=== PATIENT | female | born 1955 | race Caucasian/White ===

== ENCOUNTER → 2022-05-03 08:50 | Outpatient (CLI) | payer MEDICARE, OTHER, SELFPAY ==
--- NOTE | 2022-05-03 08:54 | DI.RAD.S_ITS ---
PROCEDURE: XR KNEE RT 3V INDICATIONS: Right knee pain TECHNIQUE: 3 views of the knee were acquired. COMPARISON: None. FINDINGS: Bones: No fractures or dislocations. Moderate to severe tricompartmental osteoarthritis is seen with joint space narrowing , subchondral sclerosis and prominent marginal osteophyte formation most notably in medial femoral tibial compartment. No patellar subluxation. No suspicious bony lesions. Soft tissues: No joint effusion. No suspicious soft tissue calcifications. IMPRESSION: Moderate to severe tricompartmental osteoarthritis most notably in medial femoral tibial compartment. No fracture or dislocation. No significant joint effusion. Dictated by: Zain Morales M.D. on 05/03/2022 at 9:32 Approved by: Zain Morales M.D. on 05/03/2022 at 9:50
[2022-05-03 11:09] LABS: Microalbumin Urine Random 5.9 mg/dL (0-1.6)
[2022-05-03 11:24] LABS: Creatinine Urine Random 448.7 mg/dL; Microalbumi Creatinin Ratio Ur 13.1 ug/mg CR (<30)
[2022-05-03 11:31] LABS: Add Manual Diff / Slide Review NO; Basophils Absolute Auto 0 /uL (0-100); Basophils Percent Auto 0.5 % (0-2); Eosinophils Absolute Auto 200 /uL (0-450); Eosinophils Percent Auto 1.9 % (2-4); Hemoglobin 16.6 g/dL (12.0-16.0); Lymphocytes Absolute Auto 2300 /uL (1100-4500); Lymphocytes Percent Auto 28.5 % (25-40); Mean Corpuscular HGB Conc 33.9 % (30-36); Mean Corpuscular Hemoglobin 30.8 PG (26-34); Mean Corpuscular Volume 90.8 fL (80-100); Monocytes Absolute Auto 600 /uL (0-900); Monocytes Percent Auto 7.5 % (3-14); Neutrophils Absolute Auto 5100 /uL (1500-7000); Neutrophils Percent Auto 61.6 % (50-75); Platelet Count 249 X10^3/uL (150-400); Red Blood Cell Count 5.39 X10^6/uL (4.0-5.2); Red Cell Distribution Width 13.9 % (11.6-14.8); White Blood Cell Count 8.2 X10^3/uL (4.5-11.0)
[2022-05-03 11:53] LABS: Alanine Aminotransferase 31 IU/L (<35); Albumin 4.6 g/dL (3.5-5.0); Albumin Globulin Ratio 1.4 (1.0-2.8); Alkaline Phosphatase 85 U/L (38-126); Aspartate Aminotransferase 29 IU/L (14-36); BUN Creatinine Ratio 14.7 (6-22); Bilirubin Total 0.6 mg/dL (0.2-1.3); Blood Urea Nitrogen 15 mg/dL (7-17); Calcium 9.3 mg/dL (8.4-10.2); Carbon Dioxide 23 mmol/L (22-32); Chloride 106 mmol/L (98-107); Cholesterol 219 mg/dL (140-199); Estimated Glomerular Filt Rate > 60 mL/min (>60); Globulin 3.4 g/dL (1.7-4.1); Glucose 115 mg/dL (80-110); HDL Cholesterol 62 mg/dL (40-60); HEMOLYSIS < 15 (0-50); LDL Cholesterol Calculated 131 mg/dL (<100); Potassium 4.1 mmol/L (3.4-5.1); Sodium 140 mmol/L (137-145); Triglycerides 129 mg/dL (35-150)
== END ==
PROVIDERS: PCP Family Medicine; Referring Provider Family Medicine; Visit Provider Family Medicine
DX: M17.11 Unilateral primary osteoarthritis, right knee (principal); M25.561 Pain in right knee; E78.5 Hyperlipidemia, unspecified; D64.9 Anemia, unspecified; R79.89 Other specified abnormal findings of blood chemistry
CPT/HCPCS: 36415; 73562; 80053; 80061; 82043; 82570; 85025

== ENCOUNTER 2022-07-09 09:44 | Emergency (ER) | payer MEDICARE, OTHER, SELFPAY ==
[2022-07-09] VITALS (22 sets, daily range): BP systolic 128–174; BP diastolic 72–113; PULSE 77–101; RESP 16–20; TEMP 36.2; O2SAT 92–100; BMI 39.6
[2022-07-09 10:26] LABS: Add Manual Diff / Slide Review NO; Basophils Absolute Auto 0 /uL (0-100); Basophils Percent Auto 0.4 % (0-2); Eosinophils Absolute Auto 100 /uL (0-450); Eosinophils Percent Auto 1.8 % (2-4); Hematocrit 49.6 % (36-46); Hemoglobin 16.7 g/dL (12.0-16.0); Lymphocytes Absolute Auto 1700 /uL (1100-4500); Lymphocytes Percent Auto 22.8 % (25-40); Mean Corpuscular HGB Conc 33.7 % (30-36); Mean Corpuscular Hemoglobin 30.6 PG (26-34); Mean Corpuscular Volume 90.8 fL (80-100); Monocytes Absolute Auto 600 /uL (0-900); Monocytes Percent Auto 8.1 % (3-14); Neutrophils Absolute Auto 5100 /uL (1500-7000); Neutrophils Percent Auto 66.9 % (50-75); Platelet Count 280 X10^3/uL (150-400); Red Blood Cell Count 5.46 X10^6/uL (4.0-5.2); Red Cell Distribution Width 13.7 % (11.6-14.8); White Blood Cell Count 7.6 X10^3/uL (4.5-11.0)
--- NOTE | 2022-07-09 10:38 | ED_ITS ---
HPI - Abdominal Pain <Sterling Pena DO - Last Filed: 07/10/22 11:02> General Chief Complaint: Abdominal Pain Stated Complaint: abd pain lt side, sent by provider Time Seen by Provider: 07/09/22 09:50 History of Present Illness HPI narrative: 66-year-old female former smoker with history of episodes of hypertension presents with her in the chief complaint ongoing and worsening left lower quadrant pain. She states it has been present since about June 21 and she is been seen previously for the same complaint. She states she is had increasing left lower quadrant pain that is worse with motion and improves with rest. She denies any radiation of this pain. She is had decreasing appetite and states that she is unable to eat or drink anything because she vomits. She is had no diarrhea and has no urinary complaints. She denies any vaginal bleeding or discharge. She does not any trauma or injury. Her only abdominal surgeries are C-sections. She is had no fever or chills. She denies any injury. She denies back pain. She was seen and evaluated at an emergency department back in [place] where she comes from and had an extensive workup including labs and CT scan without any significant findings, she was discharged with a diagnosis of gastroenteritis. Related Data Previous Rx's Medication Instructions Recorded hydrocodone 5 mg-acetaminophen 325 1 tab PO Q6H PRN pain #12 tabs 07/09/22 mg tablet ondansetron 4 mg disintegrating 4 mg PO Q8H PRN nausea and 07/09/22 tablet vomiting #10 tabs Allergies Allergy/AdvReac Type Severity Reaction Status Date / Time acetaminophen [From Percocet] Allergy Mild Verified 07/09/22 09:01 ibuprofen Allergy Mild Rash Verified 07/09/22 09:01 oxycodone [From Percocet] Allergy Mild Verified 07/09/22 09:01 codeine Allergy Verified 07/09/22 08:55 Sulfa (Sulfonamide Allergy Verified 07/09/22 08:55 Antibiotics) Review of Systems <Sterling Pena DO - Last Filed: 07/10/22 11:02> Review of Systems Narrative: GENERAL: See HPI HEENT: Denies sinus pain, ear pain, sore throat, difficulty swallowing, dizziness. RESPIRATORY: Denies dyspnea, cough, wheezing, hemoptysis, sputum. CARDIOVASCULAR: Denies chest pain, palpitations, orthopnea, edema, GASTROINTESTINAL: See HPI. : Denies dysuria, frequency, incontinence, hematuria, urinary retention. MUSCULOSKELETAL: denies weakness, joint pain, or bony pain SKIN: Denies rash, skin lesions, or other NEUROLOGIC: Denies weakness, headache, numbness, change in speech, confusion, seizures, incoordination. PSYCHIATRIC: No concerning psychosocial issues. 12 point review of systems is negative except for those stated above Patient History <Sterling Pena DO - Last Filed: 07/10/22 11:02> Medical History Chicken pox Mumps Wears glasses Surgical History Anesthesia History of arthroscopic knee surgery (~1998) History of bladder surgery (~2011) History of section Family History Father Hypertension Mother Thyroid disease Sister History of heart disease Social History Smoking Status: Former smoker Smoking Status: Former smoker Exam <Sterling Pena DO - Last Filed: 07/10/22 11:02> Narrative Exam Narrative: GENERAL: [66] year old patient appears stated age. Well-developed patient, in mild distress. HEAD: Atraumatic. Normocephalic. EYES: Pupils equal round and reactive. Extraocular motions intact. No scleral icterus. No injection or drainage. ENT: Nose without bleeding, purulent drainage. Throat without erythema, tonsillar hypertrophy or exudate. Airway patent. NECK: Trachea midline. Non tender CARDIOVASCULAR: Regular rate and rhythm without murmurs, gallops, or rubs. RESPIRATORY: Clear to auscultation. Breath sounds equal bilaterally. No wheezes, rales, or rhonchi. GASTROINTESTINAL: Abdomen soft, tenderness in left lower quadrant, nondistended. EXTREMITIES: No edema or joint tenderness. BACK: Nontender without deformity or crepitance. No flank tenderness. NEURO: AOx3. SKIN: No rash or erythema of visible areas Initial Vital Signs Initial Vital Signs: Vital Signs Pulse Oximetry 98 07/09/22 09:59 <Roberto Ball MD - Last Filed: 07/10/22 06:51> Initial Vital Signs Initial Vital Signs: Vital Signs Pulse Oximetry 98 07/09/22 09:59 Course <Sterling Pena DO - Last Filed: 07/10/22 11:02> Orders Ordered: Discontinued Medications Hydrocodone Bitart/Acetaminophen (Hydrocodone/Acet 5/325 Prepack) 1 bottle MISC SEEINSTR ONE Stop: 07/09/22 20:22 Last Admin: 07/09/22 20:46 Dose: 1 bottle Documented By: GARETH Hydrocodone Bitart/Acetaminophen (Hydrocodone/Acet 5/325 Prepack) 1 bottle MISC SEEINSTR ONE Stop: 07/09/22 20:42 Dexamethasone (Dexamethasone 10 Mg/Ml Vial) 10 mg IV NOW ONE Stop: 07/09/22 16:07 Last Admin: 07/09/22 16:18 Dose: 10 mg Documented By: VAUGHN Diazepam (Diazepam 10 Mg/2 Ml Syringe) 2 mg IV NOW ONE Stop: 07/09/22 16:07 Last Admin: 07/09/22 16:18 Dose: 2 mg Documented By: VAUGHN Hydromorphone HCl (Hydromorphone 0.5 Mg Inj) 0.5 mg IV NOW ONE Stop: 07/09/22 12:15 Last Admin: 07/09/22 12:26 Dose: 0.5 mg Documented By: PROSPER Hydromorphone HCl (Hydromorphone 0.5 Mg Inj) 0.5 mg IV NOW ONE Stop: 07/09/22 18:51 Last Admin: 07/09/22 19:30 Dose: 0.5 mg Documented By: GARETH Sodium Chloride (Normal Saline 0.9%) 1,000 mls @ 1,000 mls/hr IV BOLUS ONE Stop: 07/09/22 13:13 Last Infusion: 07/09/22 13:33 Dose: 0 mls/hr Documented By: Admin: 07/09/22 12:26 Dose: 1,000 mls/hr Documented By: PROSPER Sodium Chloride (Normal Saline 0.9%) 1,000 mls @ 1,000 mls/hr IV BOLUS ONE Stop: 07/09/22 14:58 Last Admin: 07/09/22 19:11 Dose: Not Given Documented By: PROSPER Ondansetron HCl (Ondansetron 4 Mg/2 Ml Inj) 4 mg IV NOW ONE Stop: 07/09/22 12:15 Last Admin: 07/09/22 12:26 Dose: 4 mg Documented By: MLM Ondansetron HCl (Ondansetron 4 Mg Odt Prepack) 1 bottle MISC SEEINSTR ONE Stop: 07/09/22 20:22 Last Admin: 07/09/22 20:47 Dose: 1 bottle Documented By: GC Ondansetron HCl (Ondansetron 4 Mg Odt Prepack) 1 bottle MISC SEEINSTR ONE Stop: 07/09/22 20:42 Pantoprazole Sodium (Pantoprazole 40 Mg Vial) 40 mg IV NOW ONE Stop: 07/09/22 12:15 Last Admin: 07/09/22 12:26 Dose: 40 mg Documented By: MLM Potassium Chloride (Potassium Chloride 20 Meq/15 Ml Udc) 40 meq PO NOW ONE Stop: 07/09/22 18:51 Last Admin: 07/09/22 19:30 Dose: 40 meq Documented By: GC Vital Signs Vital signs: Vital Signs - 8 hr 07/09/22 13:00 07/09/22 13:30 07/09/22 14:00 Pulse Rate 87 88 84 Blood Pressure Pulse Oximetry 96 96 97 07/09/22 14:03 07/09/22 14:03 07/09/22 14:30 Pulse Rate 88 90 Blood Pressure 161/85 H Pulse Oximetry 97 97 07/09/22 14:31 07/09/22 14:31 07/09/22 15:02 Pulse Rate 90 101 H Blood Pressure 151/72 H Pulse Oximetry 98 97 07/09/22 15:30 07/09/22 16:08 07/09/22 16:10 Pulse Rate 97 H 77 Blood Pressure 151/84 H Pulse Oximetry 93 98 07/09/22 16:10 07/09/22 16:50 07/09/22 17:00 Pulse Rate 86 88 Blood Pressure Pulse Oximetry 95 93 94 07/09/22 17:30 Pulse Rate 90 Blood Pressure Pulse Oximetry 94 <Roberto Ball MD - Last Filed: 07/10/22 06:51> Course Course Narrative: 7:[address] Pena, patient here for flank pain and leg pain. MRI and CT scan otherwise reassuring as well as laboratory studies does show acute renal injury. Repeat laboratory studies are pending. Likely disposition home. No antibiotics indicated at this time. Will need home pain medication and nausea medication. Repeat laboratory studies are pending. Orders Ordered: Discontinued Medications Hydrocodone Bitart/Acetaminophen (Hydrocodone/Acet 5/325 Prepack) 1 bottle MISC SEEINSTR ONE Stop: 07/09/22 20:22 Last Admin: 07/09/22 20:46 Dose: 1 bottle Documented By: GARETH Hydrocodone Bitart/Acetaminophen (Hydrocodone/Acet 5/325 Prepack) 1 bottle MISC SEEINSTR ONE Stop: 07/09/22 20:42 Dexamethasone (Dexamethasone 10 Mg/Ml Vial) 10 mg IV NOW ONE Stop: 07/09/22 16:07 Last Admin: 07/09/22 16:18 Dose: 10 mg Documented By: VAUGHN Diazepam (Diazepam 10 Mg/2 Ml Syringe) 2 mg IV NOW ONE Stop: 07/09/22 16:07 Last Admin: 07/09/22 16:18 Dose: 2 mg Documented By: VAUGHN Hydromorphone HCl (Hydromorphone 0.5 Mg Inj) 0.5 mg IV NOW ONE Stop: 07/09/22 12:15 Last Admin: 07/09/22 12:26 Dose: 0.5 mg Documented By: PROSPER Hydromorphone HCl (Hydromorphone 0.5 Mg Inj) 0.5 mg IV NOW ONE Stop: 07/09/22 18:51 Last Admin: 07/09/22 19:30 Dose: 0.5 mg Documented By: GARETH Sodium Chloride (Normal Saline 0.9%) 1,000 mls @ 1,000 mls/hr IV BOLUS ONE Stop: 07/09/22 13:13 Last Infusion: 07/09/22 13:33 Dose: 0 mls/hr Documented By: Admin: 07/09/22 12:26 Dose: 1,000 mls/hr Documented By: PROSPER Sodium Chloride (Normal Saline 0.9%) 1,000 mls @ 1,000 mls/hr IV BOLUS ONE Stop: 07/09/22 14:58 Last Admin: 07/09/22 19:11 Dose: Not Given Documented By: PROSPER Ondansetron HCl (Ondansetron 4 Mg/2 Ml Inj) 4 mg IV NOW ONE Stop: 07/09/22 12:15 Last Admin: 07/09/22 12:26 Dose: 4 mg Documented By: MLM Ondansetron HCl (Ondansetron 4 Mg Odt Prepack) 1 bottle MISC SEEINSTR ONE Stop: 07/09/22 20:22 Last Admin: 07/09/22 20:47 Dose: 1 bottle Documented By: GC Ondansetron HCl (Ondansetron 4 Mg Odt Prepack) 1 bottle MISC SEEINSTR ONE Stop: 07/09/22 20:42 Pantoprazole Sodium (Pantoprazole 40 Mg Vial) 40 mg IV NOW ONE Stop: 07/09/22 12:15 Last Admin: 07/09/22 12:26 Dose: 40 mg Documented By: MLM Potassium Chloride (Potassium Chloride 20 Meq/15 Ml Udc) 40 meq PO NOW ONE Stop: 07/09/22 18:51 Last Admin: 07/09/22 19:30 Dose: 40 meq Documented By: GC Vital Signs Vital signs: Vital Signs - 8 hr 07/09/22 13:00 07/09/22 13:30 07/09/22 14:00 Pulse Rate 87 88 84 Blood Pressure Pulse Oximetry 96 96 97 07/09/22 14:03 07/09/22 14:03 07/09/22 14:30 Pulse Rate 88 90 Blood Pressure 161/85 H Pulse Oximetry 97 97 07/09/22 14:31 07/09/22 14:31 07/09/22 15:02 Pulse Rate 90 101 H Blood Pressure 151/72 H Pulse Oximetry 98 97 07/09/22 15:30 07/09/22 16:08 07/09/22 16:10 Pulse Rate 97 H 77 Blood Pressure 151/84 H Pulse Oximetry 93 98 07/09/22 16:10 07/09/22 16:50 07/09/22 17:00 Pulse Rate 86 88 Blood Pressure Pulse Oximetry 95 93 94 07/09/22 17:30 Pulse Rate 90 Blood Pressure Pulse Oximetry 94 MDM - Abdominal Pain <Sterling Pena DO - Last Filed: 07/10/22 11:02> Lab Data Result diagrams: 07/09/22 10:06 07/09/22 19:10 Labs: Lab Results 07/09/22 07/09/22 07/09/22 Range/Units 10:06 10:06 10:06 WBC 7.6 (4.5-11.0) X10^3/uL RBC 5.46 H (4.0-5.2) X10^6/uL Hgb 16.7 H (12.0-16.0) g/dL Hct 49.6 H (36-46) % MCV 90.8 (80-100) fL MCH 30.6 (26-34) PG MCHC 33.7 (30-36) % RDW 13.7 (11.6-14.8) % Plt Count 280 (150-400) X10^3/uL Neut % (Auto) 66.9 (50-75) % Lymph % (Auto) 22.8 L (25-40) % [place] % (Auto) 8.1 (3-14) % Eos % (Auto) 1.8 L (2-4) % Baso % (Auto) 0.4 (0-2) % Neut # (Auto) 5100 (6893-1327) /uL Lymph # (Auto) 1700 (1152-1618) /uL [place] # (Auto) 600 (0-900) /uL Eos # (Auto) 100 (0-450) /uL Baso # (Auto) 0 (0-100) /uL Sodium 141 (137-145) mmol/L Potassium 3.0 L (3.4-5.1) mmol/L Chloride 101 (98-107) mmol/L Carbon Dioxide 28 (22-32) mmol/L BUN 23 H (7-17) mg/dL Creatinine 1.57 H (0.52-1.04) mg/dL Estimated GFR 36 L (>60) mL/min BUN/Creatinine Ratio 14.6 (6-22) Glucose 124 H (80-110) mg/dL Lactate 1.4 (0.7-2.1) mmol/L Calcium 9.5 (8.4-10.2) mg/dL Total Bilirubin 0.8 (0.2-1.3) mg/dL AST 23 (14-36) IU/L ALT 19 (<35) IU/L Alkaline Phosphatase 70 (38-126) U/L Ammonia (9-30) umol/L Total Protein 8.3 H (6.3-8.2) g/dL Lipase 165 (23-300) U/L Urine RBC (0-5/HPF) Urine WBC (0-5/HPF) Ur Squamous Epith Cells (0-5/HPF) Urine Bacteria (None) Ur Culture Indicated? 07/09/22 07/09/22 07/09/22 Range/Units 12:56 14:48 19:10 WBC (4.5-11.0) X10^3/uL RBC (4.0-5.2) X10^6/uL Hgb (12.0-16.0) g/dL Hct (36-46) % MCV (80-100) fL MCH (26-34) PG MCHC (30-36) % RDW (11.6-14.8) % Plt Count (150-400) X10^3/uL Neut % (Auto) (50-75) % Lymph % (Auto) (25-40) % [place] % (Auto) (3-14) % Eos % (Auto) (2-4) % Baso % (Auto) (0-2) % Neut # (Auto) (5471-9366) /uL Lymph # (Auto) (1558-3349) /uL [place] # (Auto) (0-900) /uL Eos # (Auto) (0-450) /uL Baso # (Auto) (0-100) /uL Sodium 143 (137-145) mmol/L Potassium 3.1 L (3.4-5.1) mmol/L Chloride 106 (98-107) mmol/L Carbon Dioxide 27 (22-32) mmol/L BUN 18 H (7-17) mg/dL Creatinine 1.09 H (0.52-1.04) mg/dL Estimated GFR 56 L (>60) mL/min BUN/Creatinine Ratio 16.5 (6-22) Glucose 122 H (80-110) mg/dL Lactate (0.7-2.1) mmol/L Calcium 9.3 (8.4-10.2) mg/dL Total Bilirubin (0.2-1.3) mg/dL AST (14-36) IU/L ALT (<35) IU/L Alkaline Phosphatase (38-126) U/L Ammonia < 9 L (9-30) umol/L Total Protein (6.3-8.2) g/dL Lipase (23-300) U/L Urine RBC 0-1/hpf (0-5/HPF) Urine WBC 0-1/hpf (0-5/HPF) Ur Squamous Epith Cells 0-1 /hpf (0-5/HPF) Urine Bacteria Occasional (0-1) (None) Ur Culture Indicated? Cult not indicated Point of care testing: Urine Dip Bedside Urine Glucose Negative Bedside Urine Bilirubin - Negative Bedside Urine Ketone - Negative Urine Specific Rodman 1.015 Bedside Urine Occult Blood ++ Bedside Urine pH 6.0 Bedside Urine Protein - Negative Bedside Urine Urobilinogen - Negative Bedside Urine Nitrite - Negative Bedside Urine Leukocytes - Negative Esterase <Roberto Ball MD - Last Filed: 07/10/22 06:51> Lab Data Labs: Lab Results 07/09/22 07/09/22 07/09/22 Range/Units 10:06 10:06 10:06 WBC 7.6 (4.5-11.0) X10^3/uL RBC 5.46 H (4.0-5.2) X10^6/uL Hgb 16.7 H (12.0-16.0) g/dL Hct 49.6 H (36-46) % MCV 90.8 (80-100) fL MCH 30.6 (26-34) PG MCHC 33.7 (30-36) % RDW 13.7 (11.6-14.8) % Plt Count 280 (150-400) X10^3/uL Neut % (Auto) 66.9 (50-75) % Lymph % (Auto) 22.8 L (25-40) % [place] % (Auto) 8.1 (3-14) % Eos % (Auto) 1.8 L (2-4) % Baso % (Auto) 0.4 (0-2) % Neut # (Auto) 5100 (2568-7637) /uL Lymph # (Auto) 1700 (7447-1582) /uL [place] # (Auto) 600 (0-900) /uL Eos # (Auto) 100 (0-450) /uL Baso # (Auto) 0 (0-100) /uL Sodium 141 (137-145) mmol/L Potassium 3.0 L (3.4-5.1) mmol/L Chloride 101 (98-107) mmol/L Carbon Dioxide 28 (22-32) mmol/L BUN 23 H (7-17) mg/dL Creatinine 1.57 H (0.52-1.04) mg/dL Estimated GFR 36 L (>60) mL/min BUN/Creatinine Ratio 14.6 (6-22) Glucose 124 H (80-110) mg/dL Lactate 1.4 (0.7-2.1) mmol/L Calcium 9.5 (8.4-10.2) mg/dL Total Bilirubin 0.8 (0.2-1.3) mg/dL AST 23 (14-36) IU/L ALT 19 (<35) IU/L Alkaline Phosphatase 70 (38-126) U/L Ammonia (9-30) umol/L Total Protein 8.3 H (6.3-8.2) g/dL Lipase 165 (23-300) U/L Urine RBC (0-5/HPF) Urine WBC (0-5/HPF) Ur Squamous Epith Cells (0-5/HPF) Urine Bacteria (None) Ur Culture Indicated? 07/09/22 07/09/22 07/09/22 Range/Units 12:56 14:48 19:10 WBC (4.5-11.0) X10^3/uL RBC (4.0-5.2) X10^6/uL Hgb (12.0-16.0) g/dL Hct (36-46) % MCV (80-100) fL MCH (26-34) PG MCHC (30-36) % RDW (11.6-14.8) % Plt Count (150-400) X10^3/uL Neut % (Auto) (50-75) % Lymph % (Auto) (25-40) % [place] % (Auto) (3-14) % Eos % (Auto) (2-4) % Baso % (Auto) (0-2) % Neut # (Auto) (6547-8322) /uL Lymph # (Auto) (8125-8615) /uL [place] # (Auto) (0-900) /uL Eos # (Auto) (0-450) /uL Baso # (Auto) (0-100) /uL Sodium 143 (137-145) mmol/L Potassium 3.1 L (3.4-5.1) mmol/L Chloride 106 (98-107) mmol/L Carbon Dioxide 27 (22-32) mmol/L BUN 18 H (7-17) mg/dL Creatinine 1.09 H (0.52-1.04) mg/dL Estimated GFR 56 L (>60) mL/min BUN/Creatinine Ratio 16.5 (6-22) Glucose 122 H (80-110) mg/dL Lactate (0.7-2.1) mmol/L Calcium 9.3 (8.4-10.2) mg/dL Total Bilirubin (0.2-1.3) mg/dL AST (14-36) IU/L ALT (<35) IU/L Alkaline Phosphatase (38-126) U/L Ammonia < 9 L (9-30) umol/L Total Protein (6.3-8.2) g/dL Lipase (23-300) U/L Urine RBC 0-1/hpf (0-5/HPF) Urine WBC 0-1/hpf (0-5/HPF) Ur Squamous Epith Cells 0-1 /hpf (0-5/HPF) Urine Bacteria Occasional (0-1) (None) Ur Culture Indicated? Cult not indicated Point of care testing: Urine Dip Bedside Urine Glucose Negative Bedside Urine Bilirubin - Negative Bedside Urine Ketone - Negative Urine Specific Rodman 1.015 Bedside Urine Occult Blood ++ Bedside Urine pH 6.0 Bedside Urine Protein - Negative Bedside Urine Urobilinogen - Negative Bedside Urine Nitrite - Negative Bedside Urine Leukocytes - Negative Esterase Imaging Data MRI lumbar spine: Radiologist's Impression: [address] [address] Magnetic Resonance Report Signed Patient: Stephanie Hutson MR#: [id number] : 1955 Acct:[id number] Age/Sex: 66 / F Date of Service: 07/09/22 Loc: ED Accession Number: [id number] ?? Procedure: MR lumbar spine wo con Ordering Provider: Sterling Pena D.O. PROCEDURE:? MR LUMBAR SPINE WO CON ? INDICATIONS:? septic ? TECHNIQUE:? Noncontrast sagittal T1 spin echo and T2 fast echo, sagittal STIR, and T2 fast spin echo through the lumbar spine.? In cases with scoliosis, additional coronal T2 fast spin echo may be performed.? ? COMPARISON:? None. ? FINDINGS:? Image quality:? Excellent.? ? Alignment and Curvature:? There is leftward scoliotic curvature with apex at L2. ? Bone Marrow:? Marrow is of normal overall signal.? Reactive endplate changes appearing chronic are present at L1-2.? No acute vertebral body compression fractures.? ? Spinal Cord:? Conus medullaris terminates at the L1-2 level.? Visualized cord demonstrates normal signal and size.? ? Paraspinous Soft Tissues:? No paravertebral masses.? ? Discs: [id number] disc desiccation is present throughout the lumbar spine noting moderate to severe at L1-2. ? ? L1-L2:? Mild disc bulge without spinal stenosis or foraminal narrowing.? Mild facet and ligamentum flavum hypertrophy. ? L2-L3:? Minimal disc bulge without spinal stenosis or foraminal narrowing.? Facet and ligamentum flavum hypertrophy are present. ? L3-L4:? Mild disc bulge without spinal stenosis.? Facet and ligamentum flavum hypertrophy are present. ? L4-L5:? Prominent motion is present at this level.? Minimal disc bulge with minimal spinal stenosis.? No foraminal narrowing.? Facet and ligamentum flavum hypertrophy are present. ? L5-S1:? Prominent motion is present at this region.? Mild disc bulge without spinal stenosis.? There is an ill-defined focus overlying the right foramina. ? ? IMPRESSION:? ? Multilevel mild overall degenerative change. ? Focal area of ill-defined density overlying the right foramina.? This is suspected to be artifacts secondary to motion.? However, mass in this region cannot be definitively excluded.? If patient is able to tolerate exam, repeat views through this region are recommended. ? Dictated by: Felicia Cramer M.D. on 07/09/2022 at 17:15 ? ? Approved by: Felicia Cramer M.D. on 07/09/2022 at 17:18 ? CT scan - abdomen/pelvis: Radiologist's Impression: [address] [address] [address] Scan Report Signed Patient: Stephanie Hutson MR#: [id number] : 1955 Acct:[id number] Age/Sex: 66 / F Date of Service: 07/09/22 Loc: ED Accession Number: [id number] ?? Procedure: CT abdomen pelvis w con Ordering Provider: Sterling Pena D.O. PROCEDURE:? CT ABDOMEN PELVIS W CON ? INDICATIONS:? abdominal pain, cannot eat or drink ? TECHNIQUE:? After the administration of IV contrast, axial sections were acquired from the lung bases to the pubic symphysis.? Coronal and sagittal reformats were performed.? For radiation dose reduction, the following was used:? automated exposure control, adjustment of mA and/or kV according to patient size. ? COMPARISON:? None. ? FINDINGS:? Image quality:? Excellent.? ? Lung bases:? Unremarkable.? ? Heart:? No significant findings. ? ? ABDOMEN: Liver:? Liver is enlarged with steatosis. Gallbladder:? Unremarkable.? ? Biliary ducts:? Unremarkable.? ? Pancreas:? Unremarkable.? ? Spleen:? Unremarkable.? ? Adrenal Glands:? Unremarkable.? ? Kidneys and Ureters:? Unremarkable.? ? ? Stomach and Bowel:? Stomach, small bowel loops, and colon are nonobstructive.? There is a focal loop of descending colon demonstrate marked thickening with very minimal pericolonic stranding. Peritoneum:? No abnormal intraperitoneal fluid.? No free air.? ? Ventral Wall: ? No hernia.? Lipoma is noted within the lower left rectus musculature. Abdominal Nodes:? No retroperitoneal or mesenteric adenopathy by size criteria.? Vessels:? Aorta and inferior vena cava are normal in size.? ? PELVIS: Pelvic Organs:? Unremarkable.? ? Bladder:? Unremarkable.? ? Pelvic Nodes: No enlarged lymph nodes.? Miscellaneous: No inguinal hernias are seen. ? ? ? Bones:? Unremarkable.? IMPRESSION:? ? Nonspecific thickening within a focal loop of descending colon which could be secondary to incomplete distention.? However, very minimal appearance of streaky pericolonic stranding is present which can be related to very early colitis and clinical correlation is recommended. ? ? Dictated by: Felicia Cramer M.D. on 07/09/2022 at 12:25 ? ? Approved by: Felicia Cramer M.D. on 07/09/2022 at 12:27 ? Treatment and Disposition Social Determinants of Health that impact treatment or disposition: None Code Status and discussions:: Full code Shared decision making:: MDM Narrative Medical decision making narrative: 66-year-old female former smoker with history of episodes of hypertension presents with her in the chief complaint ongoing and worsening left l ower quadrant pain. She states it has been present since about June 21 and she is been seen previously for the same complaint. She states she is had increasing left lower quadrant pain that is worse with motion and improves with rest. She denies any radiation of this pain. She is had decreasing appetite and states that she is unable to eat or drink anything because she vomits. She is had no diarrhea and has no urinary complaints. She denies any vaginal bleeding or discharge. She does not any trauma or injury. Her only abdominal surgeries are C-sections. She is had no fever or chills. She denies any injury. She denies back pain. She was seen and evaluated at an emergency dep [facility] in [place] where she comes from and had an extensive workup including labs and CT scan without any significant findings, she was discharged with a diagnosis of gastroenteritis. 8:32 p.m.. I have reviewed patient's laboratory studies and repeat CMP. Significant improvement with BUN creatinine. Pain is resolved after medications. I have reassessed patient. Reviewed results with patient and . They do desire discharge home. They have family doctor in [facility] to follow up with this week. Return precautions reviewed with patient and . [facility] CC: ?Flank pain/leg pain ? Data collected from: Patient and ? Medical records reviewed: ?Primary care office visit from today and sent here ? Differential considered: ?Kidney stone/gastritis/colitis/degenerative disc disease but not limited to these ? Exam documented above, pertinent findings include: Abdominal tenderness ? Lab Test results independently reviewed as above. Pertinent findings: Acute renal injury elevated BUN and creatinine. However did improve after IV fluids ? ? Imaging studies independently reviewed: MRI and CT scan abdomen pelvis ? ? Treatments: IV fluids and Dilaudid ? Re-evaluations: Pain resolved after pain medication and IV fluids ? ? Diagnosis: Abdominal pain/sciatica ? Disposition: see below, along with detailed discharge instructions that have been reviewed with patient as well as indications for ED re-evaluation and additional outpatient follow up Discharge Plan Departure Patient Disposition: Home Clinical Impression: Acute left lumbar radiculopathy, Acute hypokalemia, Acute dehydration, Left lower quadrant abdominal pain Instructions: DI for Sciatica, DI for Abdominal Pain-Adult Activity Restrictions/Additional Instructions: See family doctor this week for re-evaluation. No driving or operating machinery tonight or when taking prescribed pain medication. Return if worse if any questions or concerns. Keep well hydrated. Increase your diet as tolerated. See family doctor for re-evaluation your blood pressure as well. Prescriptions: New hydrocodone-acetaminophen 5-325 mg tablet 1 tab PO Q6H PRN (Reason: pain) Qty: 12 0RF ondansetron 4 mg tablet,disintegrating 4 mg PO Q8H PRN (Reason: nausea and vomiting) Qty: 10 0RF Referrals: Maritza Daigle DO [Primary Care Provider] - Stand Alone Forms: Patient Portal/API
[2022-07-09 10:42] LABS: Alanine Aminotransferase 19 IU/L (<35); Alkaline Phosphatase 70 U/L (38-126); Aspartate Aminotransferase 23 IU/L (14-36); BUN Creatinine Ratio 14.6 (6-22); Bilirubin Total 0.8 mg/dL (0.2-1.3); Blood Urea Nitrogen 23 mg/dL (7-17); Calcium 9.5 mg/dL (8.4-10.2); Carbon Dioxide 28 mmol/L (22-32); Chloride 101 mmol/L (98-107); Estimated Glomerular Filt Rate 36 mL/min (>60); Glucose 124 mg/dL (80-110); Lactate (Lactic Acid) 1.4 mmol/L (0.7-2.1); Lipase 165 U/L (23-300); Sodium 141 mmol/L (137-145); Total Protein 8.3 g/dL (6.3-8.2)
--- NOTE | 2022-07-09 11:26 | DI.CT.S_ITS ---
PROCEDURE: CT ABDOMEN PELVIS W CON INDICATIONS: abdominal pain, cannot eat or drink TECHNIQUE: After the administration of IV contrast, axial sections were acquired from the lung bases to the pubic symphysis. Coronal and sagittal reformats were performed. For radiation dose reduction, the following was used: automated exposure control, adjustment of mA and/or kV according to patient size. COMPARISON: None. FINDINGS: Image quality: Excellent. Lung bases: Unremarkable. Heart: No significant findings. ABDOMEN: Liver: Liver is enlarged with steatosis. Gallbladder: Unremarkable. Biliary ducts: Unremarkable. Pancreas: Unremarkable. Spleen: Unremarkable. Adrenal Glands: Unremarkable. Kidneys and Ureters: Unremarkable. Stomach and Bowel: Stomach, small bowel loops, and colon are nonobstructive. There is a focal loop of descending colon demonstrate marked thickening with very minimal pericolonic stranding. Peritoneum: No abnormal intraperitoneal fluid. No free air. Ventral Wall: No hernia. Lipoma is noted within the lower left rectus musculature. Abdominal Nodes: No retroperitoneal or mesenteric adenopathy by size criteria. Vessels: Aorta and inferior vena cava are normal in size. PELVIS: Pelvic Organs: Unremarkable. Bladder: Unremarkable. Pelvic Nodes: No enlarged lymph nodes. Miscellaneous: No inguinal hernias are seen. Bones: Unremarkable. IMPRESSION: Nonspecific thickening within a focal loop of descending colon which could be secondary to incomplete distention. However, very minimal appearance of streaky pericolonic stranding is present which can be related to very early colitis and clinical correlation is recommended. Dictated by: Felicia Cramer M.D. on 07/09/2022 at 12:25 Approved by: Felicia Cramer M.D. on 07/09/2022 at 12:27
[2022-07-09] MEDS: ONDANSETRON 4 MG/2 ML INJ IV (12:26)
[2022-07-09] MEDS: PANTOPRAZOLE 40 MG VIAL IV (12:26)
[2022-07-09] MEDS: SODIUM CHLORIDE 0.9% 1,000 ML 1000 ML IV (12:26)
[2022-07-09] MEDS: HYDROMORPHONE 0.5 MG INJ IV ×2 (12:26→19:30)
[2022-07-09 13:21] LABS: Ammonia (NH3) < 9 umol/L (9-30)
[2022-07-09 15:36] LABS: Bacteria Urine Occasional (0-1); RBC Urine 0-1/HPF (0-5/HPF); Squamous Epithelial Cell Urine 0-1 /HPF (0-5/HPF); WBC Urine 0-1/HPF (0-5/HPF)
[2022-07-09 15:37] LABS: Culture Indicated Urine Cult Not Indicated
--- NOTE | 2022-07-09 16:06 | DI.MRI.S_ITS ---
PROCEDURE: MR LUMBAR SPINE WO CON INDICATIONS: septic TECHNIQUE: Noncontrast sagittal T1 spin echo and T2 fast echo, sagittal STIR, and T2 fast spin echo through the lumbar spine. In cases with scoliosis, additional coronal T2 fast spin echo may be performed. COMPARISON: None. FINDINGS: Image quality: Excellent. Alignment and Curvature: There is leftward scoliotic curvature with apex at L2. Bone Marrow: Marrow is of normal overall signal. Reactive endplate changes appearing chronic are present at L1-2. No acute vertebral body compression fractures. Spinal Cord: Conus medullaris terminates at the L1-2 level. Visualized cord demonstrates normal signal and size. Paraspinous Soft Tissues: No paravertebral masses. Discs: [id number] disc desiccation is present throughout the lumbar spine noting moderate to severe at L1-2. L1-L2: Mild disc bulge without spinal stenosis or foraminal narrowing. Mild facet and ligamentum flavum hypertrophy. L2-L3: Minimal disc bulge without spinal stenosis or foraminal narrowing. Facet and ligamentum flavum hypertrophy are present. L3-L4: Mild disc bulge without spinal stenosis. Facet and ligamentum flavum hypertrophy are present. L4-L5: Prominent motion is present at this level. Minimal disc bulge with minimal spinal stenosis. No foraminal narrowing. Facet and ligamentum flavum hypertrophy are present. L5-S1: Prominent motion is present at this region. Mild disc bulge without spinal stenosis. There is an ill-defined focus overlying the right foramina. IMPRESSION: Multilevel mild overall degenerative change. Focal area of ill-defined density overlying the right foramina. This is suspected to be artifacts secondary to motion. However, mass in this region cannot be definitively excluded. If patient is able to tolerate exam, repeat views through this region are recommended. Dictated by: Felicia Cramer M.D. on 07/09/2022 at 17:15 Approved by: Felicia Cramer M.D. on 07/09/2022 at 17:18
[2022-07-09] MEDS: DEXAMETHASONE 10 MG/ML VIAL IV (16:18)
[2022-07-09] MEDS: diazePAM 10 MG/2 ML SYRINGE 2 MG IV (16:18)
[2022-07-09 19:29] LABS: BUN Creatinine Ratio 16.5 (6-22); Blood Urea Nitrogen 18 mg/dL (7-17); Calcium 9.3 mg/dL (8.4-10.2); Carbon Dioxide 27 mmol/L (22-32); Chloride 106 mmol/L (98-107); Estimated Glomerular Filt Rate 56 mL/min (>60); Glucose 122 mg/dL (80-110); HEMOLYSIS < 15 (0-50); Potassium 3.1 mmol/L (3.4-5.1); Sodium 143 mmol/L (137-145)
[2022-07-09] MEDS: POTASSIUM CHLORIDE 20 MEQ/15 ML UDC 40 MEQ PO (19:30)
[2022-07-09] MEDS: HYDROCODONE/ACET 5/325 PREPACK 1 BOTTLE MISC (20:46)
[2022-07-09] MEDS: ONDANSETRON 4 MG ODT PREPACK 1 BOTTLE MISC (20:47)
[2022-07-12 16:05] LABS: Albumin 4.5 g/dL (3.5-5.0); Albumin Globulin Ratio 1.2 (1.0-2.8); Globulin 3.8 g/dL (1.7-4.1); HEMOLYSIS 26 (0-50)
== END 2022-07-09 20:53 | disposition home or self-care (01) ==
PROVIDERS: Emergency Medicine; Emergency Provider Emergency Medicine; PCP Family Medicine
DX: M54.16 Radiculopathy, lumbar region (principal); E87.6 Hypokalemia; E86.0 Dehydration; R10.32 Left lower quadrant pain
CPT/HCPCS: 36415; 72148; 74177; 80048; 80053; 81003; 81015; 82140; 83605; 83690; 85025; 96361; 96374; 96375; 96376; 99284; 99285; C9113; J1100; J1170; J2405; J3360

== ENCOUNTER → 2022-07-18 11:27 | Outpatient (CLI) | payer MEDICARE, OTHER, SELFPAY ==
--- NOTE | 2022-07-18 11:29 | DI.RAD.S_ITS ---
PROCEDURE: XR LUMBAR SPINE MIN 4V INDICATIONS: Low back pain TECHNIQUE: 5 views of the lumbar spine acquired, including bilateral oblique views. COMPARISON: [facility], MR, MR LUMBAR SPINE WO CON, 07/09/2022, 16:19. FINDINGS: Bones: 5 nonrib-bearing vertebrae are present. There is mild S-shaped curvature of the lumbar spine. Multilevel disc space narrowing degenerative endplate changes are seen that are most prominent at the L1-2 disc space level. Multilevel facet hypertrophy. No vertebral body compression fractures. No suspicious bony lesions. Soft tissues: Overlying bowel gas pattern is normal. No suspicious soft tissue calcifications. Oblique: No pars defects. IMPRESSION: Multilevel spondylosis is most prominent at the L1-2 disc space level. Approved by: Nick Mills M.D. on 07/18/2022 at 15:15
== END ==
PROVIDERS: PCP Family Medicine; Referring Provider Anesthesiology; Visit Provider Anesthesiology
DX: M47.26 Other spondylosis with radiculopathy, lumbar region (principal); M54.50 Low back pain, unspecified; D17.1 Benign lipomatous neoplasm of skin and subcutaneous tissue of trunk; R27.0 Ataxia, unspecified; R10.32 Left lower quadrant pain; G89.29 Other chronic pain
CPT/HCPCS: 72110; 99214

== ENCOUNTER → 2022-07-31 15:43 | Outpatient (CLI) | payer MEDICARE, OTHER, SELFPAY ==
--- NOTE | 2022-07-31 15:44 | DI.US.S_ITS ---
PROCEDURE: US ABDOMEN LIMITED INDICATIONS: LEFT GROIN PAIN TECHNIQUE: Real-time focused scanning was performed of the abdomen, with image documentation. COMPARISON: [facility], CT, CT ABDOMEN PELVIS W CON, 07/09/2022, 11:36. [facility], MR, MR LUMBAR SPINE WO CON, 07/09/2022, 16:19. FINDINGS: Scanning is performed at the area of clinical concern involving the anterior abdominal wall of the left lower quadrant. No findings of hernia can be seen. No masses are seen. IMPRESSION: Negative for hernia at the site of clinical concern. Dictated by: Yash Jackson M.D. on 07/31/2022 at 15:21 Approved by: Yash Jackson M.D. on 07/31/2022 at 15:22
== END ==
PROVIDERS: PCP Family Medicine; Referring Provider Surgery; Visit Provider Surgery
DX: R10.32 Left lower quadrant pain (principal)
CPT/HCPCS: 76705

== ENCOUNTER → 2022-09-07 12:25 | Outpatient (CLI) | payer MEDICARE, OTHER, SELFPAY ==
--- NOTE | 2022-09-07 12:28 | DI.MRI.S_ITS ---
PROCEDURE: MR THORACIC SPINE WO CON INDICATIONS: disease of the spinal cord unspecified TECHNIQUE: Noncontrast sagittal T1 spine echo and T2 fast spin echo, sagittal STIR, and T2 fast spin echo through the thoracic spine. COMPARISON: [facility], , MR LUMBAR SPINE WO CON, 07/09/2022, 16:19. FINDINGS: Image quality: This examination is limited by involuntary motion artifact. Alignment and Curvature: Moderate dextroconvex thoracic scoliosis is seen. No focal AP alignment abnormality is seen. Bone Marrow: Marrow is of normal overall signal. No acute vertebral body compression fractures. Spinal Cord: Visualized spinal cord is normal in size and signal. Paraspinous Soft Tissues: No paravertebral masses. Miscellaneous: Several levels of moderate neural foraminal narrowing can be seen within the mid thoracic cord. No significant central canal narrowing can be seen. IMPRESSION: No significant abnormality of the spinal cord is identified. Moderate dextroconvex scoliosis is seen. Several levels of moderate neural foraminal narrowing can be seen. Dictated by: Yash Jackson M.D. on 09/09/2022 at 11:01 Approved by: Yash Jackson M.D. on 09/09/2022 at 11:03
== END ==
PROVIDERS: Family Provider Family Medicine; PCP Family Medicine; Referring Provider Neurological Surgery; Visit Provider Neurological Surgery
DX: M48.061 Spinal stenosis, lumbar region without neurogenic claudication (principal); M41.9 Scoliosis, unspecified; R53.1 Weakness; G95.9 Disease of spinal cord, unspecified
CPT/HCPCS: 72146

== ENCOUNTER 2022-09-19 10:13 | Outpatient (CLI) | payer MEDICARE, OTHER, SELFPAY ==
--- NOTE | 2022-09-09 11:56 | PT.OIE ---
Addendum entered and electronically signed by Nan Colin PT 09/09/22 11:57: Late entry for evaluation performed 09/04/22 Original Note: Current Diagnoses Left lower quadrant pain (09/26/22) Difficulty in walking, not elsewhere classified (09/26/22) Other symptoms and signs involving the musculoskeletal system (09/26/22) Weakness (09/26/22) Past Medical History (Last Reviewed 09/04/22 @ 08:53 by David Burger MD) Ataxia Chicken pox Lipoma of abdominal wall Low back pain Mumps Wears glasses Past Surgical History (Last Reviewed 09/04/22 @ 08:53 by David Burger MD) Anesthesia History of arthroscopic knee surgery (~1998) History of bladder surgery (~2011) History of section Visit Care Team Role Provider Type Maritza Daigle DO Family Provider Physician Primary Care Provider Specialty: Medical Address: [address] [place] [address], [address], [address] Email: [email or web address] Gene Barrera Attending Provider Non-Staff Referring Provider Specialty: Neurosurgery Address: [address] [place] [address], [id number] Email: Physical Therapy Initial Evaluation PT-OP-A Visit Information Start: 09/04/22 12:59 Freq: Status: Active Protocol: Document 09/04/22 12:59 [facility]AK (Rec: 09/04/22 13:50 [facility] [id number]) Out-Patient Physical Therapy Visit Information Visit Information Visit Type Initial Evaluation Visit Start Time 13:00 Visit Stop Time 13:45 Total Visit Minutes 45 Visit Number 1 Evaluation Information Evaluation Date 09/04/22 PT-OP-B Current Condition Start: 09/04/22 12:59 Freq: Status: Active Protocol: Document 09/04/22 12:59 SAK (Rec: 09/04/22 13:50 [facility] [id number]) Current Condition History of Current Condition Onset Date 06/21/23 Current Complaints left anterior hip pain, left leg weakness History of Current Condition Was in [place], acute onset of pain anterior left hip, got worse, vomiting, HTN, tachycardia all lasted for 1 week. pain went down front of left leg to arch of foot with burning pain, reports spasms anterior left LE. A little better with use muscle relaxant new last week, weaned mostly off Hydrocodone can't hardly get out of bed, walks from bed to bathroom. Can't walk much or go up stairs due to weakness. Neurologist ordered another MRI to include thoracic spine, scheduled this Friday. EMG also ordered scheduled 10/10/22.. assists with all household activities and ADL's . 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 Used to sleep on left side, can't now, has to sleep right, sometimes pillow between legs though states sometimes that makes pain worse. Trying to get in to see neurologist before December. Prior Treatments and Tests MRI 06/29/22: Multilevel mild overall degenerative change. Focal area of ill-defined density overlying the right foramina. This is suspected to be artifacts secondary to motion. However, mass in this region cannot be definitively excluded. If patient is able to tolerate exam, repeat views through this region are recommended. 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 Baseline Function- Recreation/Hobbies took walks for exercise Current Functional Impairments (Reported) Functional Limitations- ADL's assisted Functional Limitations- Mobility/Gait limited to short distance household, mostly in bed, uses walker, wheelchair, or cane Functional Limitations- Work/School unable to work Functional Limitations- Recreation/ unable Hobbies Personal Factors Other Personal Factors That May Effect right knee meniscus tear Therapy/Recovery 3 C sections PT-OP-C Subjective Start: 09/04/22 12:59 Freq: Status: Active Protocol: Document 09/04/22 12:29 [facility] (Rec: 09/05/22 10:28 [facility] [id number]) OP-PT Pain Assessment Pain Assessment Grid Paper Pain Assessment Grid Completed Yes Location Left Anterior Leg Intensity 8 Description Aching,Burning,Pressure,Sharp, Shooting,Stabbing,Tender, Tightness,With Movement Frequency Frequent Pain Aggravating Factors Changing Position,ADL's, Activity,Standing,Walking Pain Alleviating Factors None Home Pain Medication Use Pain Medications Used Yes Pain Behaviors Pain Behaviors Facial Grimacing,Guarding, Holding Area,Restlessness, Wincing PT-OP-D Balance Start: 09/04/22 12:59 Freq: Status: Active Protocol: Document 09/04/22 12:29 [facility]AK (Rec: 09/05/22 10:28 [facility] [id number]) OP-PT Balance Assessment Standing Balance Static Standing Balance Ability Fair Dynamic Standing Balance Ability Fair Device Used SPC Standing Balance Comments uses walker and wheelchair also Balance Tests Other Other Balance Tests Performed unable to do balance testing due to pain Al Fall Scale Copyright Permission PT-OP-F Manual Assessment Start: 09/04/22 12:59 Freq: Status: Active Protocol: Document 09/04/22 12:29 [facility]AK (Rec: 09/05/22 10:28 [facility] [id number]) Manual Assessments Soft Tissue Assessment Soft Tissue Mobility Assessment difficulty to assess due to sensitivity to touch and palpation PT-OP-G Mobility & Gait Start: 09/04/22 12:59 Freq: Status: Active Protocol: Document 09/04/22 12:29 SAK (Rec: 09/05/22 10:28 [facility] [id number]) OP Mobility Evaluation Transfers Sit to Stand min left LE use OP Gait Assessment Gait Gait Assistance Required: Standby Assistance Distance (Feet) 80 Gait Deviations General Gait Pattern Antalgic Factors Limiting Gait Function Factors Limiting Gait Function Decreased Activity Tolerance, Decreased Strength,Pain Stair Climbing Evaluation Comments Stair Climbing Comments unable PT-OP-J Posture/Palpation/Skin Start: 09/04/22 12:59 Freq: Status: Active Protocol: Document 09/04/22 12:59 SAK (Rec: 09/04/22 13:50 [facility] [id number]) Posture Evaluation Position Standing Head/C-Spine Posture Forward Head T-Spine Posture Increased Kyphosis L-Spine Posture Increased Lordosis Comments Posture Comments fatigued quickly in standing preventing full objective evaluation in standing Palpation Assessment Location left hip Palpation Location ant, lateral Palpation Findings Muscle Guarding,Tenderness Palpation Details Very sensitive to touch, zakia minimal palpation PT-OP-K Range of Motion Start: 09/04/22 12:59 Freq: Status: Active Protocol: Document 09/04/22 12:39 [facility]AK (Rec: 09/09/22 11:52 [facility] [id number]) Lumbar Spine Range of Motion Lumbar Spine Active Testing Position Standing ROM Limitations Muscle Weakness,Pain Comments mod decrease all motions due to pain, with difficulty standing for ROM testing Hip Goniometric Range of Motion Hip Left Flexion w/Knee Flexed 90 Straight Leg Raise 55 Extension 0 Abduction 25 Internal Rotation 10 External Rotation 45 Comments unable to do SLRwithout mod assist, all motions painful requiring PT assist, soft end feel, stopped due to pain Right Hip ROM WFL Yes Hip ROM Limitations Hip ROM Limitations Muscle Weakness,Pain Knee Goniometric Range of Motion Knee rob Knee ROM WFL Yes Ankle and Foot Goniometric Range of Motion Ankle and Foot rob Ankle/Foot ROM WFL Yes PT-OP-L Special Tests Start: 09/04/22 12:59 Freq: Status: Active Protocol: Document 09/04/22 12:39 [facility] (Rec: 09/09/22 11:52 [facility] [id number]) Special Tests Lumbar Spine Special Tests Vertical Spine Loading Test Results positive inc pain Standing Flexion Comments positive inc pain Prone Instability Test Comments unable to tolerate laying prone Straight Leg Raise Comments unable left due to weakness PT-OP-M Strength Start: 09/04/22 12:59 Freq: Status: Active Protocol: Document 09/04/22 12:59 [facility] (Rec: 09/04/22 13:50 [facility] [id number]) Trunk Strength Trunk Manual Muscle Testing Flexion 2 Poor Extension 2 Poor Core Stabilization poor Hip Strength Hip Manual Muscle Testing Left Flexion (L2) 2- Poor- Extension (S1) 2- Poor- Abduction 2- Poor- Adduction 2- Poor- External Rotation 2- Poor- Internal Rotation 2- Poor- Comments limited by pain Right Flexion (L2) 4+ Good+ Extension (S1) 4+ Good+ Abduction 4 Good Adduction 4+ Good+ External Rotation 4 Good Internal Rotation 4+ Good+ Knee Strength Knee Manual Muscle Testing Left Flexion (S2) 3- Fair- Extension (L3) 3- Fair- Right Flexion (S2) 5 Normal Extension (L3) 5 Normal Ankle/Foot Strength Ankle and Foot Manual Muscle Testing Left Dorsiflexion (L4) 2+ Poor+ Plantarflexion (S1) 3- Fair- Right Dorsiflexion (L4) 4 Good Plantarflexion (S1) 4 Good Toe Strength Toe Manual Muscle Testing Left Great Toe Flexion 3- Fair- Extension 2+ Poor+ Right Great Toe Extension 5 Normal PT-OP-Q Treatments Start: 09/04/22 12:59 Freq: Status: Active Protocol: Document 09/04/22 12:39 [facility] (Rec: 09/09/22 11:52 [facility] [id number]) Self-Care/Home Management Treatment Education Patient Education Home Exercise Program,Pain Management Other Education issued written handout PT-OP-T Assessment and Plan Start: 09/04/22 12:59 Freq: Status: Active Protocol: Document 09/04/22 12:39 [facility] (Rec: 09/09/22 11:52 [facility] [id number]) Physical Therapy Assessment Rehab Potential Rehabilitation Potential Fair Evaluation Complexity Number of Personal Factors/Comorbidities 3 or More Number of Body Systems Impaired 4 or More Clinical Presentation at Evaluation Unstable Impairments Impairments Activity Tolerance,Gait,Pain, Strength Assessment Summary Assessment Patient presents to PT with severe, function limiting pain left anterior hip with radicular symptoms into foot with severe weakness necessitating the use of assistive device, and at times a wheelchair, spending the majority of time in bed. States no relief of pain with medications, positioning, ice or heat. Objective evaluation difficult due to severity of pain, significant weakness left LE with lack of reflexes. Patient having MRI this Friday and repeat EMG soon. Positive vertical loading test, unable to tolerate position for multiple special tests. Patient instructed in gentle isometric exercises and desensitization massage, supported bed positioning, activity as tolerated. Feel further medical testing indicated. Physical Therapy Plan Frequency and Duration Frequency of Treatment 2x/Week Duration of treatment (weeks) 8 Plan of Care Start Date 09/09/22 Plan of Care End Date 11/09/22 Therapeutic Interventions Therapeutic Interventions Home Exercise Program,Manual Therapy,Neuromuscular Re- education,Patient/Caregiver Education,Self-Care/Home Management,Soft Tissue Mobilization,Taping, Therapeutic Activities, Therapeutic Exercises Modalities Cold Pack/Ice Massage,Electric Stimulation,Hot Packs, Infrared Therapy,Traction- Mechanical,Ultrasound Next Visit Focus/Plan Next Note Type Treatment Note Next Visit Plan Discuss results of MRI if available, review HEP, gentle progression of ther ex, assess pelvic alignment and iliopsoas for trigger point and treat as able with manual techniques as indicated. Modalities as indicated for pain management.
--- NOTE | 2022-09-09 11:58 | PT.OPPOC ---
Addendum entered and electronically signed by Nan Colin PT 09/09/22 11:58: Late entry for patient appointment 09/04/22. Original Note: Physical, Occupational & Speech Therapy At Current Diagnoses Left lower quadrant pain (09/26/22) Difficulty in walking, not elsewhere classified (09/26/22) Other symptoms and signs involving the musculoskeletal system (09/26/22) Weakness (09/26/22) Visit Care Team Role Provider Type Maritza Daigle DO Family Provider Physician Primary Care Provider Specialty: Medical Address: [address] [place] [address], [address], [place], [address] Email: [email or web address] Geen Barrera Attending Provider Non-Staff Referring Provider Specialty: Neurosurgery Address: [address] [place] [address], [id number] Email: Plan Of Care PT-OP-T Assessment and Plan Start: 09/04/22 12:59 Freq: Status: Active Protocol: Document 09/04/22 12:39 SAK (Rec: 09/09/22 11:52 [facility] [id number]) Physical Therapy Assessment Rehab Potential Rehabilitation Potential Fair Evaluation Complexity Number of Personal Factors/Comorbidities 3 or More Number of Body Systems Impaired 4 or More Clinical Presentation at Evaluation Unstable Impairments Impairments Activity Tolerance,Gait,Pain, Strength Assessment Summary Assessment Patient presents to PT with severe, function limiting pain left anterior hip with radicular symptoms into foot with severe weakness necessitating the use of assistive device, and at times a wheelchair, spending the majority of time in bed. States no relief of pain with medications, positioning, ice or heat. Objective evaluation difficult due to severity of pain, significant weakness left LE with lack of reflexes. Patient having MRI this Friday and repeat EMG soon. Positive vertical loading test, unable to tolerate position for multiple special tests. Patient instructed in gentle isometric exercises and desensitization massage, supported bed positioning, activity as tolerated. Feel further medical testing indicated. Physical Therapy Plan Frequency and Duration Frequency of Treatment 2x/Week Duration of treatment (weeks) 8 Plan of Care Start Date 09/09/22 Plan of Care End Date 11/09/22 Therapeutic Interventions Therapeutic Interventions Home Exercise Program,Manual Therapy,Neuromuscular Re- education,Patient/Caregiver Education,Self-Care/Home Management,Soft Tissue Mobilization,Taping, Therapeutic Activities, Therapeutic Exercises Modalities Cold Pack/Ice Massage,Electric Stimulation,Hot Packs, Infrared Therapy,Traction- Mechanical,Ultrasound Next Visit Focus/Plan Next Note Type Treatment Note Next Visit Plan Discuss results of MRI if available, review HEP, gentle progression of ther ex, assess pelvic alignment and iliopsoas for trigger point and treat as able with manual techniques as indicated. Modalities as indicated for pain management. Plan of Care Dates Plan of Care Start Date 09/09/22 Plan of Care End Date 11/09/22 Electronically Signed by: Nan Colin, PT 09/09/22 [id number] If you are in agreement with this Plan of Care, please return a signed and dated copy. I have reviewed this Plan of Care and certify that the skilled therapy services above are required to meet the patient?s needs. Physician Signature Date Printed Name and Credentials Clinical Instructor Signature Printed Name and Credentials
--- NOTE | 2022-09-10 10:06 | PT.OTN ---
Current Diagnoses Left lower quadrant pain (09/26/22) Difficulty in walking, not elsewhere classified (09/26/22) Other symptoms and signs involving the musculoskeletal system (09/26/22) Weakness (09/26/22) Physical Therapy Treatment Note PT-OP-A Visit Information Start: 09/04/22 12:59 Freq: Status: Active Protocol: Document 09/10/22 09:04 SAK (Rec: 09/10/22 09:49 SAK [id number]) Out-Patient Physical Therapy Visit Information Visit Information Visit Type Treatment Note Visit Start Time 09:05 Visit Stop Time 10:00 Total Visit Minutes 55 Visit Number 2 Evaluation Information Evaluation Date 09/04/22 PT-OP-B Current Condition Start: 09/04/22 12:59 Freq: Status: Active Protocol: Document 09/10/22 09:04 SAK (Rec: 09/10/22 09:49 SAK [id number]) Current Condition History of Current Condition Onset Date 06/21/23 Current Complaints left anterior hip pain, left leg weakness History of Current Condition Was in [place], acute onset of pain anterior left hip, got worse, vomiting, HTN, tachycardia all lasted for 1 week. pain went down front of left leg to arch of foot with burning pain, reports spasms anterior left LE. A little better with use muscle relaxant new last week, weaned mostly off Hydrocodone can't hardly get out of bed, walks from bed to bathroom. Can't walk much or go up stairs due to weakness. Neurologist ordered another MRI to include thoracic spine, scheduled this Friday. EMG also ordered scheduled 10/10/22.. assists with all household activities and ADL's . 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 Used to sleep on left side, can't now, has to sleep right, sometimes pillow between legs though states sometimes that makes pain worse. Trying to get in to see neurologist before December. Prior Treatments and Tests MRI 06/29/22: Multilevel mild overall degenerative change. Focal area of ill-defined density overlying the right foramina. This is suspected to be artifacts secondary to motion. However, mass in this region cannot be definitively excluded. If patient is able to tolerate exam, repeat views through this region are recommended. Future Testing and Treatments Planned thoracic MRI this Friday EMG 10/10/22 Neurologist when able to get appointment Treatment Goals Patient/Caregiver Goals Regain full functional use of left LE, return to prior level of function with minimal to no pain PT-OP-C Subjective Start: 09/04/22 12:59 Freq: Status: Active Protocol: Document 09/10/22 09:04 SAK (Rec: 09/10/22 09:49 [facility] [id number]) OP-PT Subjective Patient Comments Patient Comments Stopped taking Hydrocodone as wasn't helping. Taking a nerve pain pill, unsure name, not Gabapentin. Doing HEP, walking a little better. Still having some tingling in her foot. Discussion of MRI results; mild foraminal narrowing, moderate dextrosciolois. Patient Reported Progress Improving PT-OP-D Balance Start: 09/04/22 12:59 Freq: Status: Active Protocol: Document 09/04/22 12:29 [facility] (Rec: 09/05/22 10:28 [facility] [id number]) OP-PT Balance Assessment Standing Balance Static Standing Balance Ability Fair Dynamic Standing Balance Ability Fair Device Used SPC Standing Balance Comments uses walker and wheelchair also Balance Tests Other Other Balance Tests Performed unable to do balance testing due to pain Al Fall Scale Copyright Permission PT-OP-F Manual Assessment Start: 09/04/22 12:59 Freq: Status: Active Protocol: Document 09/04/22 12:29 [facility] (Rec: 09/05/22 10:28 [facility] [id number]) Manual Assessments Soft Tissue Assessment Soft Tissue Mobility Assessment difficulty to assess due to sensitivity to touch and palpation PT-OP-G Mobility & Gait Start: 09/04/22 12:59 Freq: Status: Active Protocol: Document 09/04/22 12:29 [facility] (Rec: 09/05/22 10:28 [facility] [id number]) OP Mobility Evaluation Transfers Sit to Stand min left LE use OP Gait Assessment Gait Gait Assistance Required: Standby Assistance Distance (Feet) 80 Gait Deviations General Gait Pattern Antalgic Factors Limiting Gait Function Factors Limiting Gait Function Decreased Activity Tolerance, Decreased Strength,Pain Stair Climbing Evaluation Comments Stair Climbing Comments unable PT-OP-J Posture/Palpation/Skin Start: 09/04/22 12:59 Freq: Status: Active Protocol: Document 09/04/22 12:59 SAK (Rec: 09/04/22 13:50 [facility] [id number]) Posture Evaluation Position Standing Head/C-Spine Posture Forward Head T-Spine Posture Increased Kyphosis L-Spine Posture Increased Lordosis Comments Posture Comments fatigued quickly in standing preventing full objective evaluation in standing Palpation Assessment Location left hip Palpation Location ant, lateral Palpation Findings Muscle Guarding,Tenderness Palpation Details Very sensitive to touch, zakia minimal palpation PT-OP-K Range of Motion Start: 09/04/22 12:59 Freq: Status: Active Protocol: Document 09/04/22 12:39 [facility] (Rec: 09/09/22 11:52 [facility] [id number]) Lumbar Spine Range of Motion Lumbar Spine Active Testing Position Standing ROM Limitations Muscle Weakness,Pain Comments mod decrease all motions due to pain, with difficulty standing for ROM testing Hip Goniometric Range of Motion Hip Left Flexion w/Knee Flexed 90 Straight Leg Raise 55 Extension 0 Abduction 25 Internal Rotation 10 External Rotation 45 Comments unable to do SLRwithout mod assist, all motions painful requiring PT assist, soft end feel, stopped due to pain Right Hip ROM WFL Yes Hip ROM Limitations Hip ROM Limitations Muscle Weakness,Pain Knee Goniometric Range of Motion Knee rob Knee ROM WFL Yes Ankle and Foot Goniometric Range of Motion Ankle and Foot rob Ankle/Foot ROM WFL Yes PT-OP-L Special Tests Start: 09/04/22 12:59 Freq: Status: Active Protocol: Document 09/04/22 12:39 [facility] (Rec: 09/09/22 11:52 [facility] [id number]) Special Tests Lumbar Spine Special Tests Vertical Spine Loading Test Results positive inc pain Standing Flexion Comments positive inc pain Prone Instability Test Comments unable to tolerate laying prone Straight Leg Raise Comments unable left due to weakness PT-OP-M Strength Start: 09/04/22 12:59 Freq: Status: Active Protocol: Document 09/04/22 12:59 [facility] (Rec: 09/04/22 13:50 [facility] [id number]) Trunk Strength Trunk Manual Muscle Testing Flexion 2 Poor Extension 2 Poor Core Stabilization poor Hip Strength Hip Manual Muscle Testing Left Flexion (L2) 2- Poor- Extension (S1) 2- Poor- Abduction 2- Poor- Adduction 2- Poor- External Rotation 2- Poor- Internal Rotation 2- Poor- Comments limited by pain Right Flexion (L2) 4+ Good+ Extension (S1) 4+ Good+ Abduction 4 Good Adduction 4+ Good+ External Rotation 4 Good Internal Rotation 4+ Good+ Knee Strength Knee Manual Muscle Testing Left Flexion (S2) 3- Fair- Extension (L3) 3- Fair- Right Flexion (S2) 5 Normal Extension (L3) 5 Normal Ankle/Foot Strength Ankle and Foot Manual Muscle Testing Left Dorsiflexion (L4) 2+ Poor+ Plantarflexion (S1) 3- Fair- Right Dorsiflexion (L4) 4 Good Plantarflexion (S1) 4 Good Toe Strength Toe Manual Muscle Testing Left Great Toe Flexion 3- Fair- Extension 2+ Poor+ Right Great Toe Extension 5 Normal PT-OP-Q Treatments Start: 09/04/22 12:59 Freq: Status: Active Protocol: Document 09/10/22 09:04 [facility] (Rec: 09/10/22 09:49 [facility] [id number]) Cardio Equipment Recumbent Stepper (Sci-Fit) Duration (Minutes) 6 Resistance 1 Seat Position 10 Therapeutic Exercises Supine Exercises posture press Reps/Minutes 10x Comments arms at sides, palms up bridge Reps/Minutes 10x Comments cues for segmental gluteal set Reps/Minutes 10x TrA Reps/Minutes 5x Manual Therapy Treatment Taping IT band, lateral quad Treatment Focus inhibition, pain relief Type of Tape kinesiot Skin Inspection intact Comments 3 I strips, paper off tension distal to proximal PT-OP-R Modalities Start: 09/04/22 12:59 Freq: Status: Active Protocol: Document 09/10/22 09:04 [facility] (Rec: 09/10/22 10:05 [facility] [id number]) Hot Pack/Cold Pack Treatment Hot Pack Location left IT band and lateral quad Patient Position Supine Treatment Duration (minutes) 15 Patient Tolerance Good PT-OP-T Assessment and Plan Start: 09/04/22 12:59 Freq: Status: Active Protocol: Document 09/10/22 09:04 [facility] (Rec: 09/10/22 09:49 [facility] [id number]) Physical Therapy Assessment Impairments Impairments Activity Tolerance,Gait,Pain, Strength Assessment Summary Assessment Pain less today, continues to walk with cane, but responded well to cues for posture and gluteal activation with gait. Good tolerance for progression to supine posture press and bridge and starting with Sci-Fit. Physical Therapy Plan Frequency and Duration Frequency of Treatment 2x/Week Duration of treatment (weeks) 8 Plan of Care Start Date 09/09/22 Plan of Care End Date 11/09/22 Therapeutic Interventions Therapeutic Interventions Home Exercise Program,Manual Therapy,Neuromuscular Re- education,Patient/Caregiver Education,Self-Care/Home Management,Soft Tissue Mobilization,Taping, Therapeutic Activities, Therapeutic Exercises Modalities Cold Pack/Ice Massage,Electric Stimulation,Hot Packs, Infrared Therapy,Traction- Mechanical,Ultrasound Next Visit Focus/Plan Next Note Type Treatment Note Next Visit Plan Continue gentle progression of postural correction and core stab ex.
--- NOTE | 2022-09-12 16:01 | PT.OTN ---
Current Diagnoses Left lower quadrant pain (09/26/22) Difficulty in walking, not elsewhere classified (09/26/22) Other symptoms and signs involving the musculoskeletal system (09/26/22) Weakness (09/26/22) Physical Therapy Treatment Note PT-OP-A Visit Information Start: 09/04/22 12:59 Freq: Status: Active Protocol: Document 09/12/22 09:54 SP (Rec: 09/12/22 10:35 SP [id number]) Out-Patient Physical Therapy Visit Information Visit Information Visit Type Treatment Note Visit Start Time 09:48 Visit Stop Time 10:30 Total Visit Minutes 42 Visit Number 3 Number of SENIOR PRIVATE CLIENT ADVISOR Visits 1 Evaluation Information Evaluation Date 09/04/22 PT-OP-C Subjective Start: 09/04/22 12:59 Freq: Status: Active Protocol: Document 09/12/22 09:54 SP (Rec: 09/12/22 10:35 SP [id number]) OP-PT Subjective Patient Comments Patient Comments Pt reports has pain L anterior thigh, get tingling mainly knee down to arch foot, the ktaping seems to help. Leg is weak. Arrives decreased stance time onLLE and heavier on SPC . PT-OP-Q Treatments Start: 09/04/22 12:59 Freq: Status: Active Protocol: Document 09/12/22 09:54 SP (Rec: 09/12/22 10:35 SP [id number]) Therapeutic Exercises Supine Exercises heel slide Supine Exercise Name added to HEP for on/off bed support Side left Resistance Tb #4 support on foot Equipment Used shoe doffed Reps/Minutes 5 reps therapist assist 5%> S Comments challenged, better quad as reps progressed. LLE SAQ Supine Exercise Name added to HEP for on/off bed support Side left Resistance Tb #4 support on foot Equipment Used foam roller Reps/Minutes 5 reps therapist assist 5% Comments cued mid quad fac, able 2nd set with blue TB bridge Supine Exercise Name improved segmental movt Reps/Minutes 10x Comments cued R heel closer to buttock, decrease HS cramp- improved height with reps gluteal set Supine Exercise Name GS, QS Equipment Used (towel under L knee during QS) Reps/Minutes 10x Comments quick flick quad set (inhibit HS/calf) better quad set AP, patellar sup gld TrA Reps/Minutes 5x Gait Training Gait Activity SPC Description heel toe, quad/ glut fac midstance Device Used SPC/hurry bottom Level of Assistance S Distance/Duration 20 ft x2 laps Comments improved gait phase and small step pivot Manual Therapy Treatment Soft Tissue Mobilization quad, ITB Comments light rolling pin Taping IT band, lateral quad Body Location still good support- not need reapply today Treatment Focus inhibition, pain relief Type of Tape kinesiot Skin Inspection intact Comments 3 I strips, paper off tension distal to proximal PT-OP-T Assessment and Plan Start: 09/04/22 12:59 Freq: Status: Active Protocol: Document 09/12/22 09:54 SP (Rec: 09/12/22 10:35 SP [id number]) Physical Therapy Plan Frequency and Duration Frequency of Treatment 2x/Week Duration of treatment (weeks) 8 Plan of Care Start Date 09/09/22 Plan of Care End Date 11/09/22 Therapeutic Interventions Therapeutic Interventions Home Exercise Program,Manual Therapy,Neuromuscular Re- education,Patient/Caregiver Education,Self-Care/Home Management,Soft Tissue Mobilization,Taping, Therapeutic Activities, Therapeutic Exercises Modalities Cold Pack/Ice Massage,Electric Stimulation,Hot Packs, Infrared Therapy,Traction- Mechanical,Ultrasound Next Visit Focus/Plan Next Note Type Treatment Note Next Visit Plan Continue gentle progression of postural correction and core stab ex.
== END 2022-09-23 09:57 | disposition home or self-care (01) ==
PROVIDERS: Family Provider Family Medicine; PCP Family Medicine; Referring Provider Neurological Surgery; Visit Provider Neurological Surgery
DX: R29.898 Other symptoms and signs involving the musculoskeletal system (principal); R10.32 Left lower quadrant pain; R53.1 Weakness; R26.2 Difficulty in walking, not elsewhere classified
CPT/HCPCS: 95886; 95912; 97163; 97535

== ENCOUNTER → 2022-10-09 12:46 | Outpatient (CLI) | payer MEDICARE, OTHER, SELFPAY ==
[2022-10-09 13:32] LABS: Add Manual Diff / Slide Review NO; Basophils Absolute Auto 100 /uL (0-100); Basophils Percent Auto 0.9 % (0-2); Eosinophils Absolute Auto 200 /uL (0-450); Eosinophils Percent Auto 2.2 % (2-4); Hematocrit 45.5 % (36-46); Hemoglobin 15.3 g/dL (12.0-16.0); Lymphocytes Absolute Auto 2200 /uL (1100-4500); Mean Corpuscular HGB Conc 33.6 % (30-36); Mean Corpuscular Hemoglobin 30.7 PG (26-34); Mean Corpuscular Volume 91.4 fL (80-100); Monocytes Absolute Auto 600 /uL (0-900); Monocytes Percent Auto 6.9 % (3-14); Neutrophils Absolute Auto 5900 /uL (1500-7000); Platelet Count 254 X10^3/uL (150-400); Red Blood Cell Count 4.98 X10^6/uL (4.0-5.2)
[2022-10-09 13:53] LABS: Alanine Aminotransferase 34 IU/L (<35); Albumin 4.3 g/dL (3.5-5.0); Albumin Globulin Ratio 1.2 (1.0-2.8); Alkaline Phosphatase 66 U/L (38-126); Aspartate Aminotransferase 35 IU/L (14-36); BUN Creatinine Ratio 22.6 (6-22); Bilirubin Total 0.5 mg/dL (0.2-1.3); Blood Urea Nitrogen 19 mg/dL (7-17); Calcium 9.2 mg/dL (8.4-10.2); Carbon Dioxide 30 mmol/L (22-32); Chloride 101 mmol/L (98-107); Estimated Glomerular Filt Rate > 60 mL/min (>60); Globulin 3.5 g/dL (1.7-4.1); Glucose 99 mg/dL (80-110); HEMOLYSIS < 15 (0-50); Potassium 3.7 mmol/L (3.4-5.1); Sodium 140 mmol/L (137-145); Total Protein 7.8 g/dL (6.3-8.2)
[2022-10-09 16:29] LABS: Vitamin D 25 Hydroxy (D3) 47.8 ng/mL (30.0-100.0)
== END ==
PROVIDERS: Family Provider Family Medicine; PCP Family Medicine; Referring Provider Anesthesiology; Visit Provider Anesthesiology
DX: R03.0 Elevated blood-pressure reading, without diagnosis of hypertension (principal); R29.898 Other symptoms and signs involving the musculoskeletal system; M54.10 Radiculopathy, site unspecified; R10.32 Left lower quadrant pain; M54.50 Low back pain, unspecified; G89.29 Other chronic pain
CPT/HCPCS: 36415; 80053; 82306; 85025; 99214

== ENCOUNTER → 2022-10-19 09:42 | Outpatient (CLI) | payer MEDICARE, OTHER, SELFPAY ==
--- NOTE | 2022-10-19 09:45 | DI.MRI.S_ITS ---
PROCEDURE: MR HEAD/BRAIN WO CON INDICATIONS: MUSCLE WEAKNESS TECHNIQUE: Noncontrast axial T1 spin echo, axial T2 fast spin echo, sagittal and axial FLAIR, coronal T2 fast spin echo, axial gradient echo, axial diffusion and ADC through the brain. COMPARISON: None. FINDINGS: Image quality: Excellent. CSF Spaces: Basal cisterns are patent. No extra-axial fluid collections. Ventricles are normal in size and shape. Brain: No intracranial masses or hemorrhage. Peng/white matter interface is normal. Brainstem appears normal. Diffusion-weighted images demonstrate no acute ischemic insult. No chronic ischemic insults. Normal intravascular flow voids are present. Skull and face: Calvarium has normal marrow signal. Orbits appear normal. Sinuses: Sinuses and mastoids are clear. IMPRESSION: 1. No acute intracranial process. Dictated by: Felicia Cramer M.D. on 10/21/2022 at 12:09 Approved by: Felicia Cramer M.D. on 10/21/2022 at 12:10
== END ==
PROVIDERS: Family Provider Family Medicine; PCP Family Medicine; Referring Provider Neurological Surgery; Visit Provider Neurological Surgery
DX: M62.81 Muscle weakness (generalized); I63.9 Cerebral infarction, unspecified
CPT/HCPCS: 70551

== ENCOUNTER → 2022-11-12 12:49 | Outpatient (CLI) | payer MEDICARE, OTHER, SELFPAY ==
--- NOTE | 2022-11-12 12:51 | DI.MRI.S_ITS ---
PROCEDURE: MR LUMBAR SPINE WO CON INDICATIONS: Please re-assess right L5-S1 foramina density TECHNIQUE: Noncontrast sagittal T1 spin echo and T2 fast echo, sagittal STIR, and T2 fast spin echo through the lumbar spine. In cases with scoliosis, additional coronal T2 fast spin echo may be performed. COMPARISON: [facility], , MR LUMBAR SPINE WO CON, 07/09/2022, 16:19. FINDINGS: Image quality: Excellent. Alignment and Curvature: Leftward scoliotic curvature is present with apex at L2. Trace retrolisthesis of L1 on L2. Bone Marrow: Marrow is of normal overall signal. No acute vertebral body compression fractures. Spinal Cord: Conus medullaris terminates at the L1-2 level. Visualized cord demonstrates normal signal and size. Paraspinous Soft Tissues: No paravertebral masses. Discs: Tmdm-dm-clqqpwkw disc desiccation is present throughout the lumbar spine most severe at L1-2. L1-L2: Mild disc bulge without spinal stenosis or foraminal narrowing. Mild facet and ligamentum flavum hypertrophy without interval change. L2-L3: Mild disc bulge without spinal stenosis or foraminal narrowing. Mild facet and ligamentum flavum hypertrophy without interval change. L3-L4: Mild disc bulge without spinal stenosis or foraminal narrowing. Facet and ligamentum flavum hypertrophy are present without interval change. L4-L5: Mild disc bulge without gross spinal stenosis. No foraminal narrowing. Facet and ligamentum flavum hypertrophy are present. Previous canal narrowing with likely reflective of artifact. L5-S1: Mild disc bulge without spinal stenosis. Previous focus overlying the right foramina appears to be a lateral right facet joint cyst measuring 4 mm without compromise of the exiting nerve root. There is overall minimal right foraminal narrowing. IMPRESSION: Multilevel degenerative changes stable compared to prior exam. Dictated by: Felicia Cramer M.D. on 11/12/2022 at 15:56 Approved by: Felicia Cramer M.D. on 11/12/2022 at 16:02
--- NOTE | 2022-11-12 12:52 | DI.RAD.S_ITS ---
PROCEDURE: XR HIP W PEL IF DONE FELICIA MIN 4V INDICATIONS: Hip pain TECHNIQUE: AP pelvis with lateral view(s) of the bilateral hip(s). COMPARISON: None. FINDINGS: Bones: No fractures or dislocations. Pelvic ring appears intact. No suspicious bony lesions. Mild bilateral degenerative hip joint space narrowing. Soft tissues: The visualized bowel gas pattern is normal. No suspicious soft tissue calcifications. 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 Dictated by: Felicia Cramer M.D. on 11/12/2022 at 14:55 Approved by: Felicia Cramer M.D. on 11/12/2022 at 14:55
--- NOTE | 2022-11-12 12:52 | DI.RAD.S_ITS ---
PROCEDURE: XR KNEE LT 3V INDICATIONS: Left krunal pain TECHNIQUE: 3 views of the knee were acquired. COMPARISON: None. FINDINGS: Bones: No definitive fractures or dislocations. There is a vertical lucency in the proximal tibia, probably caused by an artifact. No suspicious bony lesions. Vhqtqwus-kt-affpzn degenerative joint disease. Osteopenia. Soft tissues: No joint effusion. No suspicious soft tissue calcifications. IMPRESSION: 1. Xtgulotr-rs-cqgrex degenerative joint disease. 2. Osteopenia. 3. No definitive fractures. There is a vertical lucency in the proximal tibia, probably caused by an artifact, but if there is clinical history of trauma, consider CT or MRI for further evaluation. Dictated by: Boogie Joel M.D. on 11/12/2022 at 15:22 Approved by: Boogie Joel M.D. on 11/12/2022 at 15:25
== END ==
PROVIDERS: Family Provider Family Medicine; PCP Family Medicine; Referring Provider Anesthesiology; Visit Provider Anesthesiology
DX: M54.16 Radiculopathy, lumbar region (principal); M25.559 Pain in unspecified hip; M25.562 Pain in left knee; M17.12 Unilateral primary osteoarthritis, left knee; M85.862 Other specified disorders of bone density and structure, left lower leg
CPT/HCPCS: 72148; 73522; 73562

== ENCOUNTER 2022-11-27 09:17 | Outpatient (CLI) | payer MEDICARE, OTHER, SELFPAY ==
[2022-11-27] VITALS (9 sets, daily range): BP systolic 158–190; BP diastolic 77–101; PULSE 82–96; RESP 13–20; TEMP 36.7; O2SAT 95–99
--- NOTE | 2022-11-27 09:19 | DI.RAD.S_ITS ---
PROCEDURE: PAIN L/S TRANSFORAMINAL INJECT INDICATIONS: SPONDYLOSIS COMPARISON: [facility], CR, XR LUMBAR SPINE MIN 4V, 07/18/2022, 11:40. FINDINGS: Fluoroscopic spot filming was performed to verify placement of spinal needles at the left L3-L4 transforaminal level(s), as labeled on the films. Appropriate location(s) of the needle tip(s) was confirmed by injection of iodinated contrast. IMPRESSION: Intraoperative guidance provided. Dictated by: Serge Vitale M.D. on 11/27/2022 at 13:04 Approved by: Serge Vitale M.D. on 11/27/2022 at 13:05
[2022-11-27] MEDS: DEXAMETHASONE 10 MG/ML VIAL INJ (09:45)
[2022-11-27] MEDS: IOPAMIDOL 15 ML VIAL 3 ML INJ (09:46)
[2022-11-27] MEDS: MIDAZOLAM 2 MG/2 ML VIAL IV (09:47)
--- NOTE | 2022-11-27 11:54 | P.PCN_ITS ---
Date/Time/Diagnoses Date of procedure: 11/27/22 Time of procedure: 09:30 Procedure Notes Physician: David Burger Total Fluoroscopy time (seconds): 30 Total sedation minutes: 19 Procedure in detail & Post-procedure care: Left L3-4 Transforaminal Epidural Steroid Injection Indications: Stephanie is presenting for treatment of lumbar radiculopathy with low back and leg pain. Preoperative diagnosis: Left lumbar radiculopathy Postoperative diagnosis: Same Focused Examination: Ax3 Mood and affect are normal Vital Signs: VSS ASA: 2 Consent: Following review of allergies and potential side effects/complications, including, but not necessarily limited to, infection, allergic reaction, local tissue breakdown, stroke, temporary or permanent nerve injury, paralysis, and possible , the patient indicated that they understood and agreed to proceed.? An informed consent document was signed by the patient, witnessed by a nurse and placed in the patient's chart.? Additionally, other treatment options including medications and physical therapy were reviewed with the patient. All questions were answered. Site was then marked. Anesthesia: After review of previous anesthetic history and IV conscious sedati on, the patient was deemed safe to proceed with today's procedure with IV conscious sedation. IV sedation was accomplished with midazolam 2 mg administered by the RN after order by Dr. Burger. Sedation was titrated to patient comfort during the course of the procedure. Patient remained responsive to all verbal commands. Position: Prone Monitoring: NIBP, Pulse oximetry, 3 lead EKG Needle used: 22G, 5 inch spinal needle Contrast: Isovue 300M Injectate: 10 mg Dexamethasone mixed with 1% lidocaine 1 ml and Normal Saline 1 ml Technique: The skin was prepped with chloraprep and draped in a sterile fashion. Time out was performed as per protocol. Oxygen applied via NC. Skin and subcutaneous structures of the needle entry site were infiltrated with 3mL of lidocaine 1%. Under fluoroscopic guidance, using an ipsilateral oblique view,?a 22 gauge 5 inch needle was advanced to the base of the left L3?pedicle.? The needle was advanced to the superio-posterior aspect of the neural foramen under lateral view.? Oblique and AP views were rechecked. No paresthesias noted by the patient during needle placement. In AP view and utilizing real-time digital subtraction fluoroscopy, 2 ml contrast was slowly injected. Epidural spread was observed without evidence for intravascular nor intrathecal uptake. Contrast spread was seen craniocaudally. The above injectate was then administered, and the needle was subsequently withdrawn. Band-Aids applied to injection sites. EBL: less than 1 ml Complications: None Post Procedure: Patient was taken to the recovery and monitored. The patient was provided a Pain Log to continue to record the patient's response to the target- specific procedure prior to the patient's follow-up visit with the referring physician. Patient was stable upon discharge. Detailed post procedure instructions were provided. Patient was asked to call in the event of worsening pain, fever, weakness, numbness or bladder or bowel incontinence.
== END 2022-11-27 10:20 | disposition home or self-care (01) ==
LOC: RAD 09:19
PROVIDERS: Family Provider Family Medicine; PCP Family Medicine; Referring Provider Anesthesiology; Visit Provider Anesthesiology
DX: M54.16 Radiculopathy, lumbar region (principal)
CPT/HCPCS: 64483; 99152; J1100; J2250

== ENCOUNTER 2023-01-21 15:00 | Outpatient (RCR) | payer MEDICARE, OTHER, SELFPAY ==
--- NOTE | 2022-09-04 13:00 | PT.OPPOC ---
Physical, Occupational & Speech Therapy At [facility] Current Diagnoses Radiculopathy, site unspecified (09/12/22) Left lower quadrant pain (09/12/22) Ataxia, unspecified (09/12/22) Other symptoms and signs involving the musculoskeletal system (09/12/22) Visit Care Team Role Provider Type Maritza Daigle DO Family Provider Physician Primary Care Provider Specialty: Medical Address: [address] [place] [address], [address], [address] Email: [email or web address] Edith Parisi MD Attending Provider Physician Referring Provider Specialty: General Surgery Address: [address] [place] [address], [address], [place], [address] Email: [email or web address] Plan Of Care PT-OP-T Assessment and Plan Start: 09/12/22 15:01 Freq: Status: Active Protocol: Document 09/12/22 09:48 SP (Rec: 09/12/22 16:00 SP [id number]) Physical Therapy Assessment Rehab Potential Rehabilitation Potential Fair Evaluation Complexity Number of Personal Factors/Comorbidities 3 or More Number of Body Systems Impaired 4 or More Clinical Presentation at Evaluation Unstable Impairments Impairments Activity Tolerance,Gait,Pain, Strength Assessment Summary Assessment Pt very sensitive to contact over Lateral L quad, very weak into knee extension, requires support for leg on/off table and SAQ motion. Therapist instructed QS, SAQ, HS with manual support and use of #4 TB for self help home. Improved L knee midstance stabiltiy better then when arrived with better awareness of quad facilitation. NExt tx: assess if [place] stim fac to support quad during therex, manual assist beneficial. Add Gait as intervention for POC progress. Physical Therapy Plan Frequency and Duration Frequency of Treatment 2x/Week Duration of treatment (weeks) 8 Plan of Care Start Date 09/09/22 Plan of Care End Date 11/09/22 Therapeutic Interventions Therapeutic Interventions Home Exercise Program,Manual Therapy,Neuromuscular Re- education,Patient/Caregiver Education,Self-Care/Home Management,Soft Tissue Mobilization,Taping, Therapeutic Activities, Therapeutic Exercises Modalities Cold Pack/Ice Massage,Electric Stimulation,Hot Packs, Infrared Therapy,Traction- Mechanical,Ultrasound Next Visit Focus/Plan Next Note Type Treatment Note Next Visit Plan Add Gait as intervention for POC progress functional gait. Assess response to added SAQ, QS. Continue quad and initiated glut strengthening for extension support during gait phase knee/hip/trunk stability. PT POC: Continue gentle progression of postural correction and core stab ex. Discuss results of MRI if available, review HEP, gentle progression of ther ex, assess pelvic alignment and iliopsoas for trigger point and treat as able with manual techniques as indicated. Modalities as indicated for pain management. Plan of Care Dates Plan of Care Start Date 09/09/22 Plan of Care End Date 11/09/22 Electronically Signed by: Nan Colin, PT 09/12/22 2041 If you are in agreement with this Plan of Care, please return a signed and dated copy. I have reviewed this Plan of Care and certify that the skilled therapy services above are required to meet the patient?s needs. Physician Signature Date Printed Name and Credentials Clinical Instructor Signature Printed Name and Credentials
--- NOTE | 2022-09-04 13:00 | PT.OIE ---
Current Diagnoses Radiculopathy, site unspecified (09/12/22) Left lower quadrant pain (09/12/22) Ataxia, unspecified (09/12/22) Other symptoms and signs involving the musculoskeletal system (09/12/22) Past Medical History (Last Reviewed 09/04/22 @ 08:53 by David Burger MD) Ataxia Chicken pox Lipoma of abdominal wall Low back pain Mumps Wears glasses Past Surgical History (Last Reviewed 09/04/22 @ 08:53 by David Burger MD) Anesthesia History of arthroscopic knee surgery (~1998) History of bladder surgery (~2011) History of section Visit Care Team Role Provider Type Maritza Daigle DO Family Provider Physician Primary Care Provider Specialty: Medical Address: [address] [place] [address], [address], [address] Email: [email or web address] Edith Parisi MD Attending Provider Physician Referring Provider Specialty: General Surgery Address: [address] [place] [address], [address], [address] Email: 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 Pain went down front of left leg to arch of foot with burning pain, reports spasms anterior left LE. A little better with use muscle relaxant new last week, weaned mostly off Hydrocodone , can't hardly get out of bed, walks from bed to bathroom only. Can't want much or go up stairs due to weakness. Neurologist ordered another MRI to include thoracic spine, scheduled for this Friday. EMG scheduled 10/10/22. assists with all household activities and ADL's . 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 Used to sleep on left side, can't now, has to sleep on right, sometimes pillow between legs though states sometimes that makes pain worse. Trying to get in to see neurologist before December. Prior Treatments and Tests MRI 06/29/22: multilevel mild overall degenerative change. Focal area of ill-defined density overlying the right foramina. This is suspected to be artifacts secondary to motion. However, mass in this egion cannot be definitely excluded. If patient is able to toelrate exam repeat views through this region are recommended. 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 Baseline Function- Recreation/Hobbies walks for exercise without difficulty Current Functional Impairments (Reported) Functional Limitations- ADL's requires assist Functional Limitations- Mobility/Gait uses SPC, walker, or wheelchair Functional Limitations- Work/School unable Functional Limitations- Recreation/ unable Hobbies Personal Factors Other Personal Factors That May Effect right knee meniscal tear Therapy/Recovery 3 C sections PT-OP-C Subjective Start: 09/12/22 15:01 Freq: Status: Active Protocol: Document 09/12/22 09:48 SP (Rec: 09/12/22 16:00 SP [id number]) OP-PT Subjective Patient Comments Patient Comments Pt reports has pain L anterior thigh, get tingling mainly knee down to arch foot, the ktaping seems to help. Leg is weak. Arrives decreased stance time onLLE and heavier on SPC . PT-OP-D Balance Start: 09/12/22 15:01 Freq: Status: Active Protocol: Document 09/04/22 13:00 [facility] (Rec: 09/12/22 16:05 [facility] [id number]) OP-PT Balance Assessment Sitting Balance Static Sitting Balance Ability Good Dynamic Sitting Balance Ability Good Standing Balance Static Standing Balance Ability Fair Dynamic Standing Balance Ability Fair Device Used SPC Standing Balance Comments unable to tolerate other balance testing Al Fall Scale Copyright Permission PT-OP-G Mobility & Gait Start: 09/12/22 15:01 Freq: Status: Active Protocol: Document 09/04/22 13:00 [facility] (Rec: 09/12/22 16:05 [facility] [id number]) OP Mobility Evaluation Bed Mobility Rolling painful Supine to and from Sit painful Transfers Sit to Stand painful, excess use right LE and UE's Car Transfers painful Floor Transfers unable Functional Movements Lifting and Carrying unable Squats unable OP Gait Assessment Gait Gait Assistance Required: Standby Assistance Distance (Feet) 80 Assistive Devices Assistive Device Straight Cane Orthotic/Prosthetic Devices or Brace: No Gait Deviations General Gait Pattern Antalgic,Decreased Stride Length,Decreased Feet Clearance,Lateral Trunk Lean, Wide Based Gait Stair Climbing Evaluation Comments Stair Climbing Comments unable PT-OP-H Neuro Start: 09/12/22 15:01 Freq: Status: Active Protocol: Document 09/04/22 13:00 [facility] (Rec: 09/12/22 16:05 [facility] [id number]) Sensation Evaluation Gross Sensation Gross Sensation Left LE Impaired Sensation Description Numbness,Tingling,Pain PT-OP-J Posture/Palpation/Skin Start: 09/12/22 15:01 Freq: Status: Active Protocol: Document 09/04/22 13:00 [facility] (Rec: 09/12/22 16:05 [facility] [id number]) Posture Evaluation Position Standing Head/C-Spine Posture Forward Head T-Spine Posture Increased Kyphosis L-Spine Posture Flexible Scoliosis on (R) Shoulder Posture (L) Rounded,(R) Rounded Scapula Posture (L) Protracted,(R) Protracted Arm Posture (L) Internally Rotated,(R) Internally Rotated Palpation Assessment Location left hip Palpation Location ant,lat Palpation Findings Muscle Guarding,Tenderness PT-OP-K Range of Motion Start: 09/12/22 15:01 Freq: Status: Active Protocol: Document 09/04/22 13:00 [facility] (Rec: 09/12/22 16:05 [facility] [id number]) Lumbar Spine Range of Motion Lumbar Spine Active ROM Limitations Pain Comments mod dec all motions Hip Goniometric Range of Motion Hip Left Hip ROM WFL No Flexion w/Knee Flexed 90 Straight Leg Raise 45 Extension 0 Abduction 25 Internal Rotation 10 External Rotation 45 Comments all motions left needed PT assist due to weakness and pain Right Hip ROM WFL Yes Hip ROM Limitations Hip ROM Limitations Muscle Weakness,Pain Ankle and Foot Goniometric Range of Motion Ankle and Foot Left Ankle/Foot ROM WFL Yes Right Ankle/Foot ROM WFL Yes PT-OP-L Special Tests Start: 09/12/22 15:01 Freq: Status: Active Protocol: Document 09/04/22 13:00 [facility] (Rec: 09/12/22 16:05 [facility] [id number]) Special Tests Lumbar Spine Special Tests Vertical Spine Loading Test Results inc pain Manual Traction Test Results inc pain Slump Test Results inc pain Prone Press Up Test Results unable to lay prone Straight Leg Raise Test Results unable to do test PT-OP-M Strength Start: 09/12/22 15:01 Freq: Status: Active Protocol: Document 09/04/22 13:00 [facility] (Rec: 09/12/22 16:05 [facility] [id number]) Trunk Strength Trunk Manual Muscle Testing Core Stabilization poor Comments unable to tolerate testing Hip Strength Hip Manual Muscle Testing Left Flexion (L2) 2- Poor- Extension (S1) 2- Poor- Abduction 2- Poor- Adduction 2- Poor- External Rotation 2- Poor- Internal Rotation 2- Poor- Comments tested sitting and supine Right Flexion (L2) 4+ Good+ Extension (S1) 4- Good- Abduction 4- Good- Adduction 4- Good- External Rotation 4- Good- Internal Rotation 4- Good- Comments tested sitting and supine Knee Strength Knee Manual Muscle Testing Left Flexion (S2) 3- Fair- Extension (L3) 3- Fair- Right Flexion (S2) 5 Normal Extension (L3) 5 Normal Ankle/Foot Strength Ankle and Foot Manual Muscle Testing Left Dorsiflexion (L4) 2+ Poor+ Plantarflexion (S1) 3- Fair- Right Dorsiflexion (L4) 4 Good Plantarflexion (S1) 4 Good Toe Strength Toe Manual Muscle Testing Left Great Toe Extension 2+ Poor+ Right Great Toe Extension 5 Normal PT-OP-Q Treatments Start: 09/12/22 15:01 Freq: Status: Active Protocol: Document 09/12/22 09:48 SP (Rec: 09/12/22 16:00 SP [id number]) Therapeutic Exercises Supine Exercises TA Reps/Minutes x5 GS, QS Side left Equipment Used (towel under L knee) Reps/Minutes x10 Comments quick flick quad set (inhibit HS/calf) better quad set AP, patellar sup gld bridge Supine Exercise Name improved segmental movt Reps/Minutes x10 reps Comments cued R heel closer to buttock, decrease HS cramp- improved height with reps SAQ Supine Exercise Name added to HEP for on/off bed support Side left Resistance Tb #4 support on foot Equipment Used foam roller under knees Reps/Minutes 5 reps therapist assist 5% Comments cued mid quad fac, able 2nd set with blue TB Heel slide Supine Exercise Name added to HEP for on/off bed support Side left Resistance TB #4 Support on foot Equipment Used shoe doffed Reps/Minutes 5 reps therapist assist 5% > S Comments challenged, better quad as reps progressed. Gait Training Gait Activity SPC Description heel toe, quad/ glut fac midstance- assessed L knee stabilization support Device Used [facility]/ [facility] Level of Assistance S Distance/Duration 20 ft x2 laps Treatment Focus quad, glut facilitation for knee stability, heel toe Comments improved gait phase and small step pivot Manual Therapy Treatment Soft Tissue Mobilization quad, ITB Body Location L vastus lateralis, ITB Mobilization Type Instrument Assisted,Myofascial Release Intensity/Depth Superficial Body Position Hooklying Comments light rolling pin- sensitive to touch- stopped Taping ITB, lateral quad Body Location still good support- not need reapply today Treatment Focus inhibition, pain relief Type of Tape Kinesio Tape Skin Inspection intact, normal color- still supportive Comments 3 I strips, paper off tension distal to proximal PT-OP-T Assessment and Plan Start: 09/12/22 15:01 Freq: Status: Active Protocol: Document 09/12/22 09:48 SP (Rec: 09/12/22 16:00 SP [id number]) Physical Therapy Assessment Rehab Potential Rehabilitation Potential Fair Evaluation Complexity Number of Personal Factors/Comorbidities 3 or More Number of Body Systems Impaired 4 or More Clinical Presentation at Evaluation Unstable Impairments Impairments Activity Tolerance,Gait,Pain, Strength Assessment Summary Assessment Pt very sensitive to contact over Lateral L quad, very weak into knee extension, requires support for leg on/off table and SAQ motion. Therapist instructed QS, SAQ, HS with manual support and use of #4 TB for self help home. Improved L knee midstance stabiltiy better then when arrived with better awareness of quad facilitation. NExt tx: assess if Finnish stim fac to support quad during therex, manual assist beneficial. Add Gait as intervention for POC progress. Physical Therapy Plan Frequency and Duration Frequency of Treatment 2x/Week Duration of treatment (weeks) 8 Plan of Care Start Date 09/09/22 Plan of Care End Date 11/09/22 Therapeutic Interventions Therapeutic Interventions Home Exercise Program,Manual Therapy,Neuromuscular Re- education,Patient/Caregiver Education,Self-Care/Home Management,Soft Tissue Mobilization,Taping, Therapeutic Activities, Therapeutic Exercises Modalities Cold Pack/Ice Massage,Electric Stimulation,Hot Packs, Infrared Therapy,Traction- Mechanical,Ultrasound Next Visit Focus/Plan Next Note Type Treatment Note Next Visit Plan Add Gait as intervention for POC progress functional gait. Assess response to added SAQ, QS. Continue quad and initiated glut strengthening for extension support during gait phase knee/hip/trunk stability. PT POC: Continue gentle progression of postural correction and core stab ex. Discuss results of MRI if available, review HEP, gentle progression of ther ex, assess pelvic alignment and iliopsoas for trigger point and treat as able with manual techniques as indicated. Modalities as indicated for pain management.
--- NOTE | 2022-09-10 16:42 | PT.OTN ---
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 Pain went down front of left leg to arch of foot with burning pain, reports spasms anterior left LE. A little better with use muscle relaxant new last week, weaned mostly off Hydrocodone , can't hardly get out of bed, walks from bed to bathroom only. Can't want much or go up stairs due to weakness. Neurologist ordered another MRI to include thoracic spine, scheduled for this Friday. EMG scheduled 10/10/22. assists with all household activities and ADL's . 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 Used to sleep on left side, can't now, has to sleep on right, sometimes pillow between legs though states sometimes that makes pain worse. Trying to get in to see neurologist before December. Prior Treatments and Tests MRI 06/29/22: multilevel mild overall degenerative change. Focal area of ill-defined density overlying the right foramina. This is suspected to be artifacts secondary to motion. However, mass in this egion cannot be definitely excluded. If patient is able to toelrate exam repeat views through this region are recommended. 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 Baseline Function- Recreation/Hobbies walks for exercise without difficulty Current Functional Impairments (Reported) Functional Limitations- ADL's requires assist Functional Limitations- Mobility/Gait uses SPC, walker, or wheelchair Functional Limitations- Work/School unable Functional Limitations- Recreation/ unable Hobbies Personal Factors Other Personal Factors That May Effect right knee meniscal tear Therapy/Recovery 3 C sections PT-OP-C Subjective Start: 09/12/22 15:01 Freq: Status: Active Protocol: Document 09/12/22 09:48 SP (Rec: 09/12/22 16:00 SP [id number]) OP-PT Subjective Patient Comments Patient Comments Pt reports has pain L anterior thigh, get tingling mainly knee down to arch foot, the ktaping seems to help. Leg is weak. Arrives decreased stance time onLLE and heavier on SPC . PT-OP-D Balance Start: 09/12/22 15:01 Freq: Status: Active Protocol: Document 09/04/22 13:00 SAK (Rec: 09/12/22 16:05 SAK [id number]) OP-PT Balance Assessment Sitting Balance Static Sitting Balance Ability Good Dynamic Sitting Balance Ability Good Standing Balance Static Standing Balance Ability Fair Dynamic Standing Balance Ability Fair Device Used SPC Standing Balance Comments unable to tolerate other balance testing Al Fall Scale Copyright Permission PT-OP-G Mobility & Gait Start: 09/12/22 15:01 Freq: Status: Active Protocol: Document 09/04/22 13:00 SAK (Rec: 09/12/22 16:05 SAK [id number]) OP Mobility Evaluation Bed Mobility Rolling painful Supine to and from Sit painful Transfers Sit to Stand painful, excess use right LE and UE's Car Transfers painful Floor Transfers unable Functional Movements Lifting and Carrying unable Squats unable OP Gait Assessment Gait Gait Assistance Required: Standby Assistance Distance (Feet) 80 Assistive Devices Assistive Device Straight Cane Orthotic/Prosthetic Devices or Brace: No Gait Deviations General Gait Pattern Antalgic,Decreased Stride Length,Decreased Feet Clearance,Lateral Trunk Lean, Wide Based Gait Stair Climbing Evaluation Comments Stair Climbing Comments unable PT-OP-H Neuro Start: 09/12/22 15:01 Freq: Status: Active Protocol: Document 09/04/22 13:00 [facility] (Rec: 09/12/22 16:05 [facility] [id number]) Sensation Evaluation Gross Sensation Gross Sensation Left LE Impaired Sensation Description Numbness,Tingling,Pain PT-OP-J Posture/Palpation/Skin Start: 09/12/22 15:01 Freq: Status: Active Protocol: Document 09/04/22 13:00 [facility] (Rec: 09/12/22 16:05 [facility] [id number]) Posture Evaluation Position Standing Head/C-Spine Posture Forward Head T-Spine Posture Increased Kyphosis L-Spine Posture Flexible Scoliosis on (R) Shoulder Posture (L) Rounded,(R) Rounded Scapula Posture (L) Protracted,(R) Protracted Arm Posture (L) Internally Rotated,(R) Internally Rotated Palpation Assessment Location left hip Palpation Location ant,lat Palpation Findings Muscle Guarding,Tenderness PT-OP-K Range of Motion Start: 09/12/22 15:01 Freq: Status: Active Protocol: Document 09/04/22 13:00 [facility] (Rec: 09/12/22 16:05 [facility] [id number]) Lumbar Spine Range of Motion Lumbar Spine Active ROM Limitations Pain Comments mod dec all motions Hip Goniometric Range of Motion Hip Left Hip ROM WFL No Flexion w/Knee Flexed 90 Straight Leg Raise 45 Extension 0 Abduction 25 Internal Rotation 10 External Rotation 45 Comments all motions left needed PT assist due to weakness and pain Right Hip ROM WFL Yes Hip ROM Limitations Hip ROM Limitations Muscle Weakness,Pain Ankle and Foot Goniometric Range of Motion Ankle and Foot Left Ankle/Foot ROM WFL Yes Right Ankle/Foot ROM WFL Yes PT-OP-L Special Tests Start: 09/12/22 15:01 Freq: Status: Active Protocol: Document 09/04/22 13:00 [facility] (Rec: 09/12/22 16:05 [facility] [id number]) Special Tests Lumbar Spine Special Tests Vertical Spine Loading Test Results inc pain Manual Traction Test Results inc pain Slump Test Results inc pain Prone Press Up Test Results unable to lay prone Straight Leg Raise Test Results unable to do test PT-OP-M Strength Start: 09/12/22 15:01 Freq: Status: Active Protocol: Document 09/04/22 13:00 SAK (Rec: 09/12/22 16:05 SAK [id number]) Trunk Strength Trunk Manual Muscle Testing Core Stabilization poor Comments unable to tolerate testing Hip Strength Hip Manual Muscle Testing Left Flexion (L2) 2- Poor- Extension (S1) 2- Poor- Abduction 2- Poor- Adduction 2- Poor- External Rotation 2- Poor- Internal Rotation 2- Poor- Comments tested sitting and supine Right Flexion (L2) 4+ Good+ Extension (S1) 4- Good- Abduction 4- Good- Adduction 4- Good- External Rotation 4- Good- Internal Rotation 4- Good- Comments tested sitting and supine Knee Strength Knee Manual Muscle Testing Left Flexion (S2) 3- Fair- Extension (L3) 3- Fair- Right Flexion (S2) 5 Normal Extension (L3) 5 Normal Ankle/Foot Strength Ankle and Foot Manual Muscle Testing Left Dorsiflexion (L4) 2+ Poor+ Plantarflexion (S1) 3- Fair- Right Dorsiflexion (L4) 4 Good Plantarflexion (S1) 4 Good Toe Strength Toe Manual Muscle Testing Left Great Toe Extension 2+ Poor+ Right Great Toe Extension 5 Normal PT-OP-Q Treatments Start: 09/12/22 15:01 Freq: Status: Active Protocol: Document 09/12/22 09:48 SP (Rec: 09/12/22 16:00 SP [id number]) Therapeutic Exercises Supine Exercises TA Reps/Minutes x5 GS, QS Side left Equipment Used (towel under L knee) Reps/Minutes x10 Comments quick flick quad set (inhibit HS/calf) better quad set AP, patellar sup gld bridge Supine Exercise Name improved segmental movt Reps/Minutes x10 reps Comments cued R heel closer to buttock, decrease HS cramp- improved height with reps SAQ Supine Exercise Name added to HEP for on/off bed support Side left Resistance Tb #4 support on foot Equipment Used foam roller under knees Reps/Minutes 5 reps therapist assist 5% Comments cued mid quad fac, able 2nd set with blue TB Heel slide Supine Exercise Name added to HEP for on/off bed support Side left Resistance TB #4 Support on foot Equipment Used shoe doffed Reps/Minutes 5 reps therapist assist 5% > S Comments challenged, better quad as reps progressed. Gait Training Gait Activity SPC Description heel toe, quad/ glut fac midstance- assessed L knee stabilization support Device Used [facility] [place]/ [facility] Level of Assistance S Distance/Duration 20 ft x2 laps Treatment Focus quad, glut facilitation for knee stability, heel toe Comments improved gait phase and small step pivot Manual Therapy Treatment Soft Tissue Mobilization quad, ITB Body Location L vastus lateralis, ITB Mobilization Type Instrument Assisted,Myofascial Release Intensity/Depth Superficial Body Position Hooklying Comments light rolling pin- sensitive to touch- stopped Taping ITB, lateral quad Body Location still good support- not need reapply today Treatment Focus inhibition, pain relief Type of Tape Kinesio Tape Skin Inspection intact, normal color- still supportive Comments 3 I strips, paper off tension distal to proximal PT-OP-T Assessment and Plan Start: 09/12/22 15:01 Freq: Status: Active Protocol: Document 09/12/22 09:48 SP (Rec: 09/12/22 16:00 SP [id number]) Physical Therapy Assessment Rehab Potential Rehabilitation Potential Fair Evaluation Complexity Number of Personal Factors/Comorbidities 3 or More Number of Body Systems Impaired 4 or More Clinical Presentation at Evaluation Unstable Impairments Impairments Activity Tolerance,Gait,Pain, Strength Assessment Summary Assessment Pt very sensitive to contact over Lateral L quad, very weak into knee extension, requires support for leg on/off table and SAQ motion. Therapist instructed QS, SAQ, HS with manual support and use of #4 TB for self help home. Improved L knee midstance stabiltiy better then when arrived with better awareness of quad facilitation. NExt tx: assess if Argentine stim fac to support quad during therex, manual assist beneficial. Add Gait as intervention for POC progress. Physical Therapy Plan Frequency and Duration Frequency of Treatment 2x/Week Duration of treatment (weeks) 8 Plan of Care Start Date 09/09/22 Plan of Care End Date 11/09/22 Therapeutic Interventions Therapeutic Interventions Home Exercise Program,Manual Therapy,Neuromuscular Re- education,Patient/Caregiver Education,Self-Care/Home Management,Soft Tissue Mobilization,Taping, Therapeutic Activities, Therapeutic Exercises Modalities Cold Pack/Ice Massage,Electric Stimulation,Hot Packs, Infrared Therapy,Traction- Mechanical,Ultrasound Next Visit Focus/Plan Next Note Type Treatment Note Next Visit Plan Add Gait as intervention for POC progress functional gait. Assess response to added SAQ, QS. Continue quad and initiated glut strengthening for extension support during gait phase knee/hip/trunk stability. PT POC: Continue gentle progression of postural correction and core stab ex. Discuss results of MRI if available, review HEP, gentle progression of ther ex, assess pelvic alignment and iliopsoas for trigger point and treat as able with manual techniques as indicated. Modalities as indicated for pain management.
--- NOTE | 2022-09-12 10:30 | PT.OTN ---
Current Diagnoses Radiculopathy, site unspecified (09/12/22) Left lower quadrant pain (09/12/22) Ataxia, unspecified (09/12/22) Other symptoms and signs involving the musculoskeletal system (09/12/22) Physical Therapy Treatment Note PT-OP-A Visit Information Start: 09/12/22 15:01 Freq: Status: Active Protocol: Document 09/12/22 09:48 SP (Rec: 09/12/22 16:00 SP [id number]) Out-Patient Physical Therapy Visit Information Visit Information Visit Type Treatment Note Visit Start Time 09:48 Visit Stop Time 10:30 Total Visit Minutes 42 Visit Number 3 Number of SALES AND SERVICE SPECIALIST Visits 1 Evaluation Information Evaluation Date 09/04/22 PT-OP-B Current Condition Start: 09/12/22 15:01 Freq: Status: Active Protocol: Document 09/04/22 13:00 SAK (Rec: 09/12/22 16:05 SAK [id number]) Current Condition History of Current Condition Onset Date 06/21/23 Current Complaints left anterior hip pain, left leg weakness History of Current Condition Was in [place], had acute onset pain left anterior hip for no known reason, got worse including vomiting, HTN and tachycardia all lasted for about 1 week. Pain went down front of left leg to arch of foot with burning pain, reports spasms anterior left LE. A little better with use muscle relaxant new last week, weaned mostly off Hydrocodone , can't hardly get out of bed, walks from bed to bathroom only. Can't want much or go up stairs due to weakness. Neurologist ordered another MRI to include thoracic spine, scheduled for this Friday. EMG scheduled 10/10/22. assists with all household activities and ADL's . 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 Used to sleep on left side, can't now, has to sleep on right, sometimes pillow between legs though states sometimes that makes pain worse. Trying to get in to see neurologist before December. Prior Treatments and Tests MRI 06/29/22: multilevel mild overall degenerative change. Focal area of ill-defined density overlying the right foramina. This is suspected to be artifacts secondary to motion. However, mass in this egion cannot be definitely excluded. If patient is able to toelrate exam repeat views through this region are recommended. 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 Baseline Function- Recreation/Hobbies walks for exercise without difficulty Current Functional Impairments (Reported) Functional Limitations- ADL's requires assist Functional Limitations- Mobility/Gait uses SPC, walker, or wheelchair Functional Limitations- Work/School unable Functional Limitations- Recreation/ unable Hobbies Personal Factors Other Personal Factors That May Effect right knee meniscal tear Therapy/Recovery 3 C sections PT-OP-C Subjective Start: 09/12/22 15:01 Freq: Status: Active Protocol: Document 09/12/22 09:48 SP (Rec: 09/12/22 16:00 SP [id number]) OP-PT Subjective Patient Comments Patient Comments Pt reports has pain L anterior thigh, get tingling mainly knee down to arch foot, the ktaping seems to help. Leg is weak. Arrives decreased stance time onLLE and heavier on SPC . PT-OP-D Balance Start: 09/12/22 15:01 Freq: Status: Active Protocol: Document 09/04/22 13:00 SAK (Rec: 09/12/22 16:05 SAK [id number]) OP-PT Balance Assessment Sitting Balance Static Sitting Balance Ability Good Dynamic Sitting Balance Ability Good Standing Balance Static Standing Balance Ability Fair Dynamic Standing Balance Ability Fair Device Used SPC Standing Balance Comments unable to tolerate other balance testing Al Fall Scale Copyright Permission PT-OP-G Mobility & Gait Start: 09/12/22 15:01 Freq: Status: Active Protocol: Document 09/04/22 13:00 SAK (Rec: 09/12/22 16:05 SAK [id number]) OP Mobility Evaluation Bed Mobility Rolling painful Supine to and from Sit painful Transfers Sit to Stand painful, excess use right LE and UE's Car Transfers painful Floor Transfers unable Functional Movements Lifting and Carrying unable Squats unable OP Gait Assessment Gait Gait Assistance Required: Standby Assistance Distance (Feet) 80 Assistive Devices Assistive Device Straight Cane Orthotic/Prosthetic Devices or Brace: No Gait Deviations General Gait Pattern Antalgic,Decreased Stride Length,Decreased Feet Clearance,Lateral Trunk Lean, Wide Based Gait Stair Climbing Evaluation Comments Stair Climbing Comments unable PT-OP-H Neuro Start: 09/12/22 15:01 Freq: Status: Active Protocol: Document 09/04/22 13:00 [facility] (Rec: 09/12/22 16:05 [facility] [id number]) Sensation Evaluation Gross Sensation Gross Sensation Left LE Impaired Sensation Description Numbness,Tingling,Pain PT-OP-J Posture/Palpation/Skin Start: 09/12/22 15:01 Freq: Status: Active Protocol: Document 09/04/22 13:00 [facility] (Rec: 09/12/22 16:05 [facility] [id number]) Posture Evaluation Position Standing Head/C-Spine Posture Forward Head T-Spine Posture Increased Kyphosis L-Spine Posture Flexible Scoliosis on (R) Shoulder Posture (L) Rounded,(R) Rounded Scapula Posture (L) Protracted,(R) Protracted Arm Posture (L) Internally Rotated,(R) Internally Rotated Palpation Assessment Location left hip Palpation Location ant,lat Palpation Findings Muscle Guarding,Tenderness PT-OP-K Range of Motion Start: 09/12/22 15:01 Freq: Status: Active Protocol: Document 09/04/22 13:00 [facility] (Rec: 09/12/22 16:05 [facility] [id number]) Lumbar Spine Range of Motion Lumbar Spine Active ROM Limitations Pain Comments mod dec all motions Hip Goniometric Range of Motion Hip Left Hip ROM WFL No Flexion w/Knee Flexed 90 Straight Leg Raise 45 Extension 0 Abduction 25 Internal Rotation 10 External Rotation 45 Comments all motions left needed PT assist due to weakness and pain Right Hip ROM WFL Yes Hip ROM Limitations Hip ROM Limitations Muscle Weakness,Pain Ankle and Foot Goniometric Range of Motion Ankle and Foot Left Ankle/Foot ROM WFL Yes Right Ankle/Foot ROM WFL Yes PT-OP-L Special Tests Start: 09/12/22 15:01 Freq: Status: Active Protocol: Document 09/04/22 13:00 [facility] (Rec: 09/12/22 16:05 [facility] [id number]) Special Tests Lumbar Spine Special Tests Vertical Spine Loading Test Results inc pain Manual Traction Test Results inc pain Slump Test Results inc pain Prone Press Up Test Results unable to lay prone Straight Leg Raise Test Results unable to do test PT-OP-M Strength Start: 09/12/22 15:01 Freq: Status: Active Protocol: Document 09/04/22 13:00 SAK (Rec: 09/12/22 16:05 SAK [id number]) Trunk Strength Trunk Manual Muscle Testing Core Stabilization poor Comments unable to tolerate testing Hip Strength Hip Manual Muscle Testing Left Flexion (L2) 2- Poor- Extension (S1) 2- Poor- Abduction 2- Poor- Adduction 2- Poor- External Rotation 2- Poor- Internal Rotation 2- Poor- Comments tested sitting and supine Right Flexion (L2) 4+ Good+ Extension (S1) 4- Good- Abduction 4- Good- Adduction 4- Good- External Rotation 4- Good- Internal Rotation 4- Good- Comments tested sitting and supine Knee Strength Knee Manual Muscle Testing Left Flexion (S2) 3- Fair- Extension (L3) 3- Fair- Right Flexion (S2) 5 Normal Extension (L3) 5 Normal Ankle/Foot Strength Ankle and Foot Manual Muscle Testing Left Dorsiflexion (L4) 2+ Poor+ Plantarflexion (S1) 3- Fair- Right Dorsiflexion (L4) 4 Good Plantarflexion (S1) 4 Good Toe Strength Toe Manual Muscle Testing Left Great Toe Extension 2+ Poor+ Right Great Toe Extension 5 Normal PT-OP-Q Treatments Start: 09/12/22 15:01 Freq: Status: Active Protocol: Document 09/12/22 09:48 SP (Rec: 09/12/22 16:00 SP [id number]) Therapeutic Exercises Supine Exercises TA Reps/Minutes x5 GS, QS Side left Equipment Used (towel under L knee) Reps/Minutes x10 Comments quick flick quad set (inhibit HS/calf) better quad set AP, patellar sup gld bridge Supine Exercise Name improved segmental movt Reps/Minutes x10 reps Comments cued R heel closer to buttock, decrease HS cramp- improved height with reps SAQ Supine Exercise Name added to HEP for on/off bed support Side left Resistance Tb #4 support on foot Equipment Used foam roller under knees Reps/Minutes 5 reps therapist assist 5% Comments cued mid quad fac, able 2nd set with blue TB Heel slide Supine Exercise Name added to HEP for on/off bed support Side left Resistance TB #4 Support on foot Equipment Used shoe doffed Reps/Minutes 5 reps therapist assist 5% > S Comments challenged, better quad as reps progressed. Gait Training Gait Activity SPC Description heel toe, quad/ glut fac midstance- assessed L knee stabilization support Device Used [facility]/ [facility] Level of Assistance S Distance/Duration 20 ft x2 laps Treatment Focus quad, glut facilitation for knee stability, heel toe Comments improved gait phase and small step pivot Manual Therapy Treatment Soft Tissue Mobilization quad, ITB Body Location L vastus lateralis, ITB Mobilization Type Instrument Assisted,Myofascial Release Intensity/Depth Superficial Body Position Hooklying Comments light rolling pin- sensitive to touch- stopped Taping ITB, lateral quad Body Location still good support- not need reapply today Treatment Focus inhibition, pain relief Type of Tape Kinesio Tape Skin Inspection intact, normal color- still supportive Comments 3 I strips, paper off tension distal to proximal PT-OP-T Assessment and Plan Start: 09/12/22 15:01 Freq: Status: Active Protocol: Document 09/12/22 09:48 SP (Rec: 09/12/22 16:00 SP [id number]) Physical Therapy Assessment Rehab Potential Rehabilitation Potential Fair Evaluation Complexity Number of Personal Factors/Comorbidities 3 or More Number of Body Systems Impaired 4 or More Clinical Presentation at Evaluation Unstable Impairments Impairments Activity Tolerance,Gait,Pain, Strength Goals Three Impairment activity tolerance Impairment LEFS 24% Short Term Goal (STG) Improve LEFS to at least 50% as measure of improved activity tolerance STG Duration 10/05/22 Senior Executive Compensation Analyst Goal (LTG) Improve LEFS to at least 75% as measure of improved activity tolerance and quality of life LTG Duration 11/04/22 Four Impairment gait dysfunction Impairment antalgic, requires use of cane , walker, or wheelchair, can't ambulate on stairs Short Term Goal (STG) Patient to ambulate in the house without device and without a limp STG Duration 10/05/22 Fpc Goal (LTG) Patient able to ambulate at least 1/2 mile and up and down stairs with least restrictive device device, without limp LTG Duration 11/04/22 Two Impairment weakness left LE Short Term Goal (STG) Patient to be independent in individualized HEP as instructed by PT STG Duration 10/05/22 Senior Executive Compensation Analyst Goal (LTG) Patient to demonstrate left LE strength of at least 4/5 to help her resume usual activity LTG Duration 11/04/22 One Impairment pain left hip with radicular symptoms left LE Impairment 8/10 on pain scale Fpc Goal (LTG) decrease patient pain to no greater than 2/10 with all usual activities LTG Duration 11/04/22 Assessment Summary Assessment Pt very sensitive to contact over Lateral L quad, very weak into knee extension, requires support for leg on/off table and SAQ motion. Therapist instructed QS, SAQ, HS with manual support and use of #4 TB looped around her ankle for self help home. Improved L knee midstance stability better then when arrived with better awareness of quad facilitation. NExt tx: assess if Iranian stim fac to support quad during therex, manual assist beneficial. Physical Therapy Plan Frequency and Duration Frequency of Treatment 2x/Week Duration of treatment (weeks) 8 Plan of Care Start Date 09/09/22 Plan of Care End Date 11/09/22 Therapeutic Interventions Therapeutic Interventions Gait Training,Home Exercise Program,Manual Therapy, Neuromuscular Re-education, Patient/Caregiver Education, Self-Care/Home Management,Soft Tissue Mobilization,Taping, Therapeutic Activities, Therapeutic Exercises Modalities Cold Pack/Ice Massage,Electric Stimulation,Hot Packs, Infrared Therapy,Traction- Mechanical,Ultrasound Next Visit Focus/Plan Next Note Type Treatment Note Next Visit Plan Assess response to added SAQ, QS. Continue quad and initiated glut strengthening for extension support during gait phase knee/hip/trunk stability. PT POC: Continue gentle progression of postural correction and core stab ex. Discuss results of MRI if available, review HEP, gentle progression of ther ex, assess pelvic alignment and iliopsoas for trigger point and treat as able with manual techniques as indicated. Modalities as indicated for pain management.
--- NOTE | 2022-09-12 10:30 | PT.OTN ---
Current Diagnoses Radiculopathy, site unspecified (09/12/22) Left lower quadrant pain (09/12/22) Ataxia, unspecified (09/12/22) Other symptoms and signs involving the musculoskeletal system (09/12/22) Physical Therapy Treatment Note PT-OP-A Visit Information Start: 09/12/22 15:01 Freq: Status: Active Protocol: Document 09/12/22 09:48 SP (Rec: 09/12/22 16:00 SP [id number]) Out-Patient Physical Therapy Visit Information Visit Information Visit Type Treatment Note Visit Start Time 09:48 Visit Stop Time 10:30 Total Visit Minutes 42 Visit Number 3 Number of SHARED SERVICES MANAGER Visits 1 Evaluation Information Evaluation Date 09/04/22 PT-OP-C Subjective Start: 09/12/22 15:01 Freq: Status: Active Protocol: Document 09/12/22 09:48 SP (Rec: 09/12/22 16:00 SP [id number]) OP-PT Subjective Patient Comments Patient Comments Pt reports has pain L anterior thigh, get tingling mainly knee down to arch foot, the ktaping seems to help. Leg is weak. Arrives decreased stance time onLLE and heavier on SPC . PT-OP-Q Treatments Start: 09/12/22 15:01 Freq: Status: Active Protocol: Document 09/12/22 09:48 SP (Rec: 09/12/22 16:00 SP [id number]) Therapeutic Exercises Supine Exercises TA Reps/Minutes x5 GS, QS Side left Equipment Used (towel under L knee) Reps/Minutes x10 Comments quick flick quad set (inhibit HS/calf) better quad set AP, patellar sup gld bridge Supine Exercise Name improved segmental movt Reps/Minutes x10 reps Comments cued R heel closer to buttock, decrease HS cramp- improved height with reps SAQ Supine Exercise Name added to HEP for on/off bed support Side left Resistance Tb #4 support on foot Equipment Used foam roller under knees Reps/Minutes 5 reps therapist assist 5% Comments cued mid quad fac, able 2nd set with blue TB Heel slide Supine Exercise Name added to HEP for on/off bed support Side left Resistance TB #4 Support on foot Equipment Used shoe doffed Reps/Minutes 5 reps therapist assist 5% > S Comments challenged, better quad as reps progressed. Gait Training Gait Activity SPC Description heel toe, quad/ glut fac midstance- assessed L knee stabilization support Device [place] [facility] [place] [facility] Level of Assistance S Distance/Duration 20 ft x2 laps Treatment Focus quad, glut facilitation for knee stability, heel toe Comments improved gait phase and small step pivot Manual Therapy Treatment Soft Tissue Mobilization quad, ITB Body Location L vastus lateralis, ITB Mobilization Type Instrument Assisted,Myofascial Release Intensity/Depth Superficial Body Position Hooklying Comments light rolling pin- sensitive to touch- stopped Taping ITB, lateral quad Body Location still good support- not need reapply today Treatment Focus inhibition, pain relief Type of Tape Kinesio Tape Skin Inspection intact, normal color- still supportive Comments 3 I strips, paper off tension distal to proximal PT-OP-T Assessment and Plan Start: 09/12/22 15:01 Freq: Status: Active Protocol: Document 09/12/22 09:48 SP (Rec: 09/12/22 16:00 SP [id number]) Physical Therapy Assessment Rehab Potential Rehabilitation Potential Fair Evaluation Complexity Number of Personal Factors/Comorbidities 3 or More Number of Body Systems Impaired 4 or More Clinical Presentation at Evaluation Unstable Impairments Impairments Activity Tolerance,Gait,Pain, Strength Assessment Summary Assessment Pt very sensitive to contact over Lateral L quad, very weak into knee extension, requires support for leg on/off table and SAQ motion. Therapist instructed QS, SAQ, HS with manual support and use of #4 TB for self help home. Improved L knee midstance stabiltiy better then when arrived with better awareness of quad facilitation. NExt tx: assess if Belgian stim fac to support quad during therex, manual assist beneficial. Add Gait as intervention for POC progress. Physical Therapy Plan Frequency and Duration Frequency of Treatment 2x/Week Duration of treatment (weeks) 8 Plan of Care Start Date 09/09/22 Plan of Care End Date 11/09/22 Therapeutic Interventions Therapeutic Interventions Home Exercise Program,Manual Therapy,Neuromuscular Re- education,Patient/Caregiver Education,Self-Care/Home Management,Soft Tissue Mobilization,Taping, Therapeutic Activities, Therapeutic Exercises Modalities Cold Pack/Ice Massage,Electric Stimulation,Hot Packs, Infrared Therapy,Traction- Mechanical,Ultrasound Next Visit Focus/Plan Next Note Type Treatment Note Next Visit Plan Add Gait as intervention for POC progress functional gait. Assess response to added SAQ, QS. Continue quad and initiated glut strengthening for extension support during gait phase knee/hip/trunk stability. PT POC: Continue gentle progression of postural correction and core stab ex. Discuss results of MRI if available, review HEP, gentle progression of ther ex, assess pelvic alignment and iliopsoas for trigger point and treat as able with manual techniques as indicated. Modalities as indicated for pain management.
--- NOTE | 2022-09-17 10:27 | PT.OTN ---
Current Diagnoses Radiculopathy, site unspecified (09/17/22) Left lower quadrant pain (09/17/22) Ataxia, unspecified (09/17/22) Other symptoms and signs involving the musculoskeletal system (09/17/22) Physical Therapy Treatment Note PT-OP-A Visit Information Start: 09/12/22 15:01 Freq: Status: Active Protocol: Document 09/17/22 09:26 NBM (Rec: 09/17/22 10:27 NBM [id number]) Out-Patient Physical Therapy Visit Information Visit Information Visit Type Treatment Note Visit Start Time 09:10 Visit Stop Time 10:00 Total Visit Minutes 50 Visit Number 4 Number of PHOTONICS ENGINEER Visits 2 PT-OP-B Current Condition Start: 09/12/22 15:01 Freq: Status: Active Protocol: Document 09/04/22 13:00 SAK (Rec: 09/12/22 16:05 SAK [id number]) Current Condition History of Current Condition Onset Date 06/21/23 Current Complaints left anterior hip pain, left leg weakness History of Current Condition Was in [place], had acute onset pain left anterior hip for no known reason, got worse including vomiting, HTN and tachycardia all lasted for about 1 week. Pain went down front of left leg to arch of foot with burning pain, reports spasms anterior left LE. A little better with use muscle relaxant new last week, weaned mostly off Hydrocodone , can't hardly get out of bed, walks from bed to bathroom only. Can't want much or go up stairs due to weakness. Neurologist ordered another MRI to include thoracic spine, scheduled for this Friday. EMG scheduled 10/10/22. assists with all household activities and ADL's . 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 Used to sleep on left side, can't now, has to sleep on right, sometimes pillow between legs though states sometimes that makes pain worse. Trying to get in to see neurologist before December. Prior Treatments and Tests MRI 06/29/22: multilevel mild overall degenerative change. Focal area of ill-defined density overlying the right foramina. This is suspected to be artifacts secondary to motion. However, mass in this egion cannot be definitely excluded. If patient is able to toelrate exam repeat views through this region are recommended. 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 Baseline Function- Recreation/Hobbies walks for exercise without difficulty Current Functional Impairments (Reported) Functional Limitations- ADL's requires assist Functional Limitations- Mobility/Gait uses SPC, walker, or wheelchair Functional Limitations- Work/School unable Functional Limitations- Recreation/ unable Hobbies Personal Factors Other Personal Factors That May Effect right knee meniscal tear Therapy/Recovery 3 C sections PT-OP-C Subjective Start: 09/12/22 15:01 Freq: Status: Active Protocol: Document 09/17/22 09:26 NB (Rec: 09/17/22 10:27 [facility] [id number]) OP-PT Subjective Patient Comments Patient Comments Pt states her strength has gotten a bit better overall but her leg is still weak and she can't get into her SUV without manually lifting her L leg in. Her L hip cramps regularly in different positions. She has been doing her ex's and states she is getting an EMG on 09/26/22. Pt can sleep on her left side again. She thinks KT tape helped. Pt's BMs are regular again. PT-OP-D Balance Start: 09/12/22 15:01 Freq: Status: Active Protocol: Document 09/04/22 13:00 [facility] (Rec: 09/12/22 16:05 [facility] [id number]) OP-PT Balance Assessment Sitting Balance Static Sitting Balance Ability Good Dynamic Sitting Balance Ability Good Standing Balance Static Standing Balance Ability Fair Dynamic Standing Balance Ability Fair Device Used SPC Standing Balance Comments unable to tolerate other balance testing Al Fall Scale Copyright Permission PT-OP-G Mobility & Gait Start: 09/12/22 15:01 Freq: Status: Active Protocol: Document 09/04/22 13:00 SAK (Rec: 09/12/22 16:05 [facility] [id number]) OP Mobility Evaluation Bed Mobility Rolling painful Supine to and from Sit painful Transfers Sit to Stand painful, excess use right LE and UE's Car Transfers painful Floor Transfers unable Functional Movements Lifting and Carrying unable Squats unable OP Gait Assessment Gait Gait Assistance Required: Standby Assistance Distance (Feet) 80 Assistive Devices Assistive Device Straight Cane Orthotic/Prosthetic Devices or Brace: No Gait Deviations General Gait Pattern Antalgic,Decreased Stride Length,Decreased Feet Clearance,Lateral Trunk Lean, Wide Based Gait Stair Climbing Evaluation Comments Stair Climbing Comments unable PT-OP-H Neuro Start: 09/12/22 15:01 Freq: Status: Active Protocol: Document 09/04/22 13:00 [facility] (Rec: 09/12/22 16:05 [facility] [id number]) Sensation Evaluation Gross Sensation Gross Sensation Left LE Impaired Sensation Description Numbness,Tingling,Pain PT-OP-J Posture/Palpation/Skin Start: 09/12/22 15:01 Freq: Status: Active Protocol: Document 09/04/22 13:00 [facility] (Rec: 09/12/22 16:05 [facility] [id number]) Posture Evaluation Position Standing Head/C-Spine Posture Forward Head T-Spine Posture Increased Kyphosis L-Spine Posture Flexible Scoliosis on (R) Shoulder Posture (L) Rounded,(R) Rounded Scapula Posture (L) Protracted,(R) Protracted Arm Posture (L) Internally Rotated,(R) Internally Rotated Palpation Assessment Location left hip Palpation Location ant,lat Palpation Findings Muscle Guarding,Tenderness PT-OP-K Range of Motion Start: 09/12/22 15:01 Freq: Status: Active Protocol: Document 09/04/22 13:00 [facility] (Rec: 09/12/22 16:05 [facility] [id number]) Lumbar Spine Range of Motion Lumbar Spine Active ROM Limitations Pain Comments mod dec all motions Hip Goniometric Range of Motion Hip Left Hip ROM WFL No Flexion w/Knee Flexed 90 Straight Leg Raise 45 Extension 0 Abduction 25 Internal Rotation 10 External Rotation 45 Comments all motions left needed PT assist due to weakness and pain Right Hip ROM WFL Yes Hip ROM Limitations Hip ROM Limitations Muscle Weakness,Pain Ankle and Foot Goniometric Range of Motion Ankle and Foot Left Ankle/Foot ROM WFL Yes Right Ankle/Foot ROM WFL Yes PT-OP-L Special Tests Start: 09/12/22 15:01 Freq: Status: Active Protocol: Document 09/04/22 13:00 [facility] (Rec: 09/12/22 16:05 [facility] [id number]) Special Tests Lumbar Spine Special Tests Vertical Spine Loading Test Results inc pain Manual Traction Test Results inc pain Slump Test Results inc pain Prone Press Up Test Results unable to lay prone Straight Leg Raise Test Results unable to do test PT-OP-M Strength Start: 09/12/22 15:01 Freq: Status: Active Protocol: Document 09/04/22 13:00 SAK (Rec: 09/12/22 16:05 [facility] [id number]) Trunk Strength Trunk Manual Muscle Testing Core Stabilization poor Comments unable to tolerate testing Hip Strength Hip Manual Muscle Testing Left Flexion (L2) 2- Poor- Extension (S1) 2- Poor- Abduction 2- Poor- Adduction 2- Poor- External Rotation 2- Poor- Internal Rotation 2- Poor- Comments tested sitting and supine Right Flexion (L2) 4+ Good+ Extension (S1) 4- Good- Abduction 4- Good- Adduction 4- Good- External Rotation 4- Good- Internal Rotation 4- Good- Comments tested sitting and supine Knee Strength Knee Manual Muscle Testing Left Flexion (S2) 3- Fair- Extension (L3) 3- Fair- Right Flexion (S2) 5 Normal Extension (L3) 5 Normal Ankle/Foot Strength Ankle and Foot Manual Muscle Testing Left Dorsiflexion (L4) 2+ Poor+ Plantarflexion (S1) 3- Fair- Right Dorsiflexion (L4) 4 Good Plantarflexion (S1) 4 Good Toe Strength Toe Manual Muscle Testing Left Great Toe Extension 2+ Poor+ Right Great Toe Extension 5 Normal PT-OP-Q Treatments Start: 09/12/22 15:01 Freq: Status: Active Protocol: Document 09/17/22 09:26 [facility] (Rec: 09/17/22 10:27 [facility] [id number]) Therapeutic Exercises Supine Exercises GS, QS Side left Equipment Used (towel under L knee) Reps/Minutes x10 Comments quick flick quad set (inhibit HS/calf) better quad set AP, patellar sup gld bridge Supine Exercise Name improved segmental movt Reps/Minutes x10 reps Comments cued R heel closer to buttock, decrease HS cramp- improved height with reps SAQ Supine Exercise Name added to HEP for on/off bed support Side left Resistance Tb #4 support on foot Equipment Used foam roller under knees Reps/Minutes 5 reps therapist assist 5% Comments cued mid quad fac, able 2nd set with blue TB Heel slide Supine Exercise Name added to HEP for on/off bed support Side left Resistance TB #4 Support on foot - Equipment Used shoe donned Reps/Minutes 5 reps therapist assist 5% > S Comments pt reports pain 6/10 w/ knee extension Manual Therapy Treatment Soft Tissue Mobilization quad, ITB Body Location L vastus lateralis, ITB Mobilization Type Myofascial Release,Strumming Intensity/Depth Superficial Body Position Hooklying Comments light Circular strokes sensitive to touch Taping ITB, lateral quad Treatment Focus inhibition, pain relief Type of Tape Kinesio Tape Skin Inspection intact, normal color Comments 3 I strips, paper off tension distal to proximal Self-Care/Home Management Treatment Education Patient Education Home Exercise Program,Pain Management,Posture Other Education Educated pt on diaphragmatic breathing and role of breathwork for pain dampening - diaphgragmatic breathing HO given. Explained relationship between diaphgragm and TrA/ core, and importance of not breathholding. Added to HEP: hip flexor stretch (Jez) - HO given. PT-OP-T Assessment and Plan Start: 09/12/22 15:01 Freq: Status: Active Protocol: Document 09/17/22 09:26 [facility] (Rec: 09/17/22 10:27 [facility] [id number]) Physical Therapy Assessment Goals Three Impairment activity tolerance Impairment LEFS 24% Short Term Goal (STG) Improve LEFS to at least 50% as measure of improved activity tolerance STG Duration 10/05/22 Speech Language Pathology Assistant Goal (LTG) Improve LEFS to at least 75% as measure of improved activity tolerance and quality of life LTG Duration 11/04/22 Four Impairment gait dysfunction Impairment antalgic, requires use of cane , walker, or wheelchair, can't ambulate on stairs Short Term Goal (STG) Patient to ambulate in the house without device and without a limp STG Duration 10/05/22 Long-Term Goal (LTG) Patient able to ambulate at least 1/2 mile and up and down stairs with least restrictive device device, without limp LTG Duration 11/04/22 Two Impairment weakness left LE Short Term Goal (STG) Patient to be independent in individualized HEP as instructed by PT STG Duration 10/05/22 Speech Language Pathology Assistant Goal (LTG) Patient to demonstrate left LE strength of at least 4/5 to help her resume usual activity LTG Duration 11/04/22 One Impairment pain left hip with radicular symptoms left LE Impairment 8/10 on pain scale Long-Term Goal (LTG) decrease patient pain to no greater than 2/10 with all usual activities LTG Duration 11/04/22 Assessment Summary Assessment Treatment focus on HEP review and breathwork today. Pt is able to tolerate superficial manual therapy only to L quads . Pt's max pain reported 6/10 with heel slides during L knee extension, increased from 4/ 10. Pt educated on breathwork for pain dampening to improve quality of ex's (movement with exhalation only). Educated pt on diaphragmatic breathing and role of breathwork for pain dampening - diaphgragmatic breathing HO given. Explained relationship between diaphgragm and TrA/ core, and importance of not breathholding. Pt's self- awareness of breathholding w/ ex's improves by end of session. Pt has positive feedback response to L hip flexor stretch. Added to HEP: hip flexor stretch (Jez) - HO given. KT tape reapplied. Physical Therapy Plan Frequency and Duration Frequency of Treatment 2x/Week Duration of treatment (weeks) 8 Plan of Care Start Date 09/09/22 Plan of Care End Date 11/09/22 Therapeutic Interventions Therapeutic Interventions Gait Training,Home Exercise Program,Manual Therapy, Neuromuscular Re-education, Patient/Caregiver Education, Self-Care/Home Management,Soft Tissue Mobilization,Taping, Therapeutic Activities, Therapeutic Exercises Modalities Cold Pack/Ice Massage,Electric Stimulation,Hot Packs, Infrared Therapy,Traction- Mechanical,Ultrasound Next Visit Focus/Plan Next Note Type Treatment Note Next Visit Plan Assess response to added SAQ, QS. Continue quad and initiated glut strengthening for extension support during gait phase knee/hip/trunk stability. PT POC: Continue gentle progression of postural correction and core stab ex. Discuss results of MRI if available, review HEP, gentle progression of ther ex, assess pelvic alignment and iliopsoas for trigger point and treat as able with manual techniques as indicated. Modalities as indicated for pain management.
--- NOTE | 2022-09-30 16:10 | PT.OTN ---
Current Diagnoses Radiculopathy, site unspecified (09/30/22) Left lower quadrant pain (09/30/22) Ataxia, unspecified (09/30/22) Other symptoms and signs involving the musculoskeletal system (09/30/22) Physical Therapy Treatment Note PT-OP-A Visit Information Start: 09/12/22 15:01 Freq: Status: Active Protocol: Document 09/30/22 08:15 [facility] (Rec: 09/30/22 09:07 [facility] [id number]) Out-Patient Physical Therapy Visit Information Visit Information Visit Type Treatment Note Visit Start Time 08:15 Visit Stop Time 09:00 Total Visit Minutes 45 Visit Number 5 Number of MEDICAL PAYMENT POSTER Visits 0 Evaluation Information Evaluation Date 09/04/22 PT-OP-B Current Condition Start: 09/12/22 15:01 Freq: Status: Active Protocol: Document 09/04/22 13:00 [facility]AK (Rec: 09/12/22 16:05 [facility] [id number]) Current Condition History of Current Condition Onset Date 06/21/23 Current Complaints left anterior hip pain, left leg weakness History of Current Condition Was in [place], had acute onset pain left anterior hip for no known reason, got worse including vomiting, HTN and tachycardia all lasted for about 1 week. Pain went down front of left leg to arch of foot with burning pain, reports spasms anterior left LE. A little better with use muscle relaxant new last week, weaned mostly off Hydrocodone , can't hardly get out of bed, walks from bed to bathroom only. Can't want much or go up stairs due to weakness. Neurologist ordered another MRI to include thoracic spine, scheduled for this Friday. EMG scheduled 10/10/22. assists with all household activities and ADL's . 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 Used to sleep on left side, can't now, has to sleep on right, sometimes pillow between legs though states sometimes that makes pain worse. Trying to get in to see neurologist before December. Prior Treatments and Tests MRI 06/29/22: multilevel mild overall degenerative change. Focal area of ill-defined density overlying the right foramina. This is suspected to be artifacts secondary to motion. However, mass in this egion cannot be definitely excluded. If patient is able to toelrate exam repeat views through this region are recommended. 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 Baseline Function- Recreation/Hobbies walks for exercise without difficulty Current Functional Impairments (Reported) Functional Limitations- ADL's requires assist Functional Limitations- Mobility/Gait uses SPC, walker, or wheelchair Functional Limitations- Work/School unable Functional Limitations- Recreation/ unable Hobbies Personal Factors Other Personal Factors That May Effect right knee meniscal tear Therapy/Recovery 3 C sections PT-OP-C Subjective Start: 09/12/22 15:01 Freq: Status: Active Protocol: Document 09/30/22 08:15 [facility] (Rec: 09/30/22 09:07 [facility] [id number]) OP-PT Subjective Patient Comments Patient Comments Had EMG, has appointment . Pain a little better but still all the way down to foot. Weakness persists, still can't lift her leg unto car, onto bed, up stairs (has to put both feet on each stair). Compliant to HEP. PT-OP-D Balance Start: 09/12/22 15:01 Freq: Status: Active Protocol: Document 09/04/22 13:00 [facility] (Rec: 09/12/22 16:05 [facility] [id number]) OP-PT Balance Assessment Sitting Balance Static Sitting Balance Ability Good Dynamic Sitting Balance Ability Good Standing Balance Static Standing Balance Ability Fair Dynamic Standing Balance Ability Fair Device Used SPC Standing Balance Comments unable to tolerate other balance testing Al Fall Scale Copyright Permission PT-OP-G Mobility & Gait Start: 09/12/22 15:01 Freq: Status: Active Protocol: Document 09/04/22 13:00 [facility] (Rec: 09/12/22 16:05 [facility] [id number]) OP Mobility Evaluation Bed Mobility Rolling painful Supine to and from Sit painful Transfers Sit to Stand painful, excess use right LE and UE's Car Transfers painful Floor Transfers unable Functional Movements Lifting and Carrying unable Squats unable OP Gait Assessment Gait Gait Assistance Required: Standby Assistance Distance (Feet) 80 Assistive Devices Assistive Device Straight Cane Orthotic/Prosthetic Devices or Brace: No Gait Deviations General Gait Pattern Antalgic,Decreased Stride Length,Decreased Feet Clearance,Lateral Trunk Lean, Wide Based Gait Stair Climbing Evaluation Comments Stair Climbing Comments unable PT-OP-H Neuro Start: 09/12/22 15:01 Freq: Status: Active Protocol: Document 09/04/22 13:00 [facility] (Rec: 09/12/22 16:05 [facility] [id number]) Sensation Evaluation Gross Sensation Gross Sensation Left LE Impaired Sensation Description Numbness,Tingling,Pain PT-OP-J Posture/Palpation/Skin Start: 09/12/22 15:01 Freq: Status: Active Protocol: Document 09/04/22 13:00 [facility] (Rec: 09/12/22 16:05 [facility] [id number]) Posture Evaluation Position Standing Head/C-Spine Posture Forward Head T-Spine Posture Increased Kyphosis L-Spine Posture Flexible Scoliosis on (R) Shoulder Posture (L) Rounded,(R) Rounded Scapula Posture (L) Protracted,(R) Protracted Arm Posture (L) Internally Rotated,(R) Internally Rotated Palpation Assessment Location left hip Palpation Location ant,lat Palpation Findings Muscle Guarding,Tenderness PT-OP-K Range of Motion Start: 09/12/22 15:01 Freq: Status: Active Protocol: Document 09/04/22 13:00 [facility] (Rec: 09/12/22 16:05 [facility] [id number]) Lumbar Spine Range of Motion Lumbar Spine Active ROM Limitations Pain Comments mod dec all motions Hip Goniometric Range of Motion Hip Left Hip ROM WFL No Flexion w/Knee Flexed 90 Straight Leg Raise 45 Extension 0 Abduction 25 Internal Rotation 10 External Rotation 45 Comments all motions left needed PT assist due to weakness and pain Right Hip ROM WFL Yes Hip ROM Limitations Hip ROM Limitations Muscle Weakness,Pain Ankle and Foot Goniometric Range of Motion Ankle and Foot Left Ankle/Foot ROM WFL Yes Right Ankle/Foot ROM WFL Yes PT-OP-L Special Tests Start: 09/12/22 15:01 Freq: Status: Active Protocol: Document 09/04/22 13:00 [facility] (Rec: 09/12/22 16:05 [facility] [id number]) Special Tests Lumbar Spine Special Tests Vertical Spine Loading Test Results inc pain Manual Traction Test Results inc pain Slump Test Results inc pain Prone Press Up Test Results unable to lay prone Straight Leg Raise Test Results unable to do test PT-OP-M Strength Start: 09/12/22 15:01 Freq: Status: Active Protocol: Document 09/04/22 13:00 [facility] (Rec: 09/12/22 16:05 [facility] [id number]) Trunk Strength Trunk Manual Muscle Testing Core Stabilization poor Comments unable to tolerate testing Hip Strength Hip Manual Muscle Testing Left Flexion (L2) 2- Poor- Extension (S1) 2- Poor- Abduction 2- Poor- Adduction 2- Poor- External Rotation 2- Poor- Internal Rotation 2- Poor- Comments tested sitting and supine Right Flexion (L2) 4+ Good+ Extension (S1) 4- Good- Abduction 4- Good- Adduction 4- Good- External Rotation 4- Good- Internal Rotation 4- Good- Comments tested sitting and supine Knee Strength Knee Manual Muscle Testing Left Flexion (S2) 3- Fair- Extension (L3) 3- Fair- Right Flexion (S2) 5 Normal Extension (L3) 5 Normal Ankle/Foot Strength Ankle and Foot Manual Muscle Testing Left Dorsiflexion (L4) 2+ Poor+ Plantarflexion (S1) 3- Fair- Right Dorsiflexion (L4) 4 Good Plantarflexion (S1) 4 Good Toe Strength Toe Manual Muscle Testing Left Great Toe Extension 2+ Poor+ Right Great Toe Extension 5 Normal PT-OP-Q Treatments Start: 09/12/22 15:01 Freq: Status: Active Protocol: Document 09/30/22 08:15 [facility] (Rec: 09/30/22 09:07 [facility] [id number]) Therapeutic Exercises Sitting Exercises glut set Reps/Minutes 10x Comments with TrA ball squeeze Reps/Minutes 10x Comments with TrA TrA Reps/Minutes 5x Comments incorporate with breath Manual Therapy Treatment Taping ITB, lateral quad Type of Tape Kinesio Tape Comments 3 I strips provided to patient for trial self-taping due to time constraints Self-Care/Home Management Treatment Education Patient Education Pain Management Other Education review diaphragmatic breathing , incorporate into core activation PT-OP-R Modalities Start: 09/12/22 15:01 Freq: Status: Active Protocol: Document 09/30/22 08:15 [facility] (Rec: 09/30/22 09:07 [facility] [id number]) Spinal Traction Traction Treatment Lumbar Patient Position Supine Force Applied (Pounds) 60 Duration of Treatment (Minutes) 10 Traction Treatment Comment Heating pad prior to traction during seated ther ex PT-OP-T Assessment and Plan Start: 09/12/22 15:01 Freq: Status: Active Protocol: Document 09/30/22 08:15 [facility] (Rec: 09/30/22 09:07 [facility] [id number]) Physical Therapy Assessment Impairments Impairments Activity Tolerance,Gait,Pain, Strength Goals Three Impairment activity tolerance Impairment LEFS 24% Short Term Goal (STG) Improve LEFS to at least 50% as measure of improved activity tolerance STG Duration 10/05/22 Care Home Goal (LTG) Improve LEFS to at least 75% as measure of improved activity tolerance and quality of life LTG Duration 11/04/22 Four Impairment gait dysfunction Impairment antalgic, requires use of cane , walker, or wheelchair, can't ambulate on stairs Short Term Goal (STG) Patient to ambulate in the house without device and without a limp STG Duration 10/05/22 Care Home Goal (LTG) Patient able to ambulate at least 1/2 mile and up and down stairs with least restrictive device device, without limp LTG Duration 11/04/22 Two Impairment weakness left LE Short Term Goal (STG) Patient to be independent in individualized HEP as instructed by PT STG Duration 10/05/22 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 Trial Sci- Fit followed by seated core ex with moist heat, then trial lumbar traction today with good tolerance. Patient to self-tape as above Physical Therapy Plan Frequency and Duration Frequency of Treatment 2x/Week Duration of treatment (weeks) 8 Plan of Care Start Date 09/09/22 Plan of Care End Date 11/09/22 Therapeutic Interventions Therapeutic Interventions Gait Training,Home Exercise Program,Manual Therapy, Neuromuscular Re-education, Patient/Caregiver Education, Self-Care/Home Management,Soft Tissue Mobilization,Taping, Therapeutic Activities, Therapeutic Exercises Modalities Cold Pack/Ice Massage,Electric Stimulation,Hot Packs, Infrared Therapy,Traction- Mechanical,Ultrasound Next Visit Focus/Plan Next Note Type Treatment Note Next Visit Plan Evaluate response to lumbar traction, continue as indicated. Gentle ther ex progression for core stab , LE strengthening.
--- NOTE | 2022-10-02 16:38 | PT.OTN ---
Current Diagnoses Radiculopathy, site unspecified (10/02/22) Left lower quadrant pain (10/02/22) Ataxia, unspecified (10/02/22) Other symptoms and signs involving the musculoskeletal system (10/02/22) Physical Therapy Treatment Note PT-OP-A Visit Information Start: 09/12/22 15:01 Freq: Status: Active Protocol: Document 10/02/22 08:14 [facility] (Rec: 10/02/22 09:00 [facility] [id number]) Out-Patient Physical Therapy Visit Information Visit Information Visit Type Treatment Note Visit Start Time 08:15 Visit Stop Time 09:05 Total Visit Minutes 50 Visit Number 6 Number of COFFEE MAKER Visits 0 Evaluation Information Evaluation Date 09/04/22 PT-OP-B Current Condition Start: 09/12/22 15:01 Freq: Status: Active Protocol: Document 09/04/22 13:00 [facility] (Rec: 09/12/22 16:05 [facility] [id number]) Current Condition History of Current Condition Onset Date 06/21/23 Current Complaints left anterior hip pain, left leg weakness History of Current Condition Was in [place], had acute onset pain left anterior hip for no known reason, got worse including vomiting, HTN and tachycardia all lasted for about 1 week. Pain went down front of left leg to arch of foot with burning pain, reports spasms anterior left LE. A little better with use muscle relaxant new last week, weaned mostly off Hydrocodone , can't hardly get out of bed, walks from bed to bathroom only. Can't want much or go up stairs due to weakness. Neurologist ordered another MRI to include thoracic spine, scheduled for this Friday. EMG scheduled 10/10/22. assists with all household activities and ADL's . 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 Used to sleep on left side, can't now, has to sleep on right, sometimes pillow between legs though states sometimes that makes pain worse. Trying to get in to see neurologist before December. Prior Treatments and Tests MRI 06/29/22: multilevel mild overall degenerative change. Focal area of ill-defined density overlying the right foramina. This is suspected to be artifacts secondary to motion. However, mass in this egion cannot be definitely excluded. If patient is able to toelrate exam repeat views through this region are recommended. 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 Baseline Function- Recreation/Hobbies walks for exercise without difficulty Current Functional Impairments (Reported) Functional Limitations- ADL's requires assist Functional Limitations- Mobility/Gait uses SPC, walker, or wheelchair Functional Limitations- Work/School unable Functional Limitations- Recreation/ unable Hobbies Personal Factors Other Personal Factors That May Effect right knee meniscal tear Therapy/Recovery 3 C sections PT-OP-C Subjective Start: 09/12/22 15:01 Freq: Status: Active Protocol: Document 10/02/22 08:14 [facility] (Rec: 10/02/22 09:00 [facility] [id number]) OP-PT Subjective Patient Comments Patient Comments Unsure whether traction helpful, ok at first, then went for car ride for a few hours with . States increase in soreness then humming sensation in leg. Did report a bit easier to get into shower yesterday lifting leg. Willing to try traction again today. Sees physician regarding EMG tomorrow. PT-OP-D Balance Start: 09/12/22 15:01 Freq: Status: Active Protocol: Document 09/04/22 13:00 [facility] (Rec: 09/12/22 16:05 [facility] [id number]) OP-PT Balance Assessment Sitting Balance Static Sitting Balance Ability Good Dynamic Sitting Balance Ability Good Standing Balance Static Standing Balance Ability Fair Dynamic Standing Balance Ability Fair Device Used SPC Standing Balance Comments unable to tolerate other balance testing Al Fall Scale Copyright Permission PT-OP-G Mobility & Gait Start: 09/12/22 15:01 Freq: Status: Active Protocol: Document 09/04/22 13:00 [facility] (Rec: 09/12/22 16:05 [facility] [id number]) OP Mobility Evaluation Bed Mobility Rolling painful Supine to and from Sit painful Transfers Sit to Stand painful, excess use right LE and UE's Car Transfers painful Floor Transfers unable Functional Movements Lifting and Carrying unable Squats unable OP Gait Assessment Gait Gait Assistance Required: Standby Assistance Distance (Feet) 80 Assistive Devices Assistive Device Straight Cane Orthotic/Prosthetic Devices or Brace: No Gait Deviations General Gait Pattern Antalgic,Decreased Stride Length,Decreased Feet Clearance,Lateral Trunk Lean, Wide Based Gait Stair Climbing Evaluation Comments Stair Climbing Comments unable PT-OP-H Neuro Start: 09/12/22 15:01 Freq: Status: Active Protocol: Document 09/04/22 13:00 [facility] (Rec: 09/12/22 16:05 [facility] [id number]) Sensation Evaluation Gross Sensation Gross Sensation Left LE Impaired Sensation Description Numbness,Tingling,Pain PT-OP-J Posture/Palpation/Skin Start: 09/12/22 15:01 Freq: Status: Active Protocol: Document 09/04/22 13:00 [facility] (Rec: 09/12/22 16:05 [facility] [id number]) Posture Evaluation Position Standing Head/C-Spine Posture Forward Head T-Spine Posture Increased Kyphosis L-Spine Posture Flexible Scoliosis on (R) Shoulder Posture (L) Rounded,(R) Rounded Scapula Posture (L) Protracted,(R) Protracted Arm Posture (L) Internally Rotated,(R) Internally Rotated Palpation Assessment Location left hip Palpation Location ant,lat Palpation Findings Muscle Guarding,Tenderness PT-OP-K Range of Motion Start: 09/12/22 15:01 Freq: Status: Active Protocol: Document 09/04/22 13:00 [facility] (Rec: 09/12/22 16:05 [facility] [id number]) Lumbar Spine Range of Motion Lumbar Spine Active ROM Limitations Pain Comments mod dec all motions Hip Goniometric Range of Motion Hip Left Hip ROM WFL No Flexion w/Knee Flexed 90 Straight Leg Raise 45 Extension 0 Abduction 25 Internal Rotation 10 External Rotation 45 Comments all motions left needed PT assist due to weakness and pain Right Hip ROM WFL Yes Hip ROM Limitations Hip ROM Limitations Muscle Weakness,Pain Ankle and Foot Goniometric Range of Motion Ankle and Foot Left Ankle/Foot ROM WFL Yes Right Ankle/Foot ROM WFL Yes PT-OP-L Special Tests Start: 09/12/22 15:01 Freq: Status: Active Protocol: Document 09/04/22 13:00 [facility] (Rec: 09/12/22 16:05 [facility] [id number]) Special Tests Lumbar Spine Special Tests Vertical Spine Loading Test Results inc pain Manual Traction Test Results inc pain Slump Test Results inc pain Prone Press Up Test Results unable to lay prone Straight Leg Raise Test Results unable to do test PT-OP-M Strength Start: 09/12/22 15:01 Freq: Status: Active Protocol: Document 09/04/22 13:00 [facility] (Rec: 09/12/22 16:05 [facility] [id number]) Trunk Strength Trunk Manual Muscle Testing Core Stabilization poor Comments unable to tolerate testing Hip Strength Hip Manual Muscle Testing Left Flexion (L2) 2- Poor- Extension (S1) 2- Poor- Abduction 2- Poor- Adduction 2- Poor- External Rotation 2- Poor- Internal Rotation 2- Poor- Comments tested sitting and supine Right Flexion (L2) 4+ Good+ Extension (S1) 4- Good- Abduction 4- Good- Adduction 4- Good- External Rotation 4- Good- Internal Rotation 4- Good- Comments tested sitting and supine Knee Strength Knee Manual Muscle Testing Left Flexion (S2) 3- Fair- Extension (L3) 3- Fair- Right Flexion (S2) 5 Normal Extension (L3) 5 Normal Ankle/Foot Strength Ankle and Foot Manual Muscle Testing Left Dorsiflexion (L4) 2+ Poor+ Plantarflexion (S1) 3- Fair- Right Dorsiflexion (L4) 4 Good Plantarflexion (S1) 4 Good Toe Strength Toe Manual Muscle Testing Left Great Toe Extension 2+ Poor+ Right Great Toe Extension 5 Normal PT-OP-Q Treatments Start: 09/12/22 15:01 Freq: Status: Active Protocol: Document 10/02/22 08:14 [facility] (Rec: 10/02/22 09:00 [facility] [id number]) Cardio Equipment Recumbent Stepper (Sci-Fit) Duration (Minutes) 6 Resistance 1 Seat Position 10 Other cues for core activation, long spine Therapeutic Exercises Sitting Exercises yolanda clam Sitting Exercise Name next session thigh push isometric Reps/Minutes 10x5 glut set Reps/Minutes 10x Comments with TrA ball squeeze Reps/Minutes 10x Comments with TrA and pelvic floor TrA Reps/Minutes 5x Comments incorporate with breath, Kegel Self-Care/Home Management Treatment Education Patient Education Home Exercise Program,Pain Management Other Education positional traction: 90/90 PT-OP-R Modalities Start: 09/12/22 15:01 Freq: Status: Active Protocol: Document 09/30/22 08:15 [facility] (Rec: 09/30/22 09:07 [facility] [id number]) Spinal Traction Traction Treatment Lumbar Patient Position Supine Force Applied (Pounds) 60 Duration of Treatment (Minutes) 10 Traction Treatment Comment Heating pad prior to traction during seated ther ex PT-OP-T Assessment and Plan Start: 09/12/22 15:01 Freq: Status: Active Protocol: Document 10/02/22 08:14 [facility] (Rec: 10/02/22 09:00 [facility] [id number]) Physical Therapy Assessment Impairments Impairments Activity Tolerance,Gait,Pain, Strength Goals Three Impairment activity tolerance Impairment LEFS 24% Short Term Goal (STG) Improve LEFS to at least 50% as measure of improved activity tolerance STG Duration 10/05/22 [facility] Goal (LTG) Improve LEFS to at least 75% as measure of improved activity tolerance and quality of life LTG Duration 11/04/22 Four Impairment gait dysfunction Impairment antalgic, requires use of cane , walker, or wheelchair, can't ambulate on stairs Short Term Goal (STG) Patient to ambulate in the house without device and without a limp STG Duration 10/05/22 Extrusion Press Operator Goal (LTG) Patient able to ambulate at least 1/2 mile and up and down stairs with least restrictive device device, without limp LTG Duration 11/04/22 Two Impairment weakness left LE Short Term Goal (STG) Patient to be independent in individualized HEP as instructed by PT STG Duration 10/05/22 [facility] Goal (LTG) Patient to demonstrate left LE strength of at least 4/5 to help her resume usual activity LTG Duration 11/04/22 One Impairment pain left hip with radicular symptoms left LE Impairment 8/10 on pain scale Extrusion Press Operator Goal (LTG) decrease patient pain to no greater than 2/10 with all usual activities LTG Duration 11/04/22 Assessment Summary Assessment Good tolerance for treatment. Cont inc symptoms with attempt at SLR left. Moist heat to lumbar spine during seated core ex. Patient to have appointment with physician tomorrow regarding EMG. Physical Therapy Plan Frequency and Duration Frequency of Treatment 2x/Week Duration of treatment (weeks) 8 Plan of Care Start Date 09/09/22 Plan of Care End Date 11/09/22 Therapeutic Interventions Therapeutic Interventions Gait Training,Home Exercise Program,Manual Therapy, Neuromuscular Re-education, Patient/Caregiver Education, Self-Care/Home Management,Soft Tissue Mobilization,Taping, Therapeutic Activities, Therapeutic Exercises Modalities Cold Pack/Ice Massage,Electric Stimulation,Hot Packs, Infrared Therapy,Traction- Mechanical,Ultrasound Next Visit Focus/Plan Next Note Type Treatment Note Next Visit Plan Discuss physician visit, response to last session. Assess pelvic alignment. Continue with mechanical traction if helpful. Gentle ther ex progression. Consider trial IFES with ice pack left lumbar.
--- NOTE | 2022-10-08 09:45 | PT.OTN ---
Current Diagnoses Radiculopathy, site unspecified (10/08/22) Left lower quadrant pain (10/08/22) Ataxia, unspecified (10/08/22) Other symptoms and signs involving the musculoskeletal system (10/08/22) Physical Therapy Treatment Note PT-OP-A Visit Information Start: 09/12/22 15:01 Freq: Status: Active Protocol: Document 10/08/22 09:06 SP (Rec: 10/08/22 09:58 SP [id number]) Out-Patient Physical Therapy Visit Information Visit Information Visit Type Treatment Note Visit Start Time 09:06 Visit Stop Time 09:45 Total Visit Minutes 39 Visit Number 7 Number of GRADES 1 THROUGH 5 TEACHER Visits 1 Evaluation Information Evaluation Date 09/04/22 PT-OP-B Current Condition Start: 09/12/22 15:01 Freq: Status: Active Protocol: Document 09/04/22 13:00 SAK (Rec: 09/12/22 16:05 SAK [id number]) Current Condition History of Current Condition Onset Date 06/21/23 Current Complaints left anterior hip pain, left leg weakness History of Current Condition Was in [place], had acute onset pain left anterior hip for no known reason, got worse including vomiting, HTN and tachycardia all lasted for about 1 week. Pain went down front of left leg to arch of foot with burning pain, reports spasms anterior left LE. A little better with use muscle relaxant new last week, weaned mostly off Hydrocodone , can't hardly get out of bed, walks from bed to bathroom only. Can't want much or go up stairs due to weakness. Neurologist ordered another MRI to include thoracic spine, scheduled for this Friday. EMG scheduled 10/10/22. assists with all household activities and ADL's . 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 Used to sleep on left side, can't now, has to sleep on right, sometimes pillow between legs though states sometimes that makes pain worse. Trying to get in to see neurologist before December. Prior Treatments and Tests MRI 06/29/22: multilevel mild overall degenerative change. Focal area of ill-defined density overlying the right foramina. This is suspected to be artifacts secondary to motion. However, mass in this egion cannot be definitely excluded. If patient is able to toelrate exam repeat views through this region are recommended. 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 Baseline Function- Recreation/Hobbies walks for exercise without difficulty Current Functional Impairments (Reported) Functional Limitations- ADL's requires assist Functional Limitations- Mobility/Gait uses SPC, walker, or wheelchair Functional Limitations- Work/School unable Functional Limitations- Recreation/ unable Hobbies Personal Factors Other Personal Factors That May Effect right knee meniscal tear Therapy/Recovery 3 C sections PT-OP-C Subjective Start: 09/12/22 15:01 Freq: Status: Active Protocol: Document 10/08/22 09:06 SP (Rec: 10/08/22 09:58 SP [id number]) OP-PT Subjective Patient Comments Patient Comments Pt reports still getting pain down lateral quad to medial lower leg to arch of foot. She reports EMG see interferance but Can't lift leg SLR, challenge SAQ, walking gotten better but L knee still giving out at times when walking. PT-OP-D Balance Start: 09/12/22 15:01 Freq: Status: Active Protocol: Document 09/04/22 13:00 SAK (Rec: 09/12/22 16:05 SAK [id number]) OP-PT Balance Assessment Sitting Balance Static Sitting Balance Ability Good Dynamic Sitting Balance Ability Good Standing Balance Static Standing Balance Ability Fair Dynamic Standing Balance Ability Fair Device Used SPC Standing Balance Comments unable to tolerate other balance testing Al Fall Scale Copyright Permission PT-OP-G Mobility & Gait Start: 09/12/22 15:01 Freq: Status: Active Protocol: Document 09/04/22 13:00 SAK (Rec: 09/12/22 16:05 SAK [id number]) OP Mobility Evaluation Bed Mobility Rolling painful Supine to and from Sit painful Transfers Sit to Stand painful, excess use right LE and UE's Car Transfers painful Floor Transfers unable Functional Movements Lifting and Carrying unable Squats unable OP Gait Assessment Gait Gait Assistance Required: Standby Assistance Distance (Feet) 80 Assistive Devices Assistive Device Straight Cane Orthotic/Prosthetic Devices or Brace: No Gait Deviations General Gait Pattern Antalgic,Decreased Stride Length,Decreased Feet Clearance,Lateral Trunk Lean, Wide Based Gait Stair Climbing Evaluation Comments Stair Climbing Comments unable PT-OP-H Neuro Start: 09/12/22 15:01 Freq: Status: Active Protocol: Document 09/04/22 13:00 [facility] (Rec: 09/12/22 16:05 [facility] [id number]) Sensation Evaluation Gross Sensation Gross Sensation Left LE Impaired Sensation Description Numbness,Tingling,Pain PT-OP-J Posture/Palpation/Skin Start: 09/12/22 15:01 Freq: Status: Active Protocol: Document 09/04/22 13:00 [facility] (Rec: 09/12/22 16:05 [facility] [id number]) Posture Evaluation Position Standing Head/C-Spine Posture Forward Head T-Spine Posture Increased Kyphosis L-Spine Posture Flexible Scoliosis on (R) Shoulder Posture (L) Rounded,(R) Rounded Scapula Posture (L) Protracted,(R) Protracted Arm Posture (L) Internally Rotated,(R) Internally Rotated Palpation Assessment Location left hip Palpation Location ant,lat Palpation Findings Muscle Guarding,Tenderness PT-OP-K Range of Motion Start: 09/12/22 15:01 Freq: Status: Active Protocol: Document 09/04/22 13:00 [facility] (Rec: 09/12/22 16:05 [facility] [id number]) Lumbar Spine Range of Motion Lumbar Spine Active ROM Limitations Pain Comments mod dec all motions Hip Goniometric Range of Motion Hip Left Hip ROM WFL No Flexion w/Knee Flexed 90 Straight Leg Raise 45 Extension 0 Abduction 25 Internal Rotation 10 External Rotation 45 Comments all motions left needed PT assist due to weakness and pain Right Hip ROM WFL Yes Hip ROM Limitations Hip ROM Limitations Muscle Weakness,Pain Ankle and Foot Goniometric Range of Motion Ankle and Foot Left Ankle/Foot ROM WFL Yes Right Ankle/Foot ROM WFL Yes PT-OP-L Special Tests Start: 09/12/22 15:01 Freq: Status: Active Protocol: Document 09/04/22 13:00 [facility] (Rec: 09/12/22 16:05 [facility] [id number]) Special Tests Lumbar Spine Special Tests Vertical Spine Loading Test Results inc pain Manual Traction Test Results inc pain Slump Test Results inc pain Prone Press Up Test Results unable to lay prone Straight Leg Raise Test Results unable to do test PT-OP-M Strength Start: 09/12/22 15:01 Freq: Status: Active Protocol: Document 09/04/22 13:00 SAK (Rec: 09/12/22 16:05 SAK [id number]) Trunk Strength Trunk Manual Muscle Testing Core Stabilization poor Comments unable to tolerate testing Hip Strength Hip Manual Muscle Testing Left Flexion (L2) 2- Poor- Extension (S1) 2- Poor- Abduction 2- Poor- Adduction 2- Poor- External Rotation 2- Poor- Internal Rotation 2- Poor- Comments tested sitting and supine Right Flexion (L2) 4+ Good+ Extension (S1) 4- Good- Abduction 4- Good- Adduction 4- Good- External Rotation 4- Good- Internal Rotation 4- Good- Comments tested sitting and supine Knee Strength Knee Manual Muscle Testing Left Flexion (S2) 3- Fair- Extension (L3) 3- Fair- Right Flexion (S2) 5 Normal Extension (L3) 5 Normal Ankle/Foot Strength Ankle and Foot Manual Muscle Testing Left Dorsiflexion (L4) 2+ Poor+ Plantarflexion (S1) 3- Fair- Right Dorsiflexion (L4) 4 Good Plantarflexion (S1) 4 Good Toe Strength Toe Manual Muscle Testing Left Great Toe Extension 2+ Poor+ Right Great Toe Extension 5 Normal PT-OP-Q Treatments Start: 09/12/22 15:01 Freq: Status: Active Protocol: Document 10/08/22 09:06 SP (Rec: 10/08/22 09:58 SP [id number]) Therapeutic Exercises Sitting Exercises Resisted HS curl Sitting Exercise Name added to HEP Side left Resistance Tb #2 (orange latex) Reps/Minutes 2x10 Comments cued slow pacing control, painfree little tiring. yolanda clam Sitting Exercise Name initiated in PT: added home Resistance TB #4 (blue latex) Reps/Minutes 5 SH x10 Comments no adverse affects thigh push isometric Sitting Exercise Name adduction isometric Resistance small green ball Reps/Minutes 10x5 Comments good feedback TA glut set Reps/Minutes 10x Comments with TrA ball squeeze Reps/Minutes 10x 5 SH Comments with TrA and pelvic floor Other Exercises self STMs Other Exercise Name added quad, ITB, calf, HS Side left Reps/Minutes 2 min total Comments good feedback massage, painfree PT-OP-R Modalities Start: 09/12/22 15:01 Freq: Status: Active Protocol: Document 09/30/22 08:15 SAK (Rec: 09/30/22 09:07 SAK [id number]) Spinal Traction Traction Treatment Lumbar Patient Position Supine Force Applied (Pounds) 60 Duration of Treatment (Minutes) 10 Traction Treatment Comment Heating pad prior to traction during seated ther ex PT-OP-T Assessment and Plan Start: 09/12/22 15:01 Freq: Status: Active Protocol: Document 10/08/22 09:06 SP (Rec: 10/08/22 09:58 SP [id number]) Physical Therapy Assessment Goals Three Impairment activity tolerance Impairment LEFS 24% Short Term Goal (STG) Improve LEFS to at least 50% as measure of improved activity tolerance STG Duration 10/05/22 Half-Way Goal (LTG) Improve LEFS to at least 75% as measure of improved activity tolerance and quality of life LTG Duration 11/04/22 Four Impairment gait dysfunction Impairment antalgic, requires use of cane , walker, or wheelchair, can't ambulate on stairs Short Term Goal (STG) Patient to ambulate in the house without device and without a limp STG Duration 10/05/22 Baseball Pitcher Goal (LTG) Patient able to ambulate at least 1/2 mile and up and down stairs with least restrictive device device, without limp LTG Duration 11/04/22 Two Impairment weakness left LE Short Term Goal (STG) Patient to be independent in individualized HEP as instructed by PT STG Duration 10/05/22 Baseball Pitcher Goal (LTG) Patient to demonstrate left LE strength of at least 4/5 to help her resume usual activity LTG Duration 11/04/22 One Impairment pain left hip with radicular symptoms left LE Impairment 8/10 on pain scale Baseball Pitcher Goal (LTG) decrease patient pain to no greater than 2/10 with all usual activities LTG Duration 11/04/22 Assessment Summary Assessment Pt no adverse affects to HEP review and continues to have L leg symptoms during tx, she had limited time to stay longer for mechanical traction today. Added resisted HS curls and self STMs using rolling pin with good feedback . Pt unable to ascend 6 step HR support leading LLE but able 2 step x3 reps only before L thigh pain increased. Physical Therapy Plan Frequency and Duration Frequency of Treatment 2x/Week Duration of treatment (weeks) 8 Plan of Care Start Date 09/09/22 Plan of Care End Date 11/09/22 Therapeutic Interventions Therapeutic Interventions Gait Training,Home Exercise Program,Manual Therapy, Neuromuscular Re-education, Patient/Caregiver Education, Self-Care/Home Management,Soft Tissue Mobilization,Taping, Therapeutic Activities, Therapeutic Exercises Modalities Cold Pack/Ice Massage,Electric Stimulation,Hot Packs, Infrared Therapy,Traction- Mechanical,Ultrasound Next Visit Focus/Plan Next Note Type Treatment Note Next Visit Plan Discuss physician visit, response to last session. Assess pelvic alignment. Continue with mechanical traction if helpful. Gentle ther ex progression. Consider trial IFES with ice pack left lumbar.
--- NOTE | 2022-10-10 09:44 | PT.OTN ---
Current Diagnoses Radiculopathy, site unspecified (10/10/22) Left lower quadrant pain (10/10/22) Ataxia, unspecified (10/10/22) Other symptoms and signs involving the musculoskeletal system (10/10/22) Physical Therapy Treatment Note PT-OP-A Visit Information Start: 09/12/22 15:01 Freq: Status: Active Protocol: Document 10/10/22 09:01 SAK (Rec: 10/10/22 09:44 [facility] [id number]) Out-Patient Physical Therapy Visit Information Visit Information Visit Type Treatment Note Visit Start Time 09:01 Visit Stop Time 09:55 Total Visit Minutes 54 Visit Number 8 Number of ALUM PLANT SUPERVISOR Visits 0 Evaluation Information Evaluation Date 09/04/22 PT-OP-B Current Condition Start: 09/12/22 15:01 Freq: Status: Active Protocol: Document 10/10/22 09:01 SAK (Rec: 10/10/22 09:44 SAK [id number]) Current Condition History of Current Condition Onset Date 06/21/23 Current Complaints left anterior hip pain, left leg weakness History of Current Condition Was in [place], had acute onset pain left anterior hip for no known reason, got worse including vomiting, HTN and tachycardia all lasted for about 1 week. Pain went down front of left leg to arch of foot with burning pain, reports spasms anterior left LE. A little better with use muscle relaxant new last week, weaned mostly off Hydrocodone , can't hardly get out of bed, walks from bed to bathroom only. Can't want much or go up stairs due to weakness. Neurologist ordered another MRI to include thoracic spine, scheduled for this Friday. EMG scheduled 10/10/22. assists with all household activities and ADL's . 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 Used to sleep on left side, can't now, has to sleep on right, sometimes pillow between legs though states sometimes that makes pain worse. Trying to get in to see neurologist before December. Prior Treatments and Tests MRI 06/29/22: multilevel mild overall degenerative change. Focal area of ill-defined density overlying the right foramina. This is suspected to be artifacts secondary to motion. However, mass in this egion cannot be definitely excluded. If patient is able to toelrate exam repeat views through this region are recommended. Future Testing and Treatments Planned Thoracic MRI this Friday EMG 10/10/22 Neurologist when able to get appoiintment PT-OP-C Subjective Start: 09/12/22 15:01 Freq: Status: Active Protocol: Document 10/10/22 09:01 [facility] (Rec: 10/10/22 09:44 [facility] [id number]) OP-PT Subjective Patient Comments Patient Comments States doctor's told her what is happening in her spine shouldn't be causing what is happening in her leg. Going to have more tests. Feels PT helpful. Still can't lift leg . Reports good understanding of new ther ex, compliant to HEP PT-OP-D Balance Start: 09/12/22 15:01 Freq: Status: Active Protocol: Document 09/04/22 13:00 [facility] (Rec: 09/12/22 16:05 [facility] [id number]) OP-PT Balance Assessment Sitting Balance Static Sitting Balance Ability Good Dynamic Sitting Balance Ability Good Standing Balance Static Standing Balance Ability Fair Dynamic Standing Balance Ability Fair Device Used SPC Standing Balance Comments unable to tolerate other balance testing Al Fall Scale Copyright Permission PT-OP-G Mobility & Gait Start: 09/12/22 15:01 Freq: Status: Active Protocol: Document 09/04/22 13:00 [facility] (Rec: 09/12/22 16:05 [facility] [id number]) OP Mobility Evaluation Bed Mobility Rolling painful Supine to and from Sit painful Transfers Sit to Stand painful, excess use right LE and UE's Car Transfers painful Floor Transfers unable Functional Movements Lifting and Carrying unable Squats unable OP Gait Assessment Gait Gait Assistance Required: Standby Assistance Distance (Feet) 80 Assistive Devices Assistive Device Straight Cane Orthotic/Prosthetic Devices or Brace: No Gait Deviations General Gait Pattern Antalgic,Decreased Stride Length,Decreased Feet Clearance,Lateral Trunk Lean, Wide Based Gait Stair Climbing Evaluation Comments Stair Climbing Comments unable PT-OP-H Neuro Start: 09/12/22 15:01 Freq: Status: Active Protocol: Document 09/04/22 13:00 [facility] (Rec: 09/12/22 16:05 [facility] [id number]) Sensation Evaluation Gross Sensation Gross Sensation Left LE Impaired Sensation Description Numbness,Tingling,Pain PT-OP-J Posture/Palpation/Skin Start: 09/12/22 15:01 Freq: Status: Active Protocol: Document 09/04/22 13:00 [facility] (Rec: 09/12/22 16:05 [facility] [id number]) Posture Evaluation Position Standing Head/C-Spine Posture Forward Head T-Spine Posture Increased Kyphosis L-Spine Posture Flexible Scoliosis on (R) Shoulder Posture (L) Rounded,(R) Rounded Scapula Posture (L) Protracted,(R) Protracted Arm Posture (L) Internally Rotated,(R) Internally Rotated Palpation Assessment Location left hip Palpation Location ant,lat Palpation Findings Muscle Guarding,Tenderness PT-OP-K Range of Motion Start: 09/12/22 15:01 Freq: Status: Active Protocol: Document 09/04/22 13:00 [facility] (Rec: 09/12/22 16:05 [facility] [id number]) Lumbar Spine Range of Motion Lumbar Spine Active ROM Limitations Pain Comments mod dec all motions Hip Goniometric Range of Motion Hip Left Hip ROM WFL No Flexion w/Knee Flexed 90 Straight Leg Raise 45 Extension 0 Abduction 25 Internal Rotation 10 External Rotation 45 Comments all motions left needed PT assist due to weakness and pain Right Hip ROM WFL Yes Hip ROM Limitations Hip ROM Limitations Muscle Weakness,Pain Ankle and Foot Goniometric Range of Motion Ankle and Foot Left Ankle/Foot ROM WFL Yes Right Ankle/Foot ROM WFL Yes PT-OP-L Special Tests Start: 09/12/22 15:01 Freq: Status: Active Protocol: Document 09/04/22 13:00 [facility] (Rec: 09/12/22 16:05 [facility] [id number]) Special Tests Lumbar Spine Special Tests Vertical Spine Loading Test Results inc pain Manual Traction Test Results inc pain Slump Test Results inc pain Prone Press Up Test Results unable to lay prone Straight Leg Raise Test Results unable to do test PT-OP-M Strength Start: 09/12/22 15:01 Freq: Status: Active Protocol: Document 09/04/22 13:00 [facility] (Rec: 09/12/22 16:05 [facility] [id number]) Trunk Strength Trunk Manual Muscle Testing Core Stabilization poor Comments unable to tolerate testing Hip Strength Hip Manual Muscle Testing Left Flexion (L2) 2- Poor- Extension (S1) 2- Poor- Abduction 2- Poor- Adduction 2- Poor- External Rotation 2- Poor- Internal Rotation 2- Poor- Comments tested sitting and supine Right Flexion (L2) 4+ Good+ Extension (S1) 4- Good- Abduction 4- Good- Adduction 4- Good- External Rotation 4- Good- Internal Rotation 4- Good- Comments tested sitting and supine Knee Strength Knee Manual Muscle Testing Left Flexion (S2) 3- Fair- Extension (L3) 3- Fair- Right Flexion (S2) 5 Normal Extension (L3) 5 Normal Ankle/Foot Strength Ankle and Foot Manual Muscle Testing Left Dorsiflexion (L4) 2+ Poor+ Plantarflexion (S1) 3- Fair- Right Dorsiflexion (L4) 4 Good Plantarflexion (S1) 4 Good Toe Strength Toe Manual Muscle Testing Left Great Toe Extension 2+ Poor+ Right Great Toe Extension 5 Normal PT-OP-Q Treatments Start: 09/12/22 15:01 Freq: Status: Active Protocol: Document 10/10/22 09:01 [facility] (Rec: 10/10/22 09:44 [facility] [id number]) Cardio Equipment Recumbent Stepper (Sci-Fit) Duration (Minutes) 6 Resistance 1 Seat Position 10 Other cues for core activation, long spine Therapeutic Exercises Sitting Exercises yolanda clam Sitting Exercise Name initiated in PT: added home Resistance TB # 6 (green) Reps/Minutes 5 SH x10 Comments no adverse affects ball squeeze Reps/Minutes 10x 5 SH Comments with TrA and pelvic floor Standing Exercises wall posture Equipment Used mirror due to shift right Reps/Minutes 5 min Comments demonstrated improved postural awareness Self-Care/Home Management Treatment Education Patient Education Body Mechanics,Home Exercise Program,Pain Management, Posture PT-OP-R Modalities Start: 09/12/22 15:01 Freq: Status: Active Protocol: Document 10/10/22 09:01 [facility] (Rec: 10/10/22 09:44 [facility] [id number]) Hot Pack/Cold Pack Treatment Cold Pack Location l/s Patient Position Hooklying Treatment Duration (minutes) 10 Patient Tolerance Good Comments after traction Spinal Traction Traction Treatment Lumbar Patient Position Supine Force Applied (Pounds) 65 Duration of Treatment (Minutes) 10 Traction Treatment Comment Heating pad prior to traction during seated ther ex PT-OP-T Assessment and Plan Start: 09/12/22 15:01 Freq: Status: Active Protocol: Document 10/10/22 09:01 [facility] (Rec: 10/10/22 09:44 [facility] [id number]) Physical Therapy Assessment Impairments Impairments Activity Tolerance,Gait,Pain, Strength Goals Three Impairment activity tolerance Impairment LEFS 24% Short Term Goal (STG) Improve LEFS to at least 50% as measure of improved activity tolerance STG Duration 10/05/22 Behavioral Health Specialist Goal (LTG) Improve LEFS to at least 75% as measure of improved activity tolerance and quality of life LTG Duration 11/04/22 Four Impairment gait dysfunction Impairment antalgic, requires use of cane , walker, or wheelchair, can't ambulate on stairs Short Term Goal (STG) Patient to ambulate in the house without device and without a limp STG Duration 10/05/22 Behavioral Health Specialist Goal (LTG) Patient able to ambulate at least 1/2 mile and up and down stairs with least restrictive device device, without limp LTG Duration 11/04/22 Two Impairment weakness left LE Short Term Goal (STG) Patient to be independent in individualized HEP as instructed by PT STG Duration 10/05/22 Behavioral Health Specialist Goal (LTG) Patient to demonstrate left LE strength of at least 4/5 to help her resume usual activity LTG Duration 11/04/22 One Impairment pain left hip with radicular symptoms left LE Impairment 8/10 on pain scale Behavioral Health Specialist Goal (LTG) decrease patient pain to no greater than 2/10 with all usual activities LTG Duration 11/04/22 Assessment Summary Assessment Good compliance to HEP. Kelsi Sci-Fit well first 4 min then reported inc pain. Further education regarding spinal anatomy and importance of posture; good tolerance for wall posture with use of mirror and patient reporting more upright posture felt good . Trial ice after spinal traction. Physical Therapy Plan Frequency and Duration Frequency of Treatment 2x/Week Duration of treatment (weeks) 8 Plan of Care Start Date 09/09/22 Plan of Care End Date 11/09/22 Therapeutic Interventions Therapeutic Interventions Gait Training,Home Exercise Program,Manual Therapy, Neuromuscular Re-education, Patient/Caregiver Education, Self-Care/Home Management,Soft Tissue Mobilization,Taping, Therapeutic Activities, Therapeutic Exercises Modalities Cold Pack/Ice Massage,Electric Stimulation,Hot Packs, Infrared Therapy,Traction- Mechanical,Ultrasound Next Visit Focus/Plan Next Note Type Treatment Note Next Visit Plan Assess response to inc to 65 pounds and addition of ice after traction. Continue gentle exercise progression, postural correction, core stab , and traction with modalities PRN
--- NOTE | 2022-10-14 11:35 | PT.OTN ---
Current Diagnoses Radiculopathy, site unspecified (10/14/22) Left lower quadrant pain (10/14/22) Ataxia, unspecified (10/14/22) Other symptoms and signs involving the musculoskeletal system (10/14/22) Physical Therapy Treatment Note PT-OP-A Visit Information Start: 09/12/22 15:01 Freq: Status: Active Protocol: Document 10/14/22 10:35 SP (Rec: 10/14/22 11:30 SP [id number]) Out-Patient Physical Therapy Visit Information Visit Information Visit Type Treatment Note Visit Note NAOMY Colby assisted in instructed Ther ex while under direct supervision and instruction of PEST TECHNICIAN Lexx Visit Start Time 10:35 Visit Stop Time 11:35 Total Visit Minutes 60 Visit Number 9 Number of PEST TECHNICIAN Visits 1 Evaluation Information Evaluation Date 09/04/22 PT-OP-B Current Condition Start: 09/12/22 15:01 Freq: Status: Active Protocol: Document 10/10/22 09:01 SAK (Rec: 10/10/22 09:44 SAK [id number]) Current Condition History of Current Condition Onset Date 06/21/23 Current Complaints left anterior hip pain, left leg weakness History of Current Condition Was in [place], had acute onset pain left anterior hip for no known reason, got worse including vomiting, HTN and tachycardia all lasted for about 1 week. Pain went down front of left leg to arch of foot with burning pain, reports spasms anterior left LE. A little better with use muscle relaxant new last week, weaned mostly off Hydrocodone , can't hardly get out of bed, walks from bed to bathroom only. Can't want much or go up stairs due to weakness. Neurologist ordered another MRI to include thoracic spine, scheduled for this Friday. EMG scheduled 10/10/22. assists with all household activities and ADL's . 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 Used to sleep on left side, can't now, has to sleep on right, sometimes pillow between legs though states sometimes that makes pain worse. Trying to get in to see neurologist before December. Prior Treatments and Tests MRI 06/29/22: multilevel mild overall degenerative change. Focal area of ill-defined density overlying the right foramina. This is suspected to be artifacts secondary to motion. However, mass in this egion cannot be definitely excluded. If patient is able to toelrate exam repeat views through this region are recommended. Future Testing and Treatments Planned Thoracic MRI this Friday EMG 10/10/22 Neurologist when able to get appoiintment PT-OP-C Subjective Start: 09/12/22 15:01 Freq: Status: Active Protocol: Document 10/14/22 10:35 SP (Rec: 10/14/22 11:30 SP [id number]) OP-PT Subjective Patient Comments Patient Comments Pt reports waiting on referral status for approval Brain MRI and blood work at [facility]. Has started new medication for nerve pain 1 qd over the weekend. Pt stated felt little sore after last tx but felt the mechanical traction helped more last tx. PT-OP-D Balance Start: 09/12/22 15:01 Freq: Status: Active Protocol: Document 09/04/22 13:00 SAK (Rec: 09/12/22 16:05 SAK [id number]) OP-PT Balance Assessment Sitting Balance Static Sitting Balance Ability Good Dynamic Sitting Balance Ability Good Standing Balance Static Standing Balance Ability Fair Dynamic Standing Balance Ability Fair Device Used SPC Standing Balance Comments unable to tolerate other balance testing Al Fall Scale Copyright Permission PT-OP-G Mobility & Gait Start: 09/12/22 15:01 Freq: Status: Active Protocol: Document 09/04/22 13:00 SAK (Rec: 09/12/22 16:05 [facility] [id number]) OP Mobility Evaluation Bed Mobility Rolling painful Supine to and from Sit painful Transfers Sit to Stand painful, excess use right LE and UE's Car Transfers painful Floor Transfers unable Functional Movements Lifting and Carrying unable Squats unable OP Gait Assessment Gait Gait Assistance Required: Standby Assistance Distance (Feet) 80 Assistive Devices Assistive Device Straight Cane Orthotic/Prosthetic Devices or Brace: No Gait Deviations General Gait Pattern Antalgic,Decreased Stride Length,Decreased Feet Clearance,Lateral Trunk Lean, Wide Based Gait Stair Climbing Evaluation Comments Stair Climbing Comments unable PT-OP-H Neuro Start: 09/12/22 15:01 Freq: Status: Active Protocol: Document 09/04/22 13:00 SAK (Rec: 09/12/22 16:05 SAK [id number]) Sensation Evaluation Gross Sensation Gross Sensation Left LE Impaired Sensation Description Numbness,Tingling,Pain PT-OP-J Posture/Palpation/Skin Start: 09/12/22 15:01 Freq: Status: Active Protocol: Document 09/04/22 13:00 [facility] (Rec: 09/12/22 16:05 [facility] [id number]) Posture Evaluation Position Standing Head/C-Spine Posture Forward Head T-Spine Posture Increased Kyphosis L-Spine Posture Flexible Scoliosis on (R) Shoulder Posture (L) Rounded,(R) Rounded Scapula Posture (L) Protracted,(R) Protracted Arm Posture (L) Internally Rotated,(R) Internally Rotated Palpation Assessment Location left hip Palpation Location ant,lat Palpation Findings Muscle Guarding,Tenderness PT-OP-K Range of Motion Start: 09/12/22 15:01 Freq: Status: Active Protocol: Document 09/04/22 13:00 [facility] (Rec: 09/12/22 16:05 [facility] [id number]) Lumbar Spine Range of Motion Lumbar Spine Active ROM Limitations Pain Comments mod dec all motions Hip Goniometric Range of Motion Hip Left Hip ROM WFL No Flexion w/Knee Flexed 90 Straight Leg Raise 45 Extension 0 Abduction 25 Internal Rotation 10 External Rotation 45 Comments all motions left needed PT assist due to weakness and pain Right Hip ROM WFL Yes Hip ROM Limitations Hip ROM Limitations Muscle Weakness,Pain Ankle and Foot Goniometric Range of Motion Ankle and Foot Left Ankle/Foot ROM WFL Yes Right Ankle/Foot ROM WFL Yes PT-OP-L Special Tests Start: 09/12/22 15:01 Freq: Status: Active Protocol: Document 09/04/22 13:00 [facility] (Rec: 09/12/22 16:05 [facility] [id number]) Special Tests Lumbar Spine Special Tests Vertical Spine Loading Test Results inc pain Manual Traction Test Results inc pain Slump Test Results inc pain Prone Press Up Test Results unable to lay prone Straight Leg Raise Test Results unable to do test PT-OP-M Strength Start: 09/12/22 15:01 Freq: Status: Active Protocol: Document 09/04/22 13:00 [facility] (Rec: 09/12/22 16:05 [facility] [id number]) Trunk Strength Trunk Manual Muscle Testing Core Stabilization poor Comments unable to tolerate testing Hip Strength Hip Manual Muscle Testing Left Flexion (L2) 2- Poor- Extension (S1) 2- Poor- Abduction 2- Poor- Adduction 2- Poor- External Rotation 2- Poor- Internal Rotation 2- Poor- Comments tested sitting and supine Right Flexion (L2) 4+ Good+ Extension (S1) 4- Good- Abduction 4- Good- Adduction 4- Good- External Rotation 4- Good- Internal Rotation 4- Good- Comments tested sitting and supine Knee Strength Knee Manual Muscle Testing Left Flexion (S2) 3- Fair- Extension (L3) 3- Fair- Right Flexion (S2) 5 Normal Extension (L3) 5 Normal Ankle/Foot Strength Ankle and Foot Manual Muscle Testing Left Dorsiflexion (L4) 2+ Poor+ Plantarflexion (S1) 3- Fair- Right Dorsiflexion (L4) 4 Good Plantarflexion (S1) 4 Good Toe Strength Toe Manual Muscle Testing Left Great Toe Extension 2+ Poor+ Right Great Toe Extension 5 Normal PT-OP-Q Treatments Start: 09/12/22 15:01 Freq: Status: Active Protocol: Document 10/14/22 10:35 SP (Rec: 10/14/22 11:30 SP [id number]) Cardio Equipment Recumbent Elliptical ([employer]) Duration (Minutes) 5 Resistance 1 Seat Position 7 Other UEs/ LEs Therapeutic Exercises Sitting Exercises Resisted HS curl Sitting Exercise Name REviewed HEP Side left Resistance Tb #2 (orange latex) Reps/Minutes 5SH [id number] x2 sets Comments cued slow pacing return yolanda clam Sitting Exercise Name isometric hip abduction, HEP reviewed Resistance red TB Level 2 Reps/Minutes 5 SH x10 Comments no adverse affects thigh push isometric Sitting Exercise Name adduction isometric, HEP reviewed Resistance small green ball Reps/Minutes 10x5 Comments no cueing needed PT-OP-R Modalities Start: 09/12/22 15:01 Freq: Status: Active Protocol: Document 10/14/22 10:35 SP (Rec: 10/14/22 11:30 SP [id number]) Hot Pack/Cold Pack Treatment Cold Pack Location l/s Patient Position Hooklying Treatment Duration (minutes) 10 Patient Tolerance Good Comments after traction Spinal Traction Traction Treatment Lumbar Patient Position Supine Force Applied (Pounds) 50 Duration of Treatment (Minutes) 10 Traction Treatment Comment bolster under lower legs PT-OP-T Assessment and Plan Start: 09/12/22 15:01 Freq: Status: Active Protocol: Document 10/14/22 10:35 SP (Rec: 10/14/22 11:30 SP [id number]) Physical Therapy Assessment Goals Three Impairment activity tolerance Impairment LEFS 24% Short Term Goal (STG) Improve LEFS to at least 50% as measure of improved activity tolerance STG Duration 10/05/22 Roster Clerk Goal (LTG) Improve LEFS to at least 75% as measure of improved activity tolerance and quality of life LTG Duration 11/04/22 Four Impairment gait dysfunction Impairment antalgic, requires use of cane , walker, or wheelchair, can't ambulate on stairs Short Term Goal (STG) Patient to ambulate in the house without device and without a limp 10/14/22: Progressing can carry cane (less use) more short distance with small steps. Standign for 15 min at time before pain increases need sit . STG Duration 10/05/22 progressing 10/14/22 Longterm Goal (LTG) Patient able to ambulate at least 1/2 mile and up and down stairs with least restrictive device device, without limp LTG Duration 11/04/22 Two Impairment weakness left LE Short Term Goal (STG) Patient to be independent in individualized HEP as instructed by PT 10/14/22: compliant with HEP: add/abd isometrics seated, resisted HS curl, wall posture . STG Duration 10/05/22 progressing 10/14/22 Longterm Goal (LTG) Patient to demonstrate left LE strength of at least 4/5 to help her resume usual activity LTG Duration 11/04/22 One Impairment pain left hip with radicular symptoms left LE Impairment 8/10 on pain scale Roster Clerk Goal (LTG) decrease patient pain to no greater than 2/10 with all usual activities 10/14/22: progressing groin pain gone away but continuous pain L anterior thigh down to lower leg to arch foot. Cant sit or stand to long before worsens 8-10/10 at about 15 min. LTG Duration 11/04/22 progressing 10/14/22 Assessment Summary Assessment Pt improved response to warm up on bike, stiff initially then warmed up painfree today. Good feedback painfree during ther ex with isometric holds, tiring weakess 2nd set LLE up to 6 reps. Pt reports painfree post mechanical traction and CP, improved more upright posturing walking out of tx. Physical Therapy Plan Frequency and Duration Frequency of Treatment 2x/Week Duration of treatment (weeks) 8 Plan of Care Start Date 09/09/22 Plan of Care End Date 11/09/22 Therapeutic Interventions Therapeutic Interventions Gait Training,Home Exercise Program,Manual Therapy, Neuromuscular Re-education, Patient/Caregiver Education, Self-Care/Home Management,Soft Tissue Mobilization,Taping, Therapeutic Activities, Therapeutic Exercises Modalities Cold Pack/Ice Massage,Electric Stimulation,Hot Packs, Infrared Therapy,Traction- Mechanical,Ultrasound Next Visit Focus/Plan Next Note Type Treatment Note Next Visit Plan Continue mechanical traction/ CP. Continue gentle exercise progression, postural correction, core stab, and traction with modalities PRN
--- NOTE | 2022-10-14 11:35 | PT.OTN ---
Current Diagnoses Radiculopathy, site unspecified (10/14/22) Left lower quadrant pain (10/14/22) Ataxia, unspecified (10/14/22) Other symptoms and signs involving the musculoskeletal system (10/14/22) Physical Therapy Treatment Note PT-OP-A Visit Information Start: 09/12/22 15:01 Freq: Status: Active Protocol: Document 10/14/22 10:35 SP (Rec: 10/14/22 11:30 SP [id number]) Out-Patient Physical Therapy Visit Information Visit Information Visit Type Treatment Note Visit Note NAOMY Colby assisted in instructed Ther ex while under direct supervision and instruction of RIB SAWYER Lexx Visit Start Time 10:35 Visit Stop Time 11:35 Total Visit Minutes 60 Visit Number 9 Number of RIB SAWYER Visits 1 Evaluation Information Evaluation Date 09/04/22 PT-OP-B Current Condition Start: 09/12/22 15:01 Freq: Status: Active Protocol: Document 10/10/22 09:01 SAK (Rec: 10/10/22 09:44 SAK [id number]) Current Condition History of Current Condition Onset Date 06/21/23 Current Complaints left anterior hip pain, left leg weakness History of Current Condition Was in [place], had acute onset pain left anterior hip for no known reason, got worse including vomiting, HTN and tachycardia all lasted for about 1 week. Pain went down front of left leg to arch of foot with burning pain, reports spasms anterior left LE. A little better with use muscle relaxant new last week, weaned mostly off Hydrocodone , can't hardly get out of bed, walks from bed to bathroom only. Can't want much or go up stairs due to weakness. Neurologist ordered another MRI to include thoracic spine, scheduled for this Friday. EMG scheduled 10/10/22. assists with all household activities and ADL's . 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 Used to sleep on left side, can't now, has to sleep on right, sometimes pillow between legs though states sometimes that makes pain worse. Trying to get in to see neurologist before December. Prior Treatments and Tests MRI 06/29/22: multilevel mild overall degenerative change. Focal area of ill-defined density overlying the right foramina. This is suspected to be artifacts secondary to motion. However, mass in this egion cannot be definitely excluded. If patient is able to toelrate exam repeat views through this region are recommended. Future Testing and Treatments Planned Thoracic MRI this Friday EMG 10/10/22 Neurologist when able to get appoiintment PT-OP-C Subjective Start: 09/12/22 15:01 Freq: Status: Active Protocol: Document 10/14/22 10:35 SP (Rec: 10/14/22 11:30 SP [id number]) OP-PT Subjective Patient Comments Patient Comments Pt reports waiting on referral status for approval Brain MRI and blood work at [facility]. Has started new medication for nerve pain 1 qd over the weekend. Pt stated felt little sore after last tx but felt the mechanical traction helped more last tx. PT-OP-D Balance Start: 09/12/22 15:01 Freq: Status: Active Protocol: Document 09/04/22 13:00 SAK (Rec: 09/12/22 16:05 SAK [id number]) OP-PT Balance Assessment Sitting Balance Static Sitting Balance Ability Good Dynamic Sitting Balance Ability Good Standing Balance Static Standing Balance Ability Fair Dynamic Standing Balance Ability Fair Device Used SPC Standing Balance Comments unable to tolerate other balance testing Al Fall Scale Copyright Permission PT-OP-G Mobility & Gait Start: 09/12/22 15:01 Freq: Status: Active Protocol: Document 09/04/22 13:00 SAK (Rec: 09/12/22 16:05 [facility] [id number]) OP Mobility Evaluation Bed Mobility Rolling painful Supine to and from Sit painful Transfers Sit to Stand painful, excess use right LE and UE's Car Transfers painful Floor Transfers unable Functional Movements Lifting and Carrying unable Squats unable OP Gait Assessment Gait Gait Assistance Required: Standby Assistance Distance (Feet) 80 Assistive Devices Assistive Device Straight Cane Orthotic/Prosthetic Devices or Brace: No Gait Deviations General Gait Pattern Antalgic,Decreased Stride Length,Decreased Feet Clearance,Lateral Trunk Lean, Wide Based Gait Stair Climbing Evaluation Comments Stair Climbing Comments unable PT-OP-H Neuro Start: 09/12/22 15:01 Freq: Status: Active Protocol: Document 09/04/22 13:00 SAK (Rec: 09/12/22 16:05 SAK [id number]) Sensation Evaluation Gross Sensation Gross Sensation Left LE Impaired Sensation Description Numbness,Tingling,Pain PT-OP-J Posture/Palpation/Skin Start: 09/12/22 15:01 Freq: Status: Active Protocol: Document 09/04/22 13:00 [facility] (Rec: 09/12/22 16:05 [facility] [id number]) Posture Evaluation Position Standing Head/C-Spine Posture Forward Head T-Spine Posture Increased Kyphosis L-Spine Posture Flexible Scoliosis on (R) Shoulder Posture (L) Rounded,(R) Rounded Scapula Posture (L) Protracted,(R) Protracted Arm Posture (L) Internally Rotated,(R) Internally Rotated Palpation Assessment Location left hip Palpation Location ant,lat Palpation Findings Muscle Guarding,Tenderness PT-OP-K Range of Motion Start: 09/12/22 15:01 Freq: Status: Active Protocol: Document 09/04/22 13:00 [facility] (Rec: 09/12/22 16:05 [facility] [id number]) Lumbar Spine Range of Motion Lumbar Spine Active ROM Limitations Pain Comments mod dec all motions Hip Goniometric Range of Motion Hip Left Hip ROM WFL No Flexion w/Knee Flexed 90 Straight Leg Raise 45 Extension 0 Abduction 25 Internal Rotation 10 External Rotation 45 Comments all motions left needed PT assist due to weakness and pain Right Hip ROM WFL Yes Hip ROM Limitations Hip ROM Limitations Muscle Weakness,Pain Ankle and Foot Goniometric Range of Motion Ankle and Foot Left Ankle/Foot ROM WFL Yes Right Ankle/Foot ROM WFL Yes PT-OP-L Special Tests Start: 09/12/22 15:01 Freq: Status: Active Protocol: Document 09/04/22 13:00 [facility] (Rec: 09/12/22 16:05 [facility] [id number]) Special Tests Lumbar Spine Special Tests Vertical Spine Loading Test Results inc pain Manual Traction Test Results inc pain Slump Test Results inc pain Prone Press Up Test Results unable to lay prone Straight Leg Raise Test Results unable to do test PT-OP-M Strength Start: 09/12/22 15:01 Freq: Status: Active Protocol: Document 09/04/22 13:00 [facility] (Rec: 09/12/22 16:05 [facility] [id number]) Trunk Strength Trunk Manual Muscle Testing Core Stabilization poor Comments unable to tolerate testing Hip Strength Hip Manual Muscle Testing Left Flexion (L2) 2- Poor- Extension (S1) 2- Poor- Abduction 2- Poor- Adduction 2- Poor- External Rotation 2- Poor- Internal Rotation 2- Poor- Comments tested sitting and supine Right Flexion (L2) 4+ Good+ Extension (S1) 4- Good- Abduction 4- Good- Adduction 4- Good- External Rotation 4- Good- Internal Rotation 4- Good- Comments tested sitting and supine Knee Strength Knee Manual Muscle Testing Left Flexion (S2) 3- Fair- Extension (L3) 3- Fair- Right Flexion (S2) 5 Normal Extension (L3) 5 Normal Ankle/Foot Strength Ankle and Foot Manual Muscle Testing Left Dorsiflexion (L4) 2+ Poor+ Plantarflexion (S1) 3- Fair- Right Dorsiflexion (L4) 4 Good Plantarflexion (S1) 4 Good Toe Strength Toe Manual Muscle Testing Left Great Toe Extension 2+ Poor+ Right Great Toe Extension 5 Normal PT-OP-Q Treatments Start: 09/12/22 15:01 Freq: Status: Active Protocol: Document 10/14/22 10:35 SP (Rec: 10/14/22 11:30 SP [id number]) Cardio Equipment Recumbent Elliptical ([employer]) Duration (Minutes) 5 Resistance 1 Seat Position 7 Other UEs/ LEs Therapeutic Exercises Sitting Exercises Resisted HS curl Sitting Exercise Name REviewed HEP Side left Resistance Tb #2 (orange latex) Reps/Minutes 5SH [id number] x2 sets Comments cued slow pacing return yolanda clam Sitting Exercise Name isometric hip abduction, HEP reviewed Resistance red TB Level 2 Reps/Minutes 5 SH x10 Comments no adverse affects thigh push isometric Sitting Exercise Name adduction isometric, HEP reviewed Resistance small green ball Reps/Minutes 10x5 Comments no cueing needed PT-OP-R Modalities Start: 09/12/22 15:01 Freq: Status: Active Protocol: Document 10/14/22 10:35 SP (Rec: 10/14/22 11:30 SP [id number]) Hot Pack/Cold Pack Treatment Cold Pack Location l/s Patient Position Hooklying Treatment Duration (minutes) 10 Patient Tolerance Good Comments after traction Spinal Traction Traction Treatment Lumbar Patient Position Supine Force Applied (Pounds) 50 Duration of Treatment (Minutes) 10 Traction Treatment Comment bolster under lower legs PT-OP-T Assessment and Plan Start: 09/12/22 15:01 Freq: Status: Active Protocol: Document 10/14/22 10:35 SP (Rec: 10/14/22 11:30 SP [id number]) Physical Therapy Assessment Goals Three Impairment activity tolerance Impairment LEFS 24% Short Term Goal (STG) Improve LEFS to at least 50% as measure of improved activity tolerance STG Duration 10/05/22 Practicing Md Anesthesiologist Goal (LTG) Improve LEFS to at least 75% as measure of improved activity tolerance and quality of life LTG Duration 11/04/22 Four Impairment gait dysfunction Impairment antalgic, requires use of cane , walker, or wheelchair, can't ambulate on stairs Short Term Goal (STG) Patient to ambulate in the house without device and without a limp 10/14/22: Progressing can carry cane (less use) more short distance with small steps. Standign for 15 min at time before pain increases need sit . STG Duration 10/05/22 progressing 10/13/22 Half-Way Goal (LTG) Patient able to ambulate at least 1/2 mile and up and down stairs with least restrictive device device, without limp LTG Duration 11/04/22 Two Impairment weakness left LE Short Term Goal (STG) Patient to be independent in individualized HEP as instructed by PT 10/13/22: compliant with HEP: add/abd isometrics seated, resisted HS curl, wall posture . STG Duration 10/05/22 progressing 10/13/22 Half-Way Goal (LTG) Patient to demonstrate left LE strength of at least 4/5 to help her resume usual activity LTG Duration 11/04/22 One Impairment pain left hip with radicular symptoms left LE Impairment 8/10 on pain scale Practicing Md Anesthesiologist Goal (LTG) decrease patient pain to no greater than 2/10 with all usual activities 10/13/22: progressing groin pain gone away but continuous pain L anterior thigh down to lower leg to arch foot. Cant sit or stand to long before worsens 8-10/10 at about 15 min. LTG Duration 11/04/22 progressing 10/13/22 Assessment Summary Assessment Pt improved response to warm up on bike, stiff initially then warmed up painfree today. Good feedback painfree during ther ex with isometric holds, tiring weakess 2nd set LLE up to 6 reps. Pt reports painfree post mechanical traction and CP, improved more upright posturing walking out of tx. Physical Therapy Plan Frequency and Duration Frequency of Treatment 2x/Week Duration of treatment (weeks) 8 Plan of Care Start Date 09/09/22 Plan of Care End Date 11/09/22 Therapeutic Interventions Therapeutic Interventions Gait Training,Home Exercise Program,Manual Therapy, Neuromuscular Re-education, Patient/Caregiver Education, Self-Care/Home Management,Soft Tissue Mobilization,Taping, Therapeutic Activities, Therapeutic Exercises Modalities Cold Pack/Ice Massage,Electric Stimulation,Hot Packs, Infrared Therapy,Traction- Mechanical,Ultrasound Next Visit Focus/Plan Next Note Type Treatment Note Next Visit Plan Continue mechanical traction/ CP. Continue gentle exercise progression, postural correction, core stab, and traction with modalities PRN
--- NOTE | 2022-10-17 09:50 | PT.OTN ---
Current Diagnoses Radiculopathy, site unspecified (10/17/22) Left lower quadrant pain (10/17/22) Ataxia, unspecified (10/17/22) Other symptoms and signs involving the musculoskeletal system (10/17/22) Physical Therapy Treatment Note PT-OP-A Visit Information Start: 09/12/22 15:01 Freq: Status: Active Protocol: Document 10/17/22 09:06 SP (Rec: 10/17/22 10:00 SP [id number]) Out-Patient Physical Therapy Visit Information Visit Information Visit Type Treatment Note Visit Start Time 09:06 Visit Stop Time 09:50 Total Visit Minutes 44 Visit Number 10 Number of DIRECTOR OF RADIO SERVICES Visits 1 Evaluation Information Evaluation Date 09/04/22 PT-OP-B Current Condition Start: 09/12/22 15:01 Freq: Status: Active Protocol: Document 10/10/22 09:01 SAK (Rec: 10/10/22 09:44 SAK [id number]) Current Condition History of Current Condition Onset Date 06/21/23 Current Complaints left anterior hip pain, left leg weakness History of Current Condition Was in [place], had acute onset pain left anterior hip for no known reason, got worse including vomiting, HTN and tachycardia all lasted for about 1 week. Pain went down front of left leg to arch of foot with burning pain, reports spasms anterior left LE. A little better with use muscle relaxant new last week, weaned mostly off Hydrocodone , can't hardly get out of bed, walks from bed to bathroom only. Can't want much or go up stairs due to weakness. Neurologist ordered another MRI to include thoracic spine, scheduled for this Friday. EMG scheduled 10/10/22. assists with all household activities and ADL's . 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 Used to sleep on left side, can't now, has to sleep on right, sometimes pillow between legs though states sometimes that makes pain worse. Trying to get in to see neurologist before December. Prior Treatments and Tests MRI 06/29/22: multilevel mild overall degenerative change. Focal area of ill-defined density overlying the right foramina. This is suspected to be artifacts secondary to motion. However, mass in this egion cannot be definitely excluded. If patient is able to toelrate exam repeat views through this region are recommended. Future Testing and Treatments Planned Thoracic MRI this Friday EMG 10/10/22 Neurologist when able to get appoiintment PT-OP-C Subjective Start: 09/12/22 15:01 Freq: Status: Active Protocol: Document 10/17/22 09:06 SP (Rec: 10/17/22 10:00 SP [id number]) OP-PT Subjective Patient Comments Patient Comments Pt reports felt better after last tx. Arrived more upright posturing with SPC today. She stated is taking generic Cymbalta since Sat feels is helping with back pain. She states low back few hrs after traction hurting so applied MHP and felt better and continued and find standing up straighter next day. PT-OP-D Balance Start: 09/12/22 15:01 Freq: Status: Active Protocol: Document 09/04/22 13:00 SAK (Rec: 09/12/22 16:05 SAK [id number]) OP-PT Balance Assessment Sitting Balance Static Sitting Balance Ability Good Dynamic Sitting Balance Ability Good Standing Balance Static Standing Balance Ability Fair Dynamic Standing Balance Ability Fair Device Used SPC Standing Balance Comments unable to tolerate other balance testing Al Fall Scale Copyright Permission PT-OP-G Mobility & Gait Start: 09/12/22 15:01 Freq: Status: Active Protocol: Document 09/04/22 13:00 SAK (Rec: 09/12/22 16:05 [facility] [id number]) OP Mobility Evaluation Bed Mobility Rolling painful Supine to and from Sit painful Transfers Sit to Stand painful, excess use right LE and UE's Car Transfers painful Floor Transfers unable Functional Movements Lifting and Carrying unable Squats unable OP Gait Assessment Gait Gait Assistance Required: Standby Assistance Distance (Feet) 80 Assistive Devices Assistive Device Straight Cane Orthotic/Prosthetic Devices or Brace: No Gait Deviations General Gait Pattern Antalgic,Decreased Stride Length,Decreased Feet Clearance,Lateral Trunk Lean, Wide Based Gait Stair Climbing Evaluation Comments Stair Climbing Comments unable PT-OP-H Neuro Start: 09/12/22 15:01 Freq: Status: Active Protocol: Document 09/04/22 13:00 SAK (Rec: 09/12/22 16:05 [facility] [id number]) Sensation Evaluation Gross Sensation Gross Sensation Left LE Impaired Sensation Description Numbness,Tingling,Pain PT-OP-J Posture/Palpation/Skin Start: 09/12/22 15:01 Freq: Status: Active Protocol: Document 09/04/22 13:00 [facility] (Rec: 09/12/22 16:05 [facility] [id number]) Posture Evaluation Position Standing Head/C-Spine Posture Forward Head T-Spine Posture Increased Kyphosis L-Spine Posture Flexible Scoliosis on (R) Shoulder Posture (L) Rounded,(R) Rounded Scapula Posture (L) Protracted,(R) Protracted Arm Posture (L) Internally Rotated,(R) Internally Rotated Palpation Assessment Location left hip Palpation Location ant,lat Palpation Findings Muscle Guarding,Tenderness PT-OP-K Range of Motion Start: 09/12/22 15:01 Freq: Status: Active Protocol: Document 09/04/22 13:00 [facility] (Rec: 09/12/22 16:05 [facility] [id number]) Lumbar Spine Range of Motion Lumbar Spine Active ROM Limitations Pain Comments mod dec all motions Hip Goniometric Range of Motion Hip Left Hip ROM WFL No Flexion w/Knee Flexed 90 Straight Leg Raise 45 Extension 0 Abduction 25 Internal Rotation 10 External Rotation 45 Comments all motions left needed PT assist due to weakness and pain Right Hip ROM WFL Yes Hip ROM Limitations Hip ROM Limitations Muscle Weakness,Pain Ankle and Foot Goniometric Range of Motion Ankle and Foot Left Ankle/Foot ROM WFL Yes Right Ankle/Foot ROM WFL Yes PT-OP-L Special Tests Start: 09/12/22 15:01 Freq: Status: Active Protocol: Document 09/04/22 13:00 [facility] (Rec: 09/12/22 16:05 [facility] [id number]) Special Tests Lumbar Spine Special Tests Vertical Spine Loading Test Results inc pain Manual Traction Test Results inc pain Slump Test Results inc pain Prone Press Up Test Results unable to lay prone Straight Leg Raise Test Results unable to do test PT-OP-M Strength Start: 09/12/22 15:01 Freq: Status: Active Protocol: Document 09/04/22 13:00 [facility] (Rec: 09/12/22 16:05 [facility] [id number]) Trunk Strength Trunk Manual Muscle Testing Core Stabilization poor Comments unable to tolerate testing Hip Strength Hip Manual Muscle Testing Left Flexion (L2) 2- Poor- Extension (S1) 2- Poor- Abduction 2- Poor- Adduction 2- Poor- External Rotation 2- Poor- Internal Rotation 2- Poor- Comments tested sitting and supine Right Flexion (L2) 4+ Good+ Extension (S1) 4- Good- Abduction 4- Good- Adduction 4- Good- External Rotation 4- Good- Internal Rotation 4- Good- Comments tested sitting and supine Knee Strength Knee Manual Muscle Testing Left Flexion (S2) 3- Fair- Extension (L3) 3- Fair- Right Flexion (S2) 5 Normal Extension (L3) 5 Normal Ankle/Foot Strength Ankle and Foot Manual Muscle Testing Left Dorsiflexion (L4) 2+ Poor+ Plantarflexion (S1) 3- Fair- Right Dorsiflexion (L4) 4 Good Plantarflexion (S1) 4 Good Toe Strength Toe Manual Muscle Testing Left Great Toe Extension 2+ Poor+ Right Great Toe Extension 5 Normal PT-OP-Q Treatments Start: 09/12/22 15:01 Freq: Status: Active Protocol: Document 10/17/22 09:06 SP (Rec: 10/17/22 10:00 SP [id number]) Cardio Equipment Recumbent Elliptical (Busuu) Duration (Minutes) 5 Resistance 2 Seat Position 7 Other UEs/ LEs Therapeutic Exercises Sitting Exercises Resisted HS curl Sitting Exercise Name REviewed HEP Side left Resistance Tb #3 (green latex free) Equipment Used mesh chair Reps/Minutes x15 reps Comments good HS fac and form Standing Exercises SLS (step tap) Standing Exercise Name added to HEP- glut, quad fac Side bilateral Equipment Used SPC support, 8 step Reps/Minutes x8 reps each LE Comments cued posturing/core/quad/glut fac- light contact LLE SLS time Touch downs Standing Exercise Name initiated in PT- BUE [place] slide onwall Reps/Minutes x10 Comments good LS neutral and assist posturing wall posture Standing Exercise Name elbow bend 90 w/ ER Equipment Used mirror not needed today Reps/Minutes 5 reps 10 SH Comments improved TA and mid TS engagement, good posturing PT-OP-R Modalities Start: 09/12/22 15:01 Freq: Status: Active Protocol: Document 10/17/22 09:06 SP (Rec: 10/17/22 10:00 SP [id number]) Spinal Traction Traction Treatment Lumbar Method Static Patient Position Supine Force Applied (Pounds) 45 Duration of Treatment (Minutes) 10 Traction Treatment Comment bench under lower legs PT-OP-T Assessment and Plan Start: 09/12/22 15:01 Freq: Status: Active Protocol: Document 10/17/22 09:06 LINDA (Rec: 10/17/22 10:00 SP [id number]) Physical Therapy Assessment Goals Three Impairment activity tolerance Impairment LEFS 24% Short Term Goal (STG) Improve LEFS to at least 50% as measure of improved activity tolerance STG Duration 10/05/22 [employer]visor Goal (LTG) Improve LEFS to at least 75% as measure of improved activity tolerance and quality of life LTG Duration 11/04/22 Four Impairment gait dysfunction Impairment antalgic, requires use of cane , walker, or wheelchair, can't ambulate on stairs Short Term Goal (STG) Patient to ambulate in the house without device and without a limp 10/14/22: Progressing can carry cane (less use) more short distance with small steps. Standign for 15 min at time before pain increases need sit . STG Duration 10/05/22 progressing 10/14/22 [employer] Supervisor Goal (LTG) Patient able to ambulate at least 1/2 mile and up and down stairs with least restrictive device device, without limp LTG Duration 11/04/22 Two Impairment weakness left LE Short Term Goal (STG) Patient to be independent in individualized HEP as instructed by PT 10/14/22: compliant with HEP: add/abd isometrics seated, resisted HS curl, wall posture . 10/16/22: added alternating step taps, contact support needed on SPC. STG Duration 10/05/22 progressing 10/16/22 Senior Care Goal (LTG) Patient to demonstrate left LE strength of at least 4/5 to help her resume usual activity LTG Duration 11/04/22 One Impairment pain left hip with radicular symptoms left LE Impairment 8/10 on pain scale Senior Care Goal (LTG) decrease patient pain to no greater than 2/10 with all usual activities 10/14/22: progressing groin pain gone away but continuous pain L anterior thigh down to lower leg to arch foot. Cant sit or stand to long before worsens 8-10/10 at about 15 min. LTG Duration 11/04/22 progressing 10/14/22 Assessment Summary Assessment Pt improved quad, glut fac during added step taps and spinal core/TS fac/ postural alignment wall today, painfree . Pt reports feels able to WB into LLE better, more stable when got up from traction. She finds benefits from mechanical traction and more upright walking but does have latent response LB discomfort few hrs post tx. Physical Therapy Plan Frequency and Duration Frequency of Treatment 2x/Week Duration of treatment (weeks) 8 Plan of Care Start Date 09/09/22 Plan of Care End Date 11/09/22 Therapeutic Interventions Therapeutic Interventions Gait Training,Home Exercise Program,Manual Therapy, Neuromuscular Re-education, Patient/Caregiver Education, Self-Care/Home Management,Soft Tissue Mobilization,Taping, Therapeutic Activities, Therapeutic Exercises Modalities Cold Pack/Ice Massage,Electric Stimulation,Hot Packs, Infrared Therapy,Traction- Mechanical,Ultrasound Next Visit Focus/Plan Next Note Type Treatment Note Next Visit Plan Ask continued response to mechanical tx and added SLS step taps last tx. POC: Continue mechanical traction/ CP. Continue gentle exercise progression, postural correction, core stab, and traction with modalities PRN
--- NOTE | 2022-10-22 10:18 | PT.OTN ---
Current Diagnoses Radiculopathy, site unspecified (10/22/22) Left lower quadrant pain (10/22/22) Ataxia, unspecified (10/22/22) Other symptoms and signs involving the musculoskeletal system (10/22/22) Physical Therapy Treatment Note PT-OP-A Visit Information Start: 09/12/22 15:01 Freq: Status: Active Protocol: Document 10/22/22 09:32 SAK (Rec: 10/22/22 10:18 SAK [id number]) Out-Patient Physical Therapy Visit Information Visit Information Visit Type Treatment Note Visit Start Time 09:32 Visit Stop Time 10:15 Total Visit Minutes 53 Visit Number 11 Number of AGRICULTURAL SALES REPRESENTATIVE Visits 1 PT-OP-B Current Condition Start: 09/12/22 15:01 Freq: Status: Active Protocol: Document 10/10/22 09:01 SAK (Rec: 10/10/22 09:44 SAK [id number]) Current Condition History of Current Condition Onset Date 06/21/23 Current Complaints left anterior hip pain, left leg weakness History of Current Condition Was in [place], had acute onset pain left anterior hip for no known reason, got worse including vomiting, HTN and tachycardia all lasted for about 1 week. Pain went down front of left leg to arch of foot with burning pain, reports spasms anterior left LE. A little better with use muscle relaxant new last week, weaned mostly off Hydrocodone , can't hardly get out of bed, walks from bed to bathroom only. Can't want much or go up stairs due to weakness. Neurologist ordered another MRI to include thoracic spine, scheduled for this Friday. EMG scheduled 10/10/22. assists with all household activities and ADL's . 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 Used to sleep on left side, can't now, has to sleep on right, sometimes pillow between legs though states sometimes that makes pain worse. Trying to get in to see neurologist before December. Prior Treatments and Tests MRI 06/29/22: multilevel mild overall degenerative change. Focal area of ill-defined density overlying the right foramina. This is suspected to be artifacts secondary to motion. However, mass in this egion cannot be definitely excluded. If patient is able to toelrate exam repeat views through this region are recommended. Future Testing and Treatments Planned Thoracic MRI this Friday EMG 10/10/22 Neurologist when able to get appoiintment PT-OP-C Subjective Start: 09/12/22 15:01 Freq: Status: Active Protocol: Document 10/22/22 09:32 SAK (Rec: 10/22/22 10:18 [facility] [id number]) OP-PT Subjective Patient Comments Patient Comments MRI of brain negative. FEeling a lot better though still tingling and burning in left side and tightness left thigh which can cause pain all the way into leg Pain as comes to PT feels 2/10. Doing HEP. Thigh bothers her the most with walking on stairs, can't alternate LE's on stairs PT-OP-D Balance Start: 09/12/22 15:01 Freq: Status: Active Protocol: Document 09/04/22 13:00 [facility] (Rec: 09/12/22 16:05 [facility] [id number]) OP-PT Balance Assessment Sitting Balance Static Sitting Balance Ability Good Dynamic Sitting Balance Ability Good Standing Balance Static Standing Balance Ability Fair Dynamic Standing Balance Ability Fair Device Used SPC Standing Balance Comments unable to tolerate other balance testing Al Fall Scale Copyright Permission PT-OP-G Mobility & Gait Start: 09/12/22 15:01 Freq: Status: Active Protocol: Document 09/04/22 13:00 [facility] (Rec: 09/12/22 16:05 [facility] [id number]) OP Mobility Evaluation Bed Mobility Rolling painful Supine to and from Sit painful Transfers Sit to Stand painful, excess use right LE and UE's Car Transfers painful Floor Transfers unable Functional Movements Lifting and Carrying unable Squats unable OP Gait Assessment Gait Gait Assistance Required: Standby Assistance Distance (Feet) 80 Assistive Devices Assistive Device Straight Cane Orthotic/Prosthetic Devices or Brace: No Gait Deviations General Gait Pattern Antalgic,Decreased Stride Length,Decreased Feet Clearance,Lateral Trunk Lean, Wide Based Gait Stair Climbing Evaluation Comments Stair Climbing Comments unable PT-OP-H Neuro Start: 09/12/22 15:01 Freq: Status: Active Protocol: Document 09/04/22 13:00 [facility] (Rec: 09/12/22 16:05 [facility] [id number]) Sensation Evaluation Gross Sensation Gross Sensation Left LE Impaired Sensation Description Numbness,Tingling,Pain PT-OP-J Posture/Palpation/Skin Start: 09/12/22 15:01 Freq: Status: Active Protocol: Document 09/04/22 13:00 [facility] (Rec: 09/12/22 16:05 [facility] [id number]) Posture Evaluation Position Standing Head/C-Spine Posture Forward Head T-Spine Posture Increased Kyphosis L-Spine Posture Flexible Scoliosis on (R) Shoulder Posture (L) Rounded,(R) Rounded Scapula Posture (L) Protracted,(R) Protracted Arm Posture (L) Internally Rotated,(R) Internally Rotated Palpation Assessment Location left hip Palpation Location ant,lat Palpation Findings Muscle Guarding,Tenderness PT-OP-K Range of Motion Start: 09/12/22 15:01 Freq: Status: Active Protocol: Document 09/04/22 13:00 [facility] (Rec: 09/12/22 16:05 [facility] [id number]) Lumbar Spine Range of Motion Lumbar Spine Active ROM Limitations Pain Comments mod dec all motions Hip Goniometric Range of Motion Hip Left Hip ROM WFL No Flexion w/Knee Flexed 90 Straight Leg Raise 45 Extension 0 Abduction 25 Internal Rotation 10 External Rotation 45 Comments all motions left needed PT assist due to weakness and pain Right Hip ROM WFL Yes Hip ROM Limitations Hip ROM Limitations Muscle Weakness,Pain Ankle and Foot Goniometric Range of Motion Ankle and Foot Left Ankle/Foot ROM WFL Yes Right Ankle/Foot ROM WFL Yes PT-OP-L Special Tests Start: 09/12/22 15:01 Freq: Status: Active Protocol: Document 09/04/22 13:00 [facility] (Rec: 09/12/22 16:05 [facility] [id number]) Special Tests Lumbar Spine Special Tests Vertical Spine Loading Test Results inc pain Manual Traction Test Results inc pain Slump Test Results inc pain Prone Press Up Test Results unable to lay prone Straight Leg Raise Test Results unable to do test PT-OP-M Strength Start: 09/12/22 15:01 Freq: Status: Active Protocol: Document 09/04/22 13:00 [facility] (Rec: 09/12/22 16:05 [facility] [id number]) Trunk Strength Trunk Manual Muscle Testing Core Stabilization poor Comments unable to tolerate testing Hip Strength Hip Manual Muscle Testing Left Flexion (L2) 2- Poor- Extension (S1) 2- Poor- Abduction 2- Poor- Adduction 2- Poor- External Rotation 2- Poor- Internal Rotation 2- Poor- Comments tested sitting and supine Right Flexion (L2) 4+ Good+ Extension (S1) 4- Good- Abduction 4- Good- Adduction 4- Good- External Rotation 4- Good- Internal Rotation 4- Good- Comments tested sitting and supine Knee Strength Knee Manual Muscle Testing Left Flexion (S2) 3- Fair- Extension (L3) 3- Fair- Right Flexion (S2) 5 Normal Extension (L3) 5 Normal Ankle/Foot Strength Ankle and Foot Manual Muscle Testing Left Dorsiflexion (L4) 2+ Poor+ Plantarflexion (S1) 3- Fair- Right Dorsiflexion (L4) 4 Good Plantarflexion (S1) 4 Good Toe Strength Toe Manual Muscle Testing Left Great Toe Extension 2+ Poor+ Right Great Toe Extension 5 Normal PT-OP-Q Treatments Start: 09/12/22 15:01 Freq: Status: Active Protocol: Document 10/22/22 09:32 [facility] (Rec: 10/22/22 10:18 [facility] [id number]) Cardio Equipment Recumbent Stepper (Sci-Fit) Duration (Minutes) 8 Resistance 2 Seat Position 10 Gym Equipment Shuttle Recovery Unilateral Squats Details next session Bilateral Squats Details next session Therapeutic Exercises Supine Exercises nate stretch Resistance left Reps/Minutes 2x30 Comments manual assist bridge Supine Exercise Name cues for single leg yolanda Side bilateral Reps/Minutes x10 reps Comments cued R heel closer to buttock, decrease HS cramp- improved height with reps Standing Exercises should ext Equipment Used L1 Reps/Minutes 10x Comments cues for neutral posture, core stab wall posture Standing Exercise Name elbow bend 90 w/ ER Equipment Used mirror not needed today Reps/Minutes 5 reps 10 SH Comments improved TA and mid TS engagement, good posturing Gait Training Gait Activity gait with no device Device Used none Treatment Focus dec compensation, gluteal and core activation Comments parallel bars Manual Therapy Treatment Soft Tissue Mobilization quad, ITB Body Location L vastus lateralis, ITB Mobilization Type Instrument Assisted,Myofascial Release,Strumming Intensity/Depth Superficial Body Position Hooklying Comments improved tolerance rolling pin by PT and patient PT-OP-R Modalities Start: 09/12/22 15:01 Freq: Status: Active Protocol: Document 10/22/22 09:32 [facility] (Rec: 10/22/22 10:18 [facility] [id number]) Hot Pack/Cold Pack Treatment Cold Pack Location l/s Patient Position Hooklying Treatment Duration (minutes) 10 Patient Tolerance Good Comments after traction Spinal Traction Traction Treatment Lumbar Method Static Patient Position Supine Force Applied (Pounds) 45 Duration of Treatment (Minutes) 10 Traction Treatment Comment bolster under lower legs PT-OP-T Assessment and Plan Start: 09/12/22 15:01 Freq: Status: Active Protocol: Document 10/22/22 09:32 [facility] (Rec: 10/22/22 10:18 [facility] [id number]) Physical Therapy Assessment Goals Three Impairment activity tolerance Impairment LEFS 24% Short Term Goal (STG) Improve LEFS to at least 50% as measure of improved activity tolerance STG Duration 10/05/22 Media Monitor Goal (LTG) Improve LEFS to at least 75% as measure of improved activity tolerance and quality of life LTG Duration 11/04/22 Four Impairment gait dysfunction Impairment antalgic, requires use of cane , walker, or wheelchair, can't ambulate on stairs Short Term Goal (STG) Patient to ambulate in the house without device and without a limp 10/14/22: Progressing can carry cane (less use) more short distance with small steps. Standign for 15 min at time before pain increases need sit . STG Duration 10/05/22 progressing 10/14/22 Usp Goal (LTG) Patient able to ambulate at least 1/2 mile and up and down stairs with least restrictive device device, without limp LTG Duration 11/04/22 Two Impairment weakness left LE Short Term Goal (STG) Patient to be independent in individualized HEP as instructed by PT 10/14/22: compliant with HEP: add/abd isometrics seated, resisted HS curl, wall posture . 10/16/22: added alternating step taps, contact support needed on SPC. STG Duration 10/05/22 progressing 10/16/22 Media Monitor Goal (LTG) Patient to demonstrate left LE strength of at least 4/5 to help her resume usual activity LTG Duration 11/04/22 One Impairment pain left hip with radicular symptoms left LE Impairment 8/10 on pain scale Usp Goal (LTG) decrease patient pain to no greater than 2/10 with all usual activities 10/14/22: progressing groin pain gone away but continuous pain L anterior thigh down to lower leg to arch foot. Cant sit or stand to long before worsens 8-10/10 at about 15 min. LTG Duration 11/04/22 progressing 10/14/22 Assessment Summary Assessment Steppage gait left still evident, but gait less painful , more steady. Continues to use cane. Step-to pattern on stairs. Feels traction helpful. Physical Therapy Plan Frequency and Duration Frequency of Treatment 2x/Week Duration of treatment (weeks) 8 Plan of Care Start Date 09/09/22 Plan of Care End Date 11/09/22 Therapeutic Interventions Therapeutic Interventions Gait Training,Home Exercise Program,Manual Therapy, Neuromuscular Re-education, Patient/Caregiver Education, Self-Care/Home Management,Soft Tissue Mobilization,Taping, Therapeutic Activities, Therapeutic Exercises Modalities Cold Pack/Ice Massage,Electric Stimulation,Hot Packs, Infrared Therapy,Traction- Mechanical,Ultrasound Next Visit Focus/Plan Next Note Type Treatment Note Next Visit Plan POC: Continue mechanical traction/ CP. Continue gentle exercise progression, postural correction, core stab, and traction with modalities PRN
--- NOTE | 2022-10-22 16:44 | PT.OTN ---
Current Diagnoses Radiculopathy, site unspecified (10/22/22) Left lower quadrant pain (10/22/22) Ataxia, unspecified (10/22/22) Other symptoms and signs involving the musculoskeletal system (10/22/22) Physical Therapy Treatment Note PT-OP-A Visit Information Start: 09/12/22 15:01 Freq: Status: Active Protocol: Document 10/22/22 09:32 [facility] (Rec: 10/22/22 10:18 [facility] [id number]) Out-Patient Physical Therapy Visit Information Visit Information Visit Type Treatment Note Visit Start Time 09:32 Visit Stop Time 10:15 Total Visit Minutes 53 Visit Number 11 Number of FOXING CLOSER Visits 0 PT-OP-B Current Condition Start: 09/12/22 15:01 Freq: Status: Active Protocol: Document 10/10/22 09:01 SAK (Rec: 10/10/22 09:44 [facility] [id number]) Current Condition History of Current Condition Onset Date 06/21/23 Current Complaints left anterior hip pain, left leg weakness History of Current Condition Was in [place], had acute onset pain left anterior hip for no known reason, got worse including vomiting, HTN and tachycardia all lasted for about 1 week. Pain went down front of left leg to arch of foot with burning pain, reports spasms anterior left LE. A little better with use muscle relaxant new last week, weaned mostly off Hydrocodone , can't hardly get out of bed, walks from bed to bathroom only. Can't want much or go up stairs due to weakness. Neurologist ordered another MRI to include thoracic spine, scheduled for this Friday. EMG scheduled 10/10/22. assists with all household activities and ADL's . 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 Used to sleep on left side, can't now, has to sleep on right, sometimes pillow between legs though states sometimes that makes pain worse. Trying to get in to see neurologist before December. Prior Treatments and Tests MRI 06/29/22: multilevel mild overall degenerative change. Focal area of ill-defined density overlying the right foramina. This is suspected to be artifacts secondary to motion. However, mass in this egion cannot be definitely excluded. If patient is able to toelrate exam repeat views through this region are recommended. Future Testing and Treatments Planned Thoracic MRI this Friday EMG 10/10/22 Neurologist when able to get appoiintment PT-OP-C Subjective Start: 09/12/22 15:01 Freq: Status: Active Protocol: Document 10/22/22 09:32 [facility]AK (Rec: 10/22/22 10:18 [facility] [id number]) OP-PT Subjective Patient Comments Patient Comments MRI of brain negative. FEeling a lot better though still tingling and burning in left side and tightness left thigh which can cause pain all the way into leg Pain as comes to PT feels 2/10. Doing HEP. Thigh bothers her the most with walking on stairs, can't alternate LE's on stairs PT-OP-D Balance Start: 09/12/22 15:01 Freq: Status: Active Protocol: Document 09/04/22 13:00 [facility] (Rec: 09/12/22 16:05 [facility] [id number]) OP-PT Balance Assessment Sitting Balance Static Sitting Balance Ability Good Dynamic Sitting Balance Ability Good Standing Balance Static Standing Balance Ability Fair Dynamic Standing Balance Ability Fair Device Used SPC Standing Balance Comments unable to tolerate other balance testing Al Fall Scale Copyright Permission PT-OP-G Mobility & Gait Start: 09/12/22 15:01 Freq: Status: Active Protocol: Document 09/04/22 13:00 [facility] (Rec: 09/12/22 16:05 [facility] [id number]) OP Mobility Evaluation Bed Mobility Rolling painful Supine to and from Sit painful Transfers Sit to Stand painful, excess use right LE and UE's Car Transfers painful Floor Transfers unable Functional Movements Lifting and Carrying unable Squats unable OP Gait Assessment Gait Gait Assistance Required: Standby Assistance Distance (Feet) 80 Assistive Devices Assistive Device Straight Cane Orthotic/Prosthetic Devices or Brace: No Gait Deviations General Gait Pattern Antalgic,Decreased Stride Length,Decreased Feet Clearance,Lateral Trunk Lean, Wide Based Gait Stair Climbing Evaluation Comments Stair Climbing Comments unable PT-OP-H Neuro Start: 09/12/22 15:01 Freq: Status: Active Protocol: Document 09/04/22 13:00 [facility] (Rec: 09/12/22 16:05 [facility] [id number]) Sensation Evaluation Gross Sensation Gross Sensation Left LE Impaired Sensation Description Numbness,Tingling,Pain PT-OP-J Posture/Palpation/Skin Start: 09/12/22 15:01 Freq: Status: Active Protocol: Document 09/04/22 13:00 [facility] (Rec: 09/12/22 16:05 [facility] [id number]) Posture Evaluation Position Standing Head/C-Spine Posture Forward Head T-Spine Posture Increased Kyphosis L-Spine Posture Flexible Scoliosis on (R) Shoulder Posture (L) Rounded,(R) Rounded Scapula Posture (L) Protracted,(R) Protracted Arm Posture (L) Internally Rotated,(R) Internally Rotated Palpation Assessment Location left hip Palpation Location ant,lat Palpation Findings Muscle Guarding,Tenderness PT-OP-K Range of Motion Start: 09/12/22 15:01 Freq: Status: Active Protocol: Document 09/04/22 13:00 [facility] (Rec: 09/12/22 16:05 [facility] [id number]) Lumbar Spine Range of Motion Lumbar Spine Active ROM Limitations Pain Comments mod dec all motions Hip Goniometric Range of Motion Hip Left Hip ROM WFL No Flexion w/Knee Flexed 90 Straight Leg Raise 45 Extension 0 Abduction 25 Internal Rotation 10 External Rotation 45 Comments all motions left needed PT assist due to weakness and pain Right Hip ROM WFL Yes Hip ROM Limitations Hip ROM Limitations Muscle Weakness,Pain Ankle and Foot Goniometric Range of Motion Ankle and Foot Left Ankle/Foot ROM WFL Yes Right Ankle/Foot ROM WFL Yes PT-OP-L Special Tests Start: 09/12/22 15:01 Freq: Status: Active Protocol: Document 09/04/22 13:00 [facility] (Rec: 09/12/22 16:05 [facility] [id number]) Special Tests Lumbar Spine Special Tests Vertical Spine Loading Test Results inc pain Manual Traction Test Results inc pain Slump Test Results inc pain Prone Press Up Test Results unable to lay prone Straight Leg Raise Test Results unable to do test PT-OP-M Strength Start: 09/12/22 15:01 Freq: Status: Active Protocol: Document 09/04/22 13:00 [facility] (Rec: 09/12/22 16:05 [facility] [id number]) Trunk Strength Trunk Manual Muscle Testing Core Stabilization poor Comments unable to tolerate testing Hip Strength Hip Manual Muscle Testing Left Flexion (L2) 2- Poor- Extension (S1) 2- Poor- Abduction 2- Poor- Adduction 2- Poor- External Rotation 2- Poor- Internal Rotation 2- Poor- Comments tested sitting and supine Right Flexion (L2) 4+ Good+ Extension (S1) 4- Good- Abduction 4- Good- Adduction 4- Good- External Rotation 4- Good- Internal Rotation 4- Good- Comments tested sitting and supine Knee Strength Knee Manual Muscle Testing Left Flexion (S2) 3- Fair- Extension (L3) 3- Fair- Right Flexion (S2) 5 Normal Extension (L3) 5 Normal Ankle/Foot Strength Ankle and Foot Manual Muscle Testing Left Dorsiflexion (L4) 2+ Poor+ Plantarflexion (S1) 3- Fair- Right Dorsiflexion (L4) 4 Good Plantarflexion (S1) 4 Good Toe Strength Toe Manual Muscle Testing Left Great Toe Extension 2+ Poor+ Right Great Toe Extension 5 Normal PT-OP-Q Treatments Start: 09/12/22 15:01 Freq: Status: Active Protocol: Document 10/22/22 09:32 [facility] (Rec: 10/22/22 10:18 [facility] [id number]) Cardio Equipment Recumbent Stepper (Sci-Fit) Duration (Minutes) 8 Resistance 2 Seat Position 10 Gym Equipment Shuttle Recovery Unilateral Squats Details next session Bilateral Squats Details next session Therapeutic Exercises Supine Exercises nate stretch Resistance left Reps/Minutes 2x30 Comments manual assist for alignment and inc stretch bridge Supine Exercise Name cues for single leg yolanda Side bilateral Reps/Minutes x10 reps Comments cued R heel closer to buttock, decrease HS cramp- improved height with reps Standing Exercises should ext Equipment Used L1 Reps/Minutes 10x Comments cues for neutral posture, core stab wall posture Standing Exercise Name elbow bend 90 w/ ER Equipment Used mirror not needed today Reps/Minutes 5 reps 10 SH Comments improved TA and mid TS engagement, good posturing Gait Training Gait Activity gait with no device Description fwd, occ light touch on bars Device Used none Treatment Focus cues for soft knee, gluteal and core activation Comments parallel bars Manual Therapy Treatment Soft Tissue Mobilization quad, ITB Body Location L vastus lateralis, ITB Mobilization Type Instrument Assisted,Myofascial Release,Strumming Intensity/Depth Superficial Body Position Hooklying Comments improved tolerance rolling pin by PT and patient PT-OP-R Modalities Start: 09/12/22 15:01 Freq: Status: Active Protocol: Document 10/22/22 09:32 [facility] (Rec: 10/22/22 10:18 [facility] [id number]) Hot Pack/Cold Pack Treatment Cold Pack Location l/s Patient Position Hooklying Treatment Duration (minutes) 10 Patient Tolerance Good Comments after traction Spinal Traction Traction Treatment Lumbar Method Static Patient Position Supine Force Applied (Pounds) 45 Duration of Treatment (Minutes) 10 Traction Treatment Comment bolster under lower legs PT-OP-T Assessment and Plan Start: 09/12/22 15:01 Freq: Status: Active Protocol: Document 10/22/22 09:32 [facility] (Rec: 10/22/22 10:18 [facility] [id number]) Physical Therapy Assessment Goals Three Impairment activity tolerance Impairment LEFS 24% Short Term Goal (STG) Improve LEFS to at least 50% as measure of improved activity tolerance 10/22/22: goal progress STG Duration 10/05/22 Wool Sampler Goal (LTG) Improve LEFS to at least 75% as measure of improved activity tolerance and quality of life LTG Duration 11/04/22 Four Impairment gait dysfunction Impairment antalgic, requires use of cane , walker, or wheelchair, can't ambulate on stairs Short Term Goal (STG) Patient to ambulate in the house without device and without a limp 10/14/22: Progressing can carry cane (less use) more short distance with small steps. Standign for 15 min at time before pain increases need sit . STG Duration 10/05/22 progressing 10/14/22 [place] [employer]pler Goal (LTG) Patient able to ambulate at least 1/2 mile and up and down stairs with least restrictive device device, without limp LTG Duration 11/04/22 Two Impairment weakness left LE Short Term Goal (STG) Patient to be independent in individualized HEP as instructed by PT 10/14/22: compliant with HEP: add/abd isometrics seated, resisted HS curl, wall posture . 10/16/22: added alternating step taps, contact support needed on SPC. STG Duration 10/05/22 progressing 10/16/22 Retirement Goal (LTG) Patient to demonstrate left LE strength of at least 4/5 to help her resume usual activity LTG Duration 11/04/22 One Impairment pain left hip with radicular symptoms left LE Impairment 8/10 on pain scale Retirement Goal (LTG) decrease patient pain to no greater than 2/10 with all usual activities 10/14/22: progressing groin pain gone away but continuous pain L anterior thigh down to lower leg to arch foot. Cant sit or stand to long before worsens 8-10/10 at about 15 min. LTG Duration 11/04/22 progressing 10/14/22 Assessment Summary Assessment Steppage gait left still evident, but gait less painful , more steady, difficult without cane. Continues to use cane. Step-to pattern on stairs. Feels traction helpful. Physical Therapy Plan Frequency and Duration Frequency of Treatment 2x/Week Duration of treatment (weeks) 8 Plan of Care Start Date 09/09/22 Plan of Care End Date 11/09/22 Therapeutic Interventions Therapeutic Interventions Gait Training,Home Exercise Program,Manual Therapy, Neuromuscular Re-education, Patient/Caregiver Education, Self-Care/Home Management,Soft Tissue Mobilization,Taping, Therapeutic Activities, Therapeutic Exercises Modalities Cold Pack/Ice Massage,Electric Stimulation,Hot Packs, Infrared Therapy,Traction- Mechanical,Ultrasound Next Visit Focus/Plan Next Note Type Treatment Note Next Visit Plan POC: Continue mechanical traction/ CP. Continue gentle exercise progression, postural correction, core stab, and traction with modalities PRN
--- NOTE | 2022-10-24 12:06 | PT.OTN ---
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 Pain went down front of left leg to arch of foot with burning pain, reports spasms anterior left LE. A little better with use muscle relaxant new last week, weaned mostly off Hydrocodone , can't hardly get out of bed, walks from bed to bathroom only. Can't want much or go up stairs due to weakness. Neurologist ordered another MRI to include thoracic spine, scheduled for this Friday. EMG scheduled 10/10/22. assists with all household activities and ADL's . 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 Used to sleep on left side, can't now, has to sleep on right, sometimes pillow between legs though states sometimes that makes pain worse. Trying to get in to see neurologist before December. Prior Treatments and Tests MRI 06/29/22: multilevel mild overall degenerative change. Focal area of ill-defined density overlying the right foramina. This is suspected to be artifacts secondary to motion. However, mass in this egion cannot be definitely excluded. If patient is able to toelrate exam repeat views through this region are recommended. Future Testing and Treatments Planned Thoracic MRI this Friday EMG 10/10/22 Neurologist when able to get appoiintment PT-OP-C Subjective Start: 09/12/22 15:01 Freq: Status: Active Protocol: Document 10/24/22 11:17 SAK (Rec: 10/24/22 12:06 [facility] [id number]) OP-PT Subjective Patient Comments Patient Comments Pain significantly improved, knot in lateral left thigh still there and constant pain still in arch of foot. still sharp pain buttock and thigh if turns wrong on leg. At night left leg feels like it is humming. PT-OP-D Balance Start: 09/12/22 15:01 Freq: Status: Active Protocol: Document 09/04/22 13:00 [facility] (Rec: 09/12/22 16:05 [facility] [id number]) OP-PT Balance Assessment Sitting Balance Static Sitting Balance Ability Good Dynamic Sitting Balance Ability Good Standing Balance Static Standing Balance Ability Fair Dynamic Standing Balance Ability Fair Device Used SPC Standing Balance Comments unable to tolerate other balance testing Al Fall Scale Copyright Permission PT-OP-G Mobility & Gait Start: 09/12/22 15:01 Freq: Status: Active Protocol: Document 09/04/22 13:00 [facility] (Rec: 09/12/22 16:05 [facility] [id number]) OP Mobility Evaluation Bed Mobility Rolling painful Supine to and from Sit painful Transfers Sit to Stand painful, excess use right LE and UE's Car Transfers painful Floor Transfers unable Functional Movements Lifting and Carrying unable Squats unable OP Gait Assessment Gait Gait Assistance Required: Standby Assistance Distance (Feet) 80 Assistive Devices Assistive Device Straight Cane Orthotic/Prosthetic Devices or Brace: No Gait Deviations General Gait Pattern Antalgic,Decreased Stride Length,Decreased Feet Clearance,Lateral Trunk Lean, Wide Based Gait Stair Climbing Evaluation Comments Stair Climbing Comments unable PT-OP-H Neuro Start: 09/12/22 15:01 Freq: Status: Active Protocol: Document 09/04/22 13:00 [facility] (Rec: 09/12/22 16:05 [facility] [id number]) Sensation Evaluation Gross Sensation Gross Sensation Left LE Impaired Sensation Description Numbness,Tingling,Pain PT-OP-J Posture/Palpation/Skin Start: 09/12/22 15:01 Freq: Status: Active Protocol: Document 09/04/22 13:00 [facility] (Rec: 09/12/22 16:05 [facility] [id number]) Posture Evaluation Position Standing Head/C-Spine Posture Forward Head T-Spine Posture Increased Kyphosis L-Spine Posture Flexible Scoliosis on (R) Shoulder Posture (L) Rounded,(R) Rounded Scapula Posture (L) Protracted,(R) Protracted Arm Posture (L) Internally Rotated,(R) Internally Rotated Palpation Assessment Location left hip Palpation Location ant,lat Palpation Findings Muscle Guarding,Tenderness PT-OP-K Range of Motion Start: 09/12/22 15:01 Freq: Status: Active Protocol: Document 09/04/22 13:00 [facility] (Rec: 09/12/22 16:05 [facility] [id number]) Lumbar Spine Range of Motion Lumbar Spine Active ROM Limitations Pain Comments mod dec all motions Hip Goniometric Range of Motion Hip Left Hip ROM WFL No Flexion w/Knee Flexed 90 Straight Leg Raise 45 Extension 0 Abduction 25 Internal Rotation 10 External Rotation 45 Comments all motions left needed PT assist due to weakness and pain Right Hip ROM WFL Yes Hip ROM Limitations Hip ROM Limitations Muscle Weakness,Pain Ankle and Foot Goniometric Range of Motion Ankle and Foot Left Ankle/Foot ROM WFL Yes Right Ankle/Foot ROM WFL Yes PT-OP-L Special Tests Start: 09/12/22 15:01 Freq: Status: Active Protocol: Document 09/04/22 13:00 [facility] (Rec: 09/12/22 16:05 [facility] [id number]) Special Tests Lumbar Spine Special Tests Vertical Spine Loading Test Results inc pain Manual Traction Test Results inc pain Slump Test Results inc pain Prone Press Up Test Results unable to lay prone Straight Leg Raise Test Results unable to do test PT-OP-M Strength Start: 09/12/22 15:01 Freq: Status: Active Protocol: Document 09/04/22 13:00 [facility] (Rec: 09/12/22 16:05 [facility] [id number]) Trunk Strength Trunk Manual Muscle Testing Core Stabilization poor Comments unable to tolerate testing Hip Strength Hip Manual Muscle Testing Left Flexion (L2) 2- Poor- Extension (S1) 2- Poor- Abduction 2- Poor- Adduction 2- Poor- External Rotation 2- Poor- Internal Rotation 2- Poor- Comments tested sitting and supine Right Flexion (L2) 4+ Good+ Extension (S1) 4- Good- Abduction 4- Good- Adduction 4- Good- External Rotation 4- Good- Internal Rotation 4- Good- Comments tested sitting and supine Knee Strength Knee Manual Muscle Testing Left Flexion (S2) 3- Fair- Extension (L3) 3- Fair- Right Flexion (S2) 5 Normal Extension (L3) 5 Normal Ankle/Foot Strength Ankle and Foot Manual Muscle Testing Left Dorsiflexion (L4) 2+ Poor+ Plantarflexion (S1) 3- Fair- Right Dorsiflexion (L4) 4 Good Plantarflexion (S1) 4 Good Toe Strength Toe Manual Muscle Testing Left Great Toe Extension 2+ Poor+ Right Great Toe Extension 5 Normal PT-OP-Q Treatments Start: 09/12/22 15:01 Freq: Status: Active Protocol: Document 10/24/22 11:17 [facility] (Rec: 10/24/22 12:06 [facility] [id number]) Cardio Equipment Recumbent Stepper (Sci-Fit) Duration (Minutes) 10 Resistance 2 Seat Position 10 Other cues for core Therapeutic Exercises Supine Exercises nate stretch Resistance left Reps/Minutes 2x30 Comments manual assist for alignment and inc stretch bridge Supine Exercise Name cues for single leg yolanda Side bilateral Reps/Minutes x10 reps Comments cued R heel closer to buttock, decrease HS cramp- improved height with reps Sitting Exercises LAQ Reps/Minutes 5x Comments core emphasis with upright posture march Reps/Minutes 5x Comments core emphasis with upright posture ball squeeze Reps/Minutes 10x 5 SH Comments with TrA and pelvic floor Standing Exercises step-ups Equipment Used 2 green foam pad Reps/Minutes 10x left LE Comments cues for core, quad a glut activation quad stretch Equipment Used chair Reps/Minutes 2x30 SLS (step tap) Standing Exercise Name added to HEP- glut, quad fac Side bilateral Equipment Used SPC support Reps/Minutes x8 reps each LE Comments cued posturing/core/quad/glut fac- Gait Training Gait Activity SPC Description heel toe, quad/ glut fac midstance- assessed L knee stabilization support Device Used [facility] [place] [facility] Level of Assistance S Distance/Duration 40 ft x 2 Treatment Focus quad, glut facilitation for knee stability, heel toe Comments improved ankle df with swing, min use of cane, some without putting cane down Manual Therapy Treatment Soft Tissue Mobilization iliopsoas Body Location left Mobilization Type Sustained Pressure Intensity/Depth Moderate quad, ITB Body Location L vastus lateralis, ITB Mobilization Type Instrument Assisted,Myofascial Release,Strumming Intensity/Depth Superficial Body Position Hooklying Comments improved tolerance rolling pin by PT and patient PT-OP-R Modalities Start: 09/12/22 15:01 Freq: Status: Active Protocol: Document 10/24/22 11:17 [facility] (Rec: 10/24/22 12:06 [facility] [id number]) Hot Pack/Cold Pack Treatment Cold Pack Location l/s Patient Position Hooklying Treatment Duration (minutes) 10 Patient Tolerance Good Comments after traction Spinal Traction Traction Treatment Lumbar Method Static Patient Position Supine Force Applied (Pounds) 45 Duration of Treatment (Minutes) 10 Traction Treatment Comment bolster under lower legs PT-OP-T Assessment and Plan Start: 09/12/22 15:01 Freq: Status: Active Protocol: Document 10/24/22 11:17 [facility] (Rec: 10/24/22 12:06 [facility] [id number]) Physical Therapy Assessment Goals Three Impairment activity tolerance Impairment LEFS 24% Short Term Goal (STG) Improve LEFS to at least 50% as measure of improved activity tolerance 10/22/22: goal progress STG Duration 10/05/22 Residential Goal (LTG) Improve LEFS to at least 75% as measure of improved activity tolerance and quality of life LTG Duration 11/04/22 Four Impairment gait dysfunction Impairment antalgic, requires use of cane , walker, or wheelchair, can't ambulate on stairs Short Term Goal (STG) Patient to ambulate in the house without device and without a limp 10/14/22: Progressing can carry cane (less use) more short distance with small steps. Standign for 15 min at time before pain increases need sit . STG Duration 10/05/22 progressing 10/14/22 Gas Check Pad Maker Goal (LTG) Patient able to ambulate at least 1/2 mile and up and down stairs with least restrictive device device, without limp LTG Duration 11/04/22 Two Impairment weakness left LE Short Term Goal (STG) Patient to be independent in individualized HEP as instructed by PT 10/14/22: compliant with HEP: add/abd isometrics seated, resisted HS curl, wall posture . 10/16/22: added alternating step taps, contact support needed on SPC. STG Duration 10/05/22 progressing 10/16/22 Residential Goal (LTG) Patient to demonstrate left LE strength of at least 4/5 to help her resume usual activity LTG Duration 11/04/22 One Impairment pain left hip with radicular symptoms left LE Impairment 8/10 on pain scale Residential Goal (LTG) decrease patient pain to no greater than 2/10 with all usual activities 10/14/22: progressing groin pain gone away but continuous pain L anterior thigh down to lower leg to arch foot. Cant sit or stand to long before worsens 8-10/10 at about 15 min. LTG Duration 11/04/22 progressing 10/14/22 Assessment Summary Assessment Improved ankle df with swing phase of gait, improved stability in stance, able to take some steps without use of cane, pain improved. Lateral left quad still tight and painful to palp though decreased, and patient has inc pain with any twisting movements and odd sensation of humming of left LE at night . Manual to psoas better tolerated though with inc pressure has inc in her typical symptoms. Patient using kinesiotape at home. Physical Therapy Plan Frequency and Duration Frequency of Treatment 2x/Week Duration of treatment (weeks) 8 Plan of Care Start Date 09/09/22 Plan of Care End Date 11/09/22 Therapeutic Interventions Therapeutic Interventions Gait Training,Home Exercise Program,Manual Therapy, Neuromuscular Re-education, Patient/Caregiver Education, Self-Care/Home Management,Soft Tissue Mobilization,Taping, Therapeutic Activities, Therapeutic Exercises Modalities Cold Pack/Ice Massage,Electric Stimulation,Hot Packs, Infrared Therapy,Traction- Mechanical,Ultrasound Next Visit Focus/Plan Next Note Type Treatment Note Next Visit Plan POC: Continue mechanical traction followed by CP. Gentle exercise progression, postural correction, core stab , manual to iliopsoas, quad, and consider manual to l/s.
--- NOTE | 2022-10-29 11:33 | PT.OTN ---
Current Diagnoses Radiculopathy, site unspecified (10/29/22) Left lower quadrant pain (10/29/22) Ataxia, unspecified (10/29/22) Other symptoms and signs involving the musculoskeletal system (10/29/22) Physical Therapy Treatment Note PT-OP-A Visit Information Start: 09/12/22 15:01 Freq: Status: Active Protocol: Document 10/29/22 10:52 SP (Rec: 10/29/22 11:37 SP [id number]) Out-Patient Physical Therapy Visit Information Visit Information Visit Type Treatment Note Visit Start Time 10:52 Visit Stop Time 11:33 Total Visit Minutes 41 Visit Number 13 Number of SOAP MIXER Visits 1 Evaluation Information Evaluation Date 09/04/22 PT-OP-B Current Condition Start: 09/12/22 15:01 Freq: Status: Active Protocol: Document 10/10/22 09:01 SAK (Rec: 10/10/22 09:44 SAK [id number]) Current Condition History of Current Condition Onset Date 06/21/23 Current Complaints left anterior hip pain, left leg weakness History of Current Condition Was in [place], had acute onset pain left anterior hip for no known reason, got worse including vomiting, HTN and tachycardia all lasted for about 1 week. Pain went down front of left leg to arch of foot with burning pain, reports spasms anterior left LE. A little better with use muscle relaxant new last week, weaned mostly off Hydrocodone , can't hardly get out of bed, walks from bed to bathroom only. Can't want much or go up stairs due to weakness. Neurologist ordered another MRI to include thoracic spine, scheduled for this Friday. EMG scheduled 10/10/22. assists with all household activities and ADL's . 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 Used to sleep on left side, can't now, has to sleep on right, sometimes pillow between legs though states sometimes that makes pain worse. Trying to get in to see neurologist before December. Prior Treatments and Tests MRI 06/29/22: multilevel mild overall degenerative change. Focal area of ill-defined density overlying the right foramina. This is suspected to be artifacts secondary to motion. However, mass in this egion cannot be definitely excluded. If patient is able to toelrate exam repeat views through this region are recommended. Future Testing and Treatments Planned Thoracic MRI this Friday EMG 10/10/22 Neurologist when able to get appoiintment PT-OP-C Subjective Start: 09/12/22 15:01 Freq: Status: Active Protocol: Document 10/29/22 10:52 SP (Rec: 10/29/22 11:37 SP [id number]) OP-PT Subjective Patient Comments Patient Comments Pt reports feeling better, walking straighter, still don' t have strength to do stairs. PT-OP-D Balance Start: 09/12/22 15:01 Freq: Status: Active Protocol: Document 09/04/22 13:00 SAK (Rec: 09/12/22 16:05 SAK [id number]) OP-PT Balance Assessment Sitting Balance Static Sitting Balance Ability Good Dynamic Sitting Balance Ability Good Standing Balance Static Standing Balance Ability Fair Dynamic Standing Balance Ability Fair Device Used SPC Standing Balance Comments unable to tolerate other balance testing Al Fall Scale Copyright Permission PT-OP-G Mobility & Gait Start: 09/12/22 15:01 Freq: Status: Active Protocol: Document 09/04/22 13:00 SAK (Rec: 09/12/22 16:05 SAK [id number]) OP Mobility Evaluation Bed Mobility Rolling painful Supine to and from Sit painful Transfers Sit to Stand painful, excess use right LE and UE's Car Transfers painful Floor Transfers unable Functional Movements Lifting and Carrying unable Squats unable OP Gait Assessment Gait Gait Assistance Required: Standby Assistance Distance (Feet) 80 Assistive Devices Assistive Device Straight Cane Orthotic/Prosthetic Devices or Brace: No Gait Deviations General Gait Pattern Antalgic,Decreased Stride Length,Decreased Feet Clearance,Lateral Trunk Lean, Wide Based Gait Stair Climbing Evaluation Comments Stair Climbing Comments unable PT-OP-H Neuro Start: 09/12/22 15:01 Freq: Status: Active Protocol: Document 09/04/22 13:00 SAK (Rec: 09/12/22 16:05 SAK [id number]) Sensation Evaluation Gross Sensation Gross Sensation Left LE Impaired Sensation Description Numbness,Tingling,Pain PT-OP-J Posture/Palpation/Skin Start: 09/12/22 15:01 Freq: Status: Active Protocol: Document 09/04/22 13:00 SAK (Rec: 09/12/22 16:05 SAK [id number]) Posture Evaluation Position Standing Head/C-Spine Posture Forward Head T-Spine Posture Increased Kyphosis L-Spine Posture Flexible Scoliosis on (R) Shoulder Posture (L) Rounded,(R) Rounded Scapula Posture (L) Protracted,(R) Protracted Arm Posture (L) Internally Rotated,(R) Internally Rotated Palpation Assessment Location left hip Palpation Location ant,lat Palpation Findings Muscle Guarding,Tenderness PT-OP-K Range of Motion Start: 09/12/22 15:01 Freq: Status: Active Protocol: Document 09/04/22 13:00 [facility] (Rec: 09/12/22 16:05 [facility] [id number]) Lumbar Spine Range of Motion Lumbar Spine Active ROM Limitations Pain Comments mod dec all motions Hip Goniometric Range of Motion Hip Left Hip ROM WFL No Flexion w/Knee Flexed 90 Straight Leg Raise 45 Extension 0 Abduction 25 Internal Rotation 10 External Rotation 45 Comments all motions left needed PT assist due to weakness and pain Right Hip ROM WFL Yes Hip ROM Limitations Hip ROM Limitations Muscle Weakness,Pain Ankle and Foot Goniometric Range of Motion Ankle and Foot Left Ankle/Foot ROM WFL Yes Right Ankle/Foot ROM WFL Yes PT-OP-L Special Tests Start: 09/12/22 15:01 Freq: Status: Active Protocol: Document 09/04/22 13:00 [facility] (Rec: 09/12/22 16:05 [facility] [id number]) Special Tests Lumbar Spine Special Tests Vertical Spine Loading Test Results inc pain Manual Traction Test Results inc pain Slump Test Results inc pain Prone Press Up Test Results unable to lay prone Straight Leg Raise Test Results unable to do test PT-OP-M Strength Start: 09/12/22 15:01 Freq: Status: Active Protocol: Document 09/04/22 13:00 [facility] (Rec: 09/12/22 16:05 [facility] [id number]) Trunk Strength Trunk Manual Muscle Testing Core Stabilization poor Comments unable to tolerate testing Hip Strength Hip Manual Muscle Testing Left Flexion (L2) 2- Poor- Extension (S1) 2- Poor- Abduction 2- Poor- Adduction 2- Poor- External Rotation 2- Poor- Internal Rotation 2- Poor- Comments tested sitting and supine Right Flexion (L2) 4+ Good+ Extension (S1) 4- Good- Abduction 4- Good- Adduction 4- Good- External Rotation 4- Good- Internal Rotation 4- Good- Comments tested sitting and supine Knee Strength Knee Manual Muscle Testing Left Flexion (S2) 3- Fair- Extension (L3) 3- Fair- Right Flexion (S2) 5 Normal Extension (L3) 5 Normal Ankle/Foot Strength Ankle and Foot Manual Muscle Testing Left Dorsiflexion (L4) 2+ Poor+ Plantarflexion (S1) 3- Fair- Right Dorsiflexion (L4) 4 Good Plantarflexion (S1) 4 Good Toe Strength Toe Manual Muscle Testing Left Great Toe Extension 2+ Poor+ Right Great Toe Extension 5 Normal PT-OP-Q Treatments Start: 09/12/22 15:01 Freq: Status: Active Protocol: Document 10/29/22 10:52 SP (Rec: 10/29/22 11:37 SP [id number]) Cardio Equipment Recumbent Stepper (Sci-Fit) Duration (Minutes) 10 Resistance 2 Seat Position 10 Other cues for core Therapeutic Exercises Sidelying Exercises hip abd Sidelying Exercise Name added to HEP Side left Reps/Minutes 3 SH x10 Comments cued roll fwd on side, knee ext, lift: glut&abd fac Sitting Exercises LAQ Side left Resistance TB #2 orange Reps/Minutes 5 SH x10 Comments core emphasis with upright posture, quad fac Standing Exercises band walk Standing Exercise Name f,b, lateral Resistance TB #2 orange Reps/Minutes 20 ft x2 laps Comments cued core/upright posture PT-OP-R Modalities Start: 09/12/22 15:01 Freq: Status: Active Protocol: Document 10/24/22 11:17 SAK (Rec: 10/24/22 12:06 [facility] [id number]) Hot Pack/Cold Pack Treatment Cold Pack Location l/s Patient Position Hooklying Treatment Duration (minutes) 10 Patient Tolerance Good Comments after traction Spinal Traction Traction Treatment Lumbar Method Static Patient Position Supine Force Applied (Pounds) 45 Duration of Treatment (Minutes) 10 Traction Treatment Comment bolster under lower legs PT-OP-T Assessment and Plan Start: 09/12/22 15:01 Freq: Status: Active Protocol: Document 10/29/22 10:52 SP (Rec: 10/29/22 11:37 SP [id number]) Physical Therapy Assessment Goals Three Impairment activity tolerance Impairment LEFS 24% Short Term Goal (STG) Improve LEFS to at least 50% as measure of improved activity tolerance 10/22/22: goal progress STG Duration 10/05/22 [employer] Goal (LTG) Improve LEFS to at least 75% as measure of improved activity tolerance and quality of life LTG Duration 11/04/22 Four Impairment gait dysfunction Impairment antalgic, requires use of cane , walker, or wheelchair, can't ambulate on stairs Short Term Goal (STG) Patient to ambulate in the house without device and without a limp 10/14/22: Progressing can carry cane (less use) more short distance with small steps. Standign for 15 min at time before pain increases need sit . 10/29/22: progressing able to walk without AD across room but has limp and focus on quad fac pivot so L LE doesn't give out. Uses cane for support. Can't step out shower with due to LLE will give way . STG Duration 10/05/22 progressing 10/29/22 [employer]per Goal (LTG) Patient able to ambulate at least 1/2 mile and up and down stairs with least restrictive device, without limp 10/29/22: Progressing: able now step to gait w/ hurrycane leading RLE up, LLE down. LTG Duration 11/04/22 progressing 10/29/22 Two Impairment weakness left LE Short Term Goal (STG) Patient to be independent in individualized HEP as instructed by PT 10/14/22: compliant with HEP: add/abd isometrics seated, resisted HS curl, wall posture . 10/16/22: added alternating step taps, contact support needed on SPC. STG Duration 10/05/22 progressing 10/16/22 [employer]uster Helper Goal (LTG) Patient to demonstrate left LE strength of at least 4/5 to help her resume usual activity LTG Duration 11/04/22 One Impairment pain left hip with radicular symptoms left LE Impairment 8/10 on pain scale [facility] Goal (LTG) decrease patient pain to no greater than 2/10 with all usual activities 10/14/22: progressing groin pain gone away but continuous pain L anterior thigh down to lower leg to arch foot. Cant sit or stand to long before worsens 8-10/10 at about 15 min. 10/29/22: Progressing: still L quad knots up and cramps up arch foot, decreased but still there and LLE prasanna at times. LTG Duration 11/04/22 progressing 10/29/22 Assessment Summary Assessment Pt good feedback tolerance of hip abd and quad strengthening this tx to support allow stronger stepping on LLE with core fac so doesn't feel like giving out when walking. She reports she is able walker further distance and posturing improving with self corrections. Does use hurry cane for support community ambulation due to not full strength. She reports mechanical traction seems help with radiating pain by next day, limted on her time today unable to do. Physical Therapy Plan Frequency and Duration Frequency of Treatment 2x/Week Duration of treatment (weeks) 8 Plan of Care Start Date 09/09/22 Plan of Care End Date 11/09/22 Therapeutic Interventions Therapeutic Interventions Gait Training,Home Exercise Program,Manual Therapy, Neuromuscular Re-education, Patient/Caregiver Education, Self-Care/Home Management,Soft Tissue Mobilization,Taping, Therapeutic Activities, Therapeutic Exercises Modalities Cold Pack/Ice Massage,Electric Stimulation,Hot Packs, Infrared Therapy,Traction- Mechanical,Ultrasound Next Visit Focus/Plan Next Note Type Progress Note Next Visit Plan Update POC next tx expires , should keep 1 or 2x/wk, allowed 19 visit and used 14 unless can extend POC. POC: Continue mechanical traction followed by CP. Gentle exercise progression, postural correction, core stab , manual to iliopsoas, quad, and consider manual to l/s.
--- NOTE | 2022-11-04 14:44 | PT.OTRE ---
Current Diagnoses Radiculopathy, site unspecified (11/04/22) Left lower quadrant pain (11/04/22) Ataxia, unspecified (11/04/22) Other symptoms and signs involving the musculoskeletal system (11/04/22) Past Medical History (Last Updated 10/31/22 @ 16:31 by David Burger MD) Ataxia Chicken pox Hip pain Left knee pain Lipoma of abdominal wall Low back pain Lumbar radiculopathy Mumps Wears glasses Surgical History (Last Reviewed 09/04/22 @ 08:53 by David Burger MD) Anesthesia History of arthroscopic knee surgery (~1998) History of bladder surgery (~2011) History of section Visit Care Team Role Provider Type Maritza Daigle DO Family Provider Physician Primary Care Provider Specialty: Medical Address: [address] [place] [address], [address], [address] Email: [email or web address] Edith Parisi MD Attending Provider Physician Referring Provider Specialty: General Surgery Address: [address] [place] [address], [address], [address] Email: [email or web address] Physical Therapy Re-Evaluation PT-OP-A Visit Information Start: 09/12/22 15:01 Freq: Status: Active Protocol: Document 11/04/22 09:33 [facility] (Rec: 11/04/22 10:13 [facility] [id number]) Out-Patient Physical Therapy Visit Information Visit Information Visit Type Treatment Note Visit Start Time 09:33 Visit Stop Time 10:20 Total Visit Minutes 48 Visit Number 14 Number of OPERATIONAL RISK ANALYST Visits 1 Evaluation Information Evaluation Date 09/04/22 PT-OP-B Current Condition Start: 09/12/22 15:01 Freq: Status: Active Protocol: Document 10/10/22 09:01 SAK (Rec: 10/10/22 09:44 S[facility] [id number]) Current Condition History of Current Condition Onset Date 06/21/23 Current Complaints left anterior hip pain, left leg weakness History of Current Condition Was in [place], had acute onset pain left anterior hip for no known reason, got worse including vomiting, HTN and tachycardia all lasted for about 1 week. Pain went down front of left leg to arch of foot with burning pain, reports spasms anterior left LE. A little better with use muscle relaxant new last week, weaned mostly off Hydrocodone , can't hardly get out of bed, walks from bed to bathroom only. Can't want much or go up stairs due to weakness. Neurologist ordered another MRI to include thoracic spine, scheduled for this Friday. EMG scheduled 10/10/22. assists with all household activities and ADL's . 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 Used to sleep on left side, can't now, has to sleep on right, sometimes pillow between legs though states sometimes that makes pain worse. Trying to get in to see neurologist before December. Prior Treatments and Tests MRI 06/29/22: multilevel mild overall degenerative change. Focal area of ill-defined density overlying the right foramina. This is suspected to be artifacts secondary to motion. However, mass in this egion cannot be definitely excluded. If patient is able to toelrate exam repeat views through this region are recommended. Future Testing and Treatments Planned Thoracic MRI this Friday EMG 10/10/22 Neurologist when able to get appoiintment PT-OP-C Subjective Start: 09/12/22 15:01 Freq: Status: Active Protocol: Document 11/04/22 09:33 SAK (Rec: 11/04/22 10:13 [facility] [id number]) OP-PT Subjective Patient Comments Patient Comments Busy weekend, up and down stairs quite a bit at [employer] and did more walking than typical. , pain inc to 5-6/10 but pleased was able to do stairs better. Mostly rested yesterday. Compliant to HEP. Still most difficulty lifting leg. Goes to [facility] Dr. Dominguez 11/06/22. Saw Dr. Hong last Friday and is getting new MRI and x-ray lumbar and hip. Missed doing traction last session. PT-OP-D Balance Start: 09/12/22 15:01 Freq: Status: Active Protocol: Document 09/04/22 13:00 SAK (Rec: 09/12/22 16:05 [facility] [id number]) OP-PT Balance Assessment Sitting Balance Static Sitting Balance Ability Good Dynamic Sitting Balance Ability Good Standing Balance Static Standing Balance Ability Fair Dynamic Standing Balance Ability Fair Device Used SPC Standing Balance Comments unable to tolerate other balance testing Al Fall Scale Copyright Permission Servando JM, Servando RM, Jim SJ. Development of a scale to identify the fall- prone patient. Can J Aging 1989;8;366-7. José Al (2009). Preventing patient falls. (2nd ed). [place]: Melchor. PT-OP-G Mobility & Gait Start: 09/12/22 15:01 Freq: Status: Active Protocol: Document 09/04/22 13:00 [facility] (Rec: 09/12/22 16:05 [facility] [id number]) OP Mobility Evaluation Bed Mobility Rolling painful Supine to and from Sit painful Transfers Sit to Stand painful, excess use right LE and UE's Car Transfers painful Floor Transfers unable Functional Movements Lifting and Carrying unable Squats unable OP Gait Assessment Gait Gait Assistance Required: Standby Assistance Distance (Feet) 80 Assistive Devices Assistive Device Straight Cane Orthotic/Prosthetic Devices or Brace: No Gait Deviations General Gait Pattern Antalgic,Decreased Stride Length,Decreased Feet Clearance,Lateral Trunk Lean, Wide Based Gait Stair Climbing Evaluation Comments Stair Climbing Comments unable PT-OP-H Neuro Start: 09/12/22 15:01 Freq: Status: Active Protocol: Document 09/04/22 13:00 [facility] (Rec: 09/12/22 16:05 [facility] [id number]) Sensation Evaluation Gross Sensation Gross Sensation Left LE Impaired Sensation Description Numbness,Tingling,Pain PT-OP-J Posture/Palpation/Skin Start: 09/12/22 15:01 Freq: Status: Active Protocol: Document 09/04/22 13:00 [facility] (Rec: 09/12/22 16:05 [facility] [id number]) Posture Evaluation Position Standing Head/C-Spine Posture Forward Head T-Spine Posture Increased Kyphosis L-Spine Posture Flexible Scoliosis on (R) Shoulder Posture (L) Rounded,(R) Rounded Scapula Posture (L) Protracted,(R) Protracted Arm Posture (L) Internally Rotated,(R) Internally Rotated Palpation Assessment Location left hip Palpation Location ant,lat Palpation Findings Muscle Guarding,Tenderness PT-OP-K Range of Motion Start: 09/12/22 15:01 Freq: Status: Active Protocol: Document 09/04/22 13:00 [facility] (Rec: 09/12/22 16:05 [facility] [id number]) Lumbar Spine Range of Motion Lumbar Spine Active ROM Limitations Pain Comments mod dec all motions Hip Goniometric Range of Motion Hip Measured in Degrees Left Hip ROM WFL No Flexion w/Knee Flexed 90 Straight Leg Raise 45 Extension 0 Abduction 25 Internal Rotation 10 External Rotation 45 Comments all motions left needed PT assist due to weakness and pain Right Hip ROM WFL Yes Hip ROM Limitations Hip ROM Limitations Muscle Weakness,Pain Ankle and Foot Goniometric Range of Motion Ankle and Foot Measured in Degrees Left Ankle/Foot ROM WFL Yes Right Ankle/Foot ROM WFL Yes PT-OP-L Special Tests Start: 09/12/22 15:01 Freq: Status: Active Protocol: Document 09/04/22 13:00 [facility] (Rec: 09/12/22 16:05 [facility] [id number]) Special Tests Lumbar Spine Special Tests Vertical Spine Loading Test Results inc pain Manual Traction Test Results inc pain Slump Test Results inc pain Prone Press Up Test Results unable to lay prone Straight Leg Raise Test Results unable to do test PT-OP-M Strength Start: 09/12/22 15:01 Freq: Status: Active Protocol: Document 09/04/22 13:00 [facility] (Rec: 09/12/22 16:05 [facility] [id number]) Trunk Strength Trunk Manual Muscle Testing Core Stabilization poor Comments unable to tolerate testing Hip Strength Hip Manual Muscle Testing Left Flexion (L2) 2- Poor- Extension (S1) 2- Poor- Abduction 2- Poor- Adduction 2- Poor- External Rotation 2- Poor- Internal Rotation 2- Poor- Comments tested sitting and supine Right Flexion (L2) 4+ Good+ Extension (S1) 4- Good- Abduction 4- Good- Adduction 4- Good- External Rotation 4- Good- Internal Rotation 4- Good- Comments tested sitting and supine Knee Strength Knee Manual Muscle Testing Left Flexion (S2) 3- Fair- Extension (L3) 3- Fair- Right Flexion (S2) 5 Normal Extension (L3) 5 Normal Ankle/Foot Strength Ankle and Foot Manual Muscle Testing Left Dorsiflexion (L4) 2+ Poor+ Plantarflexion (S1) 3- Fair- Right Dorsiflexion (L4) 4 Good Plantarflexion (S1) 4 Good Toe Strength Toe Manual Muscle Testing Left Great Toe Extension 2+ Poor+ Right Great Toe Extension 5 Normal PT-OP-Q Treatments Start: 09/12/22 15:01 Freq: Status: Active Protocol: Document 11/04/22 09:33 [facility] (Rec: 11/04/22 10:13 [facility] [id number]) Cardio Equipment Recumbent Stepper (Sci-Fit) Duration (Minutes) 10 Resistance 2 Seat Position 10 Other cues for core activation Therapeutic Exercises Supine Exercises bridge Side bilateral Reps/Minutes 10x Comments cues for core activation, pain -free ROM Sidelying Exercises clam,reverse clam Sidelying Exercise Name added to HEP Reps/Minutes 10x hip abd Side left Reps/Minutes 3 SH x10 Comments cued roll fwd on side, knee ext, lift: glut&abd fac Manual Therapy Treatment Other Other Manual Treatments LE MMT Self-Care/Home Management Treatment Education Other Education updated; added clam and reverse clam, bridge to HEP PT-OP-R Modalities Start: 09/12/22 15:01 Freq: Status: Active Protocol: Document 11/04/22 09:33 [facility] (Rec: 11/04/22 10:13 [facility] [id number]) Spinal Traction Traction Treatment Lumbar Method Static Patient Position Supine Force Applied (Pounds) 50 Duration of Treatment (Minutes) 10 Traction Treatment Comment bolster under lower legs PT-OP-T Assessment and Plan Start: 09/12/22 15:01 Freq: Status: Active Protocol: Document 11/04/22 09:33 [facility] (Rec: 11/04/22 10:13 [facility] [id number]) Physical Therapy Assessment Goals Three Impairment activity tolerance Impairment LEFS 24% Short Term Goal (STG) Improve LEFS to at least 50% as measure of improved activity tolerance 10/22/22: goal progress STG Duration 12/05/22 Mcfp Goal (LTG) Improve LEFS to at least 75% as measure of improved activity tolerance and quality of life LTG Duration 01/04/23 Four Impairment gait dysfunction Impairment antalgic, requires use of cane , walker, or wheelchair, can't ambulate on stairs Short Term Goal (STG) Patient to ambulate in the house without device and without a limp 10/14/22: Progressing can carry cane (less use) more short distance with small steps. Standign for 15 min at time before pain increases need sit . 10/29/22: progressing able to walk without AD across room but has limp and focus on quad fac pivot so L LE doesn't give out. Uses cane for support. Can't step out shower with due to LLE will give way . STG Duration 12/05/22 Mcfp Goal (LTG) Patient able to ambulate at least 1/2 mile and up and down stairs with least restrictive device, without limp 10/29/22: Progressing: able now step to gait w/ hurrycane leading RLE up, LLE down. 11/04/22: step-to pattern on stairs, less limp on level surface with hurry cane, at times can ambulate without cane on level. LTG Duration 01/04/23 Two Impairment weakness left LE Short Term Goal (STG) Patient to be independent in individualized HEP as instructed by PT 10/14/22: compliant with HEP: add/abd isometrics seated, resisted HS curl, wall posture . 10/16/22: added alternating step taps, contact support needed on SPC. 11/04/22: continue to progress HEP, good compliance STG Duration 12/05/22 International Trade Teacher Goal (LTG) Patient to demonstrate left LE strength of at least 4/5 to help her resume usual activity LTG Duration 01/04/23 One Impairment pain left hip with radicular symptoms left LE Impairment 8/10 on pain scale Mcfp Goal (LTG) decrease patient pain to no greater than 2/10 with all usual activities 10/14/22: progressing groin pain gone away but continuous pain L anterior thigh down to lower leg to arch foot. Cant sit or stand to long before worsens 8-10/10 at about 15 min. 10/29/22: Progressing: still L quad knots up and cramps up arch foot, decreased but still there and LLE prasanna at times. 11/04/22: pain persists but a lower level, ranging from 3-6/ 10 LTG Duration 01/04/23 Assessment Summary Assessment Patient making progress with core and LE strength, now ambulating with hurry cane consistently. LE strength improved but still unable to lift left LE up onto stair and ambulates on stairs with step -to pattern. Pain as high as 5 -6/10 lumbar spine and left LE . Palpable tightness left quads, IT band, piriformis. Will benefit from further PT to address above goals. Physical Therapy Plan Frequency and Duration Frequency of Treatment 2x/Week Duration of treatment (weeks) 8 Plan of Care Start Date 11/04/22 Plan of Care End Date 01/04/23 Therapeutic Interventions Therapeutic Interventions Gait Training,Home Exercise Program,Manual Therapy, Neuromuscular Re-education, Patient/Caregiver Education, Self-Care/Home Management,Soft Tissue Mobilization,Taping, Therapeutic Activities, Therapeutic Exercises Modalities Cold Pack/Ice Massage,Electric Stimulation,Hot Packs, Infrared Therapy,Traction- Mechanical,Ultrasound Next Visit Focus/Plan Next Note Type Progress Note Next Visit Plan Continue PT for strengthening, gait training, pain management to include manual therapy, traction, modalities PRN
--- NOTE | 2022-11-04 14:44 | PT.OPPOC ---
Physical, Occupational & Speech Therapy At [facility] Current Diagnoses Radiculopathy, site unspecified (11/04/22) Left lower quadrant pain (11/04/22) Ataxia, unspecified (11/04/22) Other symptoms and signs involving the musculoskeletal system (11/04/22) Visit Care Team Role Provider Type Maritza Daigle DO Family Provider Physician Primary Care Provider Specialty: Medical Address: [address] [place] [address], [address], [place], [address] Email: [email or web address] Edith Parisi MD Attending Provider Physician Referring Provider Specialty: General Surgery Address: [address] [place] [address], [address], [place], [address] Email: [email or web address] Plan Of Care PT-OP-T Assessment and Plan Start: 09/12/22 15:01 Freq: Status: Active Protocol: Document 11/04/22 09:33 [facility] (Rec: 11/04/22 10:13 [facility] [id number]) Physical Therapy Assessment Goals Three Impairment activity tolerance Impairment LEFS 24% Short Term Goal (STG) Improve LEFS to at least 50% as measure of improved activity tolerance 10/22/22: goal progress STG Duration 12/05/22 Pin Drafter Goal (LTG) Improve LEFS to at least 75% as measure of improved activity tolerance and quality of life LTG Duration 01/04/23 Four Impairment gait dysfunction Impairment antalgic, requires use of cane , walker, or wheelchair, can't ambulate on stairs Short Term Goal (STG) Patient to ambulate in the house without device and without a limp 10/14/22: Progressing can carry cane (less use) more short distance with small steps. Standign for 15 min at time before pain increases need sit . 10/29/22: progressing able to walk without AD across room but has limp and focus on quad fac pivot so L LE doesn't give out. Uses cane for support. Can't step out shower with due to LLE will give way . STG Duration 12/05/22 Pin Drafter Goal (LTG) Patient able to ambulate at least 1/2 mile and up and down stairs with least restrictive device, without limp 10/29/22: Progressing: able now step to gait w/ hurrycane leading RLE up, LLE down. 11/04/22: step-to pattern on stairs, less limp on level surface with hurry cane, at times can ambulate without cane on level. LTG Duration 01/04/23 Two Impairment weakness left LE Short Term Goal (STG) Patient to be independent in individualized HEP as instructed by PT 10/14/22: compliant with HEP: add/abd isometrics seated, resisted HS curl, wall posture . 10/16/22: added alternating step taps, contact support needed on SPC. 11/04/22: continue to progress HEP, good compliance STG Duration 12/05/22 Intermediate Goal (LTG) Patient to demonstrate left LE strength of at least 4/5 to help her resume usual activity LTG Duration 01/04/23 One Impairment pain left hip with radicular symptoms left LE Impairment 8/10 on pain scale Pin Drafter Goal (LTG) decrease patient pain to no greater than 2/10 with all usual activities 10/14/22: progressing groin pain gone away but continuous pain L anterior thigh down to lower leg to arch foot. Cant sit or stand to long before worsens 8-10/10 at about 15 min. 10/29/22: Progressing: still L quad knots up and cramps up arch foot, decreased but still there and LLE prasanna at times. 11/04/22: pain persists but a lower level, ranging from 3-6/ 10 LTG Duration 01/04/23 Assessment Summary Assessment Patient making progress with core and LE strength, now ambulating with hurry cane consistently. LE strength improved but still unable to lift left LE up onto stair and ambulates on stairs with step -to pattern. Pain as high as 5 -6/10 lumbar spine and left LE . Palpable tightness left quads, IT band, piriformis. Will benefit from further PT to address above goals. Physical Therapy Plan Frequency and Duration Frequency of Treatment 2x/Week Duration of treatment (weeks) 8 Plan of Care Start Date 11/04/22 Plan of Care End Date 01/04/23 Therapeutic Interventions Therapeutic Interventions Gait Training,Home Exercise Program,Manual Therapy, Neuromuscular Re-education, Patient/Caregiver Education, Self-Care/Home Management,Soft Tissue Mobilization,Taping, Therapeutic Activities, Therapeutic Exercises Modalities Cold Pack/Ice Massage,Electric Stimulation,Hot Packs, Infrared Therapy,Traction- Mechanical,Ultrasound Next Visit Focus/Plan Next Note Type Progress Note Next Visit Plan Continue PT for strengthening, gait training, pain management to include manual therapy, traction, modalities PRN Plan of Care Dates Plan of Care Start Date 11/04/22 Plan of Care End Date 01/04/23 Electronically Signed by: Nan Colin, PT 11/04/22 2384 If you are in agreement with this Plan of Care, please return a signed and dated copy. I have reviewed this Plan of Care and certify that the skilled therapy services above are required to meet the patient?s needs. Physician Signature Date Printed Name and Credentials Clinical Instructor Signature Printed Name and Credentials
--- NOTE | 2022-11-04 14:44 | PT.OPPOC ---
Physical, Occupational & Speech Therapy At [facility] Current Diagnoses Radiculopathy, site unspecified (11/04/22) Left lower quadrant pain (11/04/22) Ataxia, unspecified (11/04/22) Other symptoms and signs involving the musculoskeletal system (11/04/22) Visit Care Team Role Provider Type Maritza Daigle DO Family Provider Physician Primary Care Provider Specialty: Medical Address: [address] [place] [address], [address], [place], [address] Email: [email or web address] Edith Parisi MD Attending Provider Physician Referring Provider Specialty: General Surgery Address: [address] [place] [address], [address], [place], [address] Email: [email or web address] Plan Of Care PT-OP-T Assessment and Plan Start: 09/12/22 15:01 Freq: Status: Active Protocol: Document 11/04/22 09:33 [facility] (Rec: 11/04/22 10:13 [facility] [id number]) Physical Therapy Assessment Goals Three Impairment activity tolerance Impairment LEFS 24% Short Term Goal (STG) Improve LEFS to at least 50% as measure of improved activity tolerance 10/22/22: goal progress STG Duration 12/05/22 Enrober Goal (LTG) Improve LEFS to at least 75% as measure of improved activity tolerance and quality of life LTG Duration 01/04/23 Four Impairment gait dysfunction Impairment antalgic, requires use of cane , walker, or wheelchair, can't ambulate on stairs Short Term Goal (STG) Patient to ambulate in the house without device and without a limp 10/14/22: Progressing can carry cane (less use) more short distance with small steps. Standign for 15 min at time before pain increases need sit . 10/29/22: progressing able to walk without AD across room but has limp and focus on quad fac pivot so L LE doesn't give out. Uses cane for support. Can't step out shower with due to LLE will give way . STG Duration 12/05/22 Enrober Goal (LTG) Patient able to ambulate at least 1/2 mile and up and down stairs with least restrictive device, without limp 10/29/22: Progressing: able now step to gait w/ hurrycane leading RLE up, LLE down. 11/04/22: step-to pattern on stairs, less limp on level surface with hurry cane, at times can ambulate without cane on level. LTG Duration 01/04/23 Two Impairment weakness left LE Short Term Goal (STG) Patient to be independent in individualized HEP as instructed by PT 10/14/22: compliant with HEP: add/abd isometrics seated, resisted HS curl, wall posture . 10/16/22: added alternating step taps, contact support needed on SPC. 11/04/22: continue to progress HEP, good compliance STG Duration 12/05/22 Detention Goal (LTG) Patient to demonstrate left LE strength of at least 4/5 to help her resume usual activity LTG Duration 01/04/23 One Impairment pain left hip with radicular symptoms left LE Impairment 8/10 on pain scale Enrober Goal (LTG) decrease patient pain to no greater than 2/10 with all usual activities 10/14/22: progressing groin pain gone away but continuous pain L anterior thigh down to lower leg to arch foot. Cant sit or stand to long before worsens 8-10/10 at about 15 min. 10/29/22: Progressing: still L quad knots up and cramps up arch foot, decreased but still there and LLE prasanna at times. 11/04/22: pain persists but a lower level, ranging from 3-6/ 10 LTG Duration 01/04/23 Assessment Summary Assessment Patient making progress with core and LE strength, now ambulating with hurry cane consistently. LE strength improved but still unable to lift left LE up onto stair and ambulates on stairs with step -to pattern. Pain as high as 5 -6/10 lumbar spine and left LE . Palpable tightness left quads, IT band, piriformis. Will benefit from further PT to address above goals. Physical Therapy Plan Frequency and Duration Frequency of Treatment 2x/Week Duration of treatment (weeks) 8 Plan of Care Start Date 11/04/22 Plan of Care End Date 01/04/23 Therapeutic Interventions Therapeutic Interventions Gait Training,Home Exercise Program,Manual Therapy, Neuromuscular Re-education, Patient/Caregiver Education, Self-Care/Home Management,Soft Tissue Mobilization,Taping, Therapeutic Activities, Therapeutic Exercises Modalities Cold Pack/Ice Massage,Electric Stimulation,Hot Packs, Infrared Therapy,Traction- Mechanical,Ultrasound Next Visit Focus/Plan Next Note Type Progress Note Next Visit Plan Continue PT for strengthening, gait training, pain management to include manual therapy, traction, modalities PRN Plan of Care Dates Plan of Care Start Date 11/04/22 Plan of Care End Date 01/04/23 Electronically Signed by: Nan Colin, PT 11/04/22 [id number] If you are in agreement with this Plan of Care, please return a signed and dated copy. I have reviewed this Plan of Care and certify that the skilled therapy services above are required to meet the patient?s needs. Physician Signature Date Printed Name and Credentials Clinical Instructor Signature Printed Name and Credentials
--- NOTE | 2022-11-12 16:34 | PT.OTN ---
Current Diagnoses Radiculopathy, site unspecified (11/12/22) Left lower quadrant pain (11/12/22) Ataxia, unspecified (11/12/22) Other symptoms and signs involving the musculoskeletal system (11/12/22) Physical Therapy Treatment Note PT-OP-A Visit Information Start: 09/12/22 15:01 Freq: Status: Active Protocol: Document 11/12/22 07:58 SAK (Rec: 11/12/22 08:46 SAK [id number]) Out-Patient Physical Therapy Visit Information Visit Information Visit Type Treatment Note Visit Start Time 08:00 Visit Stop Time 08:55 Total Visit Minutes 55 Visit Number 15 Number of [employer] Visits 0 Evaluation Information Evaluation Date 09/04/22 PT-OP-B Current Condition Start: 09/12/22 15:01 Freq: Status: Active Protocol: Document 10/10/22 09:01 SAK (Rec: 10/10/22 09:44 SAK [id number]) Current Condition History of Current Condition Onset Date 06/21/23 Current Complaints left anterior hip pain, left leg weakness History of Current Condition Was in [place], had acute onset pain left anterior hip for no known reason, got worse including vomiting, HTN and tachycardia all lasted for about 1 week. Pain went down front of left leg to arch of foot with burning pain, reports spasms anterior left LE. A little better with use muscle relaxant new last week, weaned mostly off Hydrocodone , can't hardly get out of bed, walks from bed to bathroom only. Can't want much or go up stairs due to weakness. Neurologist ordered another MRI to include thoracic spine, scheduled for this Friday. EMG scheduled 10/10/22. assists with all household activities and ADL's . 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 Used to sleep on left side, can't now, has to sleep on right, sometimes pillow between legs though states sometimes that makes pain worse. Trying to get in to see neurologist before December. Prior Treatments and Tests MRI 06/29/22: multilevel mild overall degenerative change. Focal area of ill-defined density overlying the right foramina. This is suspected to be artifacts secondary to motion. However, mass in this egion cannot be definitely excluded. If patient is able to toelrate exam repeat views through this region are recommended. Future Testing and Treatments Planned Thoracic MRI this Friday EMG 10/10/22 Neurologist when able to get appoiintment PT-OP-C Subjective Start: 09/12/22 15:01 Freq: Status: Active Protocol: Document 11/12/22 07:58 SAK (Rec: 11/12/22 08:46 [facility] [id number]) OP-PT Subjective Patient Comments Patient Comments Saw Dr. Dominguez neurologist at [facility] last week, ruled out MS and ALS. States he wants to see EMG result again. Today having MRI on lumbar spine and x-ray left hip. Still can't lift left leg to go up stairs very well; has improved but still difficult. Compliant to exercieses. AFter saw doctor last week reports spasms anterior thigh. Hasn't yet tried water walking/aquatic exercise as previously recommended by PT. PT-OP-D Balance Start: 09/12/22 15:01 Freq: Status: Active Protocol: Document 09/04/22 13:00 [facility] (Rec: 09/12/22 16:05 [facility] [id number]) OP-PT Balance Assessment Sitting Balance Static Sitting Balance Ability Good Dynamic Sitting Balance Ability Good Standing Balance Static Standing Balance Ability Fair Dynamic Standing Balance Ability Fair Device Used SPC Standing Balance Comments unable to tolerate other balance testing Al Fall Scale Copyright Permission PT-OP-G Mobility & Gait Start: 09/12/22 15:01 Freq: Status: Active Protocol: Document 09/04/22 13:00 [facility] (Rec: 09/12/22 16:05 [facility] [id number]) OP Mobility Evaluation Bed Mobility Rolling painful Supine to and from Sit painful Transfers Sit to Stand painful, excess use right LE and UE's Car Transfers painful Floor Transfers unable Functional Movements Lifting and Carrying unable Squats unable OP Gait Assessment Gait Gait Assistance Required: Standby Assistance Distance (Feet) 80 Assistive Devices Assistive Device Straight Cane Orthotic/Prosthetic Devices or Brace: No Gait Deviations General Gait Pattern Antalgic,Decreased Stride Length,Decreased Feet Clearance,Lateral Trunk Lean, Wide Based Gait Stair Climbing Evaluation Comments Stair Climbing Comments unable PT-OP-H Neuro Start: 09/12/22 15:01 Freq: Status: Active Protocol: Document 09/04/22 13:00 [facility] (Rec: 09/12/22 16:05 [facility] [id number]) Sensation Evaluation Gross Sensation Gross Sensation Left LE Impaired Sensation Description Numbness,Tingling,Pain PT-OP-J Posture/Palpation/Skin Start: 09/12/22 15:01 Freq: Status: Active Protocol: Document 09/04/22 13:00 [facility] (Rec: 09/12/22 16:05 [facility] [id number]) Posture Evaluation Position Standing Head/C-Spine Posture Forward Head T-Spine Posture Increased Kyphosis L-Spine Posture Flexible Scoliosis on (R) Shoulder Posture (L) Rounded,(R) Rounded Scapula Posture (L) Protracted,(R) Protracted Arm Posture (L) Internally Rotated,(R) Internally Rotated Palpation Assessment Location left hip Palpation Location ant,lat Palpation Findings Muscle Guarding,Tenderness PT-OP-K Range of Motion Start: 09/12/22 15:01 Freq: Status: Active Protocol: Document 09/04/22 13:00 [facility] (Rec: 09/12/22 16:05 [facility] [id number]) Lumbar Spine Range of Motion Lumbar Spine Active ROM Limitations Pain Comments mod dec all motions Hip Goniometric Range of Motion Hip Left Hip ROM WFL No Flexion w/Knee Flexed 90 Straight Leg Raise 45 Extension 0 Abduction 25 Internal Rotation 10 External Rotation 45 Comments all motions left needed PT assist due to weakness and pain Right Hip ROM WFL Yes Hip ROM Limitations Hip ROM Limitations Muscle Weakness,Pain Ankle and Foot Goniometric Range of Motion Ankle and Foot Left Ankle/Foot ROM WFL Yes Right Ankle/Foot ROM WFL Yes PT-OP-L Special Tests Start: 09/12/22 15:01 Freq: Status: Active Protocol: Document 09/04/22 13:00 [facility] (Rec: 09/12/22 16:05 [facility] [id number]) Special Tests Lumbar Spine Special Tests Vertical Spine Loading Test Results inc pain Manual Traction Test Results inc pain Slump Test Results inc pain Prone Press Up Test Results unable to lay prone Straight Leg Raise Test Results unable to do test PT-OP-M Strength Start: 09/12/22 15:01 Freq: Status: Active Protocol: Document 09/04/22 13:00 [facility] (Rec: 09/12/22 16:05 [facility] [id number]) Trunk Strength Trunk Manual Muscle Testing Core Stabilization poor Comments unable to tolerate testing Hip Strength Hip Manual Muscle Testing Left Flexion (L2) 2- Poor- Extension (S1) 2- Poor- Abduction 2- Poor- Adduction 2- Poor- External Rotation 2- Poor- Internal Rotation 2- Poor- Comments tested sitting and supine Right Flexion (L2) 4+ Good+ Extension (S1) 4- Good- Abduction 4- Good- Adduction 4- Good- External Rotation 4- Good- Internal Rotation 4- Good- Comments tested sitting and supine Knee Strength Knee Manual Muscle Testing Left Flexion (S2) 3- Fair- Extension (L3) 3- Fair- Right Flexion (S2) 5 Normal Extension (L3) 5 Normal Ankle/Foot Strength Ankle and Foot Manual Muscle Testing Left Dorsiflexion (L4) 2+ Poor+ Plantarflexion (S1) 3- Fair- Right Dorsiflexion (L4) 4 Good Plantarflexion (S1) 4 Good Toe Strength Toe Manual Muscle Testing Left Great Toe Extension 2+ Poor+ Right Great Toe Extension 5 Normal PT-OP-Q Treatments Start: 09/12/22 15:01 Freq: Status: Active Protocol: Document 11/12/22 07:58 [facility] (Rec: 11/12/22 08:46 [facility] [id number]) Cardio Equipment Recumbent Stepper (Sci-Fit) Duration (Minutes) 10 Resistance 2 Seat Position 10 Other cues for core activation Therapeutic Exercises Supine Exercises jez stretch Supine Exercise Name (patient reports has been forgetting to do this stretch) Resistance left Equipment Used towel Reps/Minutes 2x30 Comments end of table, manual assist for alignment and inc stretch quad TA Reps/Minutes x5 Manual Therapy Treatment Soft Tissue Mobilization iliopsoas Body Location left Mobilization Type Sustained Pressure Intensity/Depth Moderate quad, ITB Body Location L vastus lateralis, ITB Mobilization Type Myofascial Release,Strumming Intensity/Depth gentle Body Position Hooklying Joint Mobilizations left hip Direction inf glide Grade II Body Position Supine Reps/Duration 10 min Comments left LE on 55 cm ball bent at 80-90 deg hip flex, with gentle AROM hip flex PT-OP-R Modalities Start: 09/12/22 15:01 Freq: Status: Active Protocol: Document 11/04/22 09:33 [facility] (Rec: 11/04/22 10:13 [facility] [id number]) Spinal Traction Traction Treatment Lumbar Method Static Patient Position Supine Force Applied (Pounds) 50 Duration of Treatment (Minutes) 10 Traction Treatment Comment bolster under lower legs PT-OP-T Assessment and Plan Start: 09/12/22 15:01 Freq: Status: Active Protocol: Document 11/12/22 07:58 [facility] (Rec: 11/12/22 08:46 [facility] [id number]) Physical Therapy Assessment Goals Three Impairment activity tolerance Impairment LEFS 24% Short Term Goal (STG) Improve LEFS to at least 50% as measure of improved activity tolerance 10/22/22: goal progress STG Duration 12/05/22 Shelter Goal (LTG) Improve LEFS to at least 75% as measure of improved activity tolerance and quality of life LTG Duration 01/04/23 Four Impairment gait dysfunction Impairment antalgic, requires use of cane , walker, or wheelchair, can't ambulate on stairs Short Term Goal (STG) Patient to ambulate in the house without device and without a limp 10/14/22: Progressing can carry cane (less use) more short distance with small steps. Standign for 15 min at time before pain increases need sit . 10/29/22: progressing able to walk without AD across room but has limp and focus on quad fac pivot so L LE doesn't give out. Uses cane for support. Can't step out shower with due to LLE will give way . STG Duration 12/05/22 Shelter Goal (LTG) Patient able to ambulate at least 1/2 mile and up and down stairs with least restrictive device, without limp 10/29/22: Progressing: able now step to gait w/ hurrycane leading RLE up, LLE down. 11/04/22: step-to pattern on stairs, less limp on level surface with hurry cane, at times can ambulate without cane on level. LTG Duration 01/04/23 Two Impairment weakness left LE Short Term Goal (STG) Patient to be independent in individualized HEP as instructed by PT 10/14/22: compliant with HEP: add/abd isometrics seated, resisted HS curl, wall posture . 10/16/22: added alternating step taps, contact support needed on SPC. 11/04/22: continue to progress HEP, good compliance STG Duration 12/05/22 [facility] Goal (LTG) Patient to demonstrate left LE strength of at least 4/5 to help her resume usual activity LTG Duration 01/04/23 One Impairment pain left hip with radicular symptoms left LE Impairment 8/10 on pain scale Shelter Goal (LTG) decrease patient pain to no greater than 2/10 with all usual activities 10/14/22: progressing groin pain gone away but continuous pain L anterior thigh down to lower leg to arch foot. Cant sit or stand to long before worsens 8-10/10 at about 15 min. 10/29/22: Progressing: still L quad knots up and cramps up arch foot, decreased but still there and LLE prasanna at times. 11/04/22: pain persists but a lower level, ranging from 3-6/ 10 LTG Duration 01/04/23 Assessment Summary Assessment Mechanical traction helpful previously but not available today; not functioning. Patient having further imaging today. Patient experienced good dec left LE symptoms with inf glide left hip with supported gentle hip flex supine with LE on 55 cm therapy ball. Lateral left quad and ITband remain highly sensitive and irritable to manual therapy, patient continues at home. Patient has not been doing Jez stretch; this was reviewed, modified to end of bed for improved LE alignment. Physical Therapy Plan Frequency and Duration Frequency of Treatment 2x/Week Duration of treatment (weeks) 8 Plan of Care Start Date 11/04/22 Plan of Care End Date 01/04/23 Therapeutic Interventions Therapeutic Interventions Gait Training,Home Exercise Program,Manual Therapy, Neuromuscular Re-education, Patient/Caregiver Education, Self-Care/Home Management,Soft Tissue Mobilization,Taping, Therapeutic Activities, Therapeutic Exercises Modalities Cold Pack/Ice Massage,Electric Stimulation,Hot Packs, Infrared Therapy,Traction- Mechanical,Ultrasound Next Visit Focus/Plan Next Note Type Treatment Note Next Visit Plan Continue PT for strengthening, gait training, pain management to include manual therapy, traction, modalities PRN. Discuss any results from new imaging.
--- NOTE | 2022-11-12 16:36 | PT.OTN ---
Current Diagnoses Radiculopathy, site unspecified (11/12/22) Left lower quadrant pain (11/12/22) Ataxia, unspecified (11/12/22) Other symptoms and signs involving the musculoskeletal system (11/12/22) Physical Therapy Treatment Note PT-OP-A Visit Information Start: 09/12/22 15:01 Freq: Status: Active Protocol: Document 11/12/22 07:58 SAK (Rec: 11/12/22 08:46 SAK [id number]) Out-Patient Physical Therapy Visit Information Visit Information Visit Type Treatment Note Visit Start Time 08:00 Visit Stop Time 08:55 Total Visit Minutes 55 Visit Number 15 Number of MUSIC GRAPHER Visits 0 Evaluation Information Evaluation Date 09/04/22 PT-OP-B Current Condition Start: 09/12/22 15:01 Freq: Status: Active Protocol: Document 10/10/22 09:01 SAK (Rec: 10/10/22 09:44 SAK [id number]) Current Condition History of Current Condition Onset Date 06/21/23 Current Complaints left anterior hip pain, left leg weakness History of Current Condition Was in [place], had acute onset pain left anterior hip for no known reason, got worse including vomiting, HTN and tachycardia all lasted for about 1 week. Pain went down front of left leg to arch of foot with burning pain, reports spasms anterior left LE. A little better with use muscle relaxant new last week, weaned mostly off Hydrocodone , can't hardly get out of bed, walks from bed to bathroom only. Can't want much or go up stairs due to weakness. Neurologist ordered another MRI to include thoracic spine, scheduled for this Friday. EMG scheduled 10/10/22. assists with all household activities and ADL's . 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 Used to sleep on left side, can't now, has to sleep on right, sometimes pillow between legs though states sometimes that makes pain worse. Trying to get in to see neurologist before December. Prior Treatments and Tests MRI 06/29/22: multilevel mild overall degenerative change. Focal area of ill-defined density overlying the right foramina. This is suspected to be artifacts secondary to motion. However, mass in this egion cannot be definitely excluded. If patient is able to toelrate exam repeat views through this region are recommended. Future Testing and Treatments Planned Thoracic MRI this Friday EMG 10/10/22 Neurologist when able to get appoiintment PT-OP-C Subjective Start: 09/12/22 15:01 Freq: Status: Active Protocol: Document 11/12/22 07:58 SAK (Rec: 11/12/22 08:46 [facility] [id number]) OP-PT Subjective Patient Comments Patient Comments Saw Dr. Dominguez neurologist at [facility] last week, ruled out MS and ALS. States he wants to see EMG result again. Today having MRI on lumbar spine and x-ray left hip. Still can't lift left leg to go up stairs very well; has improved but still difficult. Compliant to exercieses. AFter saw doctor last week reports spasms anterior thigh. Hasn't yet tried water walking/aquatic exercise as previously recommended by PT. PT-OP-D Balance Start: 09/12/22 15:01 Freq: Status: Active Protocol: Document 09/04/22 13:00 [facility] (Rec: 09/12/22 16:05 [facility] [id number]) OP-PT Balance Assessment Sitting Balance Static Sitting Balance Ability Good Dynamic Sitting Balance Ability Good Standing Balance Static Standing Balance Ability Fair Dynamic Standing Balance Ability Fair Device Used SPC Standing Balance Comments unable to tolerate other balance testing Al Fall Scale Copyright Permission PT-OP-G Mobility & Gait Start: 09/12/22 15:01 Freq: Status: Active Protocol: Document 09/04/22 13:00 [facility] (Rec: 09/12/22 16:05 [facility] [id number]) OP Mobility Evaluation Bed Mobility Rolling painful Supine to and from Sit painful Transfers Sit to Stand painful, excess use right LE and UE's Car Transfers painful Floor Transfers unable Functional Movements Lifting and Carrying unable Squats unable OP Gait Assessment Gait Gait Assistance Required: Standby Assistance Distance (Feet) 80 Assistive Devices Assistive Device Straight Cane Orthotic/Prosthetic Devices or Brace: No Gait Deviations General Gait Pattern Antalgic,Decreased Stride Length,Decreased Feet Clearance,Lateral Trunk Lean, Wide Based Gait Stair Climbing Evaluation Comments Stair Climbing Comments unable PT-OP-H Neuro Start: 09/12/22 15:01 Freq: Status: Active Protocol: Document 09/04/22 13:00 [facility] (Rec: 09/12/22 16:05 [facility] [id number]) Sensation Evaluation Gross Sensation Gross Sensation Left LE Impaired Sensation Description Numbness,Tingling,Pain PT-OP-J Posture/Palpation/Skin Start: 09/12/22 15:01 Freq: Status: Active Protocol: Document 09/04/22 13:00 [facility] (Rec: 09/12/22 16:05 [facility] [id number]) Posture Evaluation Position Standing Head/C-Spine Posture Forward Head T-Spine Posture Increased Kyphosis L-Spine Posture Flexible Scoliosis on (R) Shoulder Posture (L) Rounded,(R) Rounded Scapula Posture (L) Protracted,(R) Protracted Arm Posture (L) Internally Rotated,(R) Internally Rotated Palpation Assessment Location left hip Palpation Location ant,lat Palpation Findings Muscle Guarding,Tenderness PT-OP-K Range of Motion Start: 09/12/22 15:01 Freq: Status: Active Protocol: Document 09/04/22 13:00 [facility] (Rec: 09/12/22 16:05 [facility] [id number]) Lumbar Spine Range of Motion Lumbar Spine Active ROM Limitations Pain Comments mod dec all motions Hip Goniometric Range of Motion Hip Left Hip ROM WFL No Flexion w/Knee Flexed 90 Straight Leg Raise 45 Extension 0 Abduction 25 Internal Rotation 10 External Rotation 45 Comments all motions left needed PT assist due to weakness and pain Right Hip ROM WFL Yes Hip ROM Limitations Hip ROM Limitations Muscle Weakness,Pain Ankle and Foot Goniometric Range of Motion Ankle and Foot Left Ankle/Foot ROM WFL Yes Right Ankle/Foot ROM WFL Yes PT-OP-L Special Tests Start: 09/12/22 15:01 Freq: Status: Active Protocol: Document 09/04/22 13:00 [facility] (Rec: 09/12/22 16:05 [facility] [id number]) Special Tests Lumbar Spine Special Tests Vertical Spine Loading Test Results inc pain Manual Traction Test Results inc pain Slump Test Results inc pain Prone Press Up Test Results unable to lay prone Straight Leg Raise Test Results unable to do test PT-OP-M Strength Start: 09/12/22 15:01 Freq: Status: Active Protocol: Document 09/04/22 13:00 [facility] (Rec: 09/12/22 16:05 [facility] [id number]) Trunk Strength Trunk Manual Muscle Testing Core Stabilization poor Comments unable to tolerate testing Hip Strength Hip Manual Muscle Testing Left Flexion (L2) 2- Poor- Extension (S1) 2- Poor- Abduction 2- Poor- Adduction 2- Poor- External Rotation 2- Poor- Internal Rotation 2- Poor- Comments tested sitting and supine Right Flexion (L2) 4+ Good+ Extension (S1) 4- Good- Abduction 4- Good- Adduction 4- Good- External Rotation 4- Good- Internal Rotation 4- Good- Comments tested sitting and supine Knee Strength Knee Manual Muscle Testing Left Flexion (S2) 3- Fair- Extension (L3) 3- Fair- Right Flexion (S2) 5 Normal Extension (L3) 5 Normal Ankle/Foot Strength Ankle and Foot Manual Muscle Testing Left Dorsiflexion (L4) 2+ Poor+ Plantarflexion (S1) 3- Fair- Right Dorsiflexion (L4) 4 Good Plantarflexion (S1) 4 Good Toe Strength Toe Manual Muscle Testing Left Great Toe Extension 2+ Poor+ Right Great Toe Extension 5 Normal PT-OP-Q Treatments Start: 09/12/22 15:01 Freq: Status: Active Protocol: Document 11/12/22 07:58 [facility] (Rec: 11/12/22 08:46 [facility] [id number]) Cardio Equipment Recumbent Stepper (Sci-Fit) Duration (Minutes) 10 Resistance 2 Seat Position 10 Other cues for core activation Therapeutic Exercises Supine Exercises jez combs Supine Exercise Name (patient reports has been forgetting to do this stretch) Resistance left Equipment Used towel Reps/Minutes 2x30 Comments end of table, manual assist for alignment and inc stretch quad TA Reps/Minutes x5 Manual Therapy Treatment Soft Tissue Mobilization iliopsoas Body Location left Mobilization Type Sustained Pressure Intensity/Depth Moderate quad, ITB Body Location L vastus lateralis, ITB Mobilization Type Myofascial Release,Strumming Intensity/Depth gentle Body Position Hooklying Joint Mobilizations left hip Direction inf glide Grade II Body Position Supine Reps/Duration 10 min Comments left LE on 55 cm ball bent at 80-90 deg hip flex, with gentle AROM hip flex Self-Care/Home Management Treatment Education Patient Education Home Exercise Program Other Education importance of Jez lauryn 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 PT-OP-R Modalities Start: 09/12/22 15:01 Freq: Status: Active Protocol: Document 11/12/22 07:58 [facility] (Rec: 11/12/22 16:35 [facility] [id number]) Hot Pack/Cold Pack Treatment Hot Pack Location left quad, ITB, ant hip Patient Position Supine Treatment Duration (minutes) 15 Patient Tolerance Good PT-OP-T Assessment and Plan Start: 09/12/22 15:01 Freq: Status: Active Protocol: Document 11/12/22 07:58 [facility] (Rec: 11/12/22 08:46 [facility] [id number]) Physical Therapy Assessment Goals Three Impairment activity tolerance Impairment LEFS 24% Short Term Goal (STG) Improve LEFS to at least 50% as measure of improved activity tolerance 10/22/22: goal progress STG Duration 12/05/22 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 Standign for 15 min at time before pain increases need sit . 10/29/22: progressing able to walk without AD across room but has limp and focus on quad fac pivot so L LE doesn't give out. Uses cane for support. Can't step out shower with due to LLE will give way . STG Duration 12/05/22 Fdc Goal (LTG) Patient able to ambulate at least 1/2 mile and up and down stairs with least restrictive device, without limp 10/29/22: Progressing: able now step to gait w/ hurrycane leading RLE up, LLE down. 11/04/22: step-to pattern on stairs, less limp on level surface with hurry cane, at times can ambulate without cane on level. LTG Duration 01/04/23 Two Impairment weakness left LE Short Term Goal (STG) Patient to be independent in individualized HEP as instructed by PT 10/14/22: compliant with HEP: add/abd isometrics seated, resisted HS curl, wall posture . 10/16/22: added alternating step taps, contact support needed on SPC. 11/04/22: continue to progress HEP, good compliance STG Duration 12/05/22 Fdc Goal (LTG) Patient to demonstrate left LE strength of at least 4/5 to help her resume usual activity LTG Duration 01/04/23 One Impairment pain left hip with radicular symptoms left LE Impairment 8/10 on pain scale Fdc Goal (LTG) decrease patient pain to no greater than 2/10 with all usual activities 10/14/22: progressing groin pain gone away but continuous pain L anterior thigh down to lower leg to arch foot. Cant sit or stand to long before worsens 8-10/10 at about 15 min. 10/29/22: Progressing: still L quad knots up and cramps up arch foot, decreased but still there and LLE prasanna at times. 11/04/22: pain persists but a lower level, ranging from 3-6/ 10 LTG Duration 01/04/23 Assessment Summary Assessment Mechanical traction helpful previously but not available today; not functioning. Patient having further imaging today. Patient experienced good dec left LE symptoms with inf glide left hip with supported gentle hip flex supine with LE on 55 cm therapy ball. Lateral left quad and ITband remain highly sensitive and irritable to manual therapy, patient continues at home. Patient has not been doing Jez stretch; this was reviewed, modified to end of bed for improved LE alignment. Physical Therapy Plan Frequency and Duration Frequency of Treatment 2x/Week Duration of treatment (weeks) 8 Plan of Care Start Date 11/04/22 Plan of Care End Date 01/04/23 Therapeutic Interventions Therapeutic Interventions Gait Training,Home Exercise Program,Manual Therapy, Neuromuscular Re-education, Patient/Caregiver Education, Self-Care/Home Management,Soft Tissue Mobilization,Taping, Therapeutic Activities, Therapeutic Exercises Modalities Cold Pack/Ice Massage,Electric Stimulation,Hot Packs, Infrared Therapy,Traction- Mechanical,Ultrasound Next Visit Focus/Plan Next Note Type Treatment Note Next Visit Plan Continue PT for strengthening, gait training, pain management to include manual therapy, traction, modalities PRN. Discuss any results from new imaging.
--- NOTE | 2022-11-14 09:06 | PT.OTN ---
Current Diagnoses Radiculopathy, site unspecified (11/14/22) Left lower quadrant pain (11/14/22) Ataxia, unspecified (11/14/22) Other symptoms and signs involving the musculoskeletal system (11/14/22) Physical Therapy Treatment Note PT-OP-A Visit Information Start: 09/12/22 15:01 Freq: Status: Active Protocol: Document 11/14/22 08:20 SP (Rec: 11/14/22 09:06 SP [id number]) Out-Patient Physical Therapy Visit Information Visit Information Visit Type Treatment Note Visit Start Time 08:20 Visit Stop Time 09:06 Total Visit Minutes 46 Visit Number 16 Number of RRTS Visits 1 Evaluation Information Evaluation Date 09/04/22 PT-OP-B Current Condition Start: 09/12/22 15:01 Freq: Status: Active Protocol: Document 10/10/22 09:01 SAK (Rec: 10/10/22 09:44 SAK [id number]) Current Condition History of Current Condition Onset Date 06/21/23 Current Complaints left anterior hip pain, left leg weakness History of Current Condition Was in [place], had acute onset pain left anterior hip for no known reason, got worse including vomiting, HTN and tachycardia all lasted for about 1 week. Pain went down front of left leg to arch of foot with burning pain, reports spasms anterior left LE. A little better with use muscle relaxant new last week, weaned mostly off Hydrocodone , can't hardly get out of bed, walks from bed to bathroom only. Can't want much or go up stairs due to weakness. Neurologist ordered another MRI to include thoracic spine, scheduled for this Friday. EMG scheduled 10/10/22. assists with all household activities and ADL's . 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 Used to sleep on left side, can't now, has to sleep on right, sometimes pillow between legs though states sometimes that makes pain worse. Trying to get in to see neurologist before December. Prior Treatments and Tests MRI 06/29/22: multilevel mild overall degenerative change. Focal area of ill-defined density overlying the right foramina. This is suspected to be artifacts secondary to motion. However, mass in this egion cannot be definitely excluded. If patient is able to toelrate exam repeat views through this region are recommended. Future Testing and Treatments Planned Thoracic MRI this Friday EMG 10/10/22 Neurologist when able to get appoiintment PT-OP-C Subjective Start: 09/12/22 15:01 Freq: Status: Active Protocol: Document 11/14/22 08:20 SP (Rec: 11/14/22 09:06 SP [id number]) OP-PT Subjective Patient Comments Patient Comments Pt saw specialist for ALS and needs get copy of EMG from for further assessment, did alot other blood work and work ups. She states L quad still really weak and very difficult ascend stairs. Able to walk better with less UE WB into use SPC. PT-OP-D Balance Start: 09/12/22 15:01 Freq: Status: Active Protocol: Document 09/04/22 13:00 SAK (Rec: 09/12/22 16:05 SAK [id number]) OP-PT Balance Assessment Sitting Balance Static Sitting Balance Ability Good Dynamic Sitting Balance Ability Good Standing Balance Static Standing Balance Ability Fair Dynamic Standing Balance Ability Fair Device Used SPC Standing Balance Comments unable to tolerate other balance testing Al Fall Scale Copyright Permission PT-OP-G Mobility & Gait Start: 09/12/22 15:01 Freq: Status: Active Protocol: Document 09/04/22 13:00 SAK (Rec: 09/12/22 16:05 SAK [id number]) OP Mobility Evaluation Bed Mobility Rolling painful Supine to and from Sit painful Transfers Sit to Stand painful, excess use right LE and UE's Car Transfers painful Floor Transfers unable Functional Movements Lifting and Carrying unable Squats unable OP Gait Assessment Gait Gait Assistance Required: Standby Assistance Distance (Feet) 80 Assistive Devices Assistive Device Straight Cane Orthotic/Prosthetic Devices or Brace: No Gait Deviations General Gait Pattern Antalgic,Decreased Stride Length,Decreased Feet Clearance,Lateral Trunk Lean, Wide Based Gait Stair Climbing Evaluation Comments Stair Climbing Comments unable PT-OP-H Neuro Start: 09/12/22 15:01 Freq: Status: Active Protocol: Document 09/04/22 13:00 SAK (Rec: 09/12/22 16:05 SAK [id number]) Sensation Evaluation Gross Sensation Gross Sensation Left LE Impaired Sensation Description Numbness,Tingling,Pain PT-OP-J Posture/Palpation/Skin Start: 09/12/22 15:01 Freq: Status: Active Protocol: Document 09/04/22 13:00 [facility] (Rec: 09/12/22 16:05 [facility] [id number]) Posture Evaluation Position Standing Head/C-Spine Posture Forward Head T-Spine Posture Increased Kyphosis L-Spine Posture Flexible Scoliosis on (R) Shoulder Posture (L) Rounded,(R) Rounded Scapula Posture (L) Protracted,(R) Protracted Arm Posture (L) Internally Rotated,(R) Internally Rotated Palpation Assessment Location left hip Palpation Location ant,lat Palpation Findings Muscle Guarding,Tenderness PT-OP-K Range of Motion Start: 09/12/22 15:01 Freq: Status: Active Protocol: Document 09/04/22 13:00 [facility] (Rec: 09/12/22 16:05 [facility] [id number]) Lumbar Spine Range of Motion Lumbar Spine Active ROM Limitations Pain Comments mod dec all motions Hip Goniometric Range of Motion Hip Left Hip ROM WFL No Flexion w/Knee Flexed 90 Straight Leg Raise 45 Extension 0 Abduction 25 Internal Rotation 10 External Rotation 45 Comments all motions left needed PT assist due to weakness and pain Right Hip ROM WFL Yes Hip ROM Limitations Hip ROM Limitations Muscle Weakness,Pain Ankle and Foot Goniometric Range of Motion Ankle and Foot Left Ankle/Foot ROM WFL Yes Right Ankle/Foot ROM WFL Yes PT-OP-L Special Tests Start: 09/12/22 15:01 Freq: Status: Active Protocol: Document 09/04/22 13:00 [facility] (Rec: 09/12/22 16:05 [facility] [id number]) Special Tests Lumbar Spine Special Tests Vertical Spine Loading Test Results inc pain Manual Traction Test Results inc pain Slump Test Results inc pain Prone Press Up Test Results unable to lay prone Straight Leg Raise Test Results unable to do test PT-OP-M Strength Start: 09/12/22 15:01 Freq: Status: Active Protocol: Document 09/04/22 13:00 [facility] (Rec: 09/12/22 16:05 [facility] [id number]) Trunk Strength Trunk Manual Muscle Testing Core Stabilization poor Comments unable to tolerate testing Hip Strength Hip Manual Muscle Testing Left Flexion (L2) 2- Poor- Extension (S1) 2- Poor- Abduction 2- Poor- Adduction 2- Poor- External Rotation 2- Poor- Internal Rotation 2- Poor- Comments tested sitting and supine Right Flexion (L2) 4+ Good+ Extension (S1) 4- Good- Abduction 4- Good- Adduction 4- Good- External Rotation 4- Good- Internal Rotation 4- Good- Comments tested sitting and supine Knee Strength Knee Manual Muscle Testing Left Flexion (S2) 3- Fair- Extension (L3) 3- Fair- Right Flexion (S2) 5 Normal Extension (L3) 5 Normal Ankle/Foot Strength Ankle and Foot Manual Muscle Testing Left Dorsiflexion (L4) 2+ Poor+ Plantarflexion (S1) 3- Fair- Right Dorsiflexion (L4) 4 Good Plantarflexion (S1) 4 Good Toe Strength Toe Manual Muscle Testing Left Great Toe Extension 2+ Poor+ Right Great Toe Extension 5 Normal PT-OP-Q Treatments Start: 09/12/22 15:01 Freq: Status: Active Protocol: Document 11/14/22 08:20 SP (Rec: 11/14/22 09:06 SP [id number]) Therapeutic Exercises Supine Exercises nate stretch Supine Exercise Name reviewed Resistance left Equipment Used used strap for extra Reps/Minutes 2x30+ Comments end of table, manual assist for alignment and strap inc stretch quad TA Reps/Minutes 5 SH x5 Comments cued neutral pelvis bridge Supine Exercise Name HEP reviewed Side bilateral Reps/Minutes 5 SH x10 Comments cues for core activation, pain -free ROM, brief contact then lift SAQ Supine Exercise Name HEP reviewed Side left Resistance AROM x5 reps, TB #4 (blue at ankles) 10SH x5 Equipment Used foam roller under knees Reps/Minutes 10 SH x10 total Comments cued mid quad fac, able 2nd set with blue TB Prone Exercises quad stretch Prone Exercise Name initiated in PT Side left Equipment Used strap on L ankle (no strap at home) Reps/Minutes 60 Comments cued breath with decrease intense quad stretch and able to relax quad. Standing Exercises calf raises Standing Exercise Name add: double up down x5, up double down L Equipment Used contact table- cues posturing w/ UE support needed Reps/Minutes 8 reps total before tired Comments challenged LLE self so instructed bilateral with emphasis wt shift more L SLS (step tap) Standing Exercise Name SLS near table (no tapping ) Side bilateral Reps/Minutes 2 reps LLE up to 5 sec Comments cued posturing/core/quad/glut fac improve able but limited timing Manual Therapy Treatment Soft Tissue Mobilization iliopsoas Body Location left Mobilization Type Sustained Pressure Intensity/Depth Moderate quad, ITB Body Location L vastus lateralis, ITB Mobilization Type Myofascial Release,Strumming Intensity/Depth gentle Body Position Hooklying PT-OP-R Modalities Start: 09/12/22 15:01 Freq: Status: Active Protocol: Document 11/12/22 07:58 SAK (Rec: 11/12/22 16:35 SAK [id number]) Hot Pack/Cold Pack Treatment Hot Pack Location left quad, ITB, ant hip Patient Position Supine Treatment Duration (minutes) 15 Patient Tolerance Good PT-OP-T Assessment and Plan Start: 09/12/22 15:01 Freq: Status: Active Protocol: Document 11/14/22 08:20 SP (Rec: 11/14/22 09:06 SP [id number]) Physical Therapy Assessment Goals Three Impairment activity tolerance Impairment LEFS 24% Short Term Goal (STG) Improve LEFS to at least 50% as measure of improved activity tolerance 10/22/22: goal progress STG Duration 12/05/22 Penitentiary Goal (LTG) Improve LEFS to at least 75% as measure of improved activity tolerance and quality of life LTG Duration 01/04/23 Four Impairment gait dysfunction Impairment antalgic, requires use of cane , walker, or wheelchair, can't ambulate on stairs Short Term Goal (STG) Patient to ambulate in the house without device and without a limp 10/14/22: Progressing can carry cane (less use) more short distance with small steps. Standign for 15 min at time before pain increases need sit . 10/29/22: progressing able to walk without AD across room but has limp and focus on quad fac pivot so L LE doesn't give out. Uses cane for support. Can't step out shower with due to LLE will give way . STG Duration 12/05/22 Penitentiary Goal (LTG) Patient able to ambulate at least 1/2 mile and up and down stairs with least restrictive device, without limp 10/29/22: Progressing: able now step to gait w/ hurrycane leading RLE up, LLE down. 11/04/22: step-to pattern on stairs, less limp on level surface with hurry cane, at times can ambulate without cane on level. LTG Duration 01/04/23 Two Impairment weakness left LE Short Term Goal (STG) Patient to be independent in individualized HEP as instructed by PT 10/14/22: compliant with HEP: add/abd isometrics seated, resisted HS curl, wall posture . 10/16/22: added alternating step taps, contact support needed on SPC. 11/04/22: continue to progress HEP, good compliance STG Duration 12/05/22 Mohs Surgeon Goal (LTG) Patient to demonstrate left LE strength of at least 4/5 to help her resume usual activity LTG Duration 01/04/23 One Impairment pain left hip with radicular symptoms left LE Impairment 8/10 on pain scale Penitentiary Goal (LTG) decrease patient pain to no greater than 2/10 with all usual activities 10/14/22: progressing groin pain gone away but continuous pain L anterior thigh down to lower leg to arch foot. Cant sit or stand to long before worsens 8-10/10 at about 15 min. 10/29/22: Progressing: still L quad knots up and cramps up arch foot, decreased but still there and LLE prasanna at times. 11/04/22: pain persists but a lower level, ranging from 3-6/ 10 LTG Duration 01/04/23 Assessment Summary Assessment Pt was excited able to perform SAQ then added blue TB resistance today as well as SLS for short period time. Good response to supine nate stretch vs prone for quad and TA support. Pt felt quad work today will be good progression able to peform at home to help support stair mgt with less UE support. Physical Therapy Plan Frequency and Duration Frequency of Treatment 2x/Week Duration of treatment (weeks) 8 Plan of Care Start Date 11/04/22 Plan of Care End Date 01/04/23 Therapeutic Interventions Therapeutic Interventions Gait Training,Home Exercise Program,Manual Therapy, Neuromuscular Re-education, Patient/Caregiver Education, Self-Care/Home Management,Soft Tissue Mobilization,Taping, Therapeutic Activities, Therapeutic Exercises Modalities Cold Pack/Ice Massage,Electric Stimulation,Hot Packs, Infrared Therapy,Traction- Mechanical,Ultrasound Next Visit Focus/Plan Next Note Type Treatment Note Next Visit Plan Recheck nate stretch, resisted SAQ, SLS. POC: Continue PT for strengthening, gait training, pain management to include manual therapy, traction, modalities PRN. Discuss any results from new imaging.
--- NOTE | 2022-11-19 14:15 | PT.OTN ---
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 Pain went down front of left leg to arch of foot with burning pain, reports spasms anterior left LE. A little better with use muscle relaxant new last week, weaned mostly off Hydrocodone , can't hardly get out of bed, walks from bed to bathroom only. Can't want much or go up stairs due to weakness. Neurologist ordered another MRI to include thoracic spine, scheduled for this Friday. EMG scheduled 10/10/22. assists with all household activities and ADL's . 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 Used to sleep on left side, can't now, has to sleep on right, sometimes pillow between legs though states sometimes that makes pain worse. Trying to get in to see neurologist before December. Prior Treatments and Tests MRI 06/29/22: multilevel mild overall degenerative change. Focal area of ill-defined density overlying the right foramina. This is suspected to be artifacts secondary to motion. However, mass in this egion cannot be definitely excluded. If patient is able to toelrate exam repeat views through this region are recommended. Future Testing and Treatments Planned Thoracic MRI this Friday EMG 10/10/22 Neurologist when able to get appoiintment PT-OP-C Subjective Start: 09/12/22 15:01 Freq: Status: Active Protocol: Document 11/19/22 13:34 SP (Rec: 11/19/22 14:27 SP [id number]) OP-PT Subjective Patient Comments Patient Comments Pt reports L patella discomfort when woke up this am and feels when walks. Pt has appt with physician to get results of MRI: pelvis, LS and xray of R hip and knee. PT-OP-D Balance Start: 09/12/22 15:01 Freq: Status: Active Protocol: Document 09/04/22 13:00 SAK (Rec: 09/12/22 16:05 SAK [id number]) OP-PT Balance Assessment Sitting Balance Static Sitting Balance Ability Good Dynamic Sitting Balance Ability Good Standing Balance Static Standing Balance Ability Fair Dynamic Standing Balance Ability Fair Device Used SPC Standing Balance Comments unable to tolerate other balance testing Al Fall Scale Copyright Permission PT-OP-G Mobility & Gait Start: 09/12/22 15:01 Freq: Status: Active Protocol: Document 09/04/22 13:00 SAK (Rec: 09/12/22 16:05 SAK [id number]) OP Mobility Evaluation Bed Mobility Rolling painful Supine to and from Sit painful Transfers Sit to Stand painful, excess use right LE and UE's Car Transfers painful Floor Transfers unable Functional Movements Lifting and Carrying unable Squats unable OP Gait Assessment Gait Gait Assistance Required: Standby Assistance Distance (Feet) 80 Assistive Devices Assistive Device Straight Cane Orthotic/Prosthetic Devices or Brace: No Gait Deviations General Gait Pattern Antalgic,Decreased Stride Length,Decreased Feet Clearance,Lateral Trunk Lean, Wide Based Gait Stair Climbing Evaluation Comments Stair Climbing Comments unable PT-OP-H Neuro Start: 09/12/22 15:01 Freq: Status: Active Protocol: Document 09/04/22 13:00 SAK (Rec: 09/12/22 16:05 SAK [id number]) Sensation Evaluation Gross Sensation Gross Sensation Left LE Impaired Sensation Description Numbness,Tingling,Pain PT-OP-J Posture/Palpation/Skin Start: 09/12/22 15:01 Freq: Status: Active Protocol: Document 09/04/22 13:00 SAK (Rec: 09/12/22 16:05 [facility] [id number]) Posture Evaluation Position Standing Head/C-Spine Posture Forward Head T-Spine Posture Increased Kyphosis L-Spine Posture Flexible Scoliosis on (R) Shoulder Posture (L) Rounded,(R) Rounded Scapula Posture (L) Protracted,(R) Protracted Arm Posture (L) Internally Rotated,(R) Internally Rotated Palpation Assessment Location left hip Palpation Location ant,lat Palpation Findings Muscle Guarding,Tenderness PT-OP-K Range of Motion Start: 09/12/22 15:01 Freq: Status: Active Protocol: Document 09/04/22 13:00 [facility] (Rec: 09/12/22 16:05 [facility] [id number]) Lumbar Spine Range of Motion Lumbar Spine Active ROM Limitations Pain Comments mod dec all motions Hip Goniometric Range of Motion Hip Left Hip ROM WFL No Flexion w/Knee Flexed 90 Straight Leg Raise 45 Extension 0 Abduction 25 Internal Rotation 10 External Rotation 45 Comments all motions left needed PT assist due to weakness and pain Right Hip ROM WFL Yes Hip ROM Limitations Hip ROM Limitations Muscle Weakness,Pain Ankle and Foot Goniometric Range of Motion Ankle and Foot Left Ankle/Foot ROM WFL Yes Right Ankle/Foot ROM WFL Yes PT-OP-L Special Tests Start: 09/12/22 15:01 Freq: Status: Active Protocol: Document 09/04/22 13:00 [facility] (Rec: 09/12/22 16:05 [facility] [id number]) Special Tests Lumbar Spine Special Tests Vertical Spine Loading Test Results inc pain Manual Traction Test Results inc pain Slump Test Results inc pain Prone Press Up Test Results unable to lay prone Straight Leg Raise Test Results unable to do test PT-OP-M Strength Start: 09/12/22 15:01 Freq: Status: Active Protocol: Document 09/04/22 13:00 [facility] (Rec: 09/12/22 16:05 [facility] [id number]) Trunk Strength Trunk Manual Muscle Testing Core Stabilization poor Comments unable to tolerate testing Hip Strength Hip Manual Muscle Testing Left Flexion (L2) 2- Poor- Extension (S1) 2- Poor- Abduction 2- Poor- Adduction 2- Poor- External Rotation 2- Poor- Internal Rotation 2- Poor- Comments tested sitting and supine Right Flexion (L2) 4+ Good+ Extension (S1) 4- Good- Abduction 4- Good- Adduction 4- Good- External Rotation 4- Good- Internal Rotation 4- Good- Comments tested sitting and supine Knee Strength Knee Manual Muscle Testing Left Flexion (S2) 3- Fair- Extension (L3) 3- Fair- Right Flexion (S2) 5 Normal Extension (L3) 5 Normal Ankle/Foot Strength Ankle and Foot Manual Muscle Testing Left Dorsiflexion (L4) 2+ Poor+ Plantarflexion (S1) 3- Fair- Right Dorsiflexion (L4) 4 Good Plantarflexion (S1) 4 Good Toe Strength Toe Manual Muscle Testing Left Great Toe Extension 2+ Poor+ Right Great Toe Extension 5 Normal PT-OP-Q Treatments Start: 09/12/22 15:01 Freq: Status: Active Protocol: Document 11/19/22 13:34 SP (Rec: 11/19/22 14:27 SP [id number]) Gym Equipment Shuttle Balance red Details add next tx Therapeutic Exercises Supine Exercises SLR Supine Exercise Name reviewed Side left Reps/Minutes 5 reps before tires, 2 sets Comments cued QS/DF ankle neutral then lift nate stretch Supine Exercise Name reviewed Resistance left Equipment Used used strap for extra Reps/Minutes 60 x2 Comments diagonal trunk on table, strap PRN SAQ Supine Exercise Name HEP reviewed Side left Resistance TB #4 (blue at ankles) Equipment Used foam roller under knees Reps/Minutes 3 SH x10 Comments cued mid quad fac Prone Exercises quad stretch Prone Exercise Name reviewed Side left Equipment Used strap on L ankle Reps/Minutes 60 Comments cued breath, allow L hip relax toward table Sitting Exercises sciatic nerve glide Sitting Exercise Name initiated in PT Side left Reps/Minutes 10 reps- no change in tingling Comments trialed to decrease L hip buzzing L lat hip ant thigh med calf foot Standing Exercises band walk Standing Exercise Name f,b, lateral Resistance RTB Reps/Minutes 20 ft x2 laps Comments cued core/upright posture Manual Therapy Treatment Soft Tissue Mobilization quad, ITB Body Location L vastus lateralis, ITB Mobilization Type Myofascial Release,Strumming Intensity/Depth gentle Body Position Hooklying Comments gentle broad pressure Joint Mobilizations patella mo b Joint L Direction med/lat Grade II Body Position Supine Comments Improved patella mobility and pain went away during standing Neuro Re-Education Treatment Balance Activities hurdles Details fwd, lateral Equipment 6 hurdles, near rail PRN bal rec Reps/Duration 2 laps each direction Comments step to patterning, trial L LE caught, contact rail recover self. Cued tall posturing, scap comples&core, wt shift over stance LE with slow soft LE advancement to improve SLS time and stability. 2 laps before requires seated rest. PT-OP-R Modalities Start: 09/12/22 15:01 Freq: Status: Active Protocol: Document 11/12/22 07:58 SAK (Rec: 11/12/22 16:35 SAK [id number]) Hot Pack/Cold Pack Treatment Hot Pack Location left quad, ITB, ant hip Patient Position Supine Treatment Duration (minutes) 15 Patient Tolerance Good PT-OP-T Assessment and Plan Start: 09/12/22 15:01 Freq: Status: Active Protocol: Document 11/19/22 13:34 SP (Rec: 11/19/22 14:27 SP [id number]) Physical Therapy Assessment Goals Three Impairment activity tolerance Impairment LEFS 24% Short Term Goal (STG) Improve LEFS to at least 50% as measure of improved activity tolerance 10/22/22: goal progress STG Duration 12/05/22 Retirement Goal (LTG) Improve LEFS to at least 75% as measure of improved activity tolerance and quality of life LTG Duration 01/04/23 Four Impairment gait dysfunction Impairment antalgic, requires use of cane , walker, or wheelchair, can't ambulate on stairs Short Term Goal (STG) Patient to ambulate in the house without device and without a limp 10/14/22: Progressing can carry cane (less use) more short distance with small steps. Standign for 15 min at time before pain increases need sit . 10/29/22: progressing able to walk without AD across room but has limp and focus on quad fac pivot so L LE doesn't give out. Uses cane for support. Can't step out shower with due to LLE will give way . STG Duration 12/05/22 Retirement Goal (LTG) Patient able to ambulate at least 1/2 mile and up and down stairs with least restrictive device, without limp 10/29/22: Progressing: able now step to gait w/ hurrycane leading RLE up, LLE down. 11/04/22: step-to pattern on stairs, less limp on level surface with hurry cane, at times can ambulate without cane on level. LTG Duration 01/04/23 Two Impairment weakness left LE Short Term Goal (STG) Patient to be independent in individualized HEP as instructed by PT 10/14/22: compliant with HEP: add/abd isometrics seated, resisted HS curl, wall posture . 10/16/22: added alternating step taps, contact support needed on SPC. 11/04/22: continue to progress HEP, good compliance STG Duration 12/05/22 Retirement Goal (LTG) Patient to demonstrate left LE strength of at least 4/5 to help her resume usual activity LTG Duration 01/04/23 One Impairment pain left hip with radicular symptoms left LE Impairment 8/10 on pain scale [employer] Goal (LTG) decrease patient pain to no greater than 2/10 with all usual activities 10/14/22: progressing groin pain gone away but continuous pain L anterior thigh down to lower leg to arch foot. Cant sit or stand to long before worsens 8-10/10 at about 15 min. 10/29/22: Progressing: still L quad knots up and cramps up arch foot, decreased but still there and LLE prasanna at times. 11/04/22: pain persists but a lower level, ranging from 3-6/ 10 LTG Duration 01/04/23 Assessment Summary Assessment Pt tires SLR at 5 reps cues for maintain quad set knee alignment. Improved stance time LLE with cues for tall/ core/scap complex/ wt shift over stance LE/ soft stepping during band walk and hurdles added today. Decrease trunk wt shift walking out tx with no AD support. Pt reports pain at L patella went away noted during standing activities. Physical Therapy Plan Frequency and Duration Frequency of Treatment 2x/Week Duration of treatment (weeks) 8 Plan of Care Start Date 11/04/22 Plan of Care End Date 01/04/23 Therapeutic Interventions Therapeutic Interventions Gait Training,Home Exercise Program,Manual Therapy, Neuromuscular Re-education, Patient/Caregiver Education, Self-Care/Home Management,Soft Tissue Mobilization,Taping, Therapeutic Activities, Therapeutic Exercises Modalities Cold Pack/Ice Massage,Electric Stimulation,Hot Packs, Infrared Therapy,Traction- Mechanical,Ultrasound Next Visit Focus/Plan Next Note Type Treatment Note Next Visit Plan Continue hurdles for SLS time functional strengthening toward stair mgt. NExt shuttle balance. POC: Continue PT for strengthening, gait training, pain management to include manual therapy, traction, modalities PRN. Discuss any results from new imaging.
--- NOTE | 2022-11-21 11:00 | PT.OTN ---
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 Pain went down front of left leg to arch of foot with burning pain, reports spasms anterior left LE. A little better with use muscle relaxant new last week, weaned mostly off Hydrocodone , can't hardly get out of bed, walks from bed to bathroom only. Can't want much or go up stairs due to weakness. Neurologist ordered another MRI to include thoracic spine, scheduled for this Friday. EMG scheduled 10/10/22. assists with all household activities and ADL's . 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 Used to sleep on left side, can't now, has to sleep on right, sometimes pillow between legs though states sometimes that makes pain worse. Trying to get in to see neurologist before December. Prior Treatments and Tests MRI 06/29/22: multilevel mild overall degenerative change. Focal area of ill-defined density overlying the right foramina. This is suspected to be artifacts secondary to motion. However, mass in this egion cannot be definitely excluded. If patient is able to toelrate exam repeat views through this region are recommended. Future Testing and Treatments Planned Thoracic MRI this Friday EMG 10/10/22 Neurologist when able to get appoiintment PT-OP-C Subjective Start: 09/12/22 15:01 Freq: Status: Active Protocol: Document 11/21/22 10:02 SP (Rec: 11/21/22 10:53 SP [id number]) OP-PT Subjective Patient Comments Patient Comments Pt reports littel heavier UE WB on hurry cane today. She still getting that tingling down R leg to foot. Saw Dr Burger and is ordering a epidural for L4 and injections for B knees (R>L worse pain) for pain support. Dr Harpreet Dominguez at [facility] FriNovember 25 considering ordering another EMG. PT-OP-D Balance Start: 09/12/22 15:01 Freq: Status: Active Protocol: Document 09/04/22 13:00 SAK (Rec: 09/12/22 16:05 [facility] [id number]) OP-PT Balance Assessment Sitting Balance Static Sitting Balance Ability Good Dynamic Sitting Balance Ability Good Standing Balance Static Standing Balance Ability Fair Dynamic Standing Balance Ability Fair Device Used SPC Standing Balance Comments unable to tolerate other balance testing Al Fall Scale Copyright Permission PT-OP-G Mobility & Gait Start: 09/12/22 15:01 Freq: Status: Active Protocol: Document 09/04/22 13:00 SAK (Rec: 09/12/22 16:05 [facility] [id number]) OP Mobility Evaluation Bed Mobility Rolling painful Supine to and from Sit painful Transfers Sit to Stand painful, excess use right LE and UE's Car Transfers painful Floor Transfers unable Functional Movements Lifting and Carrying unable Squats unable OP Gait Assessment Gait Gait Assistance Required: Standby Assistance Distance (Feet) 80 Assistive Devices Assistive Device Straight Cane Orthotic/Prosthetic Devices or Brace: No Gait Deviations General Gait Pattern Antalgic,Decreased Stride Length,Decreased Feet Clearance,Lateral Trunk Lean, Wide Based Gait Stair Climbing Evaluation Comments Stair Climbing Comments unable PT-OP-H Neuro Start: 09/12/22 15:01 Freq: Status: Active Protocol: Document 09/04/22 13:00 SAK (Rec: 09/12/22 16:05 [facility] [id number]) Sensation Evaluation Gross Sensation Gross Sensation Left LE Impaired Sensation Description Numbness,Tingling,Pain PT-OP-J Posture/Palpation/Skin Start: 09/12/22 15:01 Freq: Status: Active Protocol: Document 09/04/22 13:00 [facility] (Rec: 09/12/22 16:05 [facility] [id number]) Posture Evaluation Position Standing Head/C-Spine Posture Forward Head T-Spine Posture Increased Kyphosis L-Spine Posture Flexible Scoliosis on (R) Shoulder Posture (L) Rounded,(R) Rounded Scapula Posture (L) Protracted,(R) Protracted Arm Posture (L) Internally Rotated,(R) Internally Rotated Palpation Assessment Location left hip Palpation Location ant,lat Palpation Findings Muscle Guarding,Tenderness PT-OP-K Range of Motion Start: 09/12/22 15:01 Freq: Status: Active Protocol: Document 09/04/22 13:00 [facility] (Rec: 09/12/22 16:05 [facility] [id number]) Lumbar Spine Range of Motion Lumbar Spine Active ROM Limitations Pain Comments mod dec all motions Hip Goniometric Range of Motion Hip Left Hip ROM WFL No Flexion w/Knee Flexed 90 Straight Leg Raise 45 Extension 0 Abduction 25 Internal Rotation 10 External Rotation 45 Comments all motions left needed PT assist due to weakness and pain Right Hip ROM WFL Yes Hip ROM Limitations Hip ROM Limitations Muscle Weakness,Pain Ankle and Foot Goniometric Range of Motion Ankle and Foot Left Ankle/Foot ROM WFL Yes Right Ankle/Foot ROM WFL Yes PT-OP-L Special Tests Start: 09/12/22 15:01 Freq: Status: Active Protocol: Document 09/04/22 13:00 [facility] (Rec: 09/12/22 16:05 [facility] [id number]) Special Tests Lumbar Spine Special Tests Vertical Spine Loading Test Results inc pain Manual Traction Test Results inc pain Slump Test Results inc pain Prone Press Up Test Results unable to lay prone Straight Leg Raise Test Results unable to do test PT-OP-M Strength Start: 09/12/22 15:01 Freq: Status: Active Protocol: Document 09/04/22 13:00 [facility] (Rec: 09/12/22 16:05 [facility] [id number]) Trunk Strength Trunk Manual Muscle Testing Core Stabilization poor Comments unable to tolerate testing Hip Strength Hip Manual Muscle Testing Left Flexion (L2) 2- Poor- Extension (S1) 2- Poor- Abduction 2- Poor- Adduction 2- Poor- External Rotation 2- Poor- Internal Rotation 2- Poor- Comments tested sitting and supine Right Flexion (L2) 4+ Good+ Extension (S1) 4- Good- Abduction 4- Good- Adduction 4- Good- External Rotation 4- Good- Internal Rotation 4- Good- Comments tested sitting and supine Knee Strength Knee Manual Muscle Testing Left Flexion (S2) 3- Fair- Extension (L3) 3- Fair- Right Flexion (S2) 5 Normal Extension (L3) 5 Normal Ankle/Foot Strength Ankle and Foot Manual Muscle Testing Left Dorsiflexion (L4) 2+ Poor+ Plantarflexion (S1) 3- Fair- Right Dorsiflexion (L4) 4 Good Plantarflexion (S1) 4 Good Toe Strength Toe Manual Muscle Testing Left Great Toe Extension 2+ Poor+ Right Great Toe Extension 5 Normal PT-OP-Q Treatments Start: 09/12/22 15:01 Freq: Status: Active Protocol: Document 11/21/22 10:02 SP (Rec: 11/21/22 10:53 SP [id number]) Cardio Equipment Recumbent Elliptical ([employer]) Duration (Minutes) 6 Resistance 3>2 Seat Position 7 Other UEs/ LEs at 3, LEs only at 2, 35 RPMs Therapeutic Exercises Supine Exercises nate stretch Supine Exercise Name reviewed Resistance left Equipment Used used strap for extra Reps/Minutes 2 min Comments diagonal trunk on table Manual Therapy Treatment Soft Tissue Mobilization iliopsoas Body Location left Mobilization Type Sustained Pressure Intensity/Depth Moderate quad, ITB Body Location L vastus lateralis, ITB Mobilization Type Instrument Assisted,Myofascial Release,Strumming Intensity/Depth gentle Body Position Hooklying Comments gentle broad pressure and use cupping sustained pressure and glide. Taping ITB, lateral quad Body Location L Treatment Focus hip flexor support Type of Tape Kinesio Tape Skin Inspection normal intact Comments 3 I strips mid quad, TFL mid ITB to inferior ASIS/ Lateral PT-OP-R Modalities Start: 09/12/22 15:01 Freq: Status: Active Protocol: Document 11/21/22 10:02 SP (Rec: 11/21/22 10:53 SP [id number]) Spinal Traction Traction Treatment Lumbar Method Static Patient Position Supine Force Applied (Pounds) 40 Duration of Treatment (Minutes) 10 Traction Treatment Comment bolster under lower legs, good feedback response PT-OP-T Assessment and Plan Start: 09/12/22 15:01 Freq: Status: Active Protocol: Document 11/21/22 10:02 SP (Rec: 11/21/22 10:53 SP [id number]) Physical Therapy Assessment Goals Three Impairment activity tolerance Impairment LEFS 24% Short Term Goal (STG) Improve LEFS to at least 50% as measure of improved activity tolerance 10/22/22: goal progress STG Duration 12/05/22 Long-Term Goal (LTG) Improve LEFS to at least 75% as measure of improved activity tolerance and quality of life LTG Duration 01/04/23 Four Impairment gait dysfunction Impairment antalgic, requires use of cane , walker, or wheelchair, can't ambulate on stairs Short Term Goal (STG) Patient to ambulate in the house without device and without a limp 10/14/22: Progressing can carry cane (less use) more short distance with small steps. Standign for 15 min at time before pain increases need sit . 10/29/22: progressing able to walk without AD across room but has limp and focus on quad fac pivot so L LE doesn't give out. Uses cane for support. Can't step out shower with due to LLE will give way . STG Duration 12/05/22 Long-Term Goal (LTG) Patient able to ambulate at least 1/2 mile and up and down stairs with least restrictive device, without limp 10/29/22: Progressing: able now step to gait w/ hurrycane leading RLE up, LLE down. 11/04/22: step-to pattern on stairs, less limp on level surface with hurry cane, at times can ambulate without cane on level. LTG Duration 01/04/23 Two Impairment weakness left LE Short Term Goal (STG) Patient to be independent in individualized HEP as instructed by PT 10/14/22: compliant with HEP: add/abd isometrics seated, resisted HS curl, wall posture . 10/16/22: added alternating step taps, contact support needed on SPC. 11/04/22: continue to progress HEP, good compliance STG Duration 12/05/22 [employer] Goal (LTG) Patient to demonstrate left LE strength of at least 4/5 to help her resume usual activity LTG Duration 01/04/23 One Impairment pain left hip with radicular symptoms left LE Impairment 8/10 on pain scale Long-Term Goal (LTG) decrease patient pain to no greater than 2/10 with all usual activities 10/14/22: progressing groin pain gone away but continuous pain L anterior thigh down to lower leg to arch foot. Cant sit or stand to long before worsens 8-10/10 at about 15 min. 10/29/22: Progressing: still L quad knots up and cramps up arch foot, decreased but still there and LLE prasanna at times. 11/04/22: pain persists but a lower level, ranging from 3-6/ 10 LTG Duration 01/04/23 Assessment Summary Assessment Tx focused on tight anterolateral L hip/thigh this tx. Good feedback use of cupping myofacial glide and use of mechanical traction for pain reduction in LB today. Physical Therapy Plan Frequency and Duration Frequency of Treatment 2x/Week Duration of treatment (weeks) 8 Plan of Care Start Date 11/04/22 Plan of Care End Date 01/04/23 Therapeutic Interventions Therapeutic Interventions Gait Training,Home Exercise Program,Manual Therapy, Neuromuscular Re-education, Patient/Caregiver Education, Self-Care/Home Management,Soft Tissue Mobilization,Taping, Therapeutic Activities, Therapeutic Exercises Modalities Cold Pack/Ice Massage,Electric Stimulation,Hot Packs, Infrared Therapy,Traction- Mechanical,Ultrasound Next Visit Focus/Plan Next Note Type Treatment Note Next Visit Plan Ask response to mechanical traction and cupping response reduce nerve pain last tx. POC : Continue hurdles for SLS time functional strengthening toward stair mgt. NExt shuttle balance. POC: Continue PT for strengthening, gait training, pain management to include manual therapy, traction, modalities PRN. Discuss any results from new imaging.
--- NOTE | 2022-11-26 15:38 | PT.OTN ---
Current Diagnoses Radiculopathy, site unspecified (11/26/22) Left lower quadrant pain (11/26/22) Ataxia, unspecified (11/26/22) Other symptoms and signs involving the musculoskeletal system (11/26/22) Physical Therapy Treatment Note PT-OP-A Visit Information Start: 09/12/22 15:01 Freq: Status: Active Protocol: Document 11/26/22 09:08 AMB (Rec: 11/26/22 10:03 AMB [id number]) Out-Patient Physical Therapy Visit Information Visit Information Visit Type Treatment Note Visit Start Time 09:00 Visit Stop Time 10:00 Total Visit Minutes 60 Visit Number 19 Number of LANDMAN Visits 0 PT-OP-B Current Condition Start: 09/12/22 15:01 Freq: Status: Active Protocol: Document 10/10/22 09:01 SAK (Rec: 10/10/22 09:44 SAK [id number]) Current Condition History of Current Condition Onset Date 06/21/23 Current Complaints left anterior hip pain, left leg weakness History of Current Condition Was in [place], had acute onset pain left anterior hip for no known reason, got worse including vomiting, HTN and tachycardia all lasted for about 1 week. Pain went down front of left leg to arch of foot with burning pain, reports spasms anterior left LE. A little better with use muscle relaxant new last week, weaned mostly off Hydrocodone , can't hardly get out of bed, walks from bed to bathroom only. Can't want much or go up stairs due to weakness. Neurologist ordered another MRI to include thoracic spine, scheduled for this Friday. EMG scheduled 10/10/22. assists with all household activities and ADL's . 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 Used to sleep on left side, can't now, has to sleep on right, sometimes pillow between legs though states sometimes that makes pain worse. Trying to get in to see neurologist before December. Prior Treatments and Tests MRI 06/29/22: multilevel mild overall degenerative change. Focal area of ill-defined density overlying the right foramina. This is suspected to be artifacts secondary to motion. However, mass in this egion cannot be definitely excluded. If patient is able to toelrate exam repeat views through this region are recommended. Future Testing and Treatments Planned Thoracic MRI this Friday EMG 10/10/22 Neurologist when able to get appoiintment PT-OP-C Subjective Start: 09/12/22 15:01 Freq: Status: Active Protocol: Document 11/26/22 09:08 AMB (Rec: 11/26/22 10:03 AMB [id number]) OP-PT Subjective Patient Comments Patient Comments Pt reports traction and PT-OP-D Balance Start: 09/12/22 15:01 Freq: Status: Active Protocol: Document 09/04/22 13:00 SAK (Rec: 09/12/22 16:05 SAK [id number]) OP-PT Balance Assessment Sitting Balance Static Sitting Balance Ability Good Dynamic Sitting Balance Ability Good Standing Balance Static Standing Balance Ability Fair Dynamic Standing Balance Ability Fair Device Used SPC Standing Balance Comments unable to tolerate other balance testing Al Fall Scale Copyright Permission PT-OP-G Mobility & Gait Start: 09/12/22 15:01 Freq: Status: Active Protocol: Document 09/04/22 13:00 SAK (Rec: 09/12/22 16:05 SAK [id number]) OP Mobility Evaluation Bed Mobility Rolling painful Supine to and from Sit painful Transfers Sit to Stand painful, excess use right LE and UE's Car Transfers painful Floor Transfers unable Functional Movements Lifting and Carrying unable Squats unable OP Gait Assessment Gait Gait Assistance Required: Standby Assistance Distance (Feet) 80 Assistive Devices Assistive Device Straight Cane Orthotic/Prosthetic Devices or Brace: No Gait Deviations General Gait Pattern Antalgic,Decreased Stride Length,Decreased Feet Clearance,Lateral Trunk Lean, Wide Based Gait Stair Climbing Evaluation Comments Stair Climbing Comments unable PT-OP-H Neuro Start: 09/12/22 15:01 Freq: Status: Active Protocol: Document 09/04/22 13:00 SAK (Rec: 09/12/22 16:05 SAK [id number]) Sensation Evaluation Gross Sensation Gross Sensation Left LE Impaired Sensation Description Numbness,Tingling,Pain PT-OP-J Posture/Palpation/Skin Start: 09/12/22 15:01 Freq: Status: Active Protocol: Document 09/04/22 13:00 SAK (Rec: 09/12/22 16:05 SAK [id number]) Posture Evaluation Position Standing Head/C-Spine Posture Forward Head T-Spine Posture Increased Kyphosis L-Spine Posture Flexible Scoliosis on (R) Shoulder Posture (L) Rounded,(R) Rounded Scapula Posture (L) Protracted,(R) Protracted Arm Posture (L) Internally Rotated,(R) Internally Rotated Palpation Assessment Location left hip Palpation Location ant,lat Palpation Findings Muscle Guarding,Tenderness PT-OP-K Range of Motion Start: 09/12/22 15:01 Freq: Status: Active Protocol: Document 09/04/22 13:00 [facility] (Rec: 09/12/22 16:05 [facility] [id number]) Lumbar Spine Range of Motion Lumbar Spine Active ROM Limitations Pain Comments mod dec all motions Hip Goniometric Range of Motion Hip Left Hip ROM WFL No Flexion w/Knee Flexed 90 Straight Leg Raise 45 Extension 0 Abduction 25 Internal Rotation 10 External Rotation 45 Comments all motions left needed PT assist due to weakness and pain Right Hip ROM WFL Yes Hip ROM Limitations Hip ROM Limitations Muscle Weakness,Pain Ankle and Foot Goniometric Range of Motion Ankle and Foot Left Ankle/Foot ROM WFL Yes Right Ankle/Foot ROM WFL Yes PT-OP-L Special Tests Start: 09/12/22 15:01 Freq: Status: Active Protocol: Document 09/04/22 13:00 [facility] (Rec: 09/12/22 16:05 [facility] [id number]) Special Tests Lumbar Spine Special Tests Vertical Spine Loading Test Results inc pain Manual Traction Test Results inc pain Slump Test Results inc pain Prone Press Up Test Results unable to lay prone Straight Leg Raise Test Results unable to do test PT-OP-M Strength Start: 09/12/22 15:01 Freq: Status: Active Protocol: Document 09/04/22 13:00 [facility] (Rec: 09/12/22 16:05 [facility] [id number]) Trunk Strength Trunk Manual Muscle Testing Core Stabilization poor Comments unable to tolerate testing Hip Strength Hip Manual Muscle Testing Left Flexion (L2) 2- Poor- Extension (S1) 2- Poor- Abduction 2- Poor- Adduction 2- Poor- External Rotation 2- Poor- Internal Rotation 2- Poor- Comments tested sitting and supine Right Flexion (L2) 4+ Good+ Extension (S1) 4- Good- Abduction 4- Good- Adduction 4- Good- External Rotation 4- Good- Internal Rotation 4- Good- Comments tested sitting and supine Knee Strength Knee Manual Muscle Testing Left Flexion (S2) 3- Fair- Extension (L3) 3- Fair- Right Flexion (S2) 5 Normal Extension (L3) 5 Normal Ankle/Foot Strength Ankle and Foot Manual Muscle Testing Left Dorsiflexion (L4) 2+ Poor+ Plantarflexion (S1) 3- Fair- Right Dorsiflexion (L4) 4 Good Plantarflexion (S1) 4 Good Toe Strength Toe Manual Muscle Testing Left Great Toe Extension 2+ Poor+ Right Great Toe Extension 5 Normal PT-OP-Q Treatments Start: 09/12/22 15:01 Freq: Status: Active Protocol: Document 11/26/22 09:08 AMB (Rec: 11/26/22 10:03 AMB [id number]) Cardio Equipment Recumbent Elliptical (Biodex) Duration (Minutes) 6 Resistance 3>2 Seat Position 7 Other UEs/ LEs at 3, LEs only at 2, 35 RPMs Gym Equipment Shuttle Recovery Bilateral Squats Resistance 50 Reps/Time 2x10 Shuttle Balance red Details challenging Reps/Duration 3 min Comments changed to blue and better tolerated by fatiguing Therapeutic Exercises Supine Exercises bridge Supine Exercise Name HEP reviewed Side bilateral Reps/Minutes 5 SH x10 Comments cues for core activation, pain -free ROM, brief contact then lift Standing Exercises calf raises Standing Exercise Name add: double up down x5, up double down L Equipment Used contact table- cues posturing w/ UE support needed Reps/Minutes 8 reps total before tired Comments challenged LLE self so instructed bilateral with emphasis wt shift more L step-ups Equipment Used 2 green foam pad Reps/Minutes 10x left LE Comments cues for core, quad a glut activation Manual Therapy Treatment Soft Tissue Mobilization iliopsoas Body Location left Mobilization Type Sustained Pressure Intensity/Depth Moderate PT-OP-R Modalities Start: 09/12/22 15:01 Freq: Status: Active Protocol: Document 11/26/22 09:00 AMB (Rec: 11/29/22 15:38 AMB [id number]) Spinal Traction Traction Treatment Lumbar Method Static Patient Position Supine Force Applied (Pounds) 40 Duration of Treatment (Minutes) 10 Traction Treatment Comment bolster under lower legs, good feedback response PT-OP-T Assessment and Plan Start: 09/12/22 15:01 Freq: Status: Active Protocol: Document 11/26/22 09:08 AMB (Rec: 11/26/22 10:03 AMB [id number]) Physical Therapy Assessment Goals Three Impairment activity tolerance Impairment LEFS 24% Short Term Goal (STG) Improve LEFS to at least 50% as measure of improved activity tolerance 10/22/22: goal progress STG Duration 12/05/22 [facility] Goal (LTG) Improve LEFS to at least 75% as measure of improved activity tolerance and quality of life LTG Duration 01/04/23 Four Impairment gait dysfunction Impairment antalgic, requires use of cane , walker, or wheelchair, can't ambulate on stairs Short Term Goal (STG) Patient to ambulate in the house without device and without a limp 10/14/22: Progressing can carry cane (less use) more short distance with small steps. Standign for 15 min at time before pain increases need sit . 10/29/22: progressing able to walk without AD across room but has limp and focus on quad fac pivot so L LE doesn't give out. Uses cane for support. Can't step out shower with due to LLE will give way . STG Duration 12/05/22 [facility] Goal (LTG) Patient able to ambulate at least 1/2 mile and up and down stairs with least restrictive device, without limp 10/29/22: Progressing: able now step to gait w/ hurrycane leading RLE up, LLE down. 11/04/22: step-to pattern on stairs, less limp on level surface with hurry cane, at times can ambulate without cane on level. LTG Duration 01/04/23 Two Impairment weakness left LE Short Term Goal (STG) Patient to be independent in individualized HEP as instructed by PT 10/14/22: compliant with HEP: add/abd isometrics seated, resisted HS curl, wall posture . 10/16/22: added alternating step taps, contact support needed on SPC. 11/04/22: continue to progress HEP, good compliance STG Duration 12/05/22 [employer] [facility] [facility] Goal (LTG) Patient to demonstrate left LE strength of at least 4/5 to help her resume usual activity LTG Duration 01/04/23 One Impairment pain left hip with radicular symptoms left LE Impairment 8/10 on pain scale [facility] Goal (LTG) decrease patient pain to no greater than 2/10 with all usual activities 10/14/22: progressing groin pain gone away but continuous pain L anterior thigh down to lower leg to arch foot. Cant sit or stand to long before worsens 8-10/10 at about 15 min. 10/29/22: Progressing: still L quad knots up and cramps up arch foot, decreased but still there and LLE prasanna at times. 11/04/22: pain persists but a lower level, ranging from 3-6/ 10 LTG Duration 01/04/23 Assessment Summary Assessment Stephanie is hopeful that spinal epidural will give info as far as cause of sx. Does find mechanical traction helfpul. Physical Therapy Plan Frequency and Duration Frequency of Treatment 2x/Week Duration of treatment (weeks) 8 Plan of Care Start Date 11/04/22 Plan of Care End Date 01/04/23 Therapeutic Interventions Therapeutic Interventions Gait Training,Home Exercise Program,Manual Therapy, Neuromuscular Re-education, Patient/Caregiver Education, Self-Care/Home Management,Soft Tissue Mobilization,Taping, Therapeutic Activities, Therapeutic Exercises Modalities Cold Pack/Ice Massage,Electric Stimulation,Hot Packs, Infrared Therapy,Traction- Mechanical,Ultrasound Next Visit Focus/Plan Next Note Type Treatment Note Next Visit Plan Ask response to mechanical traction and cupping response reduce nerve pain last tx. POC : Continue hurdles for SLS time functional strengthening toward stair mgt. NExt shuttle balance. POC: Continue PT for strengthening, gait training, pain management to include manual therapy, traction, modalities PRN. Discuss any results from new imaging.
--- NOTE | 2022-12-03 09:48 | PT.OTN ---
Current Diagnoses Radiculopathy, site unspecified (12/03/22) Left lower quadrant pain (12/03/22) Ataxia, unspecified (12/03/22) Other symptoms and signs involving the musculoskeletal system (12/03/22) Physical Therapy Treatment Note PT-OP-A Visit Information Start: 09/12/22 15:01 Freq: Status: Active Protocol: Document 12/03/22 09:04 SP (Rec: 12/03/22 09:53 SP [id number]) Out-Patient Physical Therapy Visit Information Visit Information Visit Type Treatment Note Visit Note 11/30 since PN Visit Start Time 09:04 Visit Stop Time 09:48 Total Visit Minutes 44 Visit Number 20 Number of DIVISION CHAIR Visits 1 Evaluation Information Evaluation Date 09/04/22 PT-OP-B Current Condition Start: 09/12/22 15:01 Freq: Status: Active Protocol: Document 10/10/22 09:01 SAK (Rec: 10/10/22 09:44 SAK [id number]) Current Condition History of Current Condition Onset Date 06/21/23 Current Complaints left anterior hip pain, left leg weakness History of Current Condition Was in [place], had acute onset pain left anterior hip for no known reason, got worse including vomiting, HTN and tachycardia all lasted for about 1 week. Pain went down front of left leg to arch of foot with burning pain, reports spasms anterior left LE. A little better with use muscle relaxant new last week, weaned mostly off Hydrocodone , can't hardly get out of bed, walks from bed to bathroom only. Can't want much or go up stairs due to weakness. Neurologist ordered another MRI to include thoracic spine, scheduled for this Friday. EMG scheduled 10/10/22. assists with all household activities and ADL's . 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 Used to sleep on left side, can't now, has to sleep on right, sometimes pillow between legs though states sometimes that makes pain worse. Trying to get in to see neurologist before December. Prior Treatments and Tests MRI 06/29/22: multilevel mild overall degenerative change. Focal area of ill-defined density overlying the right foramina. This is suspected to be artifacts secondary to motion. However, mass in this egion cannot be definitely excluded. If patient is able to toelrate exam repeat views through this region are recommended. Future Testing and Treatments Planned Thoracic MRI this Friday EMG 10/10/22 Neurologist when able to get appoiintment PT-OP-C Subjective Start: 09/12/22 15:01 Freq: Status: Active Protocol: Document 12/03/22 09:04 SP (Rec: 12/03/22 09:53 SP [id number]) OP-PT Subjective Patient Comments Patient Comments Pt reports doing well since Epidural Wed and injections in B knees on last week. She reports very faint click in B knees and no back pain now. She states still has the buzzing in L medial thigh into foot, more at night when lays down. SHe isn't having to use her cane but states carryies with her in case needs. Has appt with neurologist in December. PT-OP-D Balance Start: 09/12/22 15:01 Freq: Status: Active Protocol: Document 09/04/22 13:00 SAK (Rec: 09/12/22 16:05 SAK [id number]) OP-PT Balance Assessment Sitting Balance Static Sitting Balance Ability Good Dynamic Sitting Balance Ability Good Standing Balance Static Standing Balance Ability Fair Dynamic Standing Balance Ability Fair Device Used SPC Standing Balance Comments unable to tolerate other balance testing Al Fall Scale Copyright Permission PT-OP-G Mobility & Gait Start: 09/12/22 15:01 Freq: Status: Active Protocol: Document 09/04/22 13:00 SAK (Rec: 09/12/22 16:05 [facility] [id number]) OP Mobility Evaluation Bed Mobility Rolling painful Supine to and from Sit painful Transfers Sit to Stand painful, excess use right LE and UE's Car Transfers painful Floor Transfers unable Functional Movements Lifting and Carrying unable Squats unable OP Gait Assessment Gait Gait Assistance Required: Standby Assistance Distance (Feet) 80 Assistive Devices Assistive Device Straight Cane Orthotic/Prosthetic Devices or Brace: No Gait Deviations General Gait Pattern Antalgic,Decreased Stride Length,Decreased Feet Clearance,Lateral Trunk Lean, Wide Based Gait Stair Climbing Evaluation Comments Stair Climbing Comments unable PT-OP-H Neuro Start: 09/12/22 15:01 Freq: Status: Active Protocol: Document 09/04/22 13:00 SAK (Rec: 09/12/22 16:05 [facility] [id number]) Sensation Evaluation Gross Sensation Gross Sensation Left LE Impaired Sensation Description Numbness,Tingling,Pain PT-OP-J Posture/Palpation/Skin Start: 09/12/22 15:01 Freq: Status: Active Protocol: Document 09/04/22 13:00 [facility] (Rec: 09/12/22 16:05 [facility] [id number]) Posture Evaluation Position Standing Head/C-Spine Posture Forward Head T-Spine Posture Increased Kyphosis L-Spine Posture Flexible Scoliosis on (R) Shoulder Posture (L) Rounded,(R) Rounded Scapula Posture (L) Protracted,(R) Protracted Arm Posture (L) Internally Rotated,(R) Internally Rotated Palpation Assessment Location left hip Palpation Location ant,lat Palpation Findings Muscle Guarding,Tenderness PT-OP-K Range of Motion Start: 09/12/22 15:01 Freq: Status: Active Protocol: Document 09/04/22 13:00 [facility] (Rec: 09/12/22 16:05 [facility] [id number]) Lumbar Spine Range of Motion Lumbar Spine Active ROM Limitations Pain Comments mod dec all motions Hip Goniometric Range of Motion Hip Left Hip ROM WFL No Flexion w/Knee Flexed 90 Straight Leg Raise 45 Extension 0 Abduction 25 Internal Rotation 10 External Rotation 45 Comments all motions left needed PT assist due to weakness and pain Right Hip ROM WFL Yes Hip ROM Limitations Hip ROM Limitations Muscle Weakness,Pain Ankle and Foot Goniometric Range of Motion Ankle and Foot Left Ankle/Foot ROM WFL Yes Right Ankle/Foot ROM WFL Yes PT-OP-L Special Tests Start: 09/12/22 15:01 Freq: Status: Active Protocol: Document 09/04/22 13:00 [facility] (Rec: 09/12/22 16:05 [facility] [id number]) Special Tests Lumbar Spine Special Tests Vertical Spine Loading Test Results inc pain Manual Traction Test Results inc pain Slump Test Results inc pain Prone Press Up Test Results unable to lay prone Straight Leg Raise Test Results unable to do test PT-OP-M Strength Start: 09/12/22 15:01 Freq: Status: Active Protocol: Document 09/04/22 13:00 [facility] (Rec: 09/12/22 16:05 [facility] [id number]) Trunk Strength Trunk Manual Muscle Testing Core Stabilization poor Comments unable to tolerate testing Hip Strength Hip Manual Muscle Testing Left Flexion (L2) 2- Poor- Extension (S1) 2- Poor- Abduction 2- Poor- Adduction 2- Poor- External Rotation 2- Poor- Internal Rotation 2- Poor- Comments tested sitting and supine Right Flexion (L2) 4+ Good+ Extension (S1) 4- Good- Abduction 4- Good- Adduction 4- Good- External Rotation 4- Good- Internal Rotation 4- Good- Comments tested sitting and supine Knee Strength Knee Manual Muscle Testing Left Flexion (S2) 3- Fair- Extension (L3) 3- Fair- Right Flexion (S2) 5 Normal Extension (L3) 5 Normal Ankle/Foot Strength Ankle and Foot Manual Muscle Testing Left Dorsiflexion (L4) 2+ Poor+ Plantarflexion (S1) 3- Fair- Right Dorsiflexion (L4) 4 Good Plantarflexion (S1) 4 Good Toe Strength Toe Manual Muscle Testing Left Great Toe Extension 2+ Poor+ Right Great Toe Extension 5 Normal PT-OP-Q Treatments Start: 09/12/22 15:01 Freq: Status: Active Protocol: Document 12/03/22 09:04 SP (Rec: 12/03/22 09:53 SP [id number]) Cardio Equipment Recumbent Stepper (Sci-Fit) Duration (Minutes) 8 Resistance 3, .90 miles Seat Position 9 Other good form and response Therapeutic Exercises Sitting Exercises piriformis stretch Sitting Exercise Name added inPT Side bilateral Reps/Minutes 2x 20 Comments good feedback stretch B hip sciatic nerve glide Sitting Exercise Name HS stretch then sciatic n. glide Side left Reps/Minutes 2 min total Comments cued straight back hip hinge gd stretch, no reduction in L leg tingle Standing Exercises mini lunge Standing Exercise Name added to HEP Side bilateral Equipment Used light contact rail/chair mini squat Standing Exercise Name added to HEP Equipment Used hover chair, rail contact Reps/Minutes 2x5 reps Comments cued pelvis back with improved glut fac calf raises Standing Exercise Name reviewed: double up down x5, up double down L Reps/Minutes 10 reps total before tired, 2- 3 reps single with BUE support rail Comments challenged LLE self so instructed bilateral with emphasis wt shift more L band walk Standing Exercise Name f,b, lateral Resistance RTB- just below knees Reps/Minutes 20 ft x2 laps each direction Comments improved with cues core fac with each step with slow pacing, level pelvis step-ups Standing Exercise Name added toHEP Equipment Used 2 book Reps/Minutes 2x5 reps Comments cued knee behind toes, improved mid quad/glut fac Gait Training Gait Activity stairs Device Used 1 HR ascend, B UE descend receiprocal. Distance/Duration 4 stairs x2 laps Treatment Focus receiprocal stepping PT-OP-R Modalities Start: 09/12/22 15:01 Freq: Status: Active Protocol: Document 11/26/22 09:00 AMB (Rec: 11/29/22 15:38 AMB [id number]) Spinal Traction Traction Treatment Lumbar Method Static Patient Position Supine Force Applied (Pounds) 40 Duration of Treatment (Minutes) 10 Traction Treatment Comment bolster under lower legs, good feedback response PT-OP-T Assessment and Plan Start: 09/12/22 15:01 Freq: Status: Active Protocol: Document 12/03/22 09:04 SP (Rec: 12/03/22 09:53 SP [id number]) Physical Therapy Assessment Goals Three Impairment activity tolerance Impairment LEFS 24% Short Term Goal (STG) Improve LEFS to at least 50% as measure of improved activity tolerance 10/22/22: goal progress STG Duration 12/05/22 Half-Way Goal (LTG) Improve LEFS to at least 75% as measure of improved activity tolerance and quality of life LTG Duration 01/04/23 Four Impairment gait dysfunction Impairment antalgic, requires use of cane , walker, or wheelchair, can't ambulate on stairs Short Term Goal (STG) Patient to ambulate in the house without device and without a limp 10/14/22: Progressing can carry cane (less use) more short distance with small steps. Standign for 15 min at time before pain increases need sit . 10/29/22: progressing able to walk without AD across room but has limp and focus on quad fac pivot so L LE doesn't give out. Uses cane for support. Can't step out shower with due to LLE will give way . 12/03/22: GOAL MET pt doing well since epidural and B knee injection last week. Most part painfree without use AD. STG Duration 12/05/22 GOAL MET 12/03/22 Half-Way Goal (LTG) Patient able to ambulate at least 1/2 mile and up and down stairs with least restrictive device, without limp 10/29/22: Progressing: able now step to gait w/ hurrycane leading RLE up, LLE down. 11/04/22: step-to pattern on stairs, less limp on level surface with hurry cane, at times can ambulate without cane on level. LTG Duration 01/04/23 Two Impairment weakness left LE Short Term Goal (STG) Patient to be independent in individualized HEP as instructed by PT 10/14/22: compliant with HEP: add/abd isometrics seated, resisted HS curl, wall posture . 10/16/22: added alternating step taps, contact support needed on SPC. 11/04/22: continue to progress HEP, good compliance STG Duration 12/05/22 Coin Machine Operator Goal (LTG) Patient to demonstrate left LE strength of at least 4/5 to help her resume usual activity LTG Duration 01/04/23 One Impairment pain left hip with radicular symptoms left LE Impairment 8/10 on pain scale Coin Machine Operator Goal (LTG) decrease patient pain to no greater than 2/10 with all usual activities 10/14/22: progressing groin pain gone away but continuous pain L anterior thigh down to lower leg to arch foot. Cant sit or stand to long before worsens 8-10/10 at about 15 min. 10/29/22: Progressing: still L quad knots up and cramps up arch foot, decreased but still there and LLE prasanna at times. 11/04/22: pain persists but a lower level, ranging from 3-6/ 10 LTG Duration 01/04/23 Assessment Summary Assessment Pt worked hard, no pain just quicker tiring in thighs this tx. Able to progress ther ex today. CUes for proper set up and form, provided HOs. Physical Therapy Plan Next Visit Focus/Plan Next Note Type Treatment Note Next Visit Plan Assess response to added ther ex last tx. POC: Continue hurdles for SLS time functional strengthening toward stair mgt. NExt shuttle balance. POC: Continue PT for strengthening, gait training, pain management to include manual therapy, traction, modalities PRN. Discuss any results from new imaging.
--- NOTE | 2022-12-05 09:04 | PT.OTN ---
Current Diagnoses Radiculopathy, site unspecified (12/05/22) Left lower quadrant pain (12/05/22) Ataxia, unspecified (12/05/22) Other symptoms and signs involving the musculoskeletal system (12/05/22) Physical Therapy Treatment Note PT-OP-A Visit Information Start: 09/12/22 15:01 Freq: Status: Active Protocol: Document 12/05/22 08:26 SP (Rec: 12/05/22 09:04 SP [id number]) Out-Patient Physical Therapy Visit Information Visit Information Visit Type Treatment Note Visit Note 12/30 since PN Visit Start Time 08:26 Visit Stop Time 09:04 Total Visit Minutes 38 Visit Number 21 Number of PRIMARY HEALTH CARE NURSE Visits 2 Evaluation Information Evaluation Date 09/04/22 PT-OP-B Current Condition Start: 09/12/22 15:01 Freq: Status: Active Protocol: Document 10/10/22 09:01 SAK (Rec: 10/10/22 09:44 SAK [id number]) Current Condition History of Current Condition Onset Date 06/21/23 Current Complaints left anterior hip pain, left leg weakness History of Current Condition Was in [place], had acute onset pain left anterior hip for no known reason, got worse including vomiting, HTN and tachycardia all lasted for about 1 week. Pain went down front of left leg to arch of foot with burning pain, reports spasms anterior left LE. A little better with use muscle relaxant new last week, weaned mostly off Hydrocodone , can't hardly get out of bed, walks from bed to bathroom only. Can't want much or go up stairs due to weakness. Neurologist ordered another MRI to include thoracic spine, scheduled for this Friday. EMG scheduled 10/10/22. assists with all household activities and ADL's . 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 Used to sleep on left side, can't now, has to sleep on right, sometimes pillow between legs though states sometimes that makes pain worse. Trying to get in to see neurologist before December. Prior Treatments and Tests MRI 06/29/22: multilevel mild overall degenerative change. Focal area of ill-defined density overlying the right foramina. This is suspected to be artifacts secondary to motion. However, mass in this egion cannot be definitely excluded. If patient is able to toelrate exam repeat views through this region are recommended. Future Testing and Treatments Planned Thoracic MRI this Friday EMG 10/10/22 Neurologist when able to get appoiintment PT-OP-C Subjective Start: 09/12/22 15:01 Freq: Status: Active Protocol: Document 12/05/22 08:26 SP (Rec: 12/05/22 09:04 SP [id number]) OP-PT Subjective Patient Comments Patient Comments Pt report low back sore but did well after last tx muscle little sore like work out but did well. PT-OP-D Balance Start: 09/12/22 15:01 Freq: Status: Active Protocol: Document 09/04/22 13:00 SAK (Rec: 09/12/22 16:05 SAK [id number]) OP-PT Balance Assessment Sitting Balance Static Sitting Balance Ability Good Dynamic Sitting Balance Ability Good Standing Balance Static Standing Balance Ability Fair Dynamic Standing Balance Ability Fair Device Used SPC Standing Balance Comments unable to tolerate other balance testing Al Fall Scale Copyright Permission PT-OP-G Mobility & Gait Start: 09/12/22 15:01 Freq: Status: Active Protocol: Document 09/04/22 13:00 SAK (Rec: 09/12/22 16:05 [facility] [id number]) OP Mobility Evaluation Bed Mobility Rolling painful Supine to and from Sit painful Transfers Sit to Stand painful, excess use right LE and UE's Car Transfers painful Floor Transfers unable Functional Movements Lifting and Carrying unable Squats unable OP Gait Assessment Gait Gait Assistance Required: Standby Assistance Distance (Feet) 80 Assistive Devices Assistive Device Straight Cane Orthotic/Prosthetic Devices or Brace: No Gait Deviations General Gait Pattern Antalgic,Decreased Stride Length,Decreased Feet Clearance,Lateral Trunk Lean, Wide Based Gait Stair Climbing Evaluation Comments Stair Climbing Comments unable PT-OP-H Neuro Start: 09/12/22 15:01 Freq: Status: Active Protocol: Document 09/04/22 13:00 SAK (Rec: 09/12/22 16:05 SAK [id number]) Sensation Evaluation Gross Sensation Gross Sensation Left LE Impaired Sensation Description Numbness,Tingling,Pain PT-OP-J Posture/Palpation/Skin Start: 09/12/22 15:01 Freq: Status: Active Protocol: Document 09/04/22 13:00 SAK (Rec: 09/12/22 16:05 SAK [id number]) Posture Evaluation Position Standing Head/C-Spine Posture Forward Head T-Spine Posture Increased Kyphosis L-Spine Posture Flexible Scoliosis on (R) Shoulder Posture (L) Rounded,(R) Rounded Scapula Posture (L) Protracted,(R) Protracted Arm Posture (L) Internally Rotated,(R) Internally Rotated Palpation Assessment Location left hip Palpation Location ant,lat Palpation Findings Muscle Guarding,Tenderness PT-OP-K Range of Motion Start: 09/12/22 15:01 Freq: Status: Active Protocol: Document 09/04/22 13:00 [facility] (Rec: 09/12/22 16:05 [facility] [id number]) Lumbar Spine Range of Motion Lumbar Spine Active ROM Limitations Pain Comments mod dec all motions Hip Goniometric Range of Motion Hip Left Hip ROM WFL No Flexion w/Knee Flexed 90 Straight Leg Raise 45 Extension 0 Abduction 25 Internal Rotation 10 External Rotation 45 Comments all motions left needed PT assist due to weakness and pain Right Hip ROM WFL Yes Hip ROM Limitations Hip ROM Limitations Muscle Weakness,Pain Ankle and Foot Goniometric Range of Motion Ankle and Foot Left Ankle/Foot ROM WFL Yes Right Ankle/Foot ROM WFL Yes PT-OP-L Special Tests Start: 09/12/22 15:01 Freq: Status: Active Protocol: Document 09/04/22 13:00 [facility] (Rec: 09/12/22 16:05 [facility] [id number]) Special Tests Lumbar Spine Special Tests Vertical Spine Loading Test Results inc pain Manual Traction Test Results inc pain Slump Test Results inc pain Prone Press Up Test Results unable to lay prone Straight Leg Raise Test Results unable to do test PT-OP-M Strength Start: 09/12/22 15:01 Freq: Status: Active Protocol: Document 09/04/22 13:00 [facility] (Rec: 09/12/22 16:05 [facility] [id number]) Trunk Strength Trunk Manual Muscle Testing Core Stabilization poor Comments unable to tolerate testing Hip Strength Hip Manual Muscle Testing Left Flexion (L2) 2- Poor- Extension (S1) 2- Poor- Abduction 2- Poor- Adduction 2- Poor- External Rotation 2- Poor- Internal Rotation 2- Poor- Comments tested sitting and supine Right Flexion (L2) 4+ Good+ Extension (S1) 4- Good- Abduction 4- Good- Adduction 4- Good- External Rotation 4- Good- Internal Rotation 4- Good- Comments tested sitting and supine Knee Strength Knee Manual Muscle Testing Left Flexion (S2) 3- Fair- Extension (L3) 3- Fair- Right Flexion (S2) 5 Normal Extension (L3) 5 Normal Ankle/Foot Strength Ankle and Foot Manual Muscle Testing Left Dorsiflexion (L4) 2+ Poor+ Plantarflexion (S1) 3- Fair- Right Dorsiflexion (L4) 4 Good Plantarflexion (S1) 4 Good Toe Strength Toe Manual Muscle Testing Left Great Toe Extension 2+ Poor+ Right Great Toe Extension 5 Normal PT-OP-Q Treatments Start: 09/12/22 15:01 Freq: Status: Active Protocol: Document 12/05/22 08:26 SP (Rec: 12/05/22 09:04 SP [id number]) Therapeutic Exercises Supine Exercises LTR Supine Exercise Name stretch Side bilateral Reps/Minutes x5 3 breath hold Comments good QL stretch Standing Exercises mini lunge Standing Exercise Name reviewed HEP Side bilateral Equipment Used light contact rail&chair Reps/Minutes 2x5 reps Comments cued glut fac, set up foot positioning mini squat Standing Exercise Name reviewed HEP Equipment Used hover chair, rail contact Reps/Minutes 2x5 reps Comments cued pelvis back with improved glut fac calf raises Standing Exercise Name reviewed: double up down x5, up double down L Reps/Minutes 10 reps B, 3-5 reps eccentric single with BUE support rail Comments challenged LLE self so instructed bilateral with emphasis wt shift more L band walk Standing Exercise Name f,b, lateral Resistance RTB- just below knees (TB #3 [place]) Reps/Minutes 20 ft x2 laps each direction Comments Improved level pelvis/Hp fac with occasional cue for TA fac & slower pacing step-ups Standing Exercise Name reviewed HEP Equipment Used 2 book Reps/Minutes 2x5 reps Comments cued knee behind toes, improved mid quad/glut fac Other Exercises self STMs Other Exercise Name ball wall: ES, Glut Side bilateral Reps/Minutes 2 min total Comments good feedback massage, painfree Manual Therapy Treatment Soft Tissue Mobilization LB Body Location B QL, ES, paraspinal Mobilization Type Myofascial Release,Strumming Intensity/Depth Moderate Body Position Prone Comments Good feedback response quad, ITB Body Location L vastus lateralis, ITB Mobilization Type Instrument Assisted,Myofascial Release,Strumming Intensity/Depth gentle Body Position Hooklying Comments gentle broad pressure and use cupping sustained pressure and glide. Joint Mobilizations patella mo b Joint L Direction med/lat Grade II Body Position Supine Comments Improved patella mobility and pain went away during standing PT-OP-R Modalities Start: 09/12/22 15:01 Freq: Status: Active Protocol: Document 11/26/22 09:00 AMB (Rec: 11/29/22 15:38 AMB [id number]) Spinal Traction Traction Treatment Lumbar Method Static Patient Position Supine Force Applied (Pounds) 40 Duration of Treatment (Minutes) 10 Traction Treatment Comment bolster under lower legs, good feedback response PT-OP-T Assessment and Plan Start: 09/12/22 15:01 Freq: Status: Active Protocol: Document 12/05/22 08:26 SP (Rec: 12/05/22 09:04 SP [id number]) Physical Therapy Assessment Goals Three Impairment activity tolerance Impairment LEFS 24% Short Term Goal (STG) Improve LEFS to at least 50% as measure of improved activity tolerance 10/22/22: goal progress STG Duration 12/05/22 Fpc Goal (LTG) Improve LEFS to at least 75% as measure of improved activity tolerance and quality of life LTG Duration 01/04/23 Four Impairment gait dysfunction Impairment antalgic, requires use of cane , walker, or wheelchair, can't ambulate on stairs Short Term Goal (STG) Patient to ambulate in the house without device and without a limp 10/14/22: Progressing can carry cane (less use) more short distance with small steps. Standign for 15 min at time before pain increases need sit . 10/29/22: progressing able to walk without AD across room but has limp and focus on quad fac pivot so L LE doesn't give out. Uses cane for support. Can't step out shower with due to LLE will give way . 12/03/22: GOAL MET pt doing well since epidural and B knee injection last week. Most part painfree without use AD. STG Duration 12/05/22 GOAL MET 12/03/22 [employer] Goal (LTG) Patient able to ambulate at least 1/2 mile and up and down stairs with least restrictive device, without limp 10/29/22: Progressing: able now step to gait w/ hurrycane leading RLE up, LLE down. 11/04/22: step-to pattern on stairs, less limp on level surface with hurry cane, at times can ambulate without cane on level. LTG Duration 01/04/23 Two Impairment weakness left LE Short Term Goal (STG) Patient to be independent in individualized HEP as instructed by PT 10/14/22: compliant with HEP: add/abd isometrics seated, resisted HS curl, wall posture . 10/16/22: added alternating step taps, contact support needed on SPC. 11/04/22: continue to progress HEP, good compliance STG Duration 12/05/22 Fpc Goal (LTG) Patient to demonstrate left LE strength of at least 4/5 to help her resume usual activity LTG Duration 01/04/23 One Impairment pain left hip with radicular symptoms left LE Impairment 8/10 on pain scale Le[employer]er Goal (LTG) decrease patient pain to no greater than 2/10 with all usual activities 10/14/22: progressing groin pain gone away but continuous pain L anterior thigh down to lower leg to arch foot. Cant sit or stand to long before worsens 8-10/10 at about 15 min. 10/29/22: Progressing: still L quad knots up and cramps up arch foot, decreased but still there and LLE prasanna at times. 11/04/22: pain persists but a lower level, ranging from 3-6/ 10 LTG Duration 01/04/23 Assessment Summary Assessment Pt reports feels hip abd,quad, glut fac during ther ex. LLE step ups shaky end tx but good heel drive R toe does have to help last 2 reps due to tiring. Just muscle soreness work end tx, no pain. CUed soft knee during eccentric calf raises and noted no sub patella clicking. Ed provided for self STMs and patella mobs for support as well. Physical Therapy Plan Frequency and Duration Frequency of Treatment 2x/Week Duration of treatment (weeks) 8 Plan of Care Start Date 11/04/22 Plan of Care End Date 01/04/23 Therapeutic Interventions Therapeutic Interventions Gait Training,Home Exercise Program,Manual Therapy, Neuromuscular Re-education, Patient/Caregiver Education, Self-Care/Home Management,Soft Tissue Mobilization,Taping, Therapeutic Activities, Therapeutic Exercises Modalities Cold Pack/Ice Massage,Electric Stimulation,Hot Packs, Infrared Therapy,Traction- Mechanical,Ultrasound Next Visit Focus/Plan Next Note Type Treatment Note Next Visit Plan Assess response to added ther ex last tx. POC: Continue hurdles for SLS time functional strengthening toward stair mgt. NExt shuttle balance. POC: Continue PT for strengthening, gait training, pain management to include manual therapy, traction, modalities PRN. Discuss any results from new imaging.
--- NOTE | 2022-12-10 13:29 | PT.OTN ---
Current Diagnoses Radiculopathy, site unspecified (12/10/22) Left lower quadrant pain (12/10/22) Ataxia, unspecified (12/10/22) Other symptoms and signs involving the musculoskeletal system (12/10/22) Physical Therapy Treatment Note PT-OP-A Visit Information Start: 09/12/22 15:01 Freq: Status: Active Protocol: Document 12/10/22 09:00 AMB (Rec: 12/10/22 11:57 AMB [id number]) Out-Patient Physical Therapy Visit Information Visit Information Visit Type Treatment Note Visit Note 01/30 since PN Visit Start Time 09:00 Visit Stop Time 09:40 Total Visit Minutes 40 Visit Number 22 Number of [employer] Visits 0 PT-OP-B Current Condition Start: 09/12/22 15:01 Freq: Status: Active Protocol: Document 10/10/22 09:01 SAK (Rec: 10/10/22 09:44 SAK [id number]) Current Condition History of Current Condition Onset Date 06/21/23 Current Complaints left anterior hip pain, left leg weakness History of Current Condition Was in [place], had acute onset pain left anterior hip for no known reason, got worse including vomiting, HTN and tachycardia all lasted for about 1 week. Pain went down front of left leg to arch of foot with burning pain, reports spasms anterior left LE. A little better with use muscle relaxant new last week, weaned mostly off Hydrocodone , can't hardly get out of bed, walks from bed to bathroom only. Can't want much or go up stairs due to weakness. Neurologist ordered another MRI to include thoracic spine, scheduled for this Friday. EMG scheduled 10/10/22. assists with all household activities and ADL's . 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 Used to sleep on left side, can't now, has to sleep on right, sometimes pillow between legs though states sometimes that makes pain worse. Trying to get in to see neurologist before December. Prior Treatments and Tests MRI 06/29/22: multilevel mild overall degenerative change. Focal area of ill-defined density overlying the right foramina. This is suspected to be artifacts secondary to motion. However, mass in this egion cannot be definitely excluded. If patient is able to toelrate exam repeat views through this region are recommended. Future Testing and Treatments Planned Thoracic MRI this Friday EMG 10/10/22 Neurologist when able to get appoiintment PT-OP-C Subjective Start: 09/12/22 15:01 Freq: Status: Active Protocol: Document 12/10/22 09:00 AMB (Rec: 12/10/22 11:57 AMB [id number]) OP-PT Subjective Patient Comments Patient Comments Pt reports overall walking better since epidural, does continue to have numbness over L thigh. PT-OP-D Balance Start: 09/12/22 15:01 Freq: Status: Active Protocol: Document 09/04/22 13:00 SAK (Rec: 09/12/22 16:05 SAK [id number]) OP-PT Balance Assessment Sitting Balance Static Sitting Balance Ability Good Dynamic Sitting Balance Ability Good Standing Balance Static Standing Balance Ability Fair Dynamic Standing Balance Ability Fair Device Used SPC Standing Balance Comments unable to tolerate other balance testing Al Fall Scale Copyright Permission PT-OP-G Mobility & Gait Start: 09/12/22 15:01 Freq: Status: Active Protocol: Document 09/04/22 13:00 SAK (Rec: 09/12/22 16:05 SAK [id number]) OP Mobility Evaluation Bed Mobility Rolling painful Supine to and from Sit painful Transfers Sit to Stand painful, excess use right LE and UE's Car Transfers painful Floor Transfers unable Functional Movements Lifting and Carrying unable Squats unable OP Gait Assessment Gait Gait Assistance Required: Standby Assistance Distance (Feet) 80 Assistive Devices Assistive Device Straight Cane Orthotic/Prosthetic Devices or Brace: No Gait Deviations General Gait Pattern Antalgic,Decreased Stride Length,Decreased Feet Clearance,Lateral Trunk Lean, Wide Based Gait Stair Climbing Evaluation Comments Stair Climbing Comments unable PT-OP-H Neuro Start: 09/12/22 15:01 Freq: Status: Active Protocol: Document 09/04/22 13:00 SAK (Rec: 09/12/22 16:05 SAK [id number]) Sensation Evaluation Gross Sensation Gross Sensation Left LE Impaired Sensation Description Numbness,Tingling,Pain PT-OP-J Posture/Palpation/Skin Start: 09/12/22 15:01 Freq: Status: Active Protocol: Document 09/04/22 13:00 SAK (Rec: 09/12/22 16:05 SAK [id number]) Posture Evaluation Position Standing Head/C-Spine Posture Forward Head T-Spine Posture Increased Kyphosis L-Spine Posture Flexible Scoliosis on (R) Shoulder Posture (L) Rounded,(R) Rounded Scapula Posture (L) Protracted,(R) Protracted Arm Posture (L) Internally Rotated,(R) Internally Rotated Palpation Assessment Location left hip Palpation Location ant,lat Palpation Findings Muscle Guarding,Tenderness PT-OP-K Range of Motion Start: 09/12/22 15:01 Freq: Status: Active Protocol: Document 09/04/22 13:00 [facility] (Rec: 09/12/22 16:05 [facility] [id number]) Lumbar Spine Range of Motion Lumbar Spine Active ROM Limitations Pain Comments mod dec all motions Hip Goniometric Range of Motion Hip Left Hip ROM WFL No Flexion w/Knee Flexed 90 Straight Leg Raise 45 Extension 0 Abduction 25 Internal Rotation 10 External Rotation 45 Comments all motions left needed PT assist due to weakness and pain Right Hip ROM WFL Yes Hip ROM Limitations Hip ROM Limitations Muscle Weakness,Pain Ankle and Foot Goniometric Range of Motion Ankle and Foot Left Ankle/Foot ROM WFL Yes Right Ankle/Foot ROM WFL Yes PT-OP-L Special Tests Start: 09/12/22 15:01 Freq: Status: Active Protocol: Document 09/04/22 13:00 [facility] (Rec: 09/12/22 16:05 [facility] [id number]) Special Tests Lumbar Spine Special Tests Vertical Spine Loading Test Results inc pain Manual Traction Test Results inc pain Slump Test Results inc pain Prone Press Up Test Results unable to lay prone Straight Leg Raise Test Results unable to do test PT-OP-M Strength Start: 09/12/22 15:01 Freq: Status: Active Protocol: Document 09/04/22 13:00 [facility] (Rec: 09/12/22 16:05 [facility] [id number]) Trunk Strength Trunk Manual Muscle Testing Core Stabilization poor Comments unable to tolerate testing Hip Strength Hip Manual Muscle Testing Left Flexion (L2) 2- Poor- Extension (S1) 2- Poor- Abduction 2- Poor- Adduction 2- Poor- External Rotation 2- Poor- Internal Rotation 2- Poor- Comments tested sitting and supine Right Flexion (L2) 4+ Good+ Extension (S1) 4- Good- Abduction 4- Good- Adduction 4- Good- External Rotation 4- Good- Internal Rotation 4- Good- Comments tested sitting and supine Knee Strength Knee Manual Muscle Testing Left Flexion (S2) 3- Fair- Extension (L3) 3- Fair- Right Flexion (S2) 5 Normal Extension (L3) 5 Normal Ankle/Foot Strength Ankle and Foot Manual Muscle Testing Left Dorsiflexion (L4) 2+ Poor+ Plantarflexion (S1) 3- Fair- Right Dorsiflexion (L4) 4 Good Plantarflexion (S1) 4 Good Toe Strength Toe Manual Muscle Testing Left Great Toe Extension 2+ Poor+ Right Great Toe Extension 5 Normal PT-OP-Q Treatments Start: 09/12/22 15:01 Freq: Status: Active Protocol: Document 12/10/22 09:00 AMB (Rec: 12/10/22 13:25 AMB [id number]) Therapeutic Exercises Standing Exercises mini lunge Standing Exercise Name reviewed HEP Side bilateral Equipment Used light contact rail&chair Reps/Minutes 2x5 reps Comments cued glut fac, set up foot positioning mini squat Standing Exercise Name reviewed HEP Equipment Used hover chair, rail contact Reps/Minutes 2x5 reps Comments cued pelvis back with improved glut fac calf raises Standing Exercise Name reviewed: double up down x5, up double down L Reps/Minutes 10 reps B, 3-5 reps eccentric single with BUE support rail Comments challenged LLE self so instructed bilateral with emphasis wt shift more L step-ups Standing Exercise Name reviewed HEP Equipment Used 4 stair Reps/Minutes 2x5 reps Comments challenging with 1 railing support Manual Therapy Treatment Soft Tissue Mobilization iliopsoas Body Location left Mobilization Type Sustained Pressure Intensity/Depth Moderate quad, ITB Body Location L vastus lateralis, ITB Mobilization Type Instrument Assisted,Myofascial Release,Strumming Intensity/Depth gentle Body Position Hooklying Comments gentle broad pressure Neuro Re-Education Treatment Balance Activities hurdles Details fwd, lateral Equipment 6 hurdles, near rail PRN bal rec Reps/Duration 2 laps each direction Comments Working on step over step patterning. Cued tall posturing, scap comples&core, wt shift over stance LE with slow soft LE advancement to improve SLS time and stability . PT-OP-R Modalities Start: 09/12/22 15:01 Freq: Status: Active Protocol: Document 11/26/22 09:00 AMB (Rec: 11/29/22 15:38 AMB [id number]) Spinal Traction Traction Treatment Lumbar Method Static Patient Position Supine Force Applied (Pounds) 40 Duration of Treatment (Minutes) 10 Traction Treatment Comment bolster under lower legs, good feedback response PT-OP-T Assessment and Plan Start: 09/12/22 15:01 Freq: Status: Active Protocol: Document 12/10/22 09:00 AMB (Rec: 12/10/22 11:57 AMB [id number]) Physical Therapy Assessment Goals Three Impairment activity tolerance Impairment LEFS 24% Short Term Goal (STG) Improve LEFS to at least 50% as measure of improved activity tolerance 10/22/22: goal progress STG Duration 12/05/22 [employer] Goal (LTG) Improve LEFS to at least 75% as measure of improved activity tolerance and quality of life LTG Duration 01/04/23 Four Impairment gait dysfunction Impairment antalgic, requires use of cane , walker, or wheelchair, can't ambulate on stairs Short Term Goal (STG) Patient to ambulate in the house without device and without a limp 10/14/22: Progressing can carry cane (less use) more short distance with small steps. Standign for 15 min at time before pain increases need sit . 10/29/22: progressing able to walk without AD across room but has limp and focus on quad fac pivot so L LE doesn't give out. Uses cane for support. Can't step out shower with due to LLE will give way . 12/03/22: GOAL MET pt doing well since epidural and B knee injection last week. Most part painfree without use AD. STG Duration 12/05/22 GOAL MET 12/03/22 [employer] Goal (LTG) Patient able to ambulate at least 1/2 mile and up and down stairs with least restrictive device, without limp 10/29/22: Progressing: able now step to gait w/ hurrycane leading RLE up, LLE down. 11/04/22: step-to pattern on stairs, less limp on level surface with hurry cane, at times can ambulate without cane on level. LTG Duration 01/04/23 Two Impairment weakness left LE Short Term Goal (STG) Patient to be independent in individualized HEP as instructed by PT 10/14/22: compliant with HEP: add/abd isometrics seated, resisted HS curl, wall posture . 10/16/22: added alternating step taps, contact support needed on SPC. 11/04/22: continue to progress HEP, good compliance STG Duration 12/05/22 [employer] Goal (LTG) Patient to demonstrate left LE strength of at least 4/5 to help her resume usual activity LTG Duration 01/04/23 One Impairment pain left hip with radicular symptoms left LE Impairment 8/10 on pain scale [employer] Goal (LTG) decrease patient pain to no greater than 2/10 with all usual activities 10/14/22: progressing groin pain gone away but continuous pain L anterior thigh down to lower leg to arch foot. Cant sit or stand to long before worsens 8-10/10 at about 15 min. 10/29/22: Progressing: still L quad knots up and cramps up arch foot, decreased but still there and LLE prasanna at times. 11/04/22: pain persists but a lower level, ranging from 3-6/ 10 LTG Duration 01/04/23 Assessment Summary Assessment Stephanie continues to struggle with stairs, but gait is overal improving, had significant tightness in L LE adductors and IT band today. Would benefit from continued strengthening. Physical Therapy Plan Frequency and Duration Frequency of Treatment 2x/Week Duration of treatment (weeks) 8 Plan of Care Start Date 11/04/22 Plan of Care End Date 01/04/23 Therapeutic Interventions Therapeutic Interventions Gait Training,Home Exercise Program,Manual Therapy, Neuromuscular Re-education, Patient/Caregiver Education, Self-Care/Home Management,Soft Tissue Mobilization,Taping, Therapeutic Activities, Therapeutic Exercises Modalities Cold Pack/Ice Massage,Electric Stimulation,Hot Packs, Infrared Therapy,Traction- Mechanical,Ultrasound Next Visit Focus/Plan Next Note Type Treatment Note Next Visit Plan Assess response to added ther ex last tx. POC: Continue hurdles for SLS time functional strengthening toward stair mgt. NExt shuttle balance. POC: Continue PT for strengthening, gait training, pain management to include manual therapy, traction, modalities PRN. Discuss any results from new imaging.
--- NOTE | 2022-12-12 10:45 | PT.OTN ---
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 Pain went down front of left leg to arch of foot with burning pain, reports spasms anterior left LE. A little better with use muscle relaxant new last week, weaned mostly off Hydrocodone , can't hardly get out of bed, walks from bed to bathroom only. Can't want much or go up stairs due to weakness. Neurologist ordered another MRI to include thoracic spine, scheduled for this Friday. EMG scheduled 10/10/22. assists with all household activities and ADL's . 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 Used to sleep on left side, can't now, has to sleep on right, sometimes pillow between legs though states sometimes that makes pain worse. Trying to get in to see neurologist before December. Prior Treatments and Tests MRI 06/29/22: multilevel mild overall degenerative change. Focal area of ill-defined density overlying the right foramina. This is suspected to be artifacts secondary to motion. However, mass in this egion cannot be definitely excluded. If patient is able to toelrate exam repeat views through this region are recommended. Future Testing and Treatments Planned Thoracic MRI this Friday EMG 10/10/22 Neurologist when able to get appoiintment PT-OP-C Subjective Start: 09/12/22 15:01 Freq: Status: Active Protocol: Document 12/12/22 10:03 SP (Rec: 12/12/22 11:10 SP [id number]) OP-PT Subjective Patient Comments Patient Comments Pt reports did well with ther ex last tx. Is trying walk more: 2 laps around [employer] w/ contact cart and maybe 100 yards outside home with back fine. PT-OP-D Balance Start: 09/12/22 15:01 Freq: Status: Active Protocol: Document 09/04/22 13:00 SAK (Rec: 09/12/22 16:05 SAK [id number]) OP-PT Balance Assessment Sitting Balance Static Sitting Balance Ability Good Dynamic Sitting Balance Ability Good Standing Balance Static Standing Balance Ability Fair Dynamic Standing Balance Ability Fair Device Used SPC Standing Balance Comments unable to tolerate other balance testing Al Fall Scale Copyright Permission PT-OP-G Mobility & Gait Start: 09/12/22 15:01 Freq: Status: Active Protocol: Document 09/04/22 13:00 SAK (Rec: 09/12/22 16:05 [facility] [id number]) OP Mobility Evaluation Bed Mobility Rolling painful Supine to and from Sit painful Transfers Sit to Stand painful, excess use right LE and UE's Car Transfers painful Floor Transfers unable Functional Movements Lifting and Carrying unable Squats unable OP Gait Assessment Gait Gait Assistance Required: Standby Assistance Distance (Feet) 80 Assistive Devices Assistive Device Straight Cane Orthotic/Prosthetic Devices or Brace: No Gait Deviations General Gait Pattern Antalgic,Decreased Stride Length,Decreased Feet Clearance,Lateral Trunk Lean, Wide Based Gait Stair Climbing Evaluation Comments Stair Climbing Comments unable PT-OP-H Neuro Start: 09/12/22 15:01 Freq: Status: Active Protocol: Document 09/04/22 13:00 SAK (Rec: 09/12/22 16:05 [facility] [id number]) Sensation Evaluation Gross Sensation Gross Sensation Left LE Impaired Sensation Description Numbness,Tingling,Pain PT-OP-J Posture/Palpation/Skin Start: 09/12/22 15:01 Freq: Status: Active Protocol: Document 09/04/22 13:00 SAK (Rec: 09/12/22 16:05 [facility] [id number]) Posture Evaluation Position Standing Head/C-Spine Posture Forward Head T-Spine Posture Increased Kyphosis L-Spine Posture Flexible Scoliosis on (R) Shoulder Posture (L) Rounded,(R) Rounded Scapula Posture (L) Protracted,(R) Protracted Arm Posture (L) Internally Rotated,(R) Internally Rotated Palpation Assessment Location left hip Palpation Location ant,lat Palpation Findings Muscle Guarding,Tenderness PT-OP-K Range of Motion Start: 09/12/22 15:01 Freq: Status: Active Protocol: Document 09/04/22 13:00 [facility] (Rec: 09/12/22 16:05 [facility] [id number]) Lumbar Spine Range of Motion Lumbar Spine Active ROM Limitations Pain Comments mod dec all motions Hip Goniometric Range of Motion Hip Left Hip ROM WFL No Flexion w/Knee Flexed 90 Straight Leg Raise 45 Extension 0 Abduction 25 Internal Rotation 10 External Rotation 45 Comments all motions left needed PT assist due to weakness and pain Right Hip ROM WFL Yes Hip ROM Limitations Hip ROM Limitations Muscle Weakness,Pain Ankle and Foot Goniometric Range of Motion Ankle and Foot Left Ankle/Foot ROM WFL Yes Right Ankle/Foot ROM WFL Yes PT-OP-L Special Tests Start: 09/12/22 15:01 Freq: Status: Active Protocol: Document 09/04/22 13:00 [facility] (Rec: 09/12/22 16:05 [facility] [id number]) Special Tests Lumbar Spine Special Tests Vertical Spine Loading Test Results inc pain Manual Traction Test Results inc pain Slump Test Results inc pain Prone Press Up Test Results unable to lay prone Straight Leg Raise Test Results unable to do test PT-OP-M Strength Start: 09/12/22 15:01 Freq: Status: Active Protocol: Document 09/04/22 13:00 [facility] (Rec: 09/12/22 16:05 [facility] [id number]) Trunk Strength Trunk Manual Muscle Testing Core Stabilization poor Comments unable to tolerate testing Hip Strength Hip Manual Muscle Testing Left Flexion (L2) 2- Poor- Extension (S1) 2- Poor- Abduction 2- Poor- Adduction 2- Poor- External Rotation 2- Poor- Internal Rotation 2- Poor- Comments tested sitting and supine Right Flexion (L2) 4+ Good+ Extension (S1) 4- Good- Abduction 4- Good- Adduction 4- Good- External Rotation 4- Good- Internal Rotation 4- Good- Comments tested sitting and supine Knee Strength Knee Manual Muscle Testing Left Flexion (S2) 3- Fair- Extension (L3) 3- Fair- Right Flexion (S2) 5 Normal Extension (L3) 5 Normal Ankle/Foot Strength Ankle and Foot Manual Muscle Testing Left Dorsiflexion (L4) 2+ Poor+ Plantarflexion (S1) 3- Fair- Right Dorsiflexion (L4) 4 Good Plantarflexion (S1) 4 Good Toe Strength Toe Manual Muscle Testing Left Great Toe Extension 2+ Poor+ Right Great Toe Extension 5 Normal PT-OP-Q Treatments Start: 09/12/22 15:01 Freq: Status: Active Protocol: Document 12/12/22 10:03 SP (Rec: 12/12/22 11:10 SP [id number]) Cardio Equipment Elliptical Duration (Minutes) 2 Resistance 0 Other challenge endurance and knee discomfort- stopped 12/12/22 Recumbent Elliptical (Biodex) Duration (Minutes) 7 Resistance 3>2 Seat Position 7 Other UEs/ LEs at 3, LEs only at 2, 35 RPMs Recumbent Bicycle Duration (Minutes) 1 Resistance 1 Seat Position 2-3 Other pain B knees so stopped Gym Equipment Shuttle Balance red Details challenge Red (very unsteady stationary)>blue 12/12/22 Reps/Duration 3 min Comments WBOS: wt shift, HTs, EC up to 9 sec NBOS: wt shift, HTs, balloon volley stride stance: wt shift, HTs, balloon volley Therapeutic Exercises Sitting Exercises lumbar, QL stretch Sitting Exercise Name initiated in PT- good back stretch response Side bilateral Reps/Minutes 30 each Comments fwd B, wt shift angle over each LE piriformis stretch Sitting Exercise Name reviewed: hip IR & ER Side bilateral Reps/Minutes 2x 20 Comments good feedback stretch B hip sciatic nerve glide Sitting Exercise Name reviewed Side left Reps/Minutes x10 ankle pumps each side Comments cued straight back hip hinge gd stretch, no reduction in L leg tingle Neuro Re-Education Treatment Balance Activities uneven surface Details balance recovery, glut/core/ stability fac Equipment Blue mat, 2 oval foam, 2 pods, black mat covering Comments challenge, slower pacing w/ core/ hip abd facilitation mindful stepping wt shift into SLS during opp LE advancement . CGA at gait belt. hurdles Details fwd uneven, lateral floor Equipment 6 hurdles, open space Reps/Duration 2 laps each direction Comments receiprocal patterning. Cued tall posturing, scap comples& core, wt shift over stance with slow soft LE advancement to improve SLS time and stability. Improves stability and advancement with reps, cued stop/reset if unsteady for recovery, CGA-5% as needed PT-OP-R Modalities Start: 09/12/22 15:01 Freq: Status: Active Protocol: Document 11/26/22 09:00 AMB (Rec: 11/29/22 15:38 AMB [id number]) Spinal Traction Traction Treatment Lumbar Method Static Patient Position Supine Force Applied (Pounds) 40 Duration of Treatment (Minutes) 10 Traction Treatment Comment bolster under lower legs, good feedback response PT-OP-T Assessment and Plan Start: 09/12/22 15:01 Freq: Status: Active Protocol: Document 12/12/22 10:03 SP (Rec: 12/12/22 11:10 SP [id number]) Physical Therapy Assessment Goals Three Impairment activity tolerance Impairment LEFS 24% Short Term Goal (STG) Improve LEFS to at least 50% as measure of improved activity tolerance 10/22/22: goal progress STG Duration 12/05/22 Engine Repairer Goal (LTG) Improve LEFS to at least 75% as measure of improved activity tolerance and quality of life LTG Duration 01/04/23 Four Impairment gait dysfunction Impairment antalgic, requires use of cane , walker, or wheelchair, can't ambulate on stairs Short Term Goal (STG) Patient to ambulate in the house without device and without a limp 10/14/22: Progressing can carry cane (less use) more short distance with small steps. Standign for 15 min at time before pain increases need sit . 10/29/22: progressing able to walk without AD across room but has limp and focus on quad fac pivot so L LE doesn't give out. Uses cane for support. Can't step out shower with due to LLE will give way . 12/03/22: GOAL MET pt doing well since epidural and B knee injection last week. Most part painfree without use AD. STG Duration 12/05/22 GOAL MET 12/03/22 Intermediate Goal (LTG) Patient able to ambulate at least 1/2 mile and up and down stairs with least restrictive device, without limp 10/29/22: Progressing: able now step to gait w/ hurrycane leading RLE up, LLE down. 11/04/22: step-to pattern on stairs, less limp on level surface with hurry cane, at times can ambulate without cane on level. LTG Duration 01/04/23 Two Impairment weakness left LE Short Term Goal (STG) Patient to be independent in individualized HEP as instructed by PT 10/14/22: compliant with HEP: add/abd isometrics seated, resisted HS curl, wall posture . 10/16/22: added alternating step taps, contact support needed on SPC. 11/04/22: continue to progress HEP, good compliance STG Duration 12/05/22 Engine Repairer Goal (LTG) Patient to demonstrate left LE strength of at least 4/5 to help her resume usual activity LTG Duration 01/04/23 One Impairment pain left hip with radicular symptoms left LE Impairment 8/10 on pain scale Intermediate Goal (LTG) decrease patient pain to no greater than 2/10 with all usual activities 10/14/22: progressing groin pain gone away but continuous pain L anterior thigh down to lower leg to arch foot. Cant sit or stand to long before worsens 8-10/10 at about 15 min. 10/29/22: Progressing: still L quad knots up and cramps up arch foot, decreased but still there and LLE prasanna at times. 11/04/22: pain persists but a lower level, ranging from 3-6/ 10 LTG Duration 01/04/23 Assessment Summary Assessment Pt trialed recumbent bike and ellipical for awareness for self use at home, both caused B knee pain so returned to recumbent elliptical with good work response. Pt reports good hip abd fac during shuttle balance and uneven surface stepping activities today, improve core and body centering corrections with lessening cues. She continues to experience numbness in L>R feet during shuttle balance volleying, lessens with stretching. Physical Therapy Plan Frequency and Duration Frequency of Treatment 2x/Week Duration of treatment (weeks) 8 Plan of Care Start Date 11/04/22 Plan of Care End Date 01/04/23 Therapeutic Interventions Therapeutic Interventions Gait Training,Home Exercise Program,Manual Therapy, Neuromuscular Re-education, Patient/Caregiver Education, Self-Care/Home Management,Soft Tissue Mobilization,Taping, Therapeutic Activities, Therapeutic Exercises Modalities Cold Pack/Ice Massage,Electric Stimulation,Hot Packs, Infrared Therapy,Traction- Mechanical,Ultrasound Next Visit Focus/Plan Next Note Type Treatment Note Next Visit Plan Ask reponse post uneven surface balance activities last tx. POC: Continue hurdles for SLS time functional strengthening toward stair mgt . NExt shuttle balance. POC: Continue PT for strengthening, gait training, pain management to include manual therapy, traction, modalities PRN. Discuss any results from new imaging.
--- NOTE | 2022-12-19 11:32 | PT.OTN ---
Current Diagnoses Radiculopathy, site unspecified (12/19/22) Left lower quadrant pain (12/19/22) Ataxia, unspecified (12/19/22) Other symptoms and signs involving the musculoskeletal system (12/19/22) Physical Therapy Treatment Note PT-OP-A Visit Information Start: 09/12/22 15:01 Freq: Status: Active Protocol: Document 12/19/22 10:45 SP (Rec: 12/19/22 11:38 SP [id number]) Out-Patient Physical Therapy Visit Information Visit Information Visit Type Treatment Note Visit Note 04/01 since PN DENTAL RESIDENT Maritza assisted with MFR during tx with permission of pt. Visit Start Time 10:45 Visit Stop Time 11:32 Total Visit Minutes 47 Visit Number 24 Number of DENTAL RESIDENT Visits 2 Evaluation Information Evaluation Date 09/04/22 PT-OP-B Current Condition Start: 09/12/22 15:01 Freq: Status: Active Protocol: Document 10/10/22 09:01 SAK (Rec: 10/10/22 09:44 SAK [id number]) Current Condition History of Current Condition Onset Date 06/21/23 Current Complaints left anterior hip pain, left leg weakness History of Current Condition Was in [place], had acute onset pain left anterior hip for no known reason, got worse including vomiting, HTN and tachycardia all lasted for about 1 week. Pain went down front of left leg to arch of foot with burning pain, reports spasms anterior left LE. A little better with use muscle relaxant new last week, weaned mostly off Hydrocodone , can't hardly get out of bed, walks from bed to bathroom only. Can't want much or go up stairs due to weakness. Neurologist ordered another MRI to include thoracic spine, scheduled for this Friday. EMG scheduled 10/10/22. assists with all household activities and ADL's . 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 Used to sleep on left side, can't now, has to sleep on right, sometimes pillow between legs though states sometimes that makes pain worse. Trying to get in to see neurologist before December. Prior Treatments and Tests MRI 06/29/22: multilevel mild overall degenerative change. Focal area of ill-defined density overlying the right foramina. This is suspected to be artifacts secondary to motion. However, mass in this egion cannot be definitely excluded. If patient is able to toelrate exam repeat views through this region are recommended. Future Testing and Treatments Planned Thoracic MRI this Friday EMG 10/10/22 Neurologist when able to get appoiintment PT-OP-C Subjective Start: 09/12/22 15:01 Freq: Status: Active Protocol: Document 12/19/22 10:45 SP (Rec: 12/19/22 11:38 SP [id number]) OP-PT Subjective Patient Comments Patient Comments Pt reports back still doing ok since injections, but numbness still there. She trialed doing stairs and still very hard and not able. She had to cancel 01/02 appt for PT due to adjustment in neurologist appt at [facility] 01/02. Will be requesting PT records to go to physician at [facility] for preparation. PT-OP-D Balance Start: 09/12/22 15:01 Freq: Status: Active Protocol: Document 09/04/22 13:00 SAK (Rec: 09/12/22 16:05 SAK [id number]) OP-PT Balance Assessment Sitting Balance Static Sitting Balance Ability Good Dynamic Sitting Balance Ability Good Standing Balance Static Standing Balance Ability Fair Dynamic Standing Balance Ability Fair Device Used SPC Standing Balance Comments unable to tolerate other balance testing Al Fall Scale Copyright Permission PT-OP-G Mobility & Gait Start: 09/12/22 15:01 Freq: Status: Active Protocol: Document 09/04/22 13:00 SAK (Rec: 09/12/22 16:05 [facility] [id number]) OP Mobility Evaluation Bed Mobility Rolling painful Supine to and from Sit painful Transfers Sit to Stand painful, excess use right LE and UE's Car Transfers painful Floor Transfers unable Functional Movements Lifting and Carrying unable Squats unable OP Gait Assessment Gait Gait Assistance Required: Standby Assistance Distance (Feet) 80 Assistive Devices Assistive Device Straight Cane Orthotic/Prosthetic Devices or Brace: No Gait Deviations General Gait Pattern Antalgic,Decreased Stride Length,Decreased Feet Clearance,Lateral Trunk Lean, Wide Based Gait Stair Climbing Evaluation Comments Stair Climbing Comments unable PT-OP-H Neuro Start: 09/12/22 15:01 Freq: Status: Active Protocol: Document 09/04/22 13:00 SAK (Rec: 09/12/22 16:05 SAK [id number]) Sensation Evaluation Gross Sensation Gross Sensation Left LE Impaired Sensation Description Numbness,Tingling,Pain PT-OP-J Posture/Palpation/Skin Start: 09/12/22 15:01 Freq: Status: Active Protocol: Document 09/04/22 13:00 [facility] (Rec: 09/12/22 16:05 [facility] [id number]) Posture Evaluation Position Standing Head/C-Spine Posture Forward Head T-Spine Posture Increased Kyphosis L-Spine Posture Flexible Scoliosis on (R) Shoulder Posture (L) Rounded,(R) Rounded Scapula Posture (L) Protracted,(R) Protracted Arm Posture (L) Internally Rotated,(R) Internally Rotated Palpation Assessment Location left hip Palpation Location ant,lat Palpation Findings Muscle Guarding,Tenderness PT-OP-K Range of Motion Start: 09/12/22 15:01 Freq: Status: Active Protocol: Document 09/04/22 13:00 [facility] (Rec: 09/12/22 16:05 [facility] [id number]) Lumbar Spine Range of Motion Lumbar Spine Active ROM Limitations Pain Comments mod dec all motions Hip Goniometric Range of Motion Hip Left Hip ROM WFL No Flexion w/Knee Flexed 90 Straight Leg Raise 45 Extension 0 Abduction 25 Internal Rotation 10 External Rotation 45 Comments all motions left needed PT assist due to weakness and pain Right Hip ROM WFL Yes Hip ROM Limitations Hip ROM Limitations Muscle Weakness,Pain Ankle and Foot Goniometric Range of Motion Ankle and Foot Left Ankle/Foot ROM WFL Yes Right Ankle/Foot ROM WFL Yes PT-OP-L Special Tests Start: 09/12/22 15:01 Freq: Status: Active Protocol: Document 09/04/22 13:00 [facility] (Rec: 09/12/22 16:05 [facility] [id number]) Special Tests Lumbar Spine Special Tests Vertical Spine Loading Test Results inc pain Manual Traction Test Results inc pain Slump Test Results inc pain Prone Press Up Test Results unable to lay prone Straight Leg Raise Test Results unable to do test PT-OP-M Strength Start: 09/12/22 15:01 Freq: Status: Active Protocol: Document 09/04/22 13:00 [facility] (Rec: 09/12/22 16:05 [facility] [id number]) Trunk Strength Trunk Manual Muscle Testing Core Stabilization poor Comments unable to tolerate testing Hip Strength Hip Manual Muscle Testing Left Flexion (L2) 2- Poor- Extension (S1) 2- Poor- Abduction 2- Poor- Adduction 2- Poor- External Rotation 2- Poor- Internal Rotation 2- Poor- Comments tested sitting and supine Right Flexion (L2) 4+ Good+ Extension (S1) 4- Good- Abduction 4- Good- Adduction 4- Good- External Rotation 4- Good- Internal Rotation 4- Good- Comments tested sitting and supine Knee Strength Knee Manual Muscle Testing Left Flexion (S2) 3- Fair- Extension (L3) 3- Fair- Right Flexion (S2) 5 Normal Extension (L3) 5 Normal Ankle/Foot Strength Ankle and Foot Manual Muscle Testing Left Dorsiflexion (L4) 2+ Poor+ Plantarflexion (S1) 3- Fair- Right Dorsiflexion (L4) 4 Good Plantarflexion (S1) 4 Good Toe Strength Toe Manual Muscle Testing Left Great Toe Extension 2+ Poor+ Right Great Toe Extension 5 Normal PT-OP-Q Treatments Start: 09/12/22 15:01 Freq: Status: Active Protocol: Document 12/19/22 10:45 SP (Rec: 12/19/22 11:38 SP [id number]) Cardio Equipment Recumbent Elliptical ([employer]) Duration (Minutes) 8 Resistance 2 (trial re increase to 3 next ) Seat Position 7 Other LEs only 35-40 RPMs Gym Equipment Shuttle Recovery Unilateral Squats Details cued knees with mid ft and midft/heel press for prox quad /glut fac Resistance 37# (old) Shuttle Recovery Platform Stable Reps/Time x15 less anterior knee pressure with cues Bilateral Squats Details cued knees with mid ft and midft/heel press for prox quad /glut fac Resistance Stable- 62# (1 new) Unstable- 37# (old) middle notch Shuttle Recovery Platform Stable,Unstable Reps/Time 2x10- less anterior knee pressure with cues Sport Cord red Exercise Details back/side/fwd, rubin fwd/bk step Cord/Resistance Red Reps/Duration x5 each Comments cued elongated posturing w/ core & scap complex fac, slow eccentric stepping, wider LOUIE- improved stability. Manual Therapy Treatment Soft Tissue Mobilization quad, ITB Body Location L vastus lateralis, ITB Mobilization Type Instrument Assisted,Myofascial Release Intensity/Depth Superficial Body Position Hooklying Comments cupping TFL, vastus lateralis, ITB, Rec Fem-reported decrease tingling over anterior and lateral L hip. PT-OP-R Modalities Start: 09/12/22 15:01 Freq: Status: Active Protocol: Document 11/26/22 09:00 AMB (Rec: 11/29/22 15:38 AMB [id number]) Spinal Traction Traction Treatment Lumbar Method Static Patient Position Supine Force Applied (Pounds) 40 Duration of Treatment (Minutes) 10 Traction Treatment Comment bolster under lower legs, good feedback response PT-OP-T Assessment and Plan Start: 09/12/22 15:01 Freq: Status: Active Protocol: Document 12/19/22 10:45 SP (Rec: 12/19/22 11:38 SP [id number]) Physical Therapy Assessment Goals Three Impairment activity tolerance Impairment LEFS 24% Short Term Goal (STG) Improve LEFS to at least 50% as measure of improved activity tolerance 10/22/22: goal progress STG Duration 12/05/22 [facility] Goal (LTG) Improve LEFS to at least 75% as measure of improved activity tolerance and quality of life LTG Duration 01/04/23 Four Impairment gait dysfunction Impairment antalgic, requires use of cane , walker, or wheelchair, can't ambulate on stairs Short Term Goal (STG) Patient to ambulate in the house without device and without a limp 10/14/22: Progressing can carry cane (less use) more short distance with small steps. Standign for 15 min at time before pain increases need sit . 10/29/22: progressing able to walk without AD across room but has limp and focus on quad fac pivot so L LE doesn't give out. Uses cane for support. Can't step out shower with due to LLE will give way . 12/03/22: GOAL MET pt doing well since epidural and B knee injection last week. Most part painfree without use AD. STG Duration 12/05/22 GOAL MET 12/03/22 [employer] Goal (LTG) Patient able to ambulate at least 1/2 mile and up and down stairs with least restrictive device, without limp 10/29/22: Progressing: able now step to gait w/ hurrycane leading RLE up, LLE down. 11/04/22: step-to pattern on stairs, less limp on level surface with hurry cane, at times can ambulate without cane on level. 12/19/22: progressing: less trunk wt shift gait with focus on being tall, core fac. She continues be challenged with stair mgt,very hard, heavy UE support per pt discussion. LTG Duration 01/04/23 slow progress stair mgt 12/19/22 Two Impairment weakness left LE Short Term Goal (STG) Patient to be independent in individualized HEP as instructed by PT 10/14/22: compliant with HEP: add/abd isometrics seated, resisted HS curl, wall posture . 10/16/22: added alternating step taps, contact support needed on SPC. 11/04/22: continue to progress HEP, good compliance STG Duration 12/05/22 [employer] Goal (LTG) Patient to demonstrate left LE strength of at least 4/5 to help her resume usual activity LTG Duration 01/04/23 One Impairment pain left hip with radicular symptoms left LE Impairment 8/10 on pain scale [facility] Goal (LTG) decrease patient pain to no greater than 2/10 with all usual activities 10/14/22: progressing groin pain gone away but continuous pain L anterior thigh down to lower leg to arch foot. Cant sit or stand to long before worsens 8-10/10 at about 15 min. 10/29/22: Progressing: still L quad knots up and cramps up arch foot, decreased but still there and LLE prasanna at times. 11/04/22: pain persists but a lower level, ranging from 3-6/ 10 12/19/22: pt reports low back doing well but still getting numbness and buzzing down legs L>R worse with tiring activity. Neurologist appt at [facility]. LTG Duration 01/04/23 updated 12/19/22 Assessment Summary Assessment Pt reports good quad, hip abd and stability work during shuttle recovery and sport cord stepping against resistance, improved self corrections to progress wt shift over stance time to support functional strengthening for stair mgt wants to return to with less BUE support. Pt reports L leg tingling/buzzing with hip abd activities, states always feels it but more when tire with exercises. She respond well to manual MFR with cupping end tx, stating buzzing less and anterior L hip feel move little better. DENTAL RESIDENT suggested potentially buying a cup for home for carryover relief while waiting to get in to see neurologist. Physical Therapy Plan Frequency and Duration Frequency of Treatment 2x/Week Duration of treatment (weeks) 8 Plan of Care Start Date 11/04/22 Plan of Care End Date 01/04/23 Therapeutic Interventions Therapeutic Interventions Gait Training,Home Exercise Program,Manual Therapy, Neuromuscular Re-education, Patient/Caregiver Education, Self-Care/Home Management,Soft Tissue Mobilization,Taping, Therapeutic Activities, Therapeutic Exercises Modalities Cold Pack/Ice Massage,Electric Stimulation,Hot Packs, Infrared Therapy,Traction- Mechanical,Ultrasound Next Visit Focus/Plan Next Note Type Treatment Note Next Visit Plan 11th visit PN next tx. Updated POC 12/31 appt. Ask response post resisted sport cord&rubin and added shuttle recovery the ext last tx to support strength for stair mgt. POC: Continue hurdles, shuttle balance, sport cord for SLS time functional strengthening toward stair mgt. POC: Continue PT for strengthening, gait training, pain management to include manual therapy, traction, modalities PRN. Discuss any results from new imaging.
--- NOTE | 2022-12-23 15:55 | PT.OTRE ---
Current Diagnoses Radiculopathy, site unspecified (12/23/22) Left lower quadrant pain (12/23/22) Ataxia, unspecified (12/23/22) Other symptoms and signs involving the musculoskeletal system (12/23/22) Past Medical History (Last Reviewed 11/28/22 @ 11:41 by David Burger MD) Ataxia Chicken pox Hip pain Left knee pain Lipoma of abdominal wall Low back pain Lumbar radiculopathy Mumps Osteoarthritis of knees, bilateral Osteoarthritis, hip, bilateral Wears glasses Surgical History (Last Reviewed 11/28/22 @ 11:41 by David Burger MD) Anesthesia History of arthroscopic knee surgery (~1998) History of bladder surgery (~2011) History of section Visit Care Team Role Provider Type Maritza Daigle DO Family Provider Physician Primary Care Provider Specialty: Medical Address: [address] [place] [address], [address], [place], [address] Email: [email or web address] Edith Parisi MD Attending Provider Physician Referring Provider Specialty: General Surgery Address: [address] [place] [address], [address], [place], [address] Email: [email or web address] Physical Therapy Re-Evaluation PT-OP-A Visit Information Start: 09/12/22 15:01 Freq: Status: Active Protocol: Document 12/23/22 14:15 [facility] (Rec: 12/23/22 15:20 [facility] [id number]) Out-Patient Physical Therapy Visit Information Visit Information Visit Type Progress Note Visit Note 07/02 Visit Start Time 14:15 Visit Stop Time 15:10 Total Visit Minutes 55 Visit Number 25 Number of BAND BOOKER Visits 0 Evaluation Information Evaluation Date 09/04/22 PT-OP-B Current Condition Start: 09/12/22 15:01 Freq: Status: Active Protocol: Document 10/10/22 09:01 [facility] (Rec: 10/10/22 09:44 [facility]AK [id number]) Current Condition History of Current Condition Onset Date 06/21/23 Current Complaints left anterior hip pain, left leg weakness History of Current Condition Was in [place], had acute onset pain left anterior hip for no known reason, got worse including vomiting, HTN and tachycardia all lasted for about 1 week. Pain went down front of left leg to arch of foot with burning pain, reports spasms anterior left LE. A little better with use muscle relaxant new last week, weaned mostly off Hydrocodone , can't hardly get out of bed, walks from bed to bathroom only. Can't want much or go up stairs due to weakness. Neurologist ordered another MRI to include thoracic spine, scheduled for this Friday. EMG scheduled 10/10/22. assists with all household activities and ADL's . 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 Used to sleep on left side, can't now, has to sleep on right, sometimes pillow between legs though states sometimes that makes pain worse. Trying to get in to see neurologist before December. Prior Treatments and Tests MRI 06/29/22: multilevel mild overall degenerative change. Focal area of ill-defined density overlying the right foramina. This is suspected to be artifacts secondary to motion. However, mass in this egion cannot be definitely excluded. If patient is able to toelrate exam repeat views through this region are recommended. Future Testing and Treatments Planned Thoracic MRI this Friday EMG 10/10/22 Neurologist when able to get appoiintment PT-OP-C Subjective Start: 09/12/22 15:01 Freq: Status: Active Protocol: Document 12/23/22 14:15 [facility] (Rec: 12/23/22 15:20 [facility] [id number]) OP-PT Subjective Patient Comments Patient Comments The numbness was gone for awhile after injections left LE but it is now returned. Can do stairs with step-to pattern a little now instead of sideways, some days are worse than others. Painful humming left LE 2-08/30. appt with neurolgist. Can now get in/out of shower now on her own without helping. PT-OP-D Balance Start: 09/12/22 15:01 Freq: Status: Active Protocol: Document 09/04/22 13:00 [facility] (Rec: 09/12/22 16:05 [facility] [id number]) OP-PT Balance Assessment Sitting Balance Static Sitting Balance Ability Good Dynamic Sitting Balance Ability Good Standing Balance Static Standing Balance Ability Fair Dynamic Standing Balance Ability Fair Device Used SPC Standing Balance Comments unable to tolerate other balance testing Al Fall Scale Copyright Permission Servando JM, Servando RM, Jim SJ. Development of a scale to identify the fall- prone patient. Can J Aging 1989;8;366-7. José Al (2009). Preventing patient falls. (2nd ed). [place]: Melchor. PT-OP-G Mobility & Gait Start: 09/12/22 15:01 Freq: Status: Active Protocol: Document 09/04/22 13:00 [facility] (Rec: 09/12/22 16:05 [facility] [id number]) OP Mobility Evaluation Bed Mobility Rolling painful Supine to and from Sit painful Transfers Sit to Stand painful, excess use right LE and UE's Car Transfers painful Floor Transfers unable Functional Movements Lifting and Carrying unable Squats unable OP Gait Assessment Gait Gait Assistance Required: Standby Assistance Distance (Feet) 80 Assistive Devices Assistive Device Straight Cane Orthotic/Prosthetic Devices or Brace: No Gait Deviations General Gait Pattern Antalgic,Decreased Stride Length,Decreased Feet Clearance,Lateral Trunk Lean, Wide Based Gait Stair Climbing Evaluation Comments Stair Climbing Comments unable PT-OP-H Neuro Start: 09/12/22 15:01 Freq: Status: Active Protocol: Document 09/04/22 13:00 [facility] (Rec: 09/12/22 16:05 [facility] [id number]) Sensation Evaluation Gross Sensation Gross Sensation Left LE Impaired Sensation Description Numbness,Tingling,Pain PT-OP-J Posture/Palpation/Skin Start: 09/12/22 15:01 Freq: Status: Active Protocol: Document 09/04/22 13:00 [facility] (Rec: 09/12/22 16:05 [facility] [id number]) Posture Evaluation Position Standing Head/C-Spine Posture Forward Head T-Spine Posture Increased Kyphosis L-Spine Posture Flexible Scoliosis on (R) Shoulder Posture (L) Rounded,(R) Rounded Scapula Posture (L) Protracted,(R) Protracted Arm Posture (L) Internally Rotated,(R) Internally Rotated Palpation Assessment Location left hip Palpation Location ant,lat Palpation Findings Muscle Guarding,Tenderness PT-OP-K Range of Motion Start: 09/12/22 15:01 Freq: Status: Active Protocol: Document 09/04/22 13:00 [facility] (Rec: 09/12/22 16:05 [facility] [id number]) Lumbar Spine Range of Motion Lumbar Spine Active ROM Limitations Pain Comments mod dec all motions Hip Goniometric Range of Motion Hip Measured in Degrees Left Hip ROM WFL No Flexion w/Knee Flexed 90 Straight Leg Raise 45 Extension 0 Abduction 25 Internal Rotation 10 External Rotation 45 Comments all motions left needed PT assist due to weakness and pain Right Hip ROM WFL Yes Hip ROM Limitations Hip ROM Limitations Muscle Weakness,Pain Ankle and Foot Goniometric Range of Motion Ankle and Foot Measured in Degrees Left Ankle/Foot ROM WFL Yes Right Ankle/Foot ROM WFL Yes PT-OP-L Special Tests Start: 09/12/22 15:01 Freq: Status: Active Protocol: Document 09/04/22 13:00 [facility] (Rec: 09/12/22 16:05 [facility] [id number]) Special Tests Lumbar Spine Special Tests Vertical Spine Loading Test Results inc pain Manual Traction Test Results inc pain Slump Test Results inc pain Prone Press Up Test Results unable to lay prone Straight Leg Raise Test Results unable to do test PT-OP-M Strength Start: 09/12/22 15:01 Freq: Status: Active Protocol: Document 09/04/22 13:00 [facility] (Rec: 09/12/22 16:05 [facility] [id number]) Trunk Strength Trunk Manual Muscle Testing Core Stabilization poor Comments unable to tolerate testing Hip Strength Hip Manual Muscle Testing Left Flexion (L2) 2- Poor- Extension (S1) 2- Poor- Abduction 2- Poor- Adduction 2- Poor- External Rotation 2- Poor- Internal Rotation 2- Poor- Comments tested sitting and supine Right Flexion (L2) 4+ Good+ Extension (S1) 4- Good- Abduction 4- Good- Adduction 4- Good- External Rotation 4- Good- Internal Rotation 4- Good- Comments tested sitting and supine Knee Strength Knee Manual Muscle Testing Left Flexion (S2) 3- Fair- Extension (L3) 3- Fair- Right Flexion (S2) 5 Normal Extension (L3) 5 Normal Ankle/Foot Strength Ankle and Foot Manual Muscle Testing Left Dorsiflexion (L4) 2+ Poor+ Plantarflexion (S1) 3- Fair- Right Dorsiflexion (L4) 4 Good Plantarflexion (S1) 4 Good Toe Strength Toe Manual Muscle Testing Left Great Toe Extension 2+ Poor+ Right Great Toe Extension 5 Normal PT-OP-Q Treatments Start: 09/12/22 15:01 Freq: Status: Active Protocol: Document 12/23/22 14:15 [facility] (Rec: 12/23/22 15:20 [facility] [id number]) Cardio Equipment Recumbent Elliptical (Biodex) Duration (Minutes) 8 Resistance 2 (trial re increase to 3 next ) Seat Position 7 Other LEs only 35-40 RPMs Gym Equipment Shuttle Recovery Unilateral Squats Details cued knees with mid ft and midft/heel press for prox quad /glut fac Resistance 37# (old) Shuttle Recovery Platform Stable Reps/Time x15 less anterior knee pressure with cues Bilateral Squats Details cued knees with mid ft and midft/heel press for prox quad /glut fac Resistance Stable- 62# (1 new) Unstable- 37# (old) middle notch Shuttle Recovery Platform Stable,Unstable Reps/Time 2x10- less anterior knee pressure with cues Shuttle Balance red Details chains BLUE Reps/Duration 5 MIN Comments WBOS: wt shift, HTs, EC up to 9 sec NBOS: wt shift, HTs, balloon volley stride stance: wt shift, HTs, balloon volley Manual Therapy Treatment Soft Tissue Mobilization quad, ITB Body Location L vastus lateralis, ITB Mobilization Type Instrument Assisted,Myofascial Release Intensity/Depth Superficial Body Position Hooklying Comments cupping TFL, vastus lateralis, ITB, Rec Fem-reported decrease tingling over anterior and lateral L hip. PT-OP-R Modalities Start: 09/12/22 15:01 Freq: Status: Active Protocol: Document 12/23/22 14:15 [facility] (Rec: 12/23/22 15:47 [facility] [id number]) Hot Pack/Cold Pack Treatment Cold Pack Location l/s, left thigh Patient Position Hooklying Treatment Duration (minutes) 10 Patient Tolerance Good PT-OP-T Assessment and Plan Start: 09/12/22 15:01 Freq: Status: Active Protocol: Document 12/23/22 14:15 [facility] (Rec: 12/23/22 15:20 [facility] [id number]) Physical Therapy Assessment Goals Three Impairment activity tolerance Impairment LEFS 24% Short Term Goal (STG) Improve LEFS to at least 50% as measure of improved activity tolerance 10/22/22: goal progress 12/23/22: improved to 34% STG Duration 01/23/23 Longterm Goal (LTG) Improve LEFS to at least 75% as measure of improved activity tolerance and quality of life LTG Duration 02/23/23 Four Impairment gait dysfunction Impairment antalgic, requires use of cane , walker, or wheelchair, can't ambulate on stairs Short Term Goal (STG) Patient to ambulate in the house without device and without a limp 10/14/22: Progressing can carry cane (less use) more short distance with small steps. Standign for 15 min at time before pain increases need sit . 10/29/22: progressing able to walk without AD across room but has limp and focus on quad fac pivot so L LE doesn't give out. Uses cane for support. Can't step out shower with due to LLE will give way . 12/03/22: GOAL MET pt doing well since epidural and B knee injection last week. Most part painfree without use AD. STG Duration 12/05/22 GOAL MET 12/03/22 Longterm Goal (LTG) Patient able to ambulate at least 1/2 mile and up and down stairs with least restrictive device, without limp 10/29/22: Progressing: able now step to gait w/ hurrycane leading RLE up, LLE down. 11/04/22: step-to pattern on stairs, less limp on level surface with hurry cane, at times can ambulate without cane on level. 12/19/22: progressing: less trunk wt shift gait with focus on being tall, core fac. She continues be challenged with stair mgt,very hard, heavy UE support per pt discussion. 12/23/22:able to ambulate without assistive device, some recent increase in knee pain. Able to ascend/descend stairs with step-to pattern LTG Duration 01/04/23 slow progress stair mgt 12/19/22 Two Impairment weakness left LE Short Term Goal (STG) Patient to be independent in individualized HEP as instructed by PT 10/14/22: compliant with HEP: add/abd isometrics seated, resisted HS curl, wall posture . 10/16/22: added alternating step taps, contact support needed on SPC. 11/04/22: continue to progress HEP, good compliance 12/23/22: goal achieved; ongoing progression STG Duration goal met Preconstruction Manager Goal (LTG) Patient to demonstrate left LE strength of at least 4/5 to help her resume usual activity 12/23/22: goal progress, can now lift left LE antigravity at 3 +/5 strength. Functionally cannot lead with right LE ascending stairs, and with descending can't use right LE to lower left. LTG Duration 02/23/23 One Impairment pain left hip with radicular symptoms left LE Impairment 8/10 on pain scale Longterm Goal (LTG) decrease patient pain to no greater than 2/10 with all usual activities 10/14/22: progressing groin pain gone away but continuous pain L anterior thigh down to lower leg to arch foot. Cant sit or stand to long before worsens 8-10/10 at about 15 min. 10/29/22: Progressing: still L quad knots up and cramps up arch foot, decreased but still there and LLE prasanna at times. 11/04/22: pain persists but a lower level, ranging from 3-6/ 10 12/19/22: pt reports low back doing well but still getting numbness and buzzing down legs L>R worse with tiring activity. Neurologist appt at [facility]. 12/23/22: reports pain 3/10 today, some days it is much worse. Goal progress LTG Duration 02/23/23 Assessment Summary Assessment Ambulating without cane, some improvement with gait on stairs. Persistent pain and numbness left anterior / lateral thigh. Improved left LE strength, still weaker than right, goals not fully achieved. Will benefit from further PT. Physical Therapy Plan Frequency and Duration Frequency of Treatment 2x/Week Duration of treatment (weeks) 8 Plan of Care Start Date 12/23/22 Plan of Care End Date 02/23/23 Therapeutic Interventions Therapeutic Interventions Gait Training,Home Exercise Program,Manual Therapy, Neuromuscular Re-education, Patient/Caregiver Education, Self-Care/Home Management,Soft Tissue Mobilization,Taping, Therapeutic Activities, Therapeutic Exercises Modalities Cold Pack/Ice Massage,Electric Stimulation,Hot Packs, Infrared Therapy,Traction- Mechanical,Ultrasound Next Visit Focus/Plan Next Note Type Treatment Note Next Visit Plan Resume hurdles, sport cord. Progress functional strengthening, balance, and gait training. Modalities and manual therapy for pain management.
--- NOTE | 2022-12-23 15:55 | PT.OPPOC ---
Physical, Occupational & Speech Therapy At [facility] Current Diagnoses Radiculopathy, site unspecified (12/23/22) Left lower quadrant pain (12/23/22) Ataxia, unspecified (12/23/22) Other symptoms and signs involving the musculoskeletal system (12/23/22) Visit Care Team Role Provider Type Maritza Daigle DO Family Provider Physician Primary Care Provider Specialty: Medical Address: [address] [place] [address], [address], [place], [address] Email: [email or web address] Edith Parisi MD Attending Provider Physician Referring Provider Specialty: General Surgery Address: [address] [place] [address], [address], [place], [address] Email: [email or web address] Plan Of Care PT-OP-T Assessment and Plan Start: 09/12/22 15:01 Freq: Status: Active Protocol: Document 12/23/22 14:15 [facility] (Rec: 12/23/22 15:20 [facility] [id number]) Physical Therapy Assessment Goals Three Impairment activity tolerance Impairment LEFS 24% Short Term Goal (STG) Improve LEFS to at least 50% as measure of improved activity tolerance 10/22/22: goal progress 12/23/22: improved to 34% STG Duration 01/23/23 Custodial Goal (LTG) Improve LEFS to at least 75% as measure of improved activity tolerance and quality of life LTG Duration 02/23/23 Four Impairment gait dysfunction Impairment antalgic, requires use of cane , walker, or wheelchair, can't ambulate on stairs Short Term Goal (STG) Patient to ambulate in the house without device and without a limp 10/14/22: Progressing can carry cane (less use) more short distance with small steps. Standign for 15 min at time before pain increases need sit . 10/29/22: progressing able to walk without AD across room but has limp and focus on quad fac pivot so L LE doesn't give out. Uses cane for support. Can't step out shower with due to LLE will give way . 6/13/23: GOAL MET pt doing well since epidural and B knee injection last week. Most part painfree without use AD. STG Duration 12/05/22 GOAL MET 12/03/22 Custodial Goal (LTG) Patient able to ambulate at least 1/2 mile and up and down stairs with least restrictive device, without limp 10/29/22: Progressing: able now step to gait w/ hurrycane leading RLE up, LLE down. 11/04/22: step-to pattern on stairs, less limp on level surface with hurry cane, at times can ambulate without cane on level. 12/19/22: progressing: less trunk wt shift gait with focus on being tall, core fac. She continues be challenged with stair mgt,very hard, heavy UE support per pt discussion. 12/23/22:able to ambulate without assistive device, some recent increase in knee pain. Able to ascend/descend stairs with step-to pattern LTG Duration 01/04/23 slow progress stair mgt 12/19/22 Two Impairment weakness left LE Short Term Goal (STG) Patient to be independent in individualized HEP as instructed by PT 10/14/22: compliant with HEP: add/abd isometrics seated, resisted HS curl, wall posture . 10/16/22: added alternating step taps, contact support needed on SPC. 11/04/22: continue to progress HEP, good compliance 12/23/22: goal achieved; ongoing progression STG Duration goal met Custodial Goal (LTG) Patient to demonstrate left LE strength of at least 4/5 to help her resume usual activity 12/23/22: goal progress, can now lift left LE antigravity at 3 +/5 strength. Functionally cannot lead with right LE ascending stairs, and with descending can't use right LE to lower left. LTG Duration 02/23/23 One Impairment pain left hip with radicular symptoms left LE Impairment 8/10 on pain scale Custodial Goal (LTG) decrease patient pain to no greater than 2/10 with all usual activities 10/14/22: progressing groin pain gone away but continuous pain L anterior thigh down to lower leg to arch foot. Cant sit or stand to long before worsens 8-10/10 at about 15 min. 10/29/22: Progressing: still L quad knots up and cramps up arch foot, decreased but still there and LLE prasanna at times. 11/04/22: pain persists but a lower level, ranging from 3-6/ 10 12/19/22: pt reports low back doing well but still getting numbness and buzzing down legs L>R worse with tiring activity. Neurologist appt at [facility]. 12/23/22: reports pain 3/10 today, some days it is much worse. Goal progress LTG Duration 02/23/23 Assessment Summary Assessment Ambulating without cane, some improvement with gait on stairs. Persistent pain and numbness left anterior / lateral thigh. Improved left LE strength, still weaker than right, goals not fully achieved. Will benefit from further PT. Physical Therapy Plan Frequency and Duration Frequency of Treatment 2x/Week Duration of treatment (weeks) 8 Plan of Care Start Date 12/23/22 Plan of Care End Date 02/23/23 Therapeutic Interventions Therapeutic Interventions Gait Training,Home Exercise Program,Manual Therapy, Neuromuscular Re-education, Patient/Caregiver Education, Self-Care/Home Management,Soft Tissue Mobilization,Taping, Therapeutic Activities, Therapeutic Exercises Modalities Cold Pack/Ice Massage,Electric Stimulation,Hot Packs, Infrared Therapy,Traction- Mechanical,Ultrasound Next Visit Focus/Plan Next Note Type Treatment Note Next Visit Plan Resume hurdles, sport cord. Progress functional strengthening, balance, and gait training. Modalities and manual therapy for pain management. Plan of Care Dates Plan of Care Start Date 12/23/22 Plan of Care End Date 02/23/23 Electronically Signed by: Nan Colin, PT 12/23/22 3014 If you are in agreement with this Plan of Care, please return a signed and dated copy. I have reviewed this Plan of Care and certify that the skilled therapy services above are required to meet the patient?s needs. Physician Signature Date Printed Name and Credentials Clinical Instructor Signature Printed Name and Credentials
--- NOTE | 2022-12-26 09:00 | PT.OTN ---
Current Diagnoses Radiculopathy, site unspecified (12/26/22) Left lower quadrant pain (12/26/22) Ataxia, unspecified (12/26/22) Other symptoms and signs involving the musculoskeletal system (12/26/22) Physical Therapy Treatment Note PT-OP-A Visit Information Start: 09/12/22 15:01 Freq: Status: Active Protocol: Document 12/26/22 08:15 SP (Rec: 12/26/22 09:02 SP [id number]) Out-Patient Physical Therapy Visit Information Visit Information Visit Type Treatment Note Visit Note 08/02 Visit Start Time 08:15 Visit Stop Time 09:00 Total Visit Minutes 45 Visit Number 26 Number of LEG BREAKER Visits 1 Evaluation Information Evaluation Date 09/04/22 PT-OP-B Current Condition Start: 09/12/22 15:01 Freq: Status: Active Protocol: Document 10/10/22 09:01 SAK (Rec: 10/10/22 09:44 SAK [id number]) Current Condition History of Current Condition Onset Date 06/21/23 Current Complaints left anterior hip pain, left leg weakness History of Current Condition Was in [place], had acute onset pain left anterior hip for no known reason, got worse including vomiting, HTN and tachycardia all lasted for about 1 week. Pain went down front of left leg to arch of foot with burning pain, reports spasms anterior left LE. A little better with use muscle relaxant new last week, weaned mostly off Hydrocodone , can't hardly get out of bed, walks from bed to bathroom only. Can't want much or go up stairs due to weakness. Neurologist ordered another MRI to include thoracic spine, scheduled for this Friday. EMG scheduled 10/10/22. assists with all household activities and ADL's . 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 Used to sleep on left side, can't now, has to sleep on right, sometimes pillow between legs though states sometimes that makes pain worse. Trying to get in to see neurologist before December. Prior Treatments and Tests MRI 06/29/22: multilevel mild overall degenerative change. Focal area of ill-defined density overlying the right foramina. This is suspected to be artifacts secondary to motion. However, mass in this egion cannot be definitely excluded. If patient is able to toelrate exam repeat views through this region are recommended. Future Testing and Treatments Planned Thoracic MRI this Friday EMG 10/10/22 Neurologist when able to get appoiintment PT-OP-C Subjective Start: 09/12/22 15:01 Freq: Status: Active Protocol: Document 12/26/22 08:15 SP (Rec: 12/26/22 09:02 SP [id number]) OP-PT Subjective Patient Comments Patient Comments Pt reports sees neurologist ( [facility]) 1 week from today for further assessment. She states the buzzing L anterior thigh down leg to arch foot, low noticiable but as day progresses is worse. She states still frustrated can't ascend LLE leading due to weakness and intolerable pain so leads step to with RLE , she states easeir descending tries to receiprocal step, not as strong later day. PT-OP-D Balance Start: 09/12/22 15:01 Freq: Status: Active Protocol: Document 09/04/22 13:00 SAK (Rec: 09/12/22 16:05 SAK [id number]) OP-PT Balance Assessment Sitting Balance Static Sitting Balance Ability Good Dynamic Sitting Balance Ability Good Standing Balance Static Standing Balance Ability Fair Dynamic Standing Balance Ability Fair Device Used SPC Standing Balance Comments unable to tolerate other balance testing Al Fall Scale Copyright Permission PT-OP-G Mobility & Gait Start: 09/12/22 15:01 Freq: Status: Active Protocol: Document 09/04/22 13:00 SAK (Rec: 09/12/22 16:05 [facility] [id number]) OP Mobility Evaluation Bed Mobility Rolling painful Supine to and from Sit painful Transfers Sit to Stand painful, excess use right LE and UE's Car Transfers painful Floor Transfers unable Functional Movements Lifting and Carrying unable Squats unable OP Gait Assessment Gait Gait Assistance Required: Standby Assistance Distance (Feet) 80 Assistive Devices Assistive Device Straight Cane Orthotic/Prosthetic Devices or Brace: No Gait Deviations General Gait Pattern Antalgic,Decreased Stride Length,Decreased Feet Clearance,Lateral Trunk Lean, Wide Based Gait Stair Climbing Evaluation Comments Stair Climbing Comments unable PT-OP-H Neuro Start: 09/12/22 15:01 Freq: Status: Active Protocol: Document 09/04/22 13:00 SAK (Rec: 09/12/22 16:05 SAK [id number]) Sensation Evaluation Gross Sensation Gross Sensation Left LE Impaired Sensation Description Numbness,Tingling,Pain PT-OP-J Posture/Palpation/Skin Start: 09/12/22 15:01 Freq: Status: Active Protocol: Document 09/04/22 13:00 [facility] (Rec: 09/12/22 16:05 [facility] [id number]) Posture Evaluation Position Standing Head/C-Spine Posture Forward Head T-Spine Posture Increased Kyphosis L-Spine Posture Flexible Scoliosis on (R) Shoulder Posture (L) Rounded,(R) Rounded Scapula Posture (L) Protracted,(R) Protracted Arm Posture (L) Internally Rotated,(R) Internally Rotated Palpation Assessment Location left hip Palpation Location ant,lat Palpation Findings Muscle Guarding,Tenderness PT-OP-K Range of Motion Start: 09/12/22 15:01 Freq: Status: Active Protocol: Document 09/04/22 13:00 [facility] (Rec: 09/12/22 16:05 [facility] [id number]) Lumbar Spine Range of Motion Lumbar Spine Active ROM Limitations Pain Comments mod dec all motions Hip Goniometric Range of Motion Hip Left Hip ROM WFL No Flexion w/Knee Flexed 90 Straight Leg Raise 45 Extension 0 Abduction 25 Internal Rotation 10 External Rotation 45 Comments all motions left needed PT assist due to weakness and pain Right Hip ROM WFL Yes Hip ROM Limitations Hip ROM Limitations Muscle Weakness,Pain Ankle and Foot Goniometric Range of Motion Ankle and Foot Left Ankle/Foot ROM WFL Yes Right Ankle/Foot ROM WFL Yes PT-OP-L Special Tests Start: 09/12/22 15:01 Freq: Status: Active Protocol: Document 09/04/22 13:00 [facility] (Rec: 09/12/22 16:05 [facility] [id number]) Special Tests Lumbar Spine Special Tests Vertical Spine Loading Test Results inc pain Manual Traction Test Results inc pain Slump Test Results inc pain Prone Press Up Test Results unable to lay prone Straight Leg Raise Test Results unable to do test PT-OP-M Strength Start: 09/12/22 15:01 Freq: Status: Active Protocol: Document 09/04/22 13:00 [facility] (Rec: 09/12/22 16:05 [facility] [id number]) Trunk Strength Trunk Manual Muscle Testing Core Stabilization poor Comments unable to tolerate testing Hip Strength Hip Manual Muscle Testing Left Flexion (L2) 2- Poor- Extension (S1) 2- Poor- Abduction 2- Poor- Adduction 2- Poor- External Rotation 2- Poor- Internal Rotation 2- Poor- Comments tested sitting and supine Right Flexion (L2) 4+ Good+ Extension (S1) 4- Good- Abduction 4- Good- Adduction 4- Good- External Rotation 4- Good- Internal Rotation 4- Good- Comments tested sitting and supine Knee Strength Knee Manual Muscle Testing Left Flexion (S2) 3- Fair- Extension (L3) 3- Fair- Right Flexion (S2) 5 Normal Extension (L3) 5 Normal Ankle/Foot Strength Ankle and Foot Manual Muscle Testing Left Dorsiflexion (L4) 2+ Poor+ Plantarflexion (S1) 3- Fair- Right Dorsiflexion (L4) 4 Good Plantarflexion (S1) 4 Good Toe Strength Toe Manual Muscle Testing Left Great Toe Extension 2+ Poor+ Right Great Toe Extension 5 Normal PT-OP-Q Treatments Start: 09/12/22 15:01 Freq: Status: Active Protocol: Document 12/26/22 08:15 SP (Rec: 12/26/22 09:02 SP [id number]) Cardio Equipment Recumbent Elliptical (Biodex) Duration (Minutes) 6 Resistance 3 Seat Position 7 Other LEs only 30-35 RPMs Gym Equipment Shuttle Recovery Unilateral Squats Details cued knees with mid ft and midft/heel press for prox quad /glut fac Resistance 37# (old) Shuttle Recovery Platform Stable Reps/Time x20 Bilateral Squats Details cued knees with mid ft and midft/heel press for prox quad /glut fac Resistance Stable- 62# (1 new) Unstable- 37# (old) middle notch Shuttle Recovery Platform Stable,Unstable Reps/Time 20 reps stable, 20 reps uneven Shuttle Balance red Details chains RED Reps/Duration 6 MIN Comments WBOS: wt shift, HTs, EC up to 7 sec NBOS: wt shift, HTs, EC 3 sec Stride Stance: wt shift. Gait Training Gait Activity stairs Device Used 1 HR ascend, B UE descend receiprocal. Distance/Duration 4 stairs x2 laps Treatment Focus receiprocal stepping Comments 2 UE support ascend lead LLE/ no UE lead RLE ,descend leading RLE 50% support required, very light 1 UE lead LLE. Manual Therapy Treatment Soft Tissue Mobilization quad, ITB Body Location L vastus lateralis, ITB Mobilization Type Instrument Assisted,Myofascial Release Intensity/Depth Superficial Body Position Hooklying Comments Rolling pin/ tooling:vastus lateralis, ITB, Rec Fem, Tib ant- no reports of decreased tingling in LLE/foot Joint Mobilizations L ankle Joint MTP, distal TibFib Grade II Body Position Supine Comments PAs MTP, calcaneal med/lat/ distraction caudal,PA distal tib fib Manual Traction LLE long axis pull Comments good feedback response distraction into L hip and LB PT-OP-R Modalities Start: 09/12/22 15:01 Freq: Status: Active Protocol: Document 12/23/22 14:15 SAK (Rec: 12/23/22 15:47 SAK [id number]) Hot Pack/Cold Pack Treatment Cold Pack Location l/s, left thigh Patient Position Hooklying Treatment Duration (minutes) 10 Patient Tolerance Good PT-OP-T Assessment and Plan Start: 09/12/22 15:01 Freq: Status: Active Protocol: Document 12/26/22 08:15 SP (Rec: 12/26/22 09:02 SP [id number]) Physical Therapy Assessment Goals Three Impairment activity tolerance Impairment LEFS 24% Short Term Goal (STG) Improve LEFS to at least 50% as measure of improved activity tolerance 10/22/22: goal progress 12/23/22: improved to 34% STG Duration 01/23/23 Correction Goal (LTG) Improve LEFS to at least 75% as measure of improved activity tolerance and quality of life LTG Duration 02/23/23 Four Impairment gait dysfunction Impairment antalgic, requires use of cane , walker, or wheelchair, can't ambulate on stairs Short Term Goal (STG) Patient to ambulate in the house without device and without a limp 10/14/22: Progressing can carry cane (less use) more short distance with small steps. Standign for 15 min at time before pain increases need sit . 10/29/22: progressing able to walk without AD across room but has limp and focus on quad fac pivot so L LE doesn't give out. Uses cane for support. Can't step out shower with due to LLE will give way . 12/03/22: GOAL MET pt doing well since epidural and B knee injection last week. Most part painfree without use AD. STG Duration 12/05/22 GOAL MET 12/03/22 Correction Goal (LTG) Patient able to ambulate at least 1/2 mile and up and down stairs with least restrictive device, without limp 10/29/22: Progressing: able now step to gait w/ hurrycane leading RLE up, LLE down. 11/04/22: step-to pattern on stairs, less limp on level surface with hurry cane, at times can ambulate without cane on level. 12/19/22: progressing: less trunk wt shift gait with focus on being tall, core fac. She continues be challenged with stair mgt,very hard, heavy UE support per pt discussion. 12/23/22:able to ambulate without assistive device, some recent increase in knee pain. Able to ascend/descend stairs with step-to pattern LTG Duration 01/04/23 slow progress stair mgt 12/19/22 Two Impairment weakness left LE Short Term Goal (STG) Patient to be independent in individualized HEP as instructed by PT 10/14/22: compliant with HEP: add/abd isometrics seated, resisted HS curl, wall posture . 10/16/22: added alternating step taps, contact support needed on SPC. 11/04/22: continue to progress HEP, good compliance 12/23/22: goal achieved; ongoing progression STG Duration goal met Correction Goal (LTG) Patient to demonstrate left LE strength of at least 4/5 to help her resume usual activity 12/23/22: goal progress, can now lift left LE antigravity at 3 +/5 strength. Functionally cannot lead with right LE ascending stairs, and with descending can't use right LE to lower left. LTG Duration 02/23/23 One Impairment pain left hip with radicular symptoms left LE Impairment 8/10 on pain scale Correction Goal (LTG) decrease patient pain to no greater than 2/10 with all usual activities 10/14/22: progressing groin pain gone away but continuous pain L anterior thigh down to lower leg to arch foot. Cant sit or stand to long before worsens 8-10/10 at about 15 min. 10/29/22: Progressing: still L quad knots up and cramps up arch foot, decreased but still there and LLE prasanna at times. 11/04/22: pain persists but a lower level, ranging from 3-6/ 10 12/19/22: pt reports low back doing well but still getting numbness and buzzing down legs L>R worse with tiring activity. Neurologist appt at [facility]. 12/23/22: reports pain 3/10 today, some days it is much worse. Goal progress LTG Duration 02/23/23 Assessment Summary Assessment Pt reports riding bike today doesn't notice buzzing at all. Pt reported increase buzzing post exercises and balance. No significant decrease post manual but states feel more mobility not as stiff. Check if saw Neurologist. Physical Therapy Plan Frequency and Duration Frequency of Treatment 2x/Week Duration of treatment (weeks) 8 Plan of Care Start Date 12/23/22 Plan of Care End Date 02/23/23 Therapeutic Interventions Therapeutic Interventions Gait Training,Home Exercise Program,Manual Therapy, Neuromuscular Re-education, Patient/Caregiver Education, Self-Care/Home Management,Soft Tissue Mobilization,Taping, Therapeutic Activities, Therapeutic Exercises Modalities Cold Pack/Ice Massage,Electric Stimulation,Hot Packs, Infrared Therapy,Traction- Mechanical,Ultrasound Next Visit Focus/Plan Next Note Type Treatment Note Next Visit Plan Resume hurdles, sport cord. Progress functional strengthening, balance, and gait training. Modalities and manual therapy for pain management.
--- NOTE | 2022-12-31 16:20 | PT.OTN ---
Current Diagnoses Radiculopathy, site unspecified (12/31/22) Left lower quadrant pain (12/31/22) Ataxia, unspecified (12/31/22) Other symptoms and signs involving the musculoskeletal system (12/31/22) Physical Therapy Treatment Note PT-OP-A Visit Information Start: 09/12/22 15:01 Freq: Status: Active Protocol: Document 12/31/22 07:57 SAK (Rec: 12/31/22 08:44 SAK [id number]) Out-Patient Physical Therapy Visit Information Visit Information Visit Type Treatment Note Visit Note 08/30 Visit Start Time 08:00 Visit Stop Time 08:48 Total Visit Minutes 48 Visit Number 26 Evaluation Information Evaluation Date 09/04/22 PT-OP-B Current Condition Start: 09/12/22 15:01 Freq: Status: Active Protocol: Document 10/10/22 09:01 SAK (Rec: 10/10/22 09:44 SAK [id number]) Current Condition History of Current Condition Onset Date 06/21/23 Current Complaints left anterior hip pain, left leg weakness History of Current Condition Was in [place], had acute onset pain left anterior hip for no known reason, got worse including vomiting, HTN and tachycardia all lasted for about 1 week. Pain went down front of left leg to arch of foot with burning pain, reports spasms anterior left LE. A little better with use muscle relaxant new last week, weaned mostly off Hydrocodone , can't hardly get out of bed, walks from bed to bathroom only. Can't want much or go up stairs due to weakness. Neurologist ordered another MRI to include thoracic spine, scheduled for this Friday. EMG scheduled 10/10/22. assists with all household activities and ADL's . 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 Used to sleep on left side, can't now, has to sleep on right, sometimes pillow between legs though states sometimes that makes pain worse. Trying to get in to see neurologist before December. Prior Treatments and Tests MRI 06/29/22: multilevel mild overall degenerative change. Focal area of ill-defined density overlying the right foramina. This is suspected to be artifacts secondary to motion. However, mass in this egion cannot be definitely excluded. If patient is able to toelrate exam repeat views through this region are recommended. Future Testing and Treatments Planned Thoracic MRI this Friday EMG 10/10/22 Neurologist when able to get appoiintment PT-OP-C Subjective Start: 09/12/22 15:01 Freq: Status: Active Protocol: Document 12/31/22 07:57 SAK (Rec: 12/31/22 08:44 SAK [id number]) OP-PT Subjective Patient Comments Patient Comments Leg pain hasn't improved. Sees neurologist 01/02/23. Agreeable to traction today, states prevoiusly found helpful. PT-OP-D Balance Start: 09/12/22 15:01 Freq: Status: Active Protocol: Document 09/04/22 13:00 SAK (Rec: 09/12/22 16:[address] [facility] [id number]) OP-PT Balance Assessment Sitting Balance Static Sitting Balance Ability Good Dynamic Sitting Balance Ability Good Standing Balance Static Standing Balance Ability Fair Dynamic Standing Balance Ability Fair Device Used SPC Standing Balance Comments unable to tolerate other balance testing Al Fall Scale Copyright Permission PT-OP-G Mobility & Gait Start: 09/12/22 15:01 Freq: Status: Active Protocol: Document 09/04/22 13:00 SAK (Rec: 09/12/22 16:[address] [facility] [id number]) OP Mobility Evaluation Bed Mobility Rolling painful Supine to and from Sit painful Transfers Sit to Stand painful, excess use right LE and UE's Car Transfers painful Floor Transfers unable Functional Movements Lifting and Carrying unable Squats unable OP Gait Assessment Gait Gait Assistance Required: Standby Assistance Distance (Feet) 80 Assistive Devices Assistive Device Straight Cane Orthotic/Prosthetic Devices or Brace: No Gait Deviations General Gait Pattern Antalgic,Decreased Stride Length,Decreased Feet Clearance,Lateral Trunk Lean, Wide Based Gait Stair Climbing Evaluation Comments Stair Climbing Comments unable PT-OP-H Neuro Start: 09/12/22 15:01 Freq: Status: Active Protocol: Document 09/04/22 13:00 SAK (Rec: 09/12/22 16:[address] [facility] [id number]) Sensation Evaluation Gross Sensation Gross Sensation Left LE Impaired Sensation Description Numbness,Tingling,Pain PT-OP-J Posture/Palpation/Skin Start: 09/12/22 15:01 Freq: Status: Active Protocol: Document 09/04/22 13:00 SAK (Rec: 09/12/22 16:[address] [facility] [id number]) Posture Evaluation Position Standing Head/C-Spine Posture Forward Head T-Spine Posture Increased Kyphosis L-Spine Posture Flexible Scoliosis on (R) Shoulder Posture (L) Rounded,(R) Rounded Scapula Posture (L) Protracted,(R) Protracted Arm Posture (L) Internally Rotated,(R) Internally Rotated Palpation Assessment Location left hip Palpation Location ant,lat Palpation Findings Muscle Guarding,Tenderness PT-OP-K Range of Motion Start: 09/12/22 15:01 Freq: Status: Active Protocol: Document 09/04/22 13:[address] [facility] (Rec: 09/12/22 16:[address] [facility] [id number]) Lumbar Spine Range of Motion Lumbar Spine Active ROM Limitations Pain Comments mod dec all motions Hip Goniometric Range of Motion Hip Left Hip ROM WFL No Flexion w/Knee Flexed 90 Straight Leg Raise 45 Extension 0 Abduction 25 Internal Rotation 10 External Rotation 45 Comments all motions left needed PT assist due to weakness and pain Right Hip ROM WFL Yes Hip ROM Limitations Hip ROM Limitations Muscle Weakness,Pain Ankle and Foot Goniometric Range of Motion Ankle and Foot Left Ankle/Foot ROM WFL Yes Right Ankle/Foot ROM WFL Yes PT-OP-L Special Tests Start: 09/12/22 15:01 Freq: Status: Active Protocol: Document 09/04/22 13:[address] [facility] (Rec: 09/12/22 16:[address] [facility] [id number]) Special Tests Lumbar Spine Special Tests Vertical Spine Loading Test Results inc pain Manual Traction Test Results inc pain Slump Test Results inc pain Prone Press Up Test Results unable to lay prone Straight Leg Raise Test Results unable to do test PT-OP-M Strength Start: 09/12/22 15:01 Freq: Status: Active Protocol: Document 09/04/22 13:[address] [facility] (Rec: 09/12/22 16:[address] [facility] [id number]) Trunk Strength Trunk Manual Muscle Testing Core Stabilization poor Comments unable to tolerate testing Hip Strength Hip Manual Muscle Testing Left Flexion (L2) 2- Poor- Extension (S1) 2- Poor- Abduction 2- Poor- Adduction 2- Poor- External Rotation 2- Poor- Internal Rotation 2- Poor- Comments tested sitting and supine Right Flexion (L2) 4+ Good+ Extension (S1) 4- Good- Abduction 4- Good- Adduction 4- Good- External Rotation 4- Good- Internal Rotation 4- Good- Comments tested sitting and supine Knee Strength Knee Manual Muscle Testing Left Flexion (S2) 3- Fair- Extension (L3) 3- Fair- Right Flexion (S2) 5 Normal Extension (L3) 5 Normal Ankle/Foot Strength Ankle and Foot Manual Muscle Testing Left Dorsiflexion (L4) 2+ Poor+ Plantarflexion (S1) 3- Fair- Right Dorsiflexion (L4) 4 Good Plantarflexion (S1) 4 Good Toe Strength Toe Manual Muscle Testing Left Great Toe Extension 2+ Poor+ Right Great Toe Extension 5 Normal PT-OP-Q Treatments Start: 09/12/22 15:01 Freq: Status: Active Protocol: Document 12/31/22 07:[address] [facility] (Rec: 12/31/22 08:[address] [facility] [id number]) Cardio Equipment Recumbent Elliptical (Biodex) Duration (Minutes) 6 Resistance 3 Seat Position 7 Other LEs only 30-35 RPMs Gym Equipment Shuttle Recovery Unilateral Squats Details cued knees with mid ft and midft/heel press for prox quad /glut fac Resistance 37# (old) Shuttle Recovery Platform Stable Reps/Time x20 Bilateral Squats Details cued knees with mid ft and midft/heel press for prox quad /glut fac Resistance Stable- 62# (1 new) Unstable- 37# (old) middle notch Shuttle Recovery Platform Stable,Unstable Reps/Time 20 reps stable, 20 reps uneven Therapeutic Exercises Standing Exercises step overs Equipment Used 1 rubin Reps/Minutes 10x Comments cues for core stab Gait Training Gait Activity stairs Device Used 1 HR ascend reciprocal, B UE descend receiprocal. Distance/Duration 4 stairs x2 laps Treatment Focus receiprocal stepping Comments 2 UE support ascend lead LLE/ no UE lead RLE ,descend leading RLE 50% support required, very light 1 UE lead LLE. Manual Therapy Treatment Manual Traction LS Details intermittant 30: hold, 10 sec rest Body Position Hooklying Reps/Duration 10 min Comments Trial [place] mechanical traction, not working so provided manual traction via belt hooked to [place] harness with good effect. Moist heat during traction and 5 min after. PT-OP-R Modalities Start: 09/12/22 15:01 Freq: Status: Active Protocol: Document 12/31/22 07:[address] [facility] (Rec: 12/31/22 16:[address] [facility] [id number]) Hot Pack/Cold Pack Treatment Hot Pack Location l/s Patient Position Supine Treatment Duration (minutes) 15 Patient Tolerance Good PT-OP-T Assessment and Plan Start: 09/12/22 15:01 Freq: Status: Active Protocol: Document 12/31/22 07:[address] [facility] (Rec: 12/31/22 08:[address] [facility] [id number]) Physical Therapy Assessment Goals Three Impairment activity tolerance Impairment LEFS 24% Short Term Goal (STG) Improve LEFS to at least 50% as measure of improved activity tolerance 10/22/22: goal progress 12/23/22: improved to 34% STG Duration 01/23/23 Medical Assisting Program Director Goal (LTG) Improve LEFS to at least 75% as measure of improved activity tolerance and quality of life LTG Duration 02/23/23 Four Impairment gait dysfunction Impairment antalgic, requires use of cane , walker, or wheelchair, can't ambulate on stairs Short Term Goal (STG) Patient to ambulate in the house without device and without a limp 10/14/22: Progressing can carry cane (less use) more short distance with small steps. Standign for 15 min at time before pain increases need sit . 10/29/22: progressing able to walk without AD across room but has limp and focus on quad fac pivot so L LE doesn't give out. Uses cane for support. Can't step out shower with due to LLE will give way . 12/03/22: GOAL MET pt doing well since epidural and B knee injection last week. Most part painfree without use AD. STG Duration 12/05/22 GOAL MET 12/03/22 Medical Assisting Program Director Goal (LTG) Patient able to ambulate at least 1/2 mile and up and down stairs with least restrictive device, without limp 10/29/22: Progressing: able now step to gait w/ hurrycane leading RLE up, LLE down. 11/04/22: step-to pattern on stairs, less limp on level surface with hurry cane, at times can ambulate without cane on level. 12/19/22: progressing: less trunk wt shift gait with focus on being tall, core fac. She continues be challenged with stair mgt,very hard, heavy UE support per pt discussion. 12/23/22:able to ambulate without assistive device, some recent increase in knee pain. Able to ascend/descend stairs with step-to pattern LTG Duration 01/04/23 slow progress stair mgt 12/19/22 Two Impairment weakness left LE Short Term Goal (STG) Patient to be independent in individualized HEP as instructed by PT 10/14/22: compliant with HEP: add/abd isometrics seated, resisted HS curl, wall posture . 10/16/22: added alternating step taps, contact support needed on SPC. 11/04/22: continue to progress HEP, good compliance 12/23/22: goal achieved; ongoing progression STG Duration goal met Medical Assisting Program Director Goal (LTG) Patient to demonstrate left LE strength of at least 4/5 to help her resume usual activity 12/23/22: goal progress, can now lift left LE antigravity at 3 +/5 strength. Functionally cannot lead with right LE ascending stairs, and with descending can't use right LE to lower left. LTG Duration 02/23/23 One Impairment pain left hip with radicular symptoms left LE Impairment 8/10 on pain scale Medical Assisting Program Director Goal (LTG) decrease patient pain to no greater than 2/10 with all usual activities 10/14/22: progressing groin pain gone away but continuous pain L anterior thigh down to lower leg to arch foot. Cant sit or stand to long before worsens 8-10/10 at about 15 min. 10/29/22: Progressing: still L quad knots up and cramps up arch foot, decreased but still there and LLE prasanna at times. 11/04/22: pain persists but a lower level, ranging from 3-6/ 10 12/19/22: pt reports low back doing well but still getting numbness and buzzing down legs L>R worse with tiring activity. Neurologist appt at [facility]. 12/23/22: reports pain 3/10 today, some days it is much worse. Goal progress LTG Duration 02/23/23 Physical Therapy Plan Next Visit Focus/Plan Next Note Type Treatment Note
--- NOTE | 2023-01-07 08:50 | PT.OTN ---
Current Diagnoses Radiculopathy, site unspecified (01/07/23) Left lower quadrant pain (01/07/23) Ataxia, unspecified (01/07/23) Other symptoms and signs involving the musculoskeletal system (01/07/23) Physical Therapy Treatment Note PT-OP-A Visit Information Start: 09/12/22 15:01 Freq: Status: Active Protocol: Document 01/07/23 07:58 SAK (Rec: 01/07/23 08:50 SAK [id number]) Out-Patient Physical Therapy Visit Information Visit Information Visit Type Treatment Note Visit Note 09/30 Visit Start Time 08:00 Visit Stop Time 08:48 Total Visit Minutes 48 Visit Number 28 Evaluation Information Evaluation Date 09/04/22 PT-OP-B Current Condition Start: 09/12/22 15:01 Freq: Status: Active Protocol: Document 10/10/22 09:01 SAK (Rec: 10/10/22 09:44 SAK [id number]) Current Condition History of Current Condition Onset Date 06/21/23 Current Complaints left anterior hip pain, left leg weakness History of Current Condition Was in [place], had acute onset pain left anterior hip for no known reason, got worse including vomiting, HTN and tachycardia all lasted for about 1 week. Pain went down front of left leg to arch of foot with burning pain, reports spasms anterior left LE. A little better with use muscle relaxant new last week, weaned mostly off Hydrocodone , can't hardly get out of bed, walks from bed to bathroom only. Can't want much or go up stairs due to weakness. Neurologist ordered another MRI to include thoracic spine, scheduled for this Friday. EMG scheduled 10/10/22. assists with all household activities and ADL's . 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 Used to sleep on left side, can't now, has to sleep on right, sometimes pillow between legs though states sometimes that makes pain worse. Trying to get in to see neurologist before December. Prior Treatments and Tests MRI 06/29/22: multilevel mild overall degenerative change. Focal area of ill-defined density overlying the right foramina. This is suspected to be artifacts secondary to motion. However, mass in this egion cannot be definitely excluded. If patient is able to toelrate exam repeat views through this region are recommended. Future Testing and Treatments Planned Thoracic MRI this Friday EMG 10/10/22 Neurologist when able to get appoiintment PT-OP-C Subjective Start: 09/12/22 15:01 Freq: Status: Active Protocol: Document 01/07/23 07:58 SAK (Rec: 01/07/23 08:50 [facility] [id number]) OP-PT Subjective Patient Comments Patient Comments Saw neurologist, still recommending repeat EMG, and increase medication Lyrica and Pregabelin, started gradually increasing on . Also recommended additional injection. Saw Dr. Burger yesterday, will do epidural in 2 spots. For right knee also planning to do injections , if not helpful will need to do knee replacement. Still hasn't gone to pool per PT recommendation; was given information for Amanda Trejo PTA. Humming in leg better until a couple days ago. PT-OP-D Balance Start: 09/12/22 15:01 Freq: Status: Active Protocol: Document 09/04/22 13:00 [facility] (Rec: 09/12/22 16:05 [facility] [id number]) OP-PT Balance Assessment Sitting Balance Static Sitting Balance Ability Good Dynamic Sitting Balance Ability Good Standing Balance Static Standing Balance Ability Fair Dynamic Standing Balance Ability Fair Device Used SPC Standing Balance Comments unable to tolerate other balance testing Al Fall Scale Copyright Permission PT-OP-G Mobility & Gait Start: 09/12/22 15:01 Freq: Status: Active Protocol: Document 09/04/22 13:00 [facility] (Rec: 09/12/22 16:05 [facility] [id number]) OP Mobility Evaluation Bed Mobility Rolling painful Supine to and from Sit painful Transfers Sit to Stand painful, excess use right LE and UE's Car Transfers painful Floor Transfers unable Functional Movements Lifting and Carrying unable Squats unable OP Gait Assessment Gait Gait Assistance Required: Standby Assistance Distance (Feet) 80 Assistive Devices Assistive Device Straight Cane Orthotic/Prosthetic Devices or Brace: No Gait Deviations General Gait Pattern Antalgic,Decreased Stride Length,Decreased Feet Clearance,Lateral Trunk Lean, Wide Based Gait Stair Climbing Evaluation Comments Stair Climbing Comments unable PT-OP-H Neuro Start: 09/12/22 15:01 Freq: Status: Active Protocol: Document 09/04/22 13:00 [facility] (Rec: 09/12/22 16:05 [facility] [id number]) Sensation Evaluation Gross Sensation Gross Sensation Left LE Impaired Sensation Description Numbness,Tingling,Pain PT-OP-J Posture/Palpation/Skin Start: 09/12/22 15:01 Freq: Status: Active Protocol: Document 09/04/22 13:00 [facility] (Rec: 09/12/22 16:05 [facility] [id number]) Posture Evaluation Position Standing Head/C-Spine Posture Forward Head T-Spine Posture Increased Kyphosis L-Spine Posture Flexible Scoliosis on (R) Shoulder Posture (L) Rounded,(R) Rounded Scapula Posture (L) Protracted,(R) Protracted Arm Posture (L) Internally Rotated,(R) Internally Rotated Palpation Assessment Location left hip Palpation Location ant,lat Palpation Findings Muscle Guarding,Tenderness PT-OP-K Range of Motion Start: 09/12/22 15:01 Freq: Status: Active Protocol: Document 09/04/22 13:00 [facility] (Rec: 09/12/22 16:05 [facility] [id number]) Lumbar Spine Range of Motion Lumbar Spine Active ROM Limitations Pain Comments mod dec all motions Hip Goniometric Range of Motion Hip Left Hip ROM WFL No Flexion w/Knee Flexed 90 Straight Leg Raise 45 Extension 0 Abduction 25 Internal Rotation 10 External Rotation 45 Comments all motions left needed PT assist due to weakness and pain Right Hip ROM WFL Yes Hip ROM Limitations Hip ROM Limitations Muscle Weakness,Pain Ankle and Foot Goniometric Range of Motion Ankle and Foot Left Ankle/Foot ROM WFL Yes Right Ankle/Foot ROM WFL Yes PT-OP-L Special Tests Start: 09/12/22 15:01 Freq: Status: Active Protocol: Document 09/04/22 13:00 [facility] (Rec: 09/12/22 16:05 [facility] [id number]) Special Tests Lumbar Spine Special Tests Vertical Spine Loading Test Results inc pain Manual Traction Test Results inc pain Slump Test Results inc pain Prone Press Up Test Results unable to lay prone Straight Leg Raise Test Results unable to do test PT-OP-M Strength Start: 09/12/22 15:01 Freq: Status: Active Protocol: Document 09/04/22 13:00 [facility] (Rec: 09/12/22 16:05 [facility] [id number]) Trunk Strength Trunk Manual Muscle Testing Core Stabilization poor Comments unable to tolerate testing Hip Strength Hip Manual Muscle Testing Left Flexion (L2) 2- Poor- Extension (S1) 2- Poor- Abduction 2- Poor- Adduction 2- Poor- External Rotation 2- Poor- Internal Rotation 2- Poor- Comments tested sitting and supine Right Flexion (L2) 4+ Good+ Extension (S1) 4- Good- Abduction 4- Good- Adduction 4- Good- External Rotation 4- Good- Internal Rotation 4- Good- Comments tested sitting and supine Knee Strength Knee Manual Muscle Testing Left Flexion (S2) 3- Fair- Extension (L3) 3- Fair- Right Flexion (S2) 5 Normal Extension (L3) 5 Normal Ankle/Foot Strength Ankle and Foot Manual Muscle Testing Left Dorsiflexion (L4) 2+ Poor+ Plantarflexion (S1) 3- Fair- Right Dorsiflexion (L4) 4 Good Plantarflexion (S1) 4 Good Toe Strength Toe Manual Muscle Testing Left Great Toe Extension 2+ Poor+ Right Great Toe Extension 5 Normal PT-OP-Q Treatments Start: 09/12/22 15:01 Freq: Status: Active Protocol: Document 01/07/23 07:58 [facility] (Rec: 01/07/23 08:50 [facility] [id number]) Cardio Equipment Recumbent Elliptical (uberall) Duration (Minutes) 8 Resistance 3-4 Seat Position 8 Other LEs only 30-35 RPMs Manual Therapy Treatment Manual Traction LS Details intermittant 1 min hold 10 sec rest Body Position Hooklying Reps/Duration 10 min Comments Manual traction with LE's at 90/90, belt proximal thighs over towel with Dycem to prevent slipping. Moist heat during traction and 5 min after. PT-OP-R Modalities Start: 09/12/22 15:01 Freq: Status: Active Protocol: Document 01/07/23 07:58 [facility] (Rec: 01/07/23 08:50 [facility] [id number]) Hot Pack/Cold Pack Treatment Hot Pack Location l/s Patient Position Supine Treatment Duration (minutes) 15 Patient Tolerance Good PT-OP-T Assessment and Plan Start: 09/12/22 15:01 Freq: Status: Active Protocol: Document 01/07/23 07:58 [facility] (Rec: 01/07/23 08:50 [facility] [id number]) Physical Therapy Assessment Goals Three Impairment activity tolerance Impairment LEFS 24% Short Term Goal (STG) Improve LEFS to at least 50% as measure of improved activity tolerance 10/22/22: goal progress 12/23/22: improved to 34% STG Duration 01/23/23 Company Marker Goal (LTG) Improve LEFS to at least 75% as measure of improved activity tolerance and quality of life LTG Duration 02/23/23 Four Impairment gait dysfunction Impairment antalgic, requires use of cane , walker, or wheelchair, can't ambulate on stairs Short Term Goal (STG) Patient to ambulate in the house without device and without a limp 10/14/22: Progressing can carry cane (less use) more short distance with small steps. Standign for 15 min at time before pain increases need sit . 10/29/22: progressing able to walk without AD across room but has limp and focus on quad fac pivot so L LE doesn't give out. Uses cane for support. Can't step out shower with due to LLE will give way . 12/03/22: GOAL MET pt doing well since epidural and B knee injection last week. Most part painfree without use AD. STG Duration 12/05/22 GOAL MET 12/03/22 Company Marker Goal (LTG) Patient able to ambulate at least 1/2 mile and up and down stairs with least restrictive device, without limp 10/29/22: Progressing: able now step to gait w/ hurrycane leading RLE up, LLE down. 11/04/22: step-to pattern on stairs, less limp on level surface with hurry cane, at times can ambulate without cane on level. 12/19/22: progressing: less trunk wt shift gait with focus on being tall, core fac. She continues be challenged with stair mgt,very hard, heavy UE support per pt discussion. 12/23/22:able to ambulate without assistive device, some recent increase in knee pain. Able to ascend/descend stairs with step-to pattern LTG Duration 01/04/23 slow progress stair mgt 12/19/22 Two Impairment weakness left LE Short Term Goal (STG) Patient to be independent in individualized HEP as instructed by PT 10/14/22: compliant with HEP: add/abd isometrics seated, resisted HS curl, wall posture . 10/16/22: added alternating step taps, contact support needed on SPC. 11/04/22: continue to progress HEP, good compliance 12/23/22: goal achieved; ongoing progression STG Duration goal met Company Marker Goal (LTG) Patient to demonstrate left LE strength of at least 4/5 to help her resume usual activity 12/23/22: goal progress, can now lift left LE antigravity at 3 +/5 strength. Functionally cannot lead with right LE ascending stairs, and with descending can't use right LE to lower left. LTG Duration 02/23/23 One Impairment pain left hip with radicular symptoms left LE Impairment 8/10 on pain scale Fdc Goal (LTG) decrease patient pain to no greater than 2/10 with all usual activities 10/14/22: progressing groin pain gone away but continuous pain L anterior thigh down to lower leg to arch foot. Cant sit or stand to long before worsens 8-10/10 at about 15 min. 10/29/22: Progressing: still L quad knots up and cramps up arch foot, decreased but still there and LLE prasanna at times. 11/04/22: pain persists but a lower level, ranging from 3-6/ 10 12/19/22: pt reports low back doing well but still getting numbness and buzzing down legs L>R worse with tiring activity. Neurologist appt at [facility]. 12/23/22: reports pain 3/10 today, some days it is much worse. Goal progress LTG Duration 02/23/23 Assessment Summary Assessment Good response to manual traction with decrease in radicular symptoms. Physical Therapy Plan Frequency and Duration Frequency of Treatment 2x/Week Duration of treatment (weeks) 8 Plan of Care Start Date 12/23/22 Plan of Care End Date 02/23/23 Therapeutic Interventions Therapeutic Interventions Gait Training,Home Exercise Program,Manual Therapy, Neuromuscular Re-education, Patient/Caregiver Education, Self-Care/Home Management,Soft Tissue Mobilization,Taping, Therapeutic Activities, Therapeutic Exercises Modalities Cold Pack/Ice Massage,Electric Stimulation,Hot Packs, Infrared Therapy,Traction- Mechanical,Ultrasound Next Visit Focus/Plan Next Note Type Treatment Note Next Visit Plan Continue core strengthening, manual traction, modalities PRN.
--- NOTE | 2023-01-09 08:02 | PT.OTN ---
Current Diagnoses Radiculopathy, site unspecified (01/09/23) Left lower quadrant pain (01/09/23) Ataxia, unspecified (01/09/23) Other symptoms and signs involving the musculoskeletal system (01/09/23) Physical Therapy Treatment Note PT-OP-A Visit Information Start: 09/12/22 15:01 Freq: Status: Active Protocol: Document 01/09/23 08:01 [facility] (Rec: 01/09/23 08:46 [facility] [id number]) Out-Patient Physical Therapy Visit Information Visit Information Visit Type Treatment Note Visit Note 10/30 Visit Start Time 08:00 Visit Stop Time 08:48 Total Visit Minutes 50 Visit Number 29 Evaluation Information Evaluation Date 09/04/22 PT-OP-B Current Condition Start: 09/12/22 15:01 Freq: Status: Active Protocol: Document 10/10/22 09:01 [facility] (Rec: 10/10/22 09:44 [facility] [id number]) Current Condition History of Current Condition Onset Date 06/21/23 Current Complaints left anterior hip pain, left leg weakness History of Current Condition Was in [place], had acute onset pain left anterior hip for no known reason, got worse including vomiting, HTN and tachycardia all lasted for about 1 week. Pain went down front of left leg to arch of foot with burning pain, reports spasms anterior left LE. A little better with use muscle relaxant new last week, weaned mostly off Hydrocodone , can't hardly get out of bed, walks from bed to bathroom only. Can't want much or go up stairs due to weakness. Neurologist ordered another MRI to include thoracic spine, scheduled for this Friday. EMG scheduled 10/10/22. assists with all household activities and ADL's . 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 Used to sleep on left side, can't now, has to sleep on right, sometimes pillow between legs though states sometimes that makes pain worse. Trying to get in to see neurologist before December. Prior Treatments and Tests MRI 06/29/22: multilevel mild overall degenerative change. Focal area of ill-defined density overlying the right foramina. This is suspected to be artifacts secondary to motion. However, mass in this egion cannot be definitely excluded. If patient is able to toelrate exam repeat views through this region are recommended. Future Testing and Treatments Planned Thoracic MRI this Friday EMG 10/10/22 Neurologist when able to get appoiintment PT-OP-C Subjective Start: 09/12/22 15:01 Freq: Status: Active Protocol: Document 01/09/23 08:01 [facility] (Rec: 01/09/23 08:46 [facility] [id number]) OP-PT Subjective Patient Comments Patient Comments January 22 going for 2 epidural shots lower than last . States traction helpful. No EMG scheduled yet. Hasn't called aquatic specialist yet. No injections scheduled for knee yet. PT-OP-D Balance Start: 09/12/22 15:01 Freq: Status: Active Protocol: Document 09/04/22 13:00 [facility] (Rec: 09/12/22 16:05 [facility] [id number]) OP-PT Balance Assessment Sitting Balance Static Sitting Balance Ability Good Dynamic Sitting Balance Ability Good Standing Balance Static Standing Balance Ability Fair Dynamic Standing Balance Ability Fair Device Used SPC Standing Balance Comments unable to tolerate other balance testing Al Fall Scale Copyright Permission PT-OP-G Mobility & Gait Start: 09/12/22 15:01 Freq: Status: Active Protocol: Document 09/04/22 13:00 [facility] (Rec: 09/12/22 16:05 [facility] [id number]) OP Mobility Evaluation Bed Mobility Rolling painful Supine to and from Sit painful Transfers Sit to Stand painful, excess use right LE and UE's Car Transfers painful Floor Transfers unable Functional Movements Lifting and Carrying unable Squats unable OP Gait Assessment Gait Gait Assistance Required: Standby Assistance Distance (Feet) 80 Assistive Devices Assistive Device Straight Cane Orthotic/Prosthetic Devices or Brace: No Gait Deviations General Gait Pattern Antalgic,Decreased Stride Length,Decreased Feet Clearance,Lateral Trunk Lean, Wide Based Gait Stair Climbing Evaluation Comments Stair Climbing Comments unable PT-OP-H Neuro Start: 09/12/22 15:01 Freq: Status: Active Protocol: Document 09/04/22 13:00 [facility] (Rec: 09/12/22 16:05 [facility] [id number]) Sensation Evaluation Gross Sensation Gross Sensation Left LE Impaired Sensation Description Numbness,Tingling,Pain PT-OP-J Posture/Palpation/Skin Start: 09/12/22 15:01 Freq: Status: Active Protocol: Document 09/04/22 13:00 [facility] (Rec: 09/12/22 16:05 [facility] [id number]) Posture Evaluation Position Standing Head/C-Spine Posture Forward Head T-Spine Posture Increased Kyphosis L-Spine Posture Flexible Scoliosis on (R) Shoulder Posture (L) Rounded,(R) Rounded Scapula Posture (L) Protracted,(R) Protracted Arm Posture (L) Internally Rotated,(R) Internally Rotated Palpation Assessment Location left hip Palpation Location ant,lat Palpation Findings Muscle Guarding,Tenderness PT-OP-K Range of Motion Start: 09/12/22 15:01 Freq: Status: Active Protocol: Document 09/04/22 13:00 [facility] (Rec: 09/12/22 16:05 [facility] [id number]) Lumbar Spine Range of Motion Lumbar Spine Active ROM Limitations Pain Comments mod dec all motions Hip Goniometric Range of Motion Hip Left Hip ROM WFL No Flexion w/Knee Flexed 90 Straight Leg Raise 45 Extension 0 Abduction 25 Internal Rotation 10 External Rotation 45 Comments all motions left needed PT assist due to weakness and pain Right Hip ROM WFL Yes Hip ROM Limitations Hip ROM Limitations Muscle Weakness,Pain Ankle and Foot Goniometric Range of Motion Ankle and Foot Left Ankle/Foot ROM WFL Yes Right Ankle/Foot ROM WFL Yes PT-OP-L Special Tests Start: 09/12/22 15:01 Freq: Status: Active Protocol: Document 09/04/22 13:00 [facility] (Rec: 09/12/22 16:05 [facility] [id number]) Special Tests Lumbar Spine Special Tests Vertical Spine Loading Test Results inc pain Manual Traction Test Results inc pain Slump Test Results inc pain Prone Press Up Test Results unable to lay prone Straight Leg Raise Test Results unable to do test PT-OP-M Strength Start: 09/12/22 15:01 Freq: Status: Active Protocol: Document 09/04/22 13:00 [facility] (Rec: 09/12/22 16:05 [facility] [id number]) Trunk Strength Trunk Manual Muscle Testing Core Stabilization poor Comments unable to tolerate testing Hip Strength Hip Manual Muscle Testing Left Flexion (L2) 2- Poor- Extension (S1) 2- Poor- Abduction 2- Poor- Adduction 2- Poor- External Rotation 2- Poor- Internal Rotation 2- Poor- Comments tested sitting and supine Right Flexion (L2) 4+ Good+ Extension (S1) 4- Good- Abduction 4- Good- Adduction 4- Good- External Rotation 4- Good- Internal Rotation 4- Good- Comments tested sitting and supine Knee Strength Knee Manual Muscle Testing Left Flexion (S2) 3- Fair- Extension (L3) 3- Fair- Right Flexion (S2) 5 Normal Extension (L3) 5 Normal Ankle/Foot Strength Ankle and Foot Manual Muscle Testing Left Dorsiflexion (L4) 2+ Poor+ Plantarflexion (S1) 3- Fair- Right Dorsiflexion (L4) 4 Good Plantarflexion (S1) 4 Good Toe Strength Toe Manual Muscle Testing Left Great Toe Extension 2+ Poor+ Right Great Toe Extension 5 Normal PT-OP-Q Treatments Start: 09/12/22 15:01 Freq: Status: Active Protocol: Document 01/09/23 08:01 [facility] (Rec: 01/09/23 08:46 [facility] [id number]) Cardio Equipment Recumbent Elliptical (Biodex) Duration (Minutes) 8 Resistance 3-4 Seat Position 9 Other LEs only 30-35 RPMs Gym Equipment Shuttle Balance red Details chains RED Reps/Duration 6 MIN Comments WBOS: wt shift, HTs, EC up to 7 sec NBOS: wt shift, HTs, EC 3 sec Stride Stance: wt shift. Sport Cord red Exercise Details back/side/fwd, Cord/Resistance green Reps/Duration 10 each Comments cued elongated posturing w/ core & scap complex fac, slow eccentric stepping, wider LOUIE- improved stability. Therapeutic Exercises Supine Exercises SAQ Supine Exercise Name HEP reviewed Side left Resistance TB #4 (blue at ankles) Equipment Used foam roller under knees Reps/Minutes 3 SH x10 Comments cued mid quad fac Sitting Exercises LAQ Side left Resistance TB #2 orange Reps/Minutes 5 SH x10 Comments core emphasis with upright posture, quad fac Resisted HS curl Sitting Exercise Name REviewed HEP Side left Resistance Tb #3 (green latex free) Equipment Used mesh chair Reps/Minutes x15 reps Comments good HS fac and form Manual Therapy Treatment Manual Traction LS Details intermittant 1 min hold 10 sec rest Body Position Hooklying Reps/Duration 10 min Comments Manual traction with LE's at 90/90, belt proximal thighs over towel with Dycem to prevent slipping. Moist heat during traction and 5 min after. Self-Care/Home Management Treatment Education Other Education Continue to stress benefits of aquatic exercise, patient advised to call and set up appointment. PT-OP-R Modalities Start: 09/12/22 15:01 Freq: Status: Active Protocol: Document 01/09/23 08:01 [facility] (Rec: 01/12/23 08:02 [facility] [id number]) Hot Pack/Cold Pack Treatment Hot Pack Location l/s Patient Position Supine Treatment Duration (minutes) 15 Patient Tolerance Good PT-OP-T Assessment and Plan Start: 09/12/22 15:01 Freq: Status: Active Protocol: Document 01/09/23 08:01 [facility] (Rec: 01/09/23 08:46 [facility] [id number]) Physical Therapy Assessment Goals Three Impairment activity tolerance Impairment LEFS 24% Short Term Goal (STG) Improve LEFS to at least 50% as measure of improved activity tolerance 10/22/22: goal progress 12/23/22: improved to 34% STG Duration 01/23/23 Alf Goal (LTG) Improve LEFS to at least 75% as measure of improved activity tolerance and quality of life LTG Duration 02/23/23 Four Impairment gait dysfunction Impairment antalgic, requires use of cane , walker, or wheelchair, can't ambulate on stairs Short Term Goal (STG) Patient to ambulate in the house without device and without a limp 10/14/22: Progressing can carry cane (less use) more short distance with small steps. Standign for 15 min at time before pain increases need sit . 10/29/22: progressing able to walk without AD across room but has limp and focus on quad fac pivot so L LE doesn't give out. Uses cane for support. Can't step out shower with due to LLE will give way . 12/03/22: GOAL MET pt doing well since epidural and B knee injection last week. Most part painfree without use AD. STG Duration 12/05/22 GOAL MET 12/03/22 Stunt Man Goal (LTG) Patient able to ambulate at least 1/2 mile and up and down stairs with least restrictive device, without limp 10/29/22: Progressing: able now step to gait w/ hurrycane leading RLE up, LLE down. 11/04/22: step-to pattern on stairs, less limp on level surface with hurry cane, at times can ambulate without cane on level. 12/19/22: progressing: less trunk wt shift gait with focus on being tall, core fac. She continues be challenged with stair mgt,very hard, heavy UE support per pt discussion. 12/23/22:able to ambulate without assistive device, some recent increase in knee pain. Able to ascend/descend stairs with step-to pattern LTG Duration 01/04/23 slow progress stair mgt 12/19/22 Two Impairment weakness left LE Short Term Goal (STG) Patient to be independent in individualized HEP as instructed by PT 10/14/22: compliant with HEP: add/abd isometrics seated, resisted HS curl, wall posture . 10/16/22: added alternating step taps, contact support needed on SPC. 11/04/22: continue to progress HEP, good compliance 12/23/22: goal achieved; ongoing progression STG Duration goal met Alf Goal (LTG) Patient to demonstrate left LE strength of at least 4/5 to help her resume usual activity 12/23/22: goal progress, can now lift left LE antigravity at 3 +/5 strength. Functionally cannot lead with right LE ascending stairs, and with descending can't use right LE to lower left. LTG Duration 02/23/23 One Impairment pain left hip with radicular symptoms left LE Impairment 8/10 on pain scale Alf Goal (LTG) decrease patient pain to no greater than 2/10 with all usual activities 10/14/22: progressing groin pain gone away but continuous pain L anterior thigh down to lower leg to arch foot. Cant sit or stand to long before worsens 8-10/10 at about 15 min. 10/29/22: Progressing: still L quad knots up and cramps up arch foot, decreased but still there and LLE prasanna at times. 11/04/22: pain persists but a lower level, ranging from 3-6/ 10 12/19/22: pt reports low back doing well but still getting numbness and buzzing down legs L>R worse with tiring activity. Neurologist appt at [facility]. 12/23/22: reports pain 3/10 today, some days it is much worse. Goal progress LTG Duration 02/23/23 Assessment Summary Assessment Improved quad strength noted functionally and with LAQ with TB. Patient sore in am, improves with movement then pain inc usually throughout the day. Benefits from traction, urged to try aquatic exercise as previously recommended. Physical Therapy Plan Frequency and Duration Frequency of Treatment 2x/Week Duration of treatment (weeks) 8 Plan of Care Start Date 12/23/22 Plan of Care End Date 02/23/23 Therapeutic Interventions Therapeutic Interventions Gait Training,Home Exercise Program,Manual Therapy, Neuromuscular Re-education, Patient/Caregiver Education, Self-Care/Home Management,Soft Tissue Mobilization,Taping, Therapeutic Activities, Therapeutic Exercises Modalities Cold Pack/Ice Massage,Electric Stimulation,Hot Packs, Infrared Therapy,Traction- Mechanical,Ultrasound Next Visit Focus/Plan Next Note Type Treatment Note Next Visit Plan Continue core strengthening, manual traction, modalities PRN.
--- NOTE | 2023-01-16 08:45 | PT.OTN ---
Current Diagnoses Radiculopathy, site unspecified (01/16/23) Left lower quadrant pain (01/16/23) Ataxia, unspecified (01/16/23) Other symptoms and signs involving the musculoskeletal system (01/16/23) Physical Therapy Treatment Note PT-OP-A Visit Information Start: 09/12/22 15:01 Freq: Status: Active Protocol: Document 01/16/23 08:00 [facility] (Rec: 01/16/23 08:45 [facility] [id number]) Out-Patient Physical Therapy Visit Information Visit Information Visit Type Treatment Note Visit Note 11/30 Visit Start Time 08:00 Visit Stop Time 08:48 Total Visit Minutes 50 Visit Number 30 Evaluation Information Evaluation Date 09/04/22 PT-OP-B Current Condition Start: 09/12/22 15:01 Freq: Status: Active Protocol: Document 10/10/22 09:01 [facility]AK (Rec: 10/10/22 09:44 [facility]AK [id number]) Current Condition History of Current Condition Onset Date 06/21/23 Current Complaints left anterior hip pain, left leg weakness History of Current Condition Was in [place], had acute onset pain left anterior hip for no known reason, got worse including vomiting, HTN and tachycardia all lasted for about 1 week. Pain went down front of left leg to arch of foot with burning pain, reports spasms anterior left LE. A little better with use muscle relaxant new last week, weaned mostly off Hydrocodone , can't hardly get out of bed, walks from bed to bathroom only. Can't want much or go up stairs due to weakness. Neurologist ordered another MRI to include thoracic spine, scheduled for this Friday. EMG scheduled 10/10/22. assists with all household activities and ADL's . 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 Used to sleep on left side, can't now, has to sleep on right, sometimes pillow between legs though states sometimes that makes pain worse. Trying to get in to see neurologist before December. Prior Treatments and Tests MRI 06/29/22: multilevel mild overall degenerative change. Focal area of ill-defined density overlying the right foramina. This is suspected to be artifacts secondary to motion. However, mass in this egion cannot be definitely excluded. If patient is able to toelrate exam repeat views through this region are recommended. Future Testing and Treatments Planned Thoracic MRI this Friday EMG 10/10/22 Neurologist when able to get appoiintment PT-OP-C Subjective Start: 09/12/22 15:01 Freq: Status: Active Protocol: Document 01/16/23 08:00 [facility] (Rec: 01/16/23 08:45 [facility] [id number]) OP-PT Subjective Patient Comments Patient Comments Called aquatic therapy [facility] but it costs $70 and she is booked, then pool closed x 2 weeks in January. Agreeable to consider discharge from this clinic then try aquatic PT with [facility]. Still having issues with the stairs. Has been walking a little more. PT-OP-D Balance Start: 09/12/22 15:01 Freq: Status: Active Protocol: Document 09/04/22 13:00 [facility] (Rec: 09/12/22 16:05 [facility] [id number]) OP-PT Balance Assessment Sitting Balance Static Sitting Balance Ability Good Dynamic Sitting Balance Ability Good Standing Balance Static Standing Balance Ability Fair Dynamic Standing Balance Ability Fair Device Used SPC Standing Balance Comments unable to tolerate other balance testing Al Fall Scale Copyright Permission PT-OP-G Mobility & Gait Start: 09/12/22 15:01 Freq: Status: Active Protocol: Document 09/04/22 13:00 [facility] (Rec: 09/12/22 16:05 [facility] [id number]) OP Mobility Evaluation Bed Mobility Rolling painful Supine to and from Sit painful Transfers Sit to Stand painful, excess use right LE and UE's Car Transfers painful Floor Transfers unable Functional Movements Lifting and Carrying unable Squats unable OP Gait Assessment Gait Gait Assistance Required: Standby Assistance Distance (Feet) 80 Assistive Devices Assistive Device Straight Cane Orthotic/Prosthetic Devices or Brace: No Gait Deviations General Gait Pattern Antalgic,Decreased Stride Length,Decreased Feet Clearance,Lateral Trunk Lean, Wide Based Gait Stair Climbing Evaluation Comments Stair Climbing Comments unable PT-OP-H Neuro Start: 09/12/22 15:01 Freq: Status: Active Protocol: Document 09/04/22 13:00 [facility] (Rec: 09/12/22 16:05 [facility] [id number]) Sensation Evaluation Gross Sensation Gross Sensation Left LE Impaired Sensation Description Numbness,Tingling,Pain PT-OP-J Posture/Palpation/Skin Start: 09/12/22 15:01 Freq: Status: Active Protocol: Document 09/04/22 13:00 [facility] (Rec: 09/12/22 16:05 [facility] [id number]) Posture Evaluation Position Standing Head/C-Spine Posture Forward Head T-Spine Posture Increased Kyphosis L-Spine Posture Flexible Scoliosis on (R) Shoulder Posture (L) Rounded,(R) Rounded Scapula Posture (L) Protracted,(R) Protracted Arm Posture (L) Internally Rotated,(R) Internally Rotated Palpation Assessment Location left hip Palpation Location ant,lat Palpation Findings Muscle Guarding,Tenderness PT-OP-K Range of Motion Start: 09/12/22 15:01 Freq: Status: Active Protocol: Document 09/04/22 13:00 [facility] (Rec: 09/12/22 16:05 [facility] [id number]) Lumbar Spine Range of Motion Lumbar Spine Active ROM Limitations Pain Comments mod dec all motions Hip Goniometric Range of Motion Hip Left Hip ROM WFL No Flexion w/Knee Flexed 90 Straight Leg Raise 45 Extension 0 Abduction 25 Internal Rotation 10 External Rotation 45 Comments all motions left needed PT assist due to weakness and pain Right Hip ROM WFL Yes Hip ROM Limitations Hip ROM Limitations Muscle Weakness,Pain Ankle and Foot Goniometric Range of Motion Ankle and Foot Left Ankle/Foot ROM WFL Yes Right Ankle/Foot ROM WFL Yes PT-OP-L Special Tests Start: 09/12/22 15:01 Freq: Status: Active Protocol: Document 09/04/22 13:00 [facility] (Rec: 09/12/22 16:05 [facility] [id number]) Special Tests Lumbar Spine Special Tests Vertical Spine Loading Test Results inc pain Manual Traction Test Results inc pain Slump Test Results inc pain Prone Press Up Test Results unable to lay prone Straight Leg Raise Test Results unable to do test PT-OP-M Strength Start: 09/12/22 15:01 Freq: Status: Active Protocol: Document 09/04/22 13:00 [facility] (Rec: 09/12/22 16:05 [facility] [id number]) Trunk Strength Trunk Manual Muscle Testing Core Stabilization poor Comments unable to tolerate testing Hip Strength Hip Manual Muscle Testing Left Flexion (L2) 2- Poor- Extension (S1) 2- Poor- Abduction 2- Poor- Adduction 2- Poor- External Rotation 2- Poor- Internal Rotation 2- Poor- Comments tested sitting and supine Right Flexion (L2) 4+ Good+ Extension (S1) 4- Good- Abduction 4- Good- Adduction 4- Good- External Rotation 4- Good- Internal Rotation 4- Good- Comments tested sitting and supine Knee Strength Knee Manual Muscle Testing Left Flexion (S2) 3- Fair- Extension (L3) 3- Fair- Right Flexion (S2) 5 Normal Extension (L3) 5 Normal Ankle/Foot Strength Ankle and Foot Manual Muscle Testing Left Dorsiflexion (L4) 2+ Poor+ Plantarflexion (S1) 3- Fair- Right Dorsiflexion (L4) 4 Good Plantarflexion (S1) 4 Good Toe Strength Toe Manual Muscle Testing Left Great Toe Extension 2+ Poor+ Right Great Toe Extension 5 Normal PT-OP-Q Treatments Start: 09/12/22 15:01 Freq: Status: Active Protocol: Document 01/16/23 08:00 [facility] (Rec: 01/16/23 08:45 [facility] [id number]) Cardio Equipment Recumbent Elliptical (Biodex) Duration (Minutes) 8 Resistance 3-4 Seat Position 9 Other LEs only 40-45 RPMs Gym Equipment Sport Cord red Exercise Details back/side/fwd, Cord/Resistance green Reps/Duration 10 each Comments cued elongated posturing w/ core & scap complex fac, slow eccentric stepping, wider LOUIE- improved stability. Self-Care/Home Management Treatment Education Other Education Recommend d/c this clinic after 1 further visit. PT-OP-R Modalities Start: 09/12/22 15:01 Freq: Status: Active Protocol: Document 01/16/23 08:00 [facility] (Rec: 01/16/23 08:45 [facility] [id number]) Hot Pack/Cold Pack Treatment Hot Pack Location l/s Patient Position Supine Treatment Duration (minutes) 15 Patient Tolerance Good PT-OP-T Assessment and Plan Start: 09/12/22 15:01 Freq: Status: Active Protocol: Document 01/16/23 08:00 [facility] (Rec: 01/16/23 08:45 [facility] [id number]) Physical Therapy Assessment Goals Three Impairment activity tolerance Impairment LEFS 24% Short Term Goal (STG) Improve LEFS to at least 50% as measure of improved activity tolerance 10/22/22: goal progress 12/23/22: improved to 34% STG Duration 01/23/23 Longterm Goal (LTG) Improve LEFS to at least 75% as measure of improved activity tolerance and quality of life LTG Duration 02/23/23 Four Impairment gait dysfunction Impairment antalgic, requires use of cane , walker, or wheelchair, can't ambulate on stairs Short Term Goal (STG) Patient to ambulate in the house without device and without a limp 10/14/22: Progressing can carry cane (less use) more short distance with small steps. Standign for 15 min at time before pain increases need sit . 10/29/22: progressing able to walk without AD across room but has limp and focus on quad fac pivot so L LE doesn't give out. Uses cane for support. Can't step out shower with due to LLE will give way . 12/03/22: GOAL MET pt doing well since epidural and B knee injection last week. Most part painfree without use AD. STG Duration 12/05/22 GOAL MET 12/03/22 Longterm Goal (LTG) Patient able to ambulate at least 1/2 mile and up and down stairs with least restrictive device, without limp 10/29/22: Progressing: able now step to gait w/ hurrycane leading RLE up, LLE down. 11/04/22: step-to pattern on stairs, less limp on level surface with hurry cane, at times can ambulate without cane on level. 12/19/22: progressing: less trunk wt shift gait with focus on being tall, core fac. She continues be challenged with stair mgt,very hard, heavy UE support per pt discussion. 12/23/22:able to ambulate without assistive device, some recent increase in knee pain. Able to ascend/descend stairs with step-to pattern LTG Duration 01/04/23 slow progress stair mgt 12/19/22 Two Impairment weakness left LE Short Term Goal (STG) Patient to be independent in individualized HEP as instructed by PT 10/14/22: compliant with HEP: add/abd isometrics seated, resisted HS curl, wall posture . 10/16/22: added alternating step taps, contact support needed on SPC. 11/04/22: continue to progress HEP, good compliance 12/23/22: goal achieved; ongoing progression STG Duration goal met Longterm Goal (LTG) Patient to demonstrate left LE strength of at least 4/5 to help her resume usual activity 12/23/22: goal progress, can now lift left LE antigravity at 3 +/5 strength. Functionally cannot lead with right LE ascending stairs, and with descending can't use right LE to lower left. LTG Duration 02/23/23 One Impairment pain left hip with radicular symptoms left LE Impairment 8/10 on pain scale [employer] Goal (LTG) decrease patient pain to no greater than 2/10 with all usual activities 10/14/22: progressing groin pain gone away but continuous pain L anterior thigh down to lower leg to arch foot. Cant sit or stand to long before worsens 8-10/10 at about 15 min. 10/29/22: Progressing: still L quad knots up and cramps up arch foot, decreased but still there and LLE prasanna at times. 11/04/22: pain persists but a lower level, ranging from 3-6/ 10 12/19/22: pt reports low back doing well but still getting numbness and buzzing down legs L>R worse with tiring activity. Neurologist appt at [facility]. 12/23/22: reports pain 3/10 today, some days it is much worse. Goal progress LTG Duration 02/23/23 Assessment Summary Assessment Pain at worst 4/10, right knee painful. Able to walk further. Still difficulty with stairs; can lift foot up, but painful in back and knee with closed chain part of stairs. Still has vibrating pain left LE to arch. Physical Therapy Plan Frequency and Duration Frequency of Treatment 2x/Week Duration of treatment (weeks) 8 Plan of Care Start Date 12/23/22 Plan of Care End Date 02/23/23 Therapeutic Interventions Therapeutic Interventions Gait Training,Home Exercise Program,Manual Therapy, Neuromuscular Re-education, Patient/Caregiver Education, Self-Care/Home Management,Soft Tissue Mobilization,Taping, Therapeutic Activities, Therapeutic Exercises Modalities Cold Pack/Ice Massage,Electric Stimulation,Hot Packs, Infrared Therapy,Traction- Mechanical,Ultrasound Next Visit Focus/Plan Next Note Type Treatment Note Next Visit Plan Anticipate next session last; recommend aquatic PT through [facility]; patient to request order.
--- NOTE | 2023-01-21 16:20 | PT.OTN ---
Current Diagnoses Radiculopathy, site unspecified (01/21/23) Left lower quadrant pain (01/21/23) Ataxia, unspecified (01/21/23) Other symptoms and signs involving the musculoskeletal system (01/21/23) Physical Therapy Treatment Note PT-OP-A Visit Information Start: 09/12/22 15:01 Freq: Status: Active Protocol: Document 01/21/23 15:01 SAK (Rec: 01/21/23 16:20 SAK [id number]) Out-Patient Physical Therapy Visit Information Visit Information Visit Type Treatment Note Visit Start Time 15:01 Visit Number 31 Evaluation Information Evaluation Date 09/04/22 PT-OP-B Current Condition Start: 09/12/22 15:01 Freq: Status: Active Protocol: Document 10/10/22 09:01 SAK (Rec: 10/10/22 09:44 SAK [id number]) Current Condition History of Current Condition Onset Date 06/21/23 Current Complaints left anterior hip pain, left leg weakness History of Current Condition Was in [place], had acute onset pain left anterior hip for no known reason, got worse including vomiting, HTN and tachycardia all lasted for about 1 week. Pain went down front of left leg to arch of foot with burning pain, reports spasms anterior left LE. A little better with use muscle relaxant new last week, weaned mostly off Hydrocodone , can't hardly get out of bed, walks from bed to bathroom only. Can't want much or go up stairs due to weakness. Neurologist ordered another MRI to include thoracic spine, scheduled for this Friday. EMG scheduled 10/10/22. assists with all household activities and ADL's . 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 Used to sleep on left side, can't now, has to sleep on right, sometimes pillow between legs though states sometimes that makes pain worse. Trying to get in to see neurologist before December. Prior Treatments and Tests MRI 06/29/22: multilevel mild overall degenerative change. Focal area of ill-defined density overlying the right foramina. This is suspected to be artifacts secondary to motion. However, mass in this egion cannot be definitely excluded. If patient is able to toelrate exam repeat views through this region are recommended. Future Testing and Treatments Planned Thoracic MRI this Friday EMG 10/10/22 Neurologist when able to get appoiintment PT-OP-C Subjective Start: 09/12/22 15:01 Freq: Status: Active Protocol: Document 01/21/23 15:01 [facility] (Rec: 01/21/23 16:20 [facility] [id number]) OP-PT Subjective Patient Comments Patient Comments Injections tomorrow. Doing ok with exercises, doing well with being mindful of how she moves and positions her body. Deep tissue work right knee and traction most helpful. PT-OP-D Balance Start: 09/12/22 15:01 Freq: Status: Active Protocol: Document 09/04/22 13:00 [facility] (Rec: 09/12/22 16:05 [facility] [id number]) OP-PT Balance Assessment Sitting Balance Static Sitting Balance Ability Good Dynamic Sitting Balance Ability Good Standing Balance Static Standing Balance Ability Fair Dynamic Standing Balance Ability Fair Device Used SPC Standing Balance Comments unable to tolerate other balance testing Al Fall Scale Copyright Permission PT-OP-G Mobility & Gait Start: 09/12/22 15:01 Freq: Status: Active Protocol: Document 09/04/22 13:00 [facility] (Rec: 09/12/22 16:05 [facility] [id number]) OP Mobility Evaluation Bed Mobility Rolling painful Supine to and from Sit painful Transfers Sit to Stand painful, excess use right LE and UE's Car Transfers painful Floor Transfers unable Functional Movements Lifting and Carrying unable Squats unable OP Gait Assessment Gait Gait Assistance Required: Standby Assistance Distance (Feet) 80 Assistive Devices Assistive Device Straight Cane Orthotic/Prosthetic Devices or Brace: No Gait Deviations General Gait Pattern Antalgic,Decreased Stride Length,Decreased Feet Clearance,Lateral Trunk Lean, Wide Based Gait Stair Climbing Evaluation Comments Stair Climbing Comments unable PT-OP-H Neuro Start: 09/12/22 15:01 Freq: Status: Active Protocol: Document 09/04/22 13:00 SAK (Rec: 09/12/22 16:05 [facility] [id number]) Sensation Evaluation Gross Sensation Gross Sensation Left LE Impaired Sensation Description Numbness,Tingling,Pain PT-OP-J Posture/Palpation/Skin Start: 09/12/22 15:01 Freq: Status: Active Protocol: Document 09/04/22 13:00 SAK (Rec: 09/12/22 16:05 [facility] [id number]) Posture Evaluation Position Standing Head/C-Spine Posture Forward Head T-Spine Posture Increased Kyphosis L-Spine Posture Flexible Scoliosis on (R) Shoulder Posture (L) Rounded,(R) Rounded Scapula Posture (L) Protracted,(R) Protracted Arm Posture (L) Internally Rotated,(R) Internally Rotated Palpation Assessment Location left hip Palpation Location ant,lat Palpation Findings Muscle Guarding,Tenderness PT-OP-K Range of Motion Start: 09/12/22 15:01 Freq: Status: Active Protocol: Document 09/04/22 13:00 [facility] (Rec: 09/12/22 16:05 [facility] [id number]) Lumbar Spine Range of Motion Lumbar Spine Active ROM Limitations Pain Comments mod dec all motions Hip Goniometric Range of Motion Hip Left Hip ROM WFL No Flexion w/Knee Flexed 90 Straight Leg Raise 45 Extension 0 Abduction 25 Internal Rotation 10 External Rotation 45 Comments all motions left needed PT assist due to weakness and pain Right Hip ROM WFL Yes Hip ROM Limitations Hip ROM Limitations Muscle Weakness,Pain Ankle and Foot Goniometric Range of Motion Ankle and Foot Left Ankle/Foot ROM WFL Yes Right Ankle/Foot ROM WFL Yes PT-OP-L Special Tests Start: 09/12/22 15:01 Freq: Status: Active Protocol: Document 09/04/22 13:00 [facility] (Rec: 09/12/22 16:05 [facility] [id number]) Special Tests Lumbar Spine Special Tests Vertical Spine Loading Test Results inc pain Manual Traction Test Results inc pain Slump Test Results inc pain Prone Press Up Test Results unable to lay prone Straight Leg Raise Test Results unable to do test PT-OP-M Strength Start: 09/12/22 15:01 Freq: Status: Active Protocol: Document 09/04/22 13:00 [facility] (Rec: 09/12/22 16:05 [facility] [id number]) Trunk Strength Trunk Manual Muscle Testing Core Stabilization poor Comments unable to tolerate testing Hip Strength Hip Manual Muscle Testing Left Flexion (L2) 2- Poor- Extension (S1) 2- Poor- Abduction 2- Poor- Adduction 2- Poor- External Rotation 2- Poor- Internal Rotation 2- Poor- Comments tested sitting and supine Right Flexion (L2) 4+ Good+ Extension (S1) 4- Good- Abduction 4- Good- Adduction 4- Good- External Rotation 4- Good- Internal Rotation 4- Good- Comments tested sitting and supine Knee Strength Knee Manual Muscle Testing Left Flexion (S2) 3- Fair- Extension (L3) 3- Fair- Right Flexion (S2) 5 Normal Extension (L3) 5 Normal Ankle/Foot Strength Ankle and Foot Manual Muscle Testing Left Dorsiflexion (L4) 2+ Poor+ Plantarflexion (S1) 3- Fair- Right Dorsiflexion (L4) 4 Good Plantarflexion (S1) 4 Good Toe Strength Toe Manual Muscle Testing Left Great Toe Extension 2+ Poor+ Right Great Toe Extension 5 Normal PT-OP-Q Treatments Start: 09/12/22 15:01 Freq: Status: Active Protocol: Document 01/21/23 15:01 [facility] (Rec: 01/21/23 16:20 [facility] [id number]) Cardio Equipment Recumbent Elliptical (Biodex) Duration (Minutes) 10 Resistance 3-4 Seat Position 9 Other LEs only 40-45 RPMs Therapeutic Exercises Standing Exercises calf stretch Equipment Used stair Reps/Minutes 2x30 Manual Therapy Treatment Soft Tissue Mobilization quadratus femoris Mobilization Type Myofascial Release,Sustained Pressure Intensity/Depth 5 Body Position Supine Manual Traction LS Details intermittant 1 min hold 10 sec rest Body Position Hooklying Reps/Duration 10 min Comments Manual traction with LE's at 90/90, belt proximal thighs over towel with Dycem to prevent slipping. Moist heat during traction and 5 min after. Self-Care/Home Management Treatment Education Patient Education Body Mechanics,Home Exercise Program,Posture Other Education reviewed HEP, modifications made, reviewed proper posture and body mechanics; patient demonstrates good understanding PT-OP-R Modalities Start: 09/12/22 15:01 Freq: Status: Active Protocol: Document 01/21/23 15:01 [facility] (Rec: 01/21/23 16:20 [facility] [id number]) Hot Pack/Cold Pack Treatment Hot Pack Location l/s Patient Position Supine Treatment Duration (minutes) 15 Patient Tolerance Good Comments during manual traction PT-OP-T Assessment and Plan Start: 09/12/22 15:01 Freq: Status: Active Protocol: Document 01/21/23 15:01 [facility] (Rec: 01/21/23 16:20 [facility] [id number]) Physical Therapy Assessment Goals Three Impairment activity tolerance Impairment LEFS 24% Short Term Goal (STG) Improve LEFS to at least 50% as measure of improved activity tolerance 10/22/22: goal progress 12/23/22: improved to 34% 01/21/23: improved to 45% STG Duration 01/23/23 Assisted Goal (LTG) Improve LEFS to at least 75% as measure of improved activity tolerance and quality of life LTG Duration 02/23/23 Four Impairment gait dysfunction Impairment antalgic, requires use of cane , walker, or wheelchair, can't ambulate on stairs Short Term Goal (STG) Patient to ambulate in the house without device and without a limp 10/14/22: Progressing can carry cane (less use) more short distance with small steps. Standign for 15 min at time before pain increases need sit . 10/29/22: progressing able to walk without AD across room but has limp and focus on quad fac pivot so L LE doesn't give out. Uses cane for support. Can't step out shower with due to LLE will give way . 12/03/22: GOAL MET pt doing well since epidural and B knee injection last week. Most part painfree without use AD. STG Duration 12/05/22 GOAL MET 12/03/22 Assisted Goal (LTG) Patient able to ambulate at least 1/2 mile and up and down stairs with least restrictive device, without limp 10/29/22: Progressing: able now step to gait w/ hurrycane leading RLE up, LLE down. 11/04/22: step-to pattern on stairs, less limp on level surface with hurry cane, at times can ambulate without cane on level. 12/19/22: progressing: less trunk wt shift gait with focus on being tall, core fac. She continues be challenged with stair mgt,very hard, heavy UE support per pt discussion. 12/23/22:able to ambulate without assistive device, some recent increase in knee pain. Able to ascend/descend stairs with step-to pattern 01/21/23: able to ambulate without device, slow, mldly antalgic. Progressing with stairs though limited at this time by right knee LTG Duration 02/23/23 Two Impairment weakness left LE Short Term Goal (STG) Patient to be independent in individualized HEP as instructed by PT 10/14/22: compliant with HEP: add/abd isometrics seated, resisted HS curl, wall posture . 10/16/22: added alternating step taps, contact support needed on SPC. 11/04/22: continue to progress HEP, good compliance 12/23/22: goal achieved; ongoing progression STG Duration goal met Assisted Goal (LTG) Patient to demonstrate left LE strength of at least 4/5 to help her resume usual activity 12/23/22: goal progress, can now lift left LE antigravity at 3 +/5 strength. Functionally cannot lead with right LE ascending stairs, and with descending can't use right LE to lower left. 01/21/23: goal progress, not fully achieved. 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 Cant sit or stand to long before worsens 8-10/10 at about 15 min. 10/29/22: Progressing: still L quad knots up and cramps up arch foot, decreased but still there and LLE prasanna at times. 11/04/22: pain persists but a lower level, ranging from 3-6/ 10 12/19/22: pt reports low back doing well but still getting numbness and buzzing down legs L>R worse with tiring activity. Neurologist appt at [facility]. 12/23/22: reports pain 3/10 today, some days it is much worse. Goal progress 01/21/23: pain variable, limits function. 3-8/10 LTG Duration 02/23/23 Assessment Summary Assessment Patient has made good progress toward goals. Having injections tomorrow. PT recommendation for aquatic therapy at different clinic in town as our program at this facility was discontinued. Feel she will benefit highly from the decompression effects of buoyancy and be able to work on core stabilization and continued strengthening without pain. May benefit from further land-based PT after she is seen in aquatic PT. Physical Therapy Plan Discharge Physical Therapy Discharge Comments trial aquatic PT
== END 2023-02-07 12:16 | disposition home or self-care (01) ==
LOC: PHYS 15:00
PROVIDERS: Absent Provider Family Medicine; Family Provider Family Medicine; PCP Family Medicine; Referring Provider Surgery; Visit Provider Surgery
DX: R29.898 Other symptoms and signs involving the musculoskeletal system (principal); M54.10 Radiculopathy, site unspecified; R10.32 Left lower quadrant pain; R27.0 Ataxia, unspecified
CPT/HCPCS: 97010; 97012; 97110; 97112; 97116; 97140; 97163; 97535

== ENCOUNTER 2023-01-22 07:31 | Outpatient (CLI) | payer MEDICARE, OTHER, SELFPAY ==
[2023-01-22] VITALS (9 sets, daily range): BP systolic 158–180; BP diastolic 70–89; PULSE 67–80; RESP 14–18; TEMP 36.6; O2SAT 94–96
--- NOTE | 2023-01-22 07:33 | DI.RAD.S_ITS ---
PROCEDURE: PAIN L/S TRANSFORAMINAL INJECT INDICATIONS: RADICULOPATHY COMPARISON: [facility], , PAIN L/S TRANSFORAMINAL INJECT, 11/27/2022, 9:44. FINDINGS: Fluoroscopic spot filming was performed to verify placement of spinal needles on the left at the L4-L5 and L5-S1 levels, as labeled on the films. Appropriate location of the needle tips was confirmed by injection of iodinated contrast. IMPRESSION: Intraprocedural examination demonstrating appropriate positions of the needles. Dictated by: Yash Jackson M.D. on 01/22/2023 at 13:26 Approved by: Yash Jackson M.D. on 01/22/2023 at 13:26
[2023-01-22] MEDS: MIDAZOLAM 2 MG/2 ML VIAL 1 MG IV (08:14)
[2023-01-22] MEDS: DEXAMETHASONE 10 MG/ML VIAL 20 MG INJ (08:15)
[2023-01-22] MEDS: IOPAMIDOL 15 ML VIAL 3 ML INJ (08:16)
--- NOTE | 2023-01-22 08:26 | P.PCN_ITS ---
Date/Time/Diagnoses Date of procedure: 01/22/23 Time of procedure: 08:00 Procedure Notes Physician: David Burger Total Fluoroscopy time (seconds): 24 Total sedation minutes: 7 Procedure in detail & Post-procedure care: Left L4-5 and L5-S1 Transforaminal Epidural Steroid Injection Indications: Stephanie is presenting for treatment of lumbar radiculopathy with low back and leg pain. Preoperative diagnosis: Lumbar radiculopathy Postoperative diagnosis: Same Focused Examination: Ax3 Mood and affect are normal Vital Signs: VSS ASA: 2 Consent: Following review of allergies and potential side effects/complications, including, but not necessarily limited to, infection, allergic reaction, local tissue breakdown, stroke, temporary or permanent nerve injury, paralysis, and possible , the patient indicated that they understood and agreed to proceed.? An informed consent document was signed by the patient, witnessed by a nurse and placed in the patient's chart.? Additionally, other treatment options including medications and physical therapy were reviewed with the patient. All questions were answered. Site was then marked. Anesthesia: After review of previous anesthetic history and IV conscious s edation, the patient was deemed safe to proceed with today's procedure with IV conscious sedation. IV sedation was accomplished with midazolam 1 mg administered by the RN after order by Dr. Burger. Sedation was titrated to patient comfort during the course of the procedure. Patient remained responsive to all verbal commands. Position: Prone Monitoring: NIBP, Pulse oximetry, 3 lead EKG Needle used: 22G 5 inch spinal needle Contrast: Isovue 300M Injectate: 7.5 mg Dexamethasone mixed with 1% lidocaine 1 ml and normal saline 1 mL per site Technique: The skin was prepped with chloraprep and draped in a sterile fashion. Time out was performed as per protocol. Oxygen applied via NC. Skin and subcutaneous structures of the needle entry site were infiltrated with 3mL of lidocaine 1%. Under fluoroscopic guidance, using an ipsilateral oblique view,?a 22 gauge 5 inch needle was advanced to the base of the left L4?pedicle.? The needle was advanced to the superio-posterior aspect of the neural foramen under lateral view.? Oblique and AP views were rechecked. No paresthesias noted by the patient during needle placement. In AP view and utilizing real-time digital subtraction fluoroscopy, 2 ml contrast was slowly injected. Epidural spread was observed without evidence for intravascular nor intrathecal uptake. Contrast spread was seen craniocaudally. The above injectate was then administered, and the needle was subsequently withdrawn. Skin and subcutaneous structures of the needle entry site were infiltrated with 3mL of lidocaine 1%. Under fluoroscopic guidance, using an ipsilateral oblique view,?a 22 gauge 5 inch needle was advanced to the base of the left L5?pedicle.? The needle was advanced to the superio-posterior aspect of the neural foramen under lateral view.? Oblique and AP views were rechecked. No paresthesias noted by the patient during needle placement. In AP view and utilizing real-time digital subtraction fluoroscopy, 2 ml contrast was slowly injected. Epidural spread was observed without evidence for intravascular nor intrathecal uptake. Contrast spread was seen craniocaudally. The above injectate was then administered, and the needle was subsequently withdrawn. Band-Aids applied to injection sites. EBL: less than 1 ml Complications: None Post Procedure: Patient was taken to the recovery and monitored. The patient was provided a Pain Log to continue to record the patient's response to the target- specific procedure prior to the patient's follow-up visit with the referring physician. Patient was stable upon discharge. Detailed post procedure instructions were provided. Patient was asked to call in the event of worsening pain, fever, weakness, numbness or bladder or bowel incontinence.
== END 2023-01-22 08:44 | disposition home or self-care (01) ==
LOC: RAD 07:32
PROVIDERS: Family Provider Family Medicine; PCP Family Medicine; Referring Provider Anesthesiology; Visit Provider Anesthesiology
DX: M54.16 Radiculopathy, lumbar region (principal)
CPT/HCPCS: 64483; 64484; J1100; J2250

== ENCOUNTER 2023-04-30 14:26 | Outpatient (CLI) | payer MEDICARE, OTHER, SELFPAY ==
[2023-04-30] VITALS (9 sets, daily range): BP systolic 117–193; BP diastolic 83–112; PULSE 80–102; RESP 12–18; TEMP 36.1; O2SAT 96–99
--- NOTE | 2023-04-30 14:27 | DI.RAD.S_ITS ---
PROCEDURE: PAIN L/SI FACET INJ/BLK 1STL INDICATIONS: Facet cyst COMPARISON: [facility], MR, MR LUMBAR SPINE WO CON, 11/12/2022, 13:03. FINDINGS: Fluoroscopic spot filming was performed to verify placement of spinal needles at the L3-L4 level(s), as labeled on the films. Appropriate location(s) of the needle tip(s) was confirmed by injection of iodinated contrast. IMPRESSION: Fluoroscopy for pain management. Dictated by: Boogie Joel M.D. on 04/30/2023 at 16:36 Approved by: Boogie Joel M.D. on 04/30/2023 at 16:37
[2023-04-30] MEDS: MIDAZOLAM 2 MG/2 ML VIAL 1 MG IV ×2 (14:52→14:56)
[2023-04-30] MEDS: iopamidoL 15 ML VIAL 3 ML INJ (14:57)
--- NOTE | 2023-04-30 15:10 | P.PCN_ITS ---
Date/Time/Diagnoses Date of procedure: 04/30/23 Time of procedure: 15:00 Procedure Notes Physician: David Burger Total Fluoroscopy time (seconds): 25 Total sedation minutes: 12 Procedure in detail & Post-procedure care: Left L3-4 Percutaneous Facet Cyst Rupture Indications: Stephanie is presenting for treatment of lumbar facet cyst. Preoperative diagnosis: Lumbar facet cyst Postoperative diagnosis: Same Focused Examination: Ax3 Mood and affect are normal Vital Signs: VSS ASA: 2 Consent: Following review of allergies and potential side effects/complications, including, but not necessarily limited to, infection, allergic reaction, local tissue breakdown, stroke, temporary or permanent nerve injury, paralysis, and possible , the patient indicated that they understood and agreed to proceed.? An informed consent document was signed by the patient, witnessed by a nurse and placed in the patient's chart.? Additionally, other treatment options including medications and physical therapy were reviewed with the patient. All questions were answered. Site was then marked. Anesthesia: After review of previous anesthetic history and IV conscious sedation, the patient was deemed safe to proceed with today's procedure with IV conscious sedation. IV sedation was accomplished with midazolam 2 mg administered by the RN after order by Dr. Burger. Sedation was titrated to patient comfort during the course of the procedure. Patient remained responsive to all verbal commands. Position: Prone Monitoring: NIBP, Pulse oximetry, 3 lead EKG Needle used: 22 ga, 3.5 in spinal neelde Contrast: Isovue 300-M 0.3 mL per site Technique: The skin was prepped with chloraprep and then draped in a sterile fashion. Time out was performed as per protocol. Oxygen applied via NC. Skin and subcutaneous structures of the needle entry site(s) were then infiltrated with 3 mL of lidocaine 1%. Under AP, ipsilateral oblique and lateral fluoroscopic control, the spinal needle was guided into the posterior aspect of the left L3-4 intra-articular space. Isoview 300-M was then injected and the spread was consistent with intra-articular placement. Contrast was then applied with constant pressure until a reduction of pressure was noted in the syringe connected to the needle. Epidural pattern of contrast flow was noted. Approximately 1 cc of serous fluid was then aspirated. The patient expressed no unusual discomfort or paresthesias during the injection. Band-Aids applied to injection sites. EBL: less than 1 ml Complications: None Post Procedure: Patient was taken to the recovery and monitored. The patient was provided a Pain Log to continue to record the patient's response to the target- specific procedure prior to the patient's follow-up visit with the referring physician. Patient was stable upon discharge. Detailed post procedure instructions were provided. Patient was asked to call in the event of worsening pain, fever, weakness, numbness or bladder or bowel incontinence.
== END 2023-04-30 15:30 | disposition home or self-care (01) ==
LOC: RAD 14:27
PROVIDERS: Family Provider Family Medicine; PCP Family Medicine; Referring Provider Anesthesiology; Visit Provider Anesthesiology
DX: M71.38 Other bursal cyst, other site (principal)
CPT/HCPCS: 64493; 99152; J2250

== ENCOUNTER 2023-08-06 07:31 | Outpatient (CLI) | payer MEDICARE, SELFPAY ==
[2023-08-06] VITALS (8 sets, daily range): BP systolic 146–191; BP diastolic 82–102; PULSE 82–106; RESP 14–18; TEMP 36.2; O2SAT 95–99
--- NOTE | 2023-08-06 08:00 | DI.RAD.S_ITS ---
PROCEDURE: PAIN L/S TRANSFORAMINAL INJECT INDICATIONS: radiculopathy COMPARISON: [facility], , PAIN L/S TRANSFORAMINAL INJECT, 01/22/2023, 8:11. FINDINGS: Fluoroscopic spot filming was performed to verify placement of spinal needles overlying L3-4 level(s), as labeled on the films. Appropriate location(s) of the needle tip(s) was confirmed by injection of iodinated contrast. IMPRESSION: Needle localization at L3-4. Dictated by: Felicia Cramer M.D. on 08/06/2023 at 14:52 Approved by: Felicia Cramer M.D. on 08/06/2023 at 14:54
[2023-08-06] MEDS: MIDAZOLAM 2 MG/2 ML VIAL 1 MG IV (08:05)
[2023-08-06] MEDS: iopamidoL 15 ML VIAL 3 ML INJ (08:07)
[2023-08-06] MEDS: DEXAMETHASONE 10 MG/ML VIAL INJ (08:08)
--- NOTE | 2023-08-06 11:20 | P.PCN_ITS ---
Date/Time/Diagnoses Date of procedure: 08/06/23 Time of procedure: 08:00 Procedure Notes Physician: David Burger Total Fluoroscopy time (seconds): 19 Total sedation minutes: 10 Procedure in detail & Post-procedure care: Left L3-4 Transforaminal Epidural Steroid Injection Indications: Stephanie is presenting for treatment of lumbar radiculopathy with low back and leg pain. Preoperative diagnosis: Lumbar radiculopathy Postoperative diagnosis: Same Focused Examination: Ax3 Mood and affect are normal Vital Signs: VSS ASA: 2 Consent: Following review of allergies and potential side effects/complications, including, but not necessarily limited to, infection, allergic reaction, local tissue breakdown, stroke, temporary or permanent nerve injury, paralysis, and possible , the patient indicated that they understood and agreed to proceed.? An informed consent document was signed by the patient, witnessed by a nurse and placed in the patient's chart.? Additionally, other treatment options including medications and physical therapy were reviewed with the patient. All questions were answered. Site was then marked. Anesthesia: After review of previous anesthetic history and IV conscious sedation, the patient was deemed safe to proceed with today's procedure with IV conscious sedation. IV sedation was accomplished with midazolam 1 mg administered by the RN after order by Dr. Burger. Sedation was titrated to patient comfort during the course of the procedure. Patient remained responsive to all verbal commands. Position: Prone Monitoring: NIBP, Pulse oximetry, 3 lead EKG Needle used: 22G, 5 inch spinal needle Contrast: Isovue 300M Injectate: 10 mg Dexamethasone mixed with 1% lidocaine 1 ml and normal saline 1 mL Technique: The skin was prepped with chloraprep and draped in a sterile fashion. Time out was performed as per protocol. Oxygen applied via NC. Skin and subcutaneous structures of the needle entry site were infiltrated with 3mL of lidocaine 1%. Under fluoroscopic guidance, using an ipsilateral oblique view,?a 22 gauge 5 inch needle was advanced to the base of the left L3-4 pedicle.? The needle was advanced to the superio-posterior aspect of the neural foramen under lateral view.? Oblique and AP views were rechecked. No paresthesias noted by the patient during needle placement. In AP view and utilizing real-time digital subtraction fluoroscopy, 2 ml contrast was slowly injected. Epidural spread was observed without evidence for intravascular nor intrathecal uptake. Contrast spread was seen craniocaudally. The above injectate was then administered without paresthesias and the needle was subsequently withdrawn. Band-Aids applied to injection sites. EBL: less than 1 ml Complications: None Post Procedure: Patient was taken to the recovery and monitored. The patient was provided a Pain Log to continue to record the patient's response to the target- specific procedure prior to the patient's follow-up visit with the referring physician. Patient was stable upon discharge. Detailed post procedure instructions were provided. Patient was asked to call in the event of worsening pain, fever, weakness, numbness or bladder or bowel incontinence.
== END 2023-08-06 08:41 | disposition home or self-care (01) ==
LOC: RAD 07:32
PROVIDERS: Family Provider Family Medicine; PCP Family Medicine; Referring Provider Anesthesiology; Visit Provider Anesthesiology
DX: M54.16 Radiculopathy, lumbar region (principal)
CPT/HCPCS: 64483; 99152; J1100; J2250

== ENCOUNTER 2023-08-27 12:56 | Day surgery (SDC) | payer MEDICARE, SELFPAY ==
[2023-08-25 13:11] VITALS: BMI 36.6
--- NOTE | 2023-08-27 | PATH_ITS ---
[facility] Accession Number: [id number] No. of containers..01 Tissue . 01 Material submitted: . back - SOFT TISSUE MASS BACK . 01 Diagnosis: SOFT TISSUE MASS, BACK, EXCISION: Mature adipose tissue, consistent with lipoma. No significant cytologic atypia identified. [facility] 09/02/2023 1028 Local . 01 Electronically signed: . Julieth Herndon MD, Pathologist NPI- [id number] . 01 Gross description: . The specimen is received in formalin, labeled with the patient's name, , and soft tissue mass back, and consists of multiple fragments of yellow, lobulated soft tissue aggregating to 13.9 x 13.6 x 3.5 cm. Sectioning reveals a yellow, lobulated, unremarkable cut surface. [employer] Sales Agent sections are submitted in cassettes A1-A2. ([id number]) /MRV 08/28/2023 1237 Local . 01 Pathologist provided ICD-10: M79.89 . 01 CPT . 016186 Specimen Comment: A courtesy copy of this report has been sent to [phone] Performed at: 01 [facility] [address] [place] [address], [place], [place] [id number] MD Chris Glass MD Phone: [phone]
[2023-08-27 15:00] VITALS: BMI 39.4
[2023-08-27 15:04] VITALS: BP 179/102; PULSE 76; RESP 12; TEMP 36.6; O2SAT 94
[2023-08-27] MEDS: LACTATED RINGERS 1,000 ML 21 ML IV (15:22)
--- NOTE | 2023-08-27 15:52 | PM.PREOP ---
Pre-operative Note Interval Note History & Physical reviewed/Exam performed by Physician: Yes Changes to H&P: No
[2023-08-27] MEDS: CEFAZOLIN 2 GM/100 ML PREMIX 100 ML IV (16:19)
[2023-08-27] MEDS: BUPIVACAINE 0.25% (PF) VIAL 30 ML INJ (16:23)
--- NOTE | 2023-08-27 16:26 | SUR.OPER ---
Lateral left on a perez bag, head on pillow, gel axillary roll in place, bottom leg bent with gel pad under knee to foot, upper leg straight and supported with pillows. Upper arm supported by pillows and secured over bottom arm to padded arm board. Safety belt at hip, tape over blanket lower legs.
[2023-08-27 16:48] VITALS: BP 132/75; PULSE 75; RESP 14; TEMP 36.3; O2SAT 97
--- NOTE | 2023-08-27 16:50 | PM.OP.1 ---
Operative Date/Time/Diagnoses Date of procedure: 08/27/23 Time of procedure: 16:51 Pre-op diagnosis: Soft tissue mass of back Post-op diagnosis: same Procedure & Clinicians Procedure: Excision 12 cm soft tissue mass from right mid back Same procedure as scheduled: Yes Indications: 67-year-old woman with an enlarging 12 cm soft tissue neoplasm of the right mid back here for elective excision Surgeon: Aníbal Schroeder Click Yes if Unassisted: Yes Operative Notes Findings: Consistent with benign lipoma Specimen(s): other (Soft tissue mass of back) Procedure in detail: Patient was brought to the operating room placed supine on the table. Bilateral lower extremity compression devices were applied. General anesthesia was induced he was intubated with an LMA. She was then placed on a perez bag in the left lateral decubitus position. She was prepped and draped in sterile fashion time-out was performed. An incision was made over the mass involving the right mid back. Subcutaneous tissue was divided. We encountered an approximately 12 cm soft tissue mass just beneath the subcutaneous tissue. Given its large size the mass was removed in fragments to minimize of the length of the incision. The entirety of the mass was excised. Hemostasis was achieved. The subcutaneous tissue was reapproximated with Vicryl skin closed with Monocryl followed by the application of Dermabond. She tolerated the operation well was extubated and transferred to recovery in stable condition. Complications: none Post-operative Condition: stable Disposition: same day surgery
[2023-08-27 16:53] VITALS: BP 115/83; PULSE 76; RESP 15; O2SAT 96
[2023-08-27] MEDS: ACETAMINOPHEN 325 MG TABLET 650 MG PO (16:56)
[2023-08-27 16:57] VITALS: BP 155/98; PULSE 72; RESP 18; O2SAT 96
[2023-08-27 17:03] VITALS: BP 143/82; PULSE 75; RESP 12; O2SAT 98
[2023-08-27 17:08] VITALS: BP 157/78; PULSE 80; RESP 16; O2SAT 97
[2023-08-27] MEDS: TRAMADOL 50 MG TABLET PO (17:19)
== END 2023-08-27 17:27 | disposition home or self-care (01) ==
PROVIDERS: Family Provider Family Medicine; PCP Family Medicine; Referring Provider Surgery; Visit Provider Surgery
PROC: (CPT 21931; principal; 2023-08-27 16:15)
DX: M79.89 Other specified soft tissue disorders (principal)
CPT/HCPCS: 21931; J0690; J2405; J2704; J3010

== ENCOUNTER 2023-11-05 07:31 | Outpatient (CLI) | payer MEDICARE, SELFPAY ==
[2023-11-05] VITALS (7 sets, daily range): BP systolic 160–195; BP diastolic 84–93; PULSE 80–96; RESP 14–20; TEMP 36.1; O2SAT 96–99
--- NOTE | 2023-11-05 08:00 | DI.RAD.S_ITS ---
PROCEDURE: PAIN GENICULAR NERVE BLOCK RT INDICATIONS: RT KNEE OSTEOARTHRITIS COMPARISON: None. FINDINGS: Fluoroscopic spot filming was performed to verify placement of spinal needles at the medial and lateral distal femur and at the medial proximal tibia. IMPRESSION: Fluoroscopic images of genicular nerve block. Dictated by: Reny Alonso M.D. on 11/05/2023 at 15:35 Approved by: Reny Alonso M.D. on 11/05/2023 at 15:36
[2023-11-05] MEDS: MIDAZOLAM 2 MG/2 ML VIAL 1 MG IV (08:40)
[2023-11-05] MEDS: iopamidoL 15 ML VIAL 3 ML INJ (08:43)
[2023-11-05] MEDS: BUPIVACAINE 0.5% (PF) 10 ML VIAL 5 ML INJ (08:43)
--- NOTE | 2023-11-05 12:24 | P.PCN_ITS ---
Date/Time/Diagnoses Date of procedure: 11/05/23 Time of procedure: 08:00 Procedure Notes Physician: David Burger Total Fluoroscopy time (seconds): 15 Total sedation minutes: 8 Procedure in detail & Post-procedure care: Right Genicular Nerve Injections Indications: Stephanie is presenting for treatment of right knee osteoarthritis with knee pain. Preoperative diagnosis: Right knee osteoarthritis Postoperative diagnosis: Same Focused Examination: Ax3 Mood and affect are normal Vital Signs: VSS Consent: Following review of allergies and potential side effects/complications, including, but not necessarily limited to, infection, allergic reaction, local tissue breakdown, stroke, temporary or permanent nerve injury, paralysis, and possible , the patient indicated that they understood and agreed to proceed.? An informed consent document was signed by the patient, witnessed by a nurse and placed in the patient's chart.? Additionally, other treatment options including medications and physical therapy were reviewed with the patient. All questions were answered. Site was then marked. Anesthesia: After review of previous anesthetic history and IV conscious sedation, the patient was deemed safe to proceed with today's procedure with IV conscious sedation. IV sedation was accomplished with midazolam 1 mg administered by the RN after order by Dr. Burger. Sedation was titrated to patient comfort during the course of the procedure. Patient remained responsive to all verbal commands. Position: Prone Monitoring: NIBP, Pulse oximetry, 3 lead EKG Needle used: 22 ga, 3.5 inch spinal Contrast: Isovue 300-M 2 mL Injectate: 0.5% bupivacaine 1 mL per site Technique: The skin was prepped with chloraprep and then draped in a sterile fashion. Time out was performed as per protocol. Oxygen applied via NC. Skin and subcutaneous structures of the needle entry sites were then infiltrated with 5 mL of lidocaine 1% divided among the 3 injection sites. Under AP and lateral fluoroscopic control, the needles were guided into the expected location of the superomedial, superolateral and inferomedial genicular nerves. Isovue 300-M was then injected and the spread confirmed proper needle location. There was no evidence for intravascular uptake. After negative aspiration, the above- mentioned injectate was then slowly administered to each site and the needles withdrawn. The patient expressed no unusual discomfort or paresthesias during the injection. Band-Aids applied to injection sites. EBL: less than 1 ml Complications: None Post Procedure: Patient was taken to the recovery and monitored. The patient was provided a Pain Log to continue to record the patient's response to the target- specific procedure prior to the patient's follow-up visit with the referring physician. Patient was stable upon discharge. Detailed post procedure instructions were provided. Patient was asked to call in the event of worsening pain, fever, weakness, numbness or bladder or bowel incontinence.
== END 2023-11-05 09:15 | disposition home or self-care (01) ==
PROVIDERS: Family Provider Family Medicine; PCP Family Medicine; Referring Provider Anesthesiology; Visit Provider Anesthesiology
DX: M17.11 Unilateral primary osteoarthritis, right knee (principal)
CPT/HCPCS: 64454; J2250

== ENCOUNTER → 2023-11-07 08:55 | Outpatient (CLI) | payer MEDICARE, SELFPAY ==
[2023-11-07 14:16] LABS: Alanine Aminotransferase 27 IU/L (<35); Albumin 4.5 g/dL (3.5-5.0); Albumin Globulin Ratio 1.3 (1.0-2.8); Alkaline Phosphatase 77 U/L (38-126); Aspartate Aminotransferase 33 IU/L (14-36); BUN Creatinine Ratio 14.3 (6-22); Bilirubin Total 0.7 mg/dL (0.2-1.3); Blood Urea Nitrogen 13 mg/dL (7-17); Carbon Dioxide 29 mmol/L (22-32); Chloride 105 mmol/L (98-107); Cholesterol 246 mg/dL (140-199); Estimated Glomerular Filt Rate > 60 mL/min (>60); Globulin 3.4 g/dL (1.7-4.1); Glucose 114 mg/dL (80-110); HDL Cholesterol 66 mg/dL (40-60); HEMOLYSIS < 15 (0-50); LDL Cholesterol Calculated 154 mg/dL (<100); Potassium 3.6 mmol/L (3.4-5.1); Sodium 141 mmol/L (137-145); Total Protein 7.9 g/dL (6.3-8.2); Triglycerides 128 mg/dL (35-150)
[2023-11-07 14:21] LABS: High Sensitivity CRP - Cardiac 7.1 mg/L (1.0-3.0)
[2023-11-07 14:26] LABS: Hemoglobin A1C% w Est Avg Glu 5.3 % (4.0-6.0)
[2023-11-07 15:34] LABS: TSH w/ Reflex to FT4 6.07 uIU/mL (0.47-4.68)
[2023-11-07 16:05] LABS: Free T4, Direct Thyroxine 0.99 ng/dL (0.78-2.19)
[2023-11-07 16:45] LABS: Vitamin D 25 Hydroxy (D3) 51.3 ng/mL (30.0-100.0)
[2023-11-11 07:36] LABS: Insulin Level Total 18.8 uIU/mL (2.6-24.9)
== END ==
PROVIDERS: Family Provider Family Medicine; PCP Family Medicine; Referring Provider Family Medicine; Visit Provider Family Medicine
DX: R73.9 Hyperglycemia, unspecified (principal); E78.5 Hyperlipidemia, unspecified; Z68.41 Body mass index [BMI] 40.0-44.9, adult; R03.0 Elevated blood-pressure reading, without diagnosis of hypertension; R53.83 Other fatigue; E78.00 Pure hypercholesterolemia, unspecified
CPT/HCPCS: 36415; 80053; 80061; 82306; 83036; 83525; 84439; 84443; 86140

== ENCOUNTER → 2024-04-22 09:01 | Outpatient (CLI) | payer MEDICARE, SELFPAY ==
--- NOTE | 2024-04-22 09:03 | EKG_ITS ---
[place] [id number] [place] [address] Test Date: 2024-04-22 Pat Name: Stephanie Hutson Department: [facility] Room: Gender: Female Singing Telegram Performer: : 1955 Requested By: Order Number: [id number] Reading MD: Ludwig Trejo Measurements Intervals [place] Rate: 85 P: 61 [place]: 132 QRS: -4 QRSD: 88 T: 12 QT: 392 QTc: 466 Interpretive Statements Normal sinus rhythm Possible Left atrial enlargement Nonspecific ST abnormality Electronically Signed On 04-22-2024 17:08:47 PDT by Ludwig Trejo
[2024-04-22 10:24] LABS: Add Manual Diff / Slide Review NO; Basophils Absolute Auto 0 /uL (0-100); Basophils Percent Auto 0.8 % (0-2); Eosinophils Absolute Auto 100 /uL (0-450); Eosinophils Percent Auto 2.5 % (2-4); Hematocrit 45.5 % (36-46); Hemoglobin 15.1 g/dL (12.0-16.0); Lymphocytes Absolute Auto 1900 /uL (1100-4500); Lymphocytes Percent Auto 32.5 % (25-40); Mean Corpuscular HGB Conc 33.2 % (30-36); Mean Corpuscular Hemoglobin 30.5 PG (26-34); Mean Corpuscular Volume 91.7 fL (80-100); Monocytes Absolute Auto 500 /uL (0-900); Monocytes Percent Auto 8.7 % (3-14); Neutrophils Absolute Auto 3300 /uL (1500-7000); Neutrophils Percent Auto 55.5 % (50-75); Platelet Count 219 X10^3/uL (150-400); Red Blood Cell Count 4.96 X10^6/uL (4.0-5.2); Red Cell Distribution Width 13.8 % (11.6-14.8); White Blood Cell Count 5.9 X10^3/uL (4.5-11.0)
[2024-04-22 10:48] LABS: Hemoglobin A1C% w Est Avg Glu 5.2 % (4.0-6.0)
[2024-04-22 10:52] LABS: BUN Creatinine Ratio 12.3 (6-22); Blood Urea Nitrogen 10 mg/dL (7-17); Calcium 9.5 mg/dL (8.4-10.2); Carbon Dioxide 28 mmol/L (22-32); Chloride 105 mmol/L (98-107); Estimated Glomerular Filt Rate > 60 mL/min (>60); Glucose 100 mg/dL (80-110); HEMOLYSIS < 15 (0-50); Potassium 4.6 mmol/L (3.4-5.1); Sodium 138 mmol/L (137-145)
[2024-04-22 11:10] LABS: Appearance Urine UA CLEAR; Bilirubin Urine UA NEGATIVE (NEGATIVE); Color Urine UA YELLOW; Glucose Urine UA NEGATIVE (Negative); Ketones Urine UA NEGATIVE (NEGATIVE); Leukocyte Esterase Urine UA NEGATIVE (NEGATIVE); Nitrite Urine UA NEGATIVE (Negative); Occult Blood Urine UA 1+ (Negative); Protein Urine UA NEGATIVE (Negative); Urobilinogen Urine UA 0.2 E.U./dL (0.2)
[2024-04-22 11:33] LABS: Bacteria Urine Occasional (0-1); Culture Indicated Urine Cult Not Indicated; RBC Urine 1-5/HPF (0-5/HPF); Squamous Epithelial Cell Urine 5-10 /HPF (0-5/HPF); Urine Volume 10mL (spun); WBC Urine 0-1/HPF (0-5/HPF)
== END ==
PROVIDERS: Family Provider Family Medicine; PCP Family Medicine; Referring Provider Orthopaedic Surgery; Visit Provider Orthopaedic Surgery
DX: Z01.818 Encounter for other preprocedural examination (principal); R73.9 Hyperglycemia, unspecified; Z01.812 Encounter for preprocedural laboratory examination; N39.0 Urinary tract infection, site not specified
CPT/HCPCS: 36415; 80048; 81001; 83036; 85025; 93005

== ENCOUNTER → 2024-08-01 10:17 | Outpatient (CLI) | payer MEDICARE, SELFPAY ==
--- NOTE | 2024-08-01 10:21 | DI.RAD.S_ITS ---
PROCEDURE: XR LUMBAR SPINE MIN 4V INDICATIONS: BACK PAIN TECHNIQUE: 5 views of the lumbar spine were acquired, including bilateral oblique views. COMPARISON: [facility], , XR LUMBAR SPINE MIN 4V, 07/18/2022, 11:40. FINDINGS: Bones: 5 nonrib-bearing vertebrae are present. [place] left curvature of the upper lumbar spine. No vertebral body compression fractures. No suspicious bony lesions. Disc height loss most prominent at L1-L2 with large anterior osteophytes. Soft tissues: Overlying bowel gas pattern is normal. No suspicious soft tissue calcifications. Oblique images: No pars defects. IMPRESSION: No acute bony abnormality. Unchanged disc disease at L1-L2. Dictated by: Roberto Garcia M.D. on 08/01/2024 at 10:04 Approved by: Roberto Garcia M.D. on 08/01/2024 at 10:06
== END ==
PROVIDERS: Family Provider Family Medicine; PCP Family Medicine; Referring Provider Physical Medicine & Rehabilitation; Visit Provider Physical Medicine & Rehabilitation
DX: M54.16 Radiculopathy, lumbar region (principal); M54.9 Dorsalgia, unspecified
CPT/HCPCS: 72110

== ENCOUNTER → 2024-08-08 09:45 | Outpatient (CLI) | payer MEDICARE, SELFPAY ==
--- NOTE | 2024-08-08 09:47 | DI.MRI.S_ITS ---
PROCEDURE: MR HIP LT WO CON INDICATIONS: Left acetabular tear TECHNIQUE: Noncontrast coronal T1 spin echo and STIR through the bony pelvis. Coronal and axial T2 fast spin echo with fat saturation, sagittal T1 spin echo, and oblique axial T2 fast spin echo with fat saturation through the hip. COMPARISON: [facility], CR, XR HIP W PEL IF DONE FELICIA 3TO4V, 11/12/2022, 13:01. FINDINGS: Image quality: Excellent. Bones and joints: Bone marrow of the pelvic ring and proximal femurs show normal signal throughout. No intraosseous lesions or fractures. No avascular necrosis of the femoral head. Mild multilevel degenerative disc disease and facet hypertrophy in the included spine. Tendons and ligaments: Mild distal left gluteus medius and minimus tendinosis. The proximal iliotibial band appears intact. The iliopsoas tendon appears intact, without adjacent bursal fluid collections. The origin of the hamstring tendon demonstrates mild tendinosis. The tendons for the direct and indirect heads of the rectus femoris muscle appear intact. Labrum and cartilage: Focal nondisplaced tearing of the anterior superior acetabular labrum. Mild partial-thickness cartilage irregularity at the superior aspect of the hip with small marginal osteophytes. No hip effusion. Soft tissues: Benign appearing intramuscular lipoma is partially included along the anterior margin of the proximal vastus lateralis muscle. Visualized muscles demonstrate normal bulk and internal signal. Quadratus femoris muscle demonstrates no internal edema to suggest ischiofemoral impingement. The proximal sciatic neurovascular bundle appears normal adjacent to the hamstring tendons. Pelvic soft tissues demonstrate no acute abnormality. IMPRESSION: 1. Nondisplaced tearing of the anterior superior left acetabular labrum. 2. Grade 2 chondromalacia the left hip. 3. Mild distal left gluteus medius and minimus tendinosis. 4. Mild left proximal hamstring tendinosis. 5. Multilevel degenerative changes in the included spine. Approved by: Nick Mills M.D. on 08/10/2024 at 10:07
== END ==
PROVIDERS: Family Provider Family Medicine; PCP Family Medicine; Referring Provider Physical Medicine & Rehabilitation; Visit Provider Physical Medicine & Rehabilitation
DX: S73.192A Other sprain of left hip, initial encounter (principal); M16.0 Bilateral primary osteoarthritis of hip; M94.252 Chondromalacia, left hip
CPT/HCPCS: 73721

== ENCOUNTER 2024-08-12 07:31 | Outpatient (CLI) | payer MEDICARE, SELFPAY ==
[2024-08-12] VITALS (10 sets, daily range): BP systolic 159–210; BP diastolic 79–99; PULSE 75–90; RESP 14–18; TEMP 36.3; O2SAT 96–100
--- NOTE | 2024-08-12 07:33 | DI.RAD.S_ITS ---
PROCEDURE: PAIN L/S TRANSFORAMINAL INJECT INDICATIONS: Left L3/4 TFESI COMPARISON: [facility], , PAIN L/S TRANSFORAMINAL INJECT, 08/06/2023, 9:06. FINDINGS/IMPRESSION: Fluoroscopic spot filming was performed to verify placement of spinal needles at the left L3-L4 level(s), as labeled on the films. Appropriate location(s) of the needle tip(s) was confirmed by injection of iodinated contrast. Approved by: Valentina Espinoza M.D.,Ph.D. on 08/12/2024 at 21:40
[2024-08-12] MEDS: MIDAZOLAM 2 MG/2 ML VIAL IV ×2 (08:22→08:29)
[2024-08-12] MEDS: iopamidoL 15 ML VIAL 3 ML INJ (08:32)
[2024-08-12] MEDS: DEXAMETHASONE 10 MG/ML VIAL INJ (08:32)
[2024-08-12] MEDS: BUPIVACAINE 0.25% (PF) VIAL 2 ML INJ (08:32)
[2024-08-12] MEDS: BETAMETHASONE 30 MG/5 ML MDV 12 MG INJ (08:33)
--- NOTE | 2024-08-12 08:42 | P.PCN_ITS ---
Date/Time/Diagnoses Date of procedure: 08/12/24 Time of procedure: 08:42 Pre-procedure diagnosis: 1. FORAMINAL STENOSIS WITH LE SYMPTOMS Post-procedure diagnosis: same Procedure Notes Procedure: 1. FLUOROSCOPICALLY GUIDED CONTRAST CONTROLLED TRANSFORAMINAL EPIDURAL STEROID INJECTION - LEFT L3/4 TFESI Indications: Stephanie is referred by Dr. Daigle for treatment of Foraminal Stenosis with left LE Symptoms Physician: Manan Parker Total Fluoroscopy time (seconds): 9 Total sedation minutes: 15 Complications: none Procedure in detail & Post-procedure care: FINDINGS Foraminal Nerve Root Compression secondary to disc disease and facet hypertrophy DESCRIPTION OF PROCEDURE Following review of allergy and review of potential side effects and complications, including, but not necessarily limited to, infection, allergic reaction, local tissue breakdown, stroke, temporary or permanent nerve injury, paralysis, and possible , the patient indicated that the patient understood and agreed to proceed. An informed consent document was signed by the patient, witnessed by a nurse, and placed in the patient's chart. Additionally, other treatment options including medications, modalities, and physical therapy were reviewed with the patient. After review of previous anaesthesic history and IV conscious sedation the patient was deemed safe to proceed with today?s procedure with IV conscious sedation as ASA class II designation. Safety time-out was performed to confirm patient ID, procedure to be performed and site of procedure. IV sedation was accomplished with a combination of 4mg of Versed was administered by the RN after DO order, titrated to patient comfort during the course of the procedure while the patient remained responsive to all verbal commands In the prone position following sterile prep and drape of the lumbar region, the left L3/4 posterior neuroforamen was identified fluoroscopically. The skin was anesthetized via a 25-gauge 1.5-inch needle with 1% lidocaine solution. At this point, a 25-gauge 3.5-inch spinal needle was atraumatically introduced and advanced under fluoroscopic guidance through the posterior left L3/4 neuroforamen to approximately the anterior aspect of the canal. Depth was confirmed on lateral view. Following negative aspiration, injection of approximately 1.5 cc of Isovue 200 under live fluoroscopy in the AP view confirm ed excellent flow along the nerve root, into the epidural space without vascular or intrathecal uptake observed Radiological data, including multiple fluoroscopic views of the lumbosacral spine, reveal a spinal needle at the left L3/4 posterior neuroforamen. Subsequent views show flow of contrast material flowing superiorly and inferiorly along the nerve root confirming epidural flow. Subsequently, a test dose of 1.5cc of 1% lidocaine solution was administered and patient was observed for two minutes for signs or symptoms of complications, including abdominal pain, shortness of breath, bilateral upper or lower extremity weakness, nausea and vomiting, prior to steroid injection. At this point, a total of 3cc or 10mg of dexamethasone and 12mg betamethasone was injected without incident. The patient tolerated the procedure well without signs or symptoms of complications prior to transfer to the recovery area continued monitoring without incident. The patient was then transferred to the recovery area where they were observed for an appropriate time after the injection. The patient reported a VAS score of 7 prior to the procedure and a post-procedure VAS of 0. POST OP INSTRUCTIONS The patient was provided a Pain Log to continue to record their response to the target-specific procedure prior to follow-up visit with their referring physician. Additionally, specific post-injection care instructions and a contact number to our office were provided if concerns arise regarding possible complications associated with the procedure are suspected.
== END 2024-08-12 09:05 | disposition home or self-care (01) ==
PROVIDERS: Family Provider Family Medicine; PCP Family Medicine; Referring Provider Physical Medicine & Rehabilitation; Visit Provider Physical Medicine & Rehabilitation
DX: M48.061 Spinal stenosis, lumbar region without neurogenic claudication (principal); M51.16 Intervertebral disc disorders with radiculopathy, lumbar region; M47.26 Other spondylosis with radiculopathy, lumbar region
CPT/HCPCS: 64483; 99152; J0702; J1100; J2250; J3490

== ENCOUNTER 2024-12-14 13:10 | Outpatient (CLI) | payer MEDICARE, SELFPAY ==
[2024-12-14] VITALS (10 sets, daily range): BP systolic 171–209; BP diastolic 75–97; PULSE 76–88; RESP 14–16; TEMP 36.4; O2SAT 97–99
--- NOTE | 2024-12-14 14:04 | P.PCN_ITS ---
Date/Time/Diagnoses Date of procedure: 12/14/24 Time of procedure: 14:04 Pre-procedure diagnosis: 1. FORAMINAL STENOSIS WITH LE SYMPTOMS Post-procedure diagnosis: same Procedure Notes Procedure: 1. FLUOROSCOPICALLY GUIDED CONTRAST CONTROLLED TRANSFORAMINAL EPIDURAL STEROID INJECTION - BILATERAL L3/4 TFESI Indications: Stephanie is referred by Dr. Daigle for treatment of Foraminal Stenosis with bilateral LE Symptoms Physician: Manan Parker Total Fluoroscopy time (seconds): 12 Total sedation minutes: 18 Complications: none Procedure in detail & Post-procedure care: FINDINGS Foraminal Nerve Root Compression secondary to disc disease and facet hypertrophy DESCRIPTION OF PROCEDURE Following review of allergy and review of potential side effects and complications, including, but not necessarily limited to, infection, allergic reaction, local tissue breakdown, stroke, temporary or permanent nerve injury, paralysis, and possible , the patient indicated that the patient understood and agreed to proceed. An informed consent document was signed by the patient, witnessed by a nurse, and placed in the patient's chart. Additionally, other treatment options including medications, modalities, and physical therapy were reviewed with the patient. After review of previous anaesthesic history and IV conscious sedation the patient was deemed safe to proceed with today?s procedure with IV conscious sedation as ASA class II designation. Safety time-out was performed to confirm patient ID, procedure to be performed and site of procedure. IV sedation was accomplished with a combination of 4mg of Versed was administered by the RN after DO order, titrated to patient comfort during the course of the procedure while the patient remained responsive to all verbal commands In the prone position following sterile prep and drape of the lumbar region, the right L3/4 posterior neuroforamen was identified fluoroscopically. The skin was anesthetized via a 25-gauge 1.5-inch needle with 1% lidocaine solution. At this point, a 25-gauge 3.5-inch spinal needle was atraumatically introduced and advanced under fluoroscopic guidance through the posterior right L3/4 neuroforamen to approximately the anterior aspect of the canal. Depth was confirmed on lateral view. Following negative aspiration, injection of approximately 1.5cc of Isovue 200 under live fluoroscopy in the AP view confi rmed excellent flow along the nerve root, into the epidural space without vascular or intrathecal uptake observed Radiological data, including multiple fluoroscopic views of the lumbosacral spine, reveal a spinal needle at the right L3/4 posterior neuroforamen. Subsequent views show flow of contrast material flowing superiorly and inferiorly along the nerve root confirming epidural flow. Subsequently, a test dose of 1.5cc of 1% lidocaine solution was administered and patient was observed for two minutes for signs or symptoms of complications, including abdominal pain, shortness of breath, bilateral upper or lower extremity weakness, nausea and vomiting, prior to steroid injection. At this point, a total of 2cc or 10mg of dexamethasone and 6mg betamethasone was injected without incident. Attention was then refocused to the left L3/4 level where the identical procedure was replicated. The procedure tolerated the procedure well without signs or symptoms of complications prior to transfer to the recovery area continued monitoring without incident. The patient was then transferred to the recovery area where they were observed for an appropriate time after the injection. The patient reported a VAS score of 7 prior to the procedure and a post-procedure VAS of 0. POST OP INSTRUCTIONS The patient was provided a Pain Log to continue to record their response to the target-specific procedure prior to follow-up visit with their referring physician. Additionally, specific post-injection care instructions and a contact number to our office were provided if concerns arise regarding possible complications associated with the procedure are suspected.
[2024-12-14] MEDS: MIDAZOLAM 2 MG/2 ML VIAL IV ×2 (14:09→14:16)
[2024-12-14] MEDS: BUPIVACAINE 0.25% (PF) VIAL 2 ML INJ (14:13)
[2024-12-14] MEDS: DEXAMETHASONE 10 MG/ML VIAL 20 MG INJ (14:14)
[2024-12-14] MEDS: BETAMETHASONE 30 MG/5 ML MDV 12 MG INJ (14:16)
[2024-12-14] MEDS: BETAMETHASONE 30 MG/5 ML MDV 6 MG INJ (14:17)
[2024-12-14] MEDS: iopamidoL 15 ML VIAL 3 ML INJ (14:17)
== END 2024-12-14 14:46 | disposition home or self-care (01) ==
PROVIDERS: PCP Family Medicine; Referring Provider Physical Medicine & Rehabilitation; Visit Provider Physical Medicine & Rehabilitation
DX: M48.061 Spinal stenosis, lumbar region without neurogenic claudication (principal); M51.16 Intervertebral disc disorders with radiculopathy, lumbar region; M47.26 Other spondylosis with radiculopathy, lumbar region
CPT/HCPCS: 64483; 99152; J0702; J1100; J2250

== ENCOUNTER → 2024-12-27 09:08 | Outpatient (CLI) | payer MEDICARE, SELFPAY ==
[2024-12-27 09:46] LABS: Hemoglobin A1C% w Est Avg Glu 5.2 % (4.0-6.0)
[2024-12-27 09:52] LABS: Alanine Aminotransferase 20 IU/L (<35); Albumin 4.1 g/dL (3.5-5.0); Albumin Globulin Ratio 1.4 (1.0-2.8); Alkaline Phosphatase 66 U/L (38-126); Blood Urea Nitrogen 19 mg/dL (7-17); Calcium 8.9 mg/dL (8.4-10.2); Carbon Dioxide 27 mmol/L (22-32); Chloride 105 mmol/L (98-107); Cholesterol 217 mg/dL (140-199); Estimated Glomerular Filt Rate > 60 mL/min (>60); Globulin 2.9 g/dL (1.7-4.1); Glucose 100 mg/dL (70-99); HDL Cholesterol 74 mg/dL (40-60); HEMOLYSIS < 15 (0-50); Potassium 4.1 mmol/L (3.4-5.1); Sodium 138 mmol/L (137-145); Total Protein 7.0 g/dL (6.3-8.2); Triglycerides 79 mg/dL (35-150)
[2024-12-27 10:22] LABS: TSH w/ Reflex to FT4 1.64 uIU/mL (0.47-4.68)
[2024-12-28 03:39] LABS: CRP, High Sensitivity 5.26 mg/L (0.00-3.00)
== END ==
PROVIDERS: PCP Family Medicine; Referring Provider Family Medicine; Visit Provider Family Medicine
DX: R73.9 Hyperglycemia, unspecified (principal); E03.9 Hypothyroidism, unspecified; Z91.89 Other specified personal risk factors, not elsewhere classified; R03.0 Elevated blood-pressure reading, without diagnosis of hypertension; Z68.41 Body mass index [BMI] 40.0-44.9, adult
CPT/HCPCS: 80053; 80061; 83036; 84443; 86140

== ENCOUNTER 2025-04-19 13:37 | Outpatient (CLI) | payer MEDICARE, SELFPAY ==
[2025-04-19] VITALS (9 sets, daily range): BP systolic 157–201; BP diastolic 74–93; PULSE 54–75; RESP 14–20; TEMP 36.9; O2SAT 97–100
[2025-04-19] MEDS: MIDAZOLAM 2 MG/2 ML VIAL IV (14:58)
[2025-04-19] MEDS: BETAMETHASONE 30 MG/5 ML MDV 12 MG INJ (15:03)
--- NOTE | 2025-04-19 15:19 | PM.PROC.IR.1 ---
Date/Time/Diagnoses Date of procedure: 04/19/25 Time of procedure: 15:19 Pre-procedure diagnosis: Sacroiliac Joint Pain/DJD Post-procedure diagnosis: same Procedure Notes Procedure: Fluoroscopically guided contrast controlled left sacroiliac joint injection Indications: Stephanie is referred by Dr. Daigle for treatment of left sacroiliac joint DJD Physician: Manan Parker Total Fluoroscopy time (seconds): 11 Total sedation minutes: 13 Complications: none Procedure in detail & Post-procedure care: DESCRIPTION OF PROCEDURE Fluoroscopic guided, contrast controlled left sacroiliac joint injection Following review of allergies and review of potential side effects and complications, including, but not necessarily limited to, infection, allergic reaction, local tissue breakdown, temporary as well as permanent nerve injury, paralysis, stroke and possible , the patient indicated that they understood and agreed to proceed. An informed consent was signed by the patient, witnessed by a nurse, and placed in the patient's chart. Additionally, other treatment options including modalities, medications, and physical therapy were reviewed with the patient. After review of previous anaesthesic history and IV conscious sedation the patient was deemed safe to proceed with today?s procedure with IV conscious sedation as ASA class II designation. Safety time-out was performed to confirm patient ID, procedure to be performed and site of procedure. IV sedation was accomplished with a combination of 2mg of Versed administered by the RN after DO order, titrated to patient comfort during the course of the procedure while the patient remained responsive to all verbal commands. In the prone position following sterile prep and drape of the pelvic region, the hyper lucency on in the inferior aspect of the left sacroiliac joint was identified fluoroscopically the skin was anesthetized be a 25 gauge 1 eventual with approximately 2cc of 1% lidocaine solution. At this point, a 22 gauge 3inch spinal needle was atraumatically introduced and advanced under fluoroscopic guidance into the inferior aspect of the left sacroiliac joint. Following negative aspiration, approximately 0.3cc of Isovue-300 was injected confirming intra-articular placement without vascular uptake. Radiographic data, including multiple fluoroscopic views of the pelvis, reveals a spinal needle in the left sacroiliac joint hyper lucent zone. Subsequent view show flow contrast tear superiorly and inferiorly within the joint capsule without vascular intrathecal uptake. At this point a total of 1cc or 0.5% Marcaine was combined with 2cc of 12mg of betamethasone was injected without incident. The patient tolerated the procedure well without signs or symptoms of complications prior to transfer to the recovery area for further monitoring. The patient was then transferred to the recovery area with a bur observed for an appropriate time after the injection. The patient reverted a vas score of 7 prior to the procedure and postprocedure vas of 1. POSTOP INSTRUCTIONS The patient was provided with a pain like to continue to record the patient's response to the target specific procedure prior to the patient's follow-up visit with the referring physician. Additionally, specific post injection care instructions and a contact number to our office were provided if concerns arise regarding the possible complications associated with procedure are suspected.
== END 2025-04-19 15:31 | disposition home or self-care (01) ==
PROVIDERS: PCP Family Medicine; Referring Provider Physical Medicine & Rehabilitation; Visit Provider Physical Medicine & Rehabilitation
DX: M46.1 Sacroiliitis, not elsewhere classified (principal); M53.3 Sacrococcygeal disorders, not elsewhere classified
CPT/HCPCS: 27096; 99152; J0702; J2250